=== PATIENT | male | born 1965 ===

== ENCOUNTER 2017-03-17 13:21 | Inpatient (IN) | payer MEDICAID, OTHER ==
[2017-03-17 13:36] VITALS: BMI 23.3
--- NOTE | 2017-03-17 15:33 | RAD ---
HISTORY: No chest pain. COMPARISON: None FINDINGS: LUNGS: No active pulmonary disease. PLEURA: No significant pleural effusion identified, no pneumothorax apparent. CARDIOVASCULAR: Normal. OSSEOUS STRUCTURES: No significant abnormalities. VISUALIZED UPPER ABDOMEN: Normal. OTHER FINDINGS: None. IMPRESSION: No active disease. Concordant results with the preliminary interpretation rendered by the emergency department physician procedure.
[2017-03-17 15:36] LABS: BASO % 0.2 % (0.0-2.0); EOS % 0.2 % (0.0-4.0); HEMATOCRIT 27.8 % (35.0-51.0); LYMPH # 1.8 K/uL (1.0-4.3); LYMPH % 29.5 % (20.0-40.0); MEAN CORPUSCULAR HEMOGLOBIN 27.7 pg (27.0-31.0); MEAN CORPUSCULAR HGB CONC 31.8 g/dL (33.0-37.0); MEAN PLATELET VOLUME 6.8 fl (7.2-11.7); MONO # 0.9 K/uL (0.0-0.8); NEUT # 3.3 K/uL (1.8-7.0); NEUT % 55.1 % (50.0-75.0); NRBC % 0.1 % (0.0-0.0); RED CELL DISTRIBUTION WIDTH 14.6 % (11.5-14.5)
[2017-03-17 15:52] LABS: ALKALINE PHOSPHATASE 64 U/L (38-126); ALT/SGPT 42 U/L (21-72); AST/SGOT 17 U/L (17-59); BILIRUBIN,TOTAL 0.2 mg/dl (0.2-1.3); BLOOD UREA NITROGEN 14 mg/dl (9-20); CALCIUM 7.8 mg/dL (8.4-10.2); CARBON DIOXIDE 25 mmol/L (22-30); CHLORIDE 100 mmol/L (98-107); GFR AFRICAN-AMERICAN > 60; GLUCOSE,RANDOM 388 mg/dL (75-110); LIPASE 266 U/L (23-300); MAGNESIUM 1.4 MG/DL (1.6-2.3); SODIUM 135 mmol/l (132-148); TOTAL PROTEIN 5.5 G/DL (6.3-8.2)
[2017-03-17 15:56] LABS: PARTIAL THROMBOPLASTIN TIME 29.5 Seconds (25.6-37.1)
[2017-03-17] MEDS ORDERED: Sodium Chloride 0.9% 1,000 ML IV ONE (15:57)
[2017-03-17 15:58] LABS: RBC URINE 1 /hpf (0-3); URINE BILIRUBIN NEGATIVE (NEGATIVE); URINE BLOOD NEGATIVE (NEGATIVE); URINE COLOR YELLOW (YELLOW); URINE GLUCOSE (UA) >=500 mg/dL (Normal); URINE KETONE NEGATIVE (NEGATIVE); URINE LEUKOCYTE ESTERASE NEG Leu/uL (Negative); URINE PROTEIN NEGATIVE (NEGATIVE); URINE UROBILINOGEN 0.2-1.0 mg/dL (0.2-1.0); WBC URINE < 1 /hpf (0-5)
[2017-03-17 16:00] LABS: ALB/GLOB RATIO 0.9 (1.0-2.1)
[2017-03-17] MEDS ORDERED: Insulin Regular 100 units/ml IV STA (18:39)
--- NOTE | 2017-03-17 18:40 | US ---
PROCEDURE: Bilateral lower extremity venous duplex Doppler. HISTORY: pain and swelling COMPARISON: None available. TECHNIQUE: Bilateral common femoral, superficial femoral, popliteal and posterior tibial veins were evaluated. Flow was assessed with color Doppler, compressibility, assessment of phasic flow and augmentation response. FINDINGS: COMMON FEMORAL VEIN: Right CFV: Unremarkable. Left CFV: Unremarkable. SUPERFICIAL FEMORAL VEIN: Right SFV: Unremarkable. Left SFV: Unremarkable. POPLITEAL VEIN: Right Popliteal: Unremarkable. Left Popliteal: Unremarkable. POSTERIOR TIBIAL VEIN: Right PTV: Unremarkable. Left PTV: Unremarkable. OTHER FINDINGS: None. IMPRESSION: No evidence of deep venous thrombosis.
[2017-03-17] MEDS ORDERED: Iodixanol 320 MG/ML 100 ML BOTTLE IV ONE (18:42)
[2017-03-17] MEDS ORDERED: Insulin Regular 100 units/ml ONE (18:59)
--- NOTE | 2017-03-17 19:40 | ED PDOC ---
HPI: Chest Pain Time Seen by Provider: 03/17/17 13:43 Chief Complaint (Nursing): Chest Pain History Per: Patient, Ell Teacher (togolese speaking nurse) History/Exam Limitations: no limitations Onset/Duration Of Symptoms: Days (3), Gradual Current Symptoms Are (Timing): Intermittent Episodes Severity: Mild Quality: Dull Associated Symptoms: Diaphoresis. denies: Nausea Modifying Factors: None Exacerbating Factors: None Alleviating Factors: None Additional History Per: Patient Additional Complaint(s): Complaints of chest pain and BLE leg swelling x a few days. no travel. Past Medical History Reviewed: Historical Data, Nursing Documentation, Vital Signs Vital Signs: Last Vital Signs Temp 98.0 F 03/17/17 13:38 Pulse 84 03/17/17 14:26 Resp 16 03/17/17 13:38 BP 109/61 03/17/17 14:26 Pulse Ox 99 03/17/17 13:38 - Medical History PMH: No Chronic Diseases - Family History Family History: States: Unknown Family Hx - Allergies Allergies/Adverse Reactions: Allergies Allergy/AdvReac Type Severity Reaction Status Date / Time No Known Allergies Allergy Verified 03/17/17 13:38 Curb-65 Severity Score - CURB-65 Severity Score Confusion: No Bun >19mg/dl (>7mmol/L): No Respiratory Rate greater than/equal to 30: No Systolic BP <90 or Diastolic BP less than/equal 60mmHg: No Age >64: No Curb-65 Score: 0 Percentage 30-day mortality: 0.6% Wells Criteria for PE - Wells Criteria for Pulmonary Embolism Clinical Signs and Symptoms of DVT: No P.E is #1 Diagnosis, or Equally Likely: No Heart Rate >100: No Immobilization at least 3 days;Surgery previous 4 weeks: No Previous, objectively diagnosed PE or DVT: No Hemoptysis: No Malignancy w/treatment within 6 months, or palliative: No Total Score: 0 Review of Systems ROS Statement: Except As Marked, All Systems Reviewed And Found Negative Constitutional: Negative for: Fever, Chills Cardiovascular: Positive for: Chest Pain, Edema (bl). Negative for: Palpitations, Light Headedness Respiratory: Negative for: Cough, Shortness of Breath Gastrointestinal: Negative for: Nausea, Vomiting, Abdominal Pain Neurological: Negative for: Weakness, Numbness Physical Exam - Reviewed Nursing Documentation Reviewed: Yes Vital Signs Reviewed: Yes - Physical Exam Appears: Positive for: Uncomfortable Head Exam: Positive for: ATRAUMATIC, NORMAL INSPECTION, NORMOCEPHALIC Eye Exam: Positive for: Normal appearance, EOMI, PERRL Neck: Positive for: Normal, Painless ROM, Supple. Negative for: Decreased ROM Cardiovascular/Chest: Positive for: Regular Rate, Rhythm, Chest Non Tender, Edema (+3 to shins bl) Respiratory: Positive for: Normal Breath Sounds. Negative for: Decreased Breath Sounds, Accessory Muscle Use, Crackles, Rales, Rhonchi, Stridor, Wheezing , Respiratory Distress, Plerual Rub Pulses-Radial (L): 2+ Pulses-Radial (R): 2+ Gastrointestinal/Abdominal: Positive for: Normal Exam, Bowel Sounds, Soft. Negative for: Tenderness Back: Positive for: Normal Inspection Extremity: Positive for: Normal ROM, Swelling. Negative for: Tenderness, Pedal Edema, Calf Tenderness, Deformity Neurologic/Psych: Positive for: Alert, stone sawyer II-XII, Oriented. Negative for: Motor/Sensory Deficits - Laboratory Results Result Diagrams: 03/17/17 15:20 03/17/17 15:20 - ECG ECG: Positive for: Interpreted By [facility] ECG Rhythm: Positive for: Normal QRS, Normal ST Segment, Sinus Rhythm. Negative for: ST/T Changes Interpretation Of Abn EKG: no evidence of ischemia O2 Sat by Pulse Oximetry: 99 Pulse Ox Interpretation: Normal - Radiology X-Ray: Interpreted by [facility] X-Ray Interpretation: No Acute Disease - Progress ED Course And Treament: will admit to tele obs per hospitalist Re-evaluation Time: 19:41 Condition: Improved Disposition - Clinical Impression Clinical Impression: Chest pain - Patient ED Disposition Is Patient to be Admitted: Yes Counseled Patient/Family Regarding: Studies Performed, Diagnosis - Disposition Disposition Time: 19:41 Condition: STABLE - Pt Status Changed To: Hospital Disposition Of: Observation - POA Present On Arrival: None
[2017-03-17] MEDS ORDERED: Magnesium Sulfate 2 GM in Sodium Chloride 0.9% 100 ML IVPB ONE (21:22)
[2017-03-17] MEDS: Insulin Lispro (humaLOG) 100 Units/ml Inj SC SCH (23:56)
[2017-03-18] MEDS: Dextrose 5%/0.9% NS 1,000 ML IV SCH ×2 (01:21→08:30)
[2017-03-18 05:26] LABS: BASO % 0.2 % (0.0-2.0); EOS # 0.1 K/uL (0.0-0.7); EOS % 2.2 % (0.0-4.0); HEMATOCRIT 26.5 % (35.0-51.0); LYMPH # 1.9 K/uL (1.0-4.3); LYMPH % 33.9 % (20.0-40.0); MEAN CORPUSCULAR HEMOGLOBIN 27.7 pg (27.0-31.0); MEAN CORPUSCULAR HGB CONC 32.2 g/dL (33.0-37.0); MEAN PLATELET VOLUME 6.5 fl (7.2-11.7); MONO # 0.9 K/uL (0.0-0.8); MONO % 14.9 % (0.0-10.0); NEUT # 2.8 K/uL (1.8-7.0); NEUT % 48.8 % (50.0-75.0); NRBC % 0.1 % (0.0-0.0); RED CELL DISTRIBUTION WIDTH 14.1 % (11.5-14.5); WHITE BLOOD COUNT 5.7 K/uL (4.8-10.8)
[2017-03-18 05:56] LABS: BLOOD UREA NITROGEN 9 mg/dl (9-20); CALCIUM 7.1 mg/dL (8.4-10.2); CARBON DIOXIDE 30 mmol/L (22-30); CHLORIDE 105 mmol/L (98-107); GFR AFRICAN-AMERICAN > 60; GLUCOSE,RANDOM 262 mg/dL (75-110); SODIUM 137 mmol/l (132-148)
[2017-03-18 06:14] LABS: THYROID STIMULATING HORMONE 1.34 mIU/ML (0.46-4.68)
[2017-03-18] MEDS: Insulin Lispro (humaLOG) 100 Units/ml Inj SC SCH ×4 (07:51→22:25)
[2017-03-18] MEDS: GlipiZIDE 2.5 mg SR Tab PO SCH (08:34)
[2017-03-18] MEDS: Thiamine 100 mg/ml Inj IV SCH (08:35)
--- NOTE | 2017-03-18 15:19 | NM ---
COMPARISON: Chest radiograph 03/17/2017. TECHNIQUE: 38.560 mCi technetium 99-m DTPA aerosol. 5.0 mCI technetium 99-m MAA administered intravenously. FINDINGS: Mass profusion ventilation defects are minimally appreciated at the right apex, Martín which is nonsegmental. The remainder the profusion and ventilation appears normal. Low probability for pulmonary embolus. IMPRESSION: Low probability for pulmonary embolus.
--- NOTE | 2017-03-18 15:32 | CP.PCM.HP ---
History of Present Illness - History of Present Illness History of Present Illness: CC: Abdominal pain and Diarrhea HPI: Poor Historian A 51yoM who was recently diagnosed with Colitis and started on Mesalamine presented with abdominal pain 6-10/07 associated bloody diarrhea. +weight Loss about 50lbs over 1-2 months.Complaints of chest pain, SOB and BLE leg swelling x a few days. No travel. Present on Admission - Present on Admission Any Indicators Present on Admission: No History of DVT/PE: No History of Uncontrolled Diabetes: No Urinary Catheter: No Decubitus Ulcer Present: No Review of Systems - Review of Systems All systems: reviewed and no additional remarkable complaints except - Gastrointestinal Gastrointestinal: As Per HPI Past Patient History - Past Medical History & Family History Past Medical History?: Yes Past Family History: Reviewed and not pertinent - Past Social History Smoking Status: Former Smoker Alcohol: None Drugs: Denies - CARDIAC Hx Cardiac Disorders: No - PULMONARY Hx Respiratory Disorders: No - NEUROLOGICAL Hx Neurological Disorder: No - HEENT Hx HEENT Problems: No - RENAL Hx Chronic Kidney Disease: No - ENDOCRINE/METABOLIC Hx Endocrine Disorders: Yes (diabetes) Hx Diabetes Mellitus Type 2: Yes - HEMATOLOGICAL/ONCOLOGICAL Hx Blood Disorders: No Hx AIDS: No Hx Human Immunodeficiency Virus (HIV): No - INTEGUMENTARY Hx Dermatological Problems: No - MUSCULOSKELETAL/RHEUMATOLOGICAL Hx Musculoskeletal Disorders: No Hx Falls: Yes - GASTROINTESTINAL Hx Gastrointestinal Disorders: Yes Hx Colitis: Yes - GENITOURINARY/GYNECOLOGICAL Hx Genitourinary Disorders: No - PSYCHIATRIC Hx Psychophysiologic Disorder: No Hx Substance Use: No - SURGICAL HISTORY Hx Surgeries: No - ANESTHESIA Hx Anesthesia: No Hx Anesthesia Reactions: No Hx Malignant Hyperthermia: No Has any member of the family had a problem w/ anesthesia?: No Meds Allergies/Adverse Reactions: Allergies Allergy/AdvReac Type Severity Reaction Status Date / Time No Known Allergies Allergy Verified 03/17/17 13:38 Physical Exam - Constitutional Appears: Well, No Acute Distress, Chronically Ill - Head Exam Head Exam: ATRAUMATIC, NORMAL INSPECTION, NORMOCEPHALIC - Eye Exam Eye Exam: EOMI, Normal appearance, PERRL Pupil Exam: NORMAL ACCOMODATION, PERRL - ENT Exam ENT Exam: Mucous Membranes Moist, Normal Exam - Neck Exam Neck exam: Positive for: Full Rom, Normal Inspection. Negative for: Lymphadenopathy - Respiratory Exam Respiratory Exam: Clear to Auscultation Bilateral, NORMAL BREATHING PATTERN - Cardiovascular Exam Cardiovascular Exam: REGULAR RHYTHM, +S1, +S2 - GI/Abdominal Exam GI & Abdominal Exam: Firm, Normal Bowel Sounds, Soft, Tenderness - Extremities Exam Extremities exam: Positive for: full ROM, normal capillary refill, pedal edema ( B/L LE ) - Back Exam Back exam: FULL ROM, NORMAL INSPECTION - Neurological Exam Neurological exam: Alert, CN II-XII Intact, Normal Gait, Oriented x3, Reflexes Normal - Psychiatric Exam Psychiatric exam: Normal Affect, Normal Mood - Skin Skin Exam: Dry, Intact, Normal Color, Warm Results - Vital Signs Recent Vital Signs: Last Vital Signs Temp 97.7 F 03/18/17 12:15 Pulse 78 03/18/17 12:15 Resp 20 03/18/17 12:15 BP 123/72 03/18/17 12:15 Pulse Ox 100 03/18/17 12:15 - Labs Result Diagrams: 03/18/17 04:30 03/18/17 04:30 Labs: Laboratory Results - last 24 hr 03/17/17 03/17/17 03/17/17 15:20 15:20 15:20 WBC 6.0 RBC 3.19 L Hgb 8.8 L Hct 27.8 L MCV 87.0 MCH 27.7 MCHC 31.8 L RDW 14.6 H Plt Count 396 MPV 6.8 L Neut % (Auto) 55.1 Lymph % (Auto) 29.5 [place] % (Auto) 15.0 H Eos % (Auto) 0.2 Baso % (Auto) 0.2 Neut # 3.3 Lymph # 1.8 [place] # 0.9 H Eos # 0.0 Baso # 0.0 PT 11.8 INR 1.1 APTT 29.5 D-Dimer, Quantitative 256 H Sodium 135 Potassium 4.0 Chloride 100 Carbon Dioxide 25 Anion Gap 14 BUN 14 Creatinine 0.5 L Est GFR ( Amer) > 60 Est GFR (Non-Af Amer) > 60 POC Glucose (mg/dL) Random Glucose 388 H Calcium 7.8 L Magnesium 1.4 L Ferritin Total Bilirubin 0.2 AST 17 ALT 42 Alkaline Phosphatase 64 Troponin I < 0.0120 NT-Pro-B Natriuret Pep 871 Total Protein 5.5 L Albumin 2.6 L Globulin 3.0 Albumin/Globulin Ratio 0.9 L Lipase 266 Vitamin B12 TSH 3rd Generation Urine Color Urine Clarity Urine pH Ur Specific Ingram Urine Protein Urine Glucose (UA) Urine Ketones Urine Blood Urine Nitrate Urine Bilirubin Urine Urobilinogen Ur Leukocyte Esterase Urine RBC (Auto) Urine Microscopic WBC Ur Squamous Epith Cells Alcohol, Quantitative 03/17/17 03/17/17 03/17/17 15:46 18:29 20:01 WBC RBC Hgb Hct MCV MCH MCHC RDW Plt Count MPV Neut % (Auto) Lymph % (Auto) [place] % (Auto) Eos % (Auto) Baso % (Auto) Neut # Lymph # [place] # Eos # Baso # PT INR APTT D-Dimer, Quantitative Sodium Potassium Chloride Carbon Dioxide Anion Gap BUN Creatinine Est GFR ( Amer) Est GFR (Non-Af Amer) POC Glucose (mg/dL) 311 H 207 H Random Glucose Calcium Magnesium Ferritin Total Bilirubin AST ALT Alkaline Phosphatase Troponin I NT-Pro-B Natriuret Pep Total Protein Albumin Globulin Albumin/Globulin Ratio Lipase Vitamin B12 TSH 3rd Generation Urine Color Yellow Urine Clarity Clear Urine pH 6.0 Ur Specific [place] 1.035 H Urine Protein Negative Urine Glucose (UA) >=500 Urine Ketones Negative Urine Blood Negative Urine Nitrate Negative Urine Bilirubin Negative Urine Urobilinogen 0.2-1.0 Ur Leukocyte Esterase Neg Urine RBC (Auto) 1 Urine Microscopic WBC < 1 Ur Squamous Epith Cells < 1 Alcohol, Quantitative 03/17/17 03/17/17 03/18/17 20:38 23:29 04:30 WBC 5.7 RBC 3.08 L Hgb 8.5 L Hct 26.5 L MCV 86.0 MCH 27.7 MCHC 32.2 L RDW 14.1 Plt Count 367 MPV 6.5 L Neut % (Auto) 48.8 L Lymph % (Auto) 33.9 [place] % (Auto) 14.9 H Eos % (Auto) 2.2 Baso % (Auto) 0.2 Neut # 2.8 Lymph # 1.9 [place] # 0.9 H Eos # 0.1 Baso # 0.0 PT INR APTT D-Dimer, Quantitative Sodium Potassium Chloride Carbon Dioxide Anion Gap BUN Creatinine Est GFR ( Amer) Est GFR (Non-Af Amer) POC Glucose (mg/dL) 289 H Random Glucose Calcium Magnesium Ferritin Total Bilirubin AST ALT Alkaline Phosphatase Troponin I NT-Pro-B Natriuret Pep Total Protein Albumin Globulin Albumin/Globulin Ratio Lipase Vitamin B12 TSH 3rd Generation Urine Color Urine Clarity Urine pH Ur Specific [place] Urine Protein Urine Glucose (UA) Urine Ketones Urine Blood Urine Nitrate Urine Bilirubin Urine Urobilinogen Ur Leukocyte Esterase Urine RBC (Auto) Urine Microscopic WBC Ur Squamous Epith Cells Alcohol, Quantitative < 10 03/18/17 03/18/17 03/18/17 04:30 05:47 10:47 WBC RBC Hgb Hct MCV MCH MCHC RDW Plt Count MPV Neut % (Auto) Lymph % (Auto) [place] % (Auto) Eos % (Auto) Baso % (Auto) Neut # Lymph # [place] # Eos # Baso # PT INR APTT D-Dimer, Quantitative Sodium 137 Potassium 4.0 Chloride 105 Carbon Dioxide 30 Anion Gap 6 L BUN 9 Creatinine 0.5 L Est GFR ( Amer) > 60 Est GFR (Non-Af Amer) > 60 POC Glucose (mg/dL) 270 H 276 H Random Glucose 262 H Calcium 7.1 L Magnesium Ferritin Total Bilirubin AST ALT Alkaline Phosphatase Troponin I NT-Pro-B Natriuret Pep Total Protein Albumin Globulin Albumin/Globulin Ratio Lipase Vitamin B12 970 H TSH 3rd Generation 1.34 Urine Color Urine Clarity Urine pH Ur Specific [place] Urine Protein Urine Glucose (UA) Urine Ketones Urine Blood Urine Nitrate Urine Bilirubin Urine Urobilinogen Ur Leukocyte Esterase Urine RBC (Auto) Urine Microscopic WBC Ur Squamous Epith Cells Alcohol, Quantitative 03/18/17 14:15 WBC RBC Hgb Hct MCV MCH MCHC RDW Plt Count MPV Neut % (Auto) Lymph % (Auto) [place] % (Auto) Eos % (Auto) Baso % (Auto) Neut # Lymph # [place] # Eos # Baso # PT INR APTT D-Dimer, Quantitative Sodium Potassium Chloride Carbon Dioxide Anion Gap BUN Creatinine Est GFR ( Amer) Est GFR (Non-Af Amer) POC Glucose (mg/dL) Random Glucose Calcium Magnesium Ferritin 60.6 Total Bilirubin AST ALT Alkaline Phosphatase Troponin I NT-Pro-B Natriuret Pep Total Protein Albumin Globulin Albumin/Globulin Ratio Lipase Vitamin B12 TSH 3rd Generation Urine Color Urine Clarity Urine pH Ur Specific [place] Urine Protein Urine Glucose (UA) Urine Ketones Urine Blood Urine Nitrate Urine Bilirubin Urine Urobilinogen Ur Leukocyte Esterase Urine RBC (Auto) Urine Microscopic WBC Ur Squamous Epith Cells Alcohol, Quantitative - EKG Data EKG Interpreted by: Myself EKG shows normal: Sinus rhythm, [place], Intervals, QRS complexes Rate: Normal - Imaging and Cardiology Chest x-ray Status: Report reviewed by me Additional comment: No Active Disease B/L LE DVT: Status: Report reviewed by me Additional comment: No DVT Assessment & Plan (1) Abdominal pain Assessment and Plan: Colitis ?Type Weight Loss Diarrhea IVF Mesalamine Tumor Markers Abdominal U/S Complete GI Consult Status: Acute (2) Pitting edema Assessment and Plan: Hypoalbuminemia Vs R/O Cardiac Vs Liver Etiology U/A Echocardiography Elevate LE Status: Chronic (3) Chest pain Assessment and Plan: ACS Ruled out Status: Ruled-out Priority: Low (4) Diabetes mellitus with hyperglycemia Assessment and Plan: Continue glipizide Humalog with Low coverage HgA1C Status: Chronic
[2017-03-18 17:24] LABS: IRON < 10 ug/dL (49-181)
[2017-03-19 05:27] LABS: HEMATOCRIT 28.2 % (35.0-51.0); MEAN CELL VOLUME 86.7 fl (80.0-94.0); MEAN CORPUSCULAR HEMOGLOBIN 27.6 pg (27.0-31.0); MEAN CORPUSCULAR HGB CONC 31.9 g/dL (33.0-37.0); RED CELL DISTRIBUTION WIDTH 14.6 % (11.5-14.5); WHITE BLOOD COUNT 6.2 K/uL (4.8-10.8)
[2017-03-19 05:49] LABS: BLOOD UREA NITROGEN 5 mg/dl (9-20); CALCIUM 7.1 mg/dL (8.4-10.2); CARBON DIOXIDE 30 mmol/L (22-30); CHLORIDE 104 mmol/L (98-107); GFR AFRICAN-AMERICAN > 60; GLUCOSE,RANDOM 137 mg/dL (75-110); POTASSIUM 3.5 MMOL/L (3.6-5.0); SODIUM 137 mmol/l (132-148)
[2017-03-19] MEDS: Insulin Lispro (humaLOG) 100 Units/ml Inj SC SCH ×3 (08:09→22:52)
[2017-03-19] MEDS ORDERED: Potassium Chloride 20 mEq/15 ml LIQ UD PO STA (08:24)
[2017-03-19] MEDS: Thiamine 100 mg/ml Inj IV SCH (09:45)
[2017-03-19] MEDS: GlipiZIDE 2.5 mg SR Tab PO SCH (09:45)
--- NOTE | 2017-03-19 09:45 | US ---
HISTORY: cirrhosis COMPARISON: None. TECHNIQUE: Sonographic evaluation of the abdomen. FINDINGS: LIVER: Measures 16.8 cm. Normal echogenicity of the liver parenchyma. No mass. No intrahepatic bile duct dilatation. GALLBLADDER: Unremarkable. No gallstones. COMMON BILE DUCT: Measures 5 mm. No stones. No dilatation. PANCREAS: Not well-visualized due to overlying bowel gas RIGHT KIDNEY: Measures 12.3 x 5.4 x 4.2cm. Normal echogenicity. No calculus, mass, or hydronephrosis. Upper pole cyst measuring 5.3 x 5.0 x 4.6 centimeter. LEFT KIDNEY: Measures 13.0 x 5.6 x 4.8cm. Normal echogenicity. No calculus, mass, or hydronephrosis. Exophytic midpole cyst measuring 1.8 x 1.6 x 1.4 centimeter. Upper pole cyst measuring 1.8 x 1.8 x 1.7 centimeter. SPLEEN: Normal in size and contour. No mass. AORTA: No aneurysmal dilatation. IVC: Unremarkable. OTHER FINDINGS: None. IMPRESSION: Bilateral renal cysts. Otherwise, unremarkable abdominal ultrasound.
--- NOTE | 2017-03-19 11:08 | CARD ---
APPROVED REPORT EXAM: Two-dimensional and M-mode echocardiogram with Doppler and color Doppler. Other Information Quality : AverageRhythm : NSR Technically limited study due to Poor Apical Window,due to body habitus INDICATION Chest Pain 2D DIMENSIONS IVSd1.20 (0.7-1.1cm)LVDd3.83 (3.9-5.9cm) LVOT Diameter2.49 (1.8-2.4cm)PWd1.04 (0.7-1.1cm) IVSs1.19 (0.8-1.2cm)LVDs2.69 (2.5-4.0cm) FS (%) 29.8 %PWs1.64 (0.8-1.2cm) M-Mode DIMENSIONS Left Atrium (MM)4.18 (2.5-4.0cm)IVSd0.85 (0.7-1.1cm) Aortic Root3.29 (2.2-3.7cm)LVDd6.03 (4.0-5.6cm) Aortic Cusp Exc.2.09 (1.5-2.0cm)PWd0.82 (0.7-1.1cm) IVSs1.47 cmFS (%) 43 % LVDs3.41 (2.0-3.8cm)PWs1.12 cm Mitral Valve E/A ratio0.0 TDI E/Lateral E'0.0E/Medial E'0.0 Pulmonary Valve PV Peak Hbuacpll98.4cm/s LEFT VENTRICLE The left ventricle is normal size. There is normal left ventricular wall thickness. The left ventricular function is normal. The left ventricular ejection fraction is 60% There is normal LV segmental wall motion. The left ventricular diastolic function is normal. No left ventricle thrombus noted on this study. There is no ventricular septal defect visualized. There is no left ventricular aneurysm. There is no mass noted in the left ventricle. RIGHT VENTRICLE The right ventricle is normal size. There is normal right ventricular wall thickness. The right ventricular systolic function is normal. ATRIA The left atrium size is normal. The right atrium size is normal. The interatrial septum is intact with no evidence for an atrial septal defect. AORTIC VALVE The aortic valve is normal in structure. No aortic regurgitation is present. There is no aortic valvular stenosis. There is no aortic valvular vegetation. MITRAL VALVE The mitral valve is normal in structure. There is no evidence of mitral valve prolapse. There is no mitral valve stenosis. There is no mitral valve regurgitation noted. TRICUSPID VALVE The tricuspid valve is normal in structure. There is no tricuspid valve regurgitation noted. There is no tricuspid valve prolapse or vegetation. There is no tricuspid valve stenosis. PULMONIC VALVE The pulmonary valve is normal in structure. There is no pulmonic valvular regurgitation. There is no pulmonic valvular stenosis. GREAT VESSELS The aortic root is normal in size. The ascending aorta is normal in size. The IVC is normal in size and collapses >50% with inspiration. PERICARDIAL EFFUSION The pericardium appears normal. There is no pleural effusion. <Conclusion> Normal Echocardiogram
--- NOTE | 2017-03-19 11:53 | CARD ---
APPROVED REPORT EKG Measurement Heart [id number] <Conclusion> Normal sinus rhythm Nonspecific T wave abnormality Abnormal ECG
[2017-03-19] MEDS ORDERED: Potassium Chloride 20 mEq ER Tab PO ONE (13:28)
[2017-03-19] MEDS ORDERED: methylPREDNISolone 20 MG in Sodium Chloride 0.9% 50 ML IV SCH (17:00)
--- NOTE | 2017-03-19 17:59 | CP.PCM.CON ---
History of Present Illness - History of Present Illness History of Present Illness: 51 yo male with h/o diarrhea and rectal bleeding admitted with progressively worsening symptoms over past few weeks. Was admitted to [facility] in early January with similar symptoms. Had colonoscopy then and biopsies of left colon were c/w ulcerative colitis. Was given prednisone 50 mg daily and Lialda. He has not been using Lialda due to cost. During that admission stools for C. diff were negative. Lately having diarrrhea multiple times daily and ankle swelling. CT during that admission showed pancolitis. Review of Systems - Constitutional Constitutional: absent: Chills - EENT Eyes: absent: Blurred Vision Nose/Mouth/Throat: absent: Epistaxis - Cardiovascular Cardiovascular: absent: Chest Pain - Respiratory Respiratory: absent: Cough - Gastrointestinal Gastrointestinal: As Per HPI - Genitourinary Genitourinary: absent: Change in Urinary Stream Past Patient History - Past Medical History & Family History Past Medical History?: Yes Past Family History: Reviewed and not pertinent - Past Social History Smoking Status: Former Smoker Alcohol: None Drugs: Denies - CARDIAC Hx Cardiac Disorders: No - PULMONARY Hx Respiratory Disorders: No - NEUROLOGICAL Hx Neurological Disorder: No - HEENT Hx HEENT Problems: No - RENAL Hx Chronic Kidney Disease: No - ENDOCRINE/METABOLIC Hx Endocrine Disorders: Yes (diabetes) Hx Diabetes Mellitus Type 2: Yes - HEMATOLOGICAL/ONCOLOGICAL Hx Blood Disorders: No Hx AIDS: No Hx Human Immunodeficiency Virus (HIV): No - INTEGUMENTARY Hx Dermatological Problems: No - MUSCULOSKELETAL/RHEUMATOLOGICAL Hx Musculoskeletal Disorders: No Hx Falls: Yes - GASTROINTESTINAL Hx Gastrointestinal Disorders: Yes Hx Colitis: Yes - GENITOURINARY/GYNECOLOGICAL Hx Genitourinary Disorders: No - PSYCHIATRIC Hx Psychophysiologic Disorder: No Hx Substance Use: No - SURGICAL HISTORY Hx Surgeries: No - ANESTHESIA Hx Anesthesia: No Hx Anesthesia Reactions: No Hx Malignant Hyperthermia: No Has any member of the family had a problem w/ anesthesia?: No Meds Allergies/Adverse Reactions: Allergies Allergy/AdvReac Type Severity Reaction Status Date / Time No Known Allergies Allergy Verified 03/17/17 13:38 - Medications Medications: Current Medications Famotidine (Pepcid) 20 mg PO BID [facility] Last Admin: 03/19/17 17:38 Dose: 20 mg Folic Acid (Folic Acid) 1 mg PO DAILY [facility] Last Admin: 03/19/17 17:32 Dose: 1 mg Glipizide (Glucotrol Xl) 2.5 mg PO BRK [facility] Last Admin: 03/19/17 09:45 Dose: 2.5 mg Ciprofloxacin (Cipro 400mg/200ml Dsw) 400 mg in 200 mls @ 200 mls/hr IVPB Q12 [facility] PRN Reason: Protocol Insulin Human Lispro (Humalog) 0 units SC ACHS [facility] PRN Reason: Protocol Last Admin: 03/19/17 17:34 Dose: 3 units Mercaptopurine (6-Mp) 50 mg PO DAILY [facility] Mesalamine (Delzicol) 800 mg PO BID [facility] Last Admin: 03/19/17 17:33 Dose: 800 mg Methylprednisolone (Solu-Medrol) 20 mg IVP Q8 [facility] Thiamine HCl (Vitamin B1 Tab) 100 mg PO DAILY [facility] Last Admin: 03/19/17 16:18 Dose: Not Given Physical Exam - Constitutional Appears: No Acute Distress - Head Exam Head Exam: ATRAUMATIC - Eye Exam Eye Exam: Normal appearance - ENT Exam ENT Exam: Mucous Membranes Moist - Respiratory Exam Respiratory Exam: Clear to Auscultation Bilateral - Cardiovascular Exam Cardiovascular Exam: REGULAR RHYTHM, +S1, +S2 - GI/Abdominal Exam GI & Abdominal Exam: Normal Bowel Sounds, Tenderness Additional comments: generalized tenderness no guarding or rebound Results - Vital Signs Recent Vital Signs: Last Vital Signs Temp 98.3 F 03/19/17 16:23 Pulse 78 03/19/17 16:23 Resp 14 03/19/17 16:23 BP 99/56 L 03/19/17 16:23 Pulse Ox 95 03/19/17 16:23 - Labs Result Diagrams: 03/19/17 04:35 03/19/17 04:35 Labs: Laboratory Results - last 24 hr 03/18/17 03/18/17 03/19/17 14:15 21:55 04:35 WBC 6.2 RBC 3.25 L Hgb 9.0 L Hct 28.2 L MCV 86.7 MCH 27.6 MCHC 31.9 L RDW 14.6 H Plt Count 380 Sodium Potassium Chloride Carbon Dioxide Anion Gap BUN Creatinine Est GFR ( Amer) Est GFR (Non-Af Amer) POC Glucose (mg/dL) 159 H Random Glucose Hemoglobin A1c 10.3 H Calcium 03/19/17 03/19/17 03/19/17 04:35 05:17 11:12 WBC RBC Hgb Hct MCV MCH MCHC RDW Plt Count Sodium 137 Potassium 3.5 L Chloride 104 Carbon Dioxide 30 Anion Gap 7 L BUN 5 L Creatinine 0.5 L Est GFR ( Amer) > 60 Est GFR (Non-Af Amer) > 60 POC Glucose (mg/dL) 147 H 255 H Random Glucose 137 H Hemoglobin A1c Calcium 7.1 L Assessment & Plan (1) Acute ulcerative colitis with rectal bleeding Assessment and Plan: Previously diagnosed with ulcerative colitis and current findings are c/w this illness. Will do C diff studies. Corticosteroids and IV cipro started. Will also give 6 MP 50 mg daily. Will follow with you. Status: Acute
[2017-03-19] MEDS: MethylPREDNISolone 40 mg Vial IVP SCH (18:46)
[2017-03-19] MEDS: Ciprofloxacin 400mg/200ml D5W 400 MG/200 ML BAG IVPB SCH (20:36)
--- NOTE | 2017-03-19 21:40 | CP.PCM.PN ---
Subjective - Date & Time of Evaluation Date of Evaluation: 03/19/17 Time of Evaluation: 09:05 - Subjective Subjective: Continue Diarrhea and abdominal pain. Denies vomiting. Objective - Vital Signs/Intake and Output Vital Signs (last 24 hours): Temp Pulse Resp BP Pulse Ox 99.5 F 96 H 14 116/70 98 03/19/17 20:06 03/19/17 20:06 03/19/17 20:06 03/19/17 20:06 03/19/17 20:06 - Medications Medications: Current Medications Famotidine (Pepcid) 20 mg PO BID [facility] Last Admin: 03/19/17 17:38 Dose: 20 mg Folic Acid (Folic Acid) 1 mg PO DAILY [facility] Last Admin: 03/19/17 17:32 Dose: 1 mg Glipizide (Glucotrol Xl) 2.5 mg PO BRK [facility] Last Admin: 03/19/17 09:45 Dose: 2.5 mg Ciprofloxacin (Cipro 400mg/200ml Dsw) 400 mg in 200 mls @ 200 mls/hr IVPB Q12 [facility] PRN Reason: Protocol Last Admin: 03/19/17 20:36 Dose: 200 mls/hr Insulin Human Lispro (Humalog) 0 units SC ACHS [facility] PRN Reason: Protocol Last Admin: 03/19/17 17:34 Dose: 3 units Mercaptopurine (6-Mp) 50 mg PO DAILY [facility] Last Admin: 03/19/17 18:46 Dose: Not Given Mesalamine (Delzicol) 800 mg PO BID [facility] Last Admin: 03/19/17 17:33 Dose: 800 mg Methylprednisolone (Solu-Medrol) 20 mg IVP Q8 [facility] Last Admin: 03/19/17 18:46 Dose: Not Given Morphine Sulfate (Morphine) 1 mg IVP Q4 PRN PRN Reason: Pain, severe (8-10) Last Admin: 03/19/17 20:37 Dose: 1 mg Morphine Sulfate (Morphine) 0.5 mg IVP Q4 PRN PRN Reason: Pain, moderate (4-7) Thiamine HCl (Vitamin B1 Tab) 100 mg PO DAILY [facility] Last Admin: 03/19/17 16:18 Dose: Not Given - Labs Labs: 03/19/17 04:35 03/19/17 04:35 PT 11.8 Seconds (9.8-13.1) 03/17/17 15:20 INR 1.1 (0.9-1.2) 03/17/17 15:20 APTT 29.5 Seconds (25.6-37.1) 03/17/17 15:20 - Constitutional Appears: No Acute Distress - Head Exam Head Exam: ATRAUMATIC, NORMAL INSPECTION, NORMOCEPHALIC - ENT Exam ENT Exam: Mucous Membranes Moist, Normal Exam - Neck Exam Neck Exam: Full ROM, Normal Inspection. absent: Lymphadenopathy - Respiratory Exam Respiratory Exam: Clear to Ausculation Bilateral, NORMAL BREATHING PATTERN - Cardiovascular Exam Cardiovascular Exam: REGULAR RHYTHM, +S1, +S2. absent: Murmur - GI/Abdominal Exam GI & Abdominal Exam: Soft, Tenderness, Normal Bowel Sounds, Organomegaly. absent: Guarding, Rigid Assessment and Plan (1) Abdominal pain Assessment & Plan: Colitis ?Type Weight Loss Diarrhea IVF Mesalamine Tumor Markers Abdominal U/S Complete GI Consult Status: Acute (2) Pitting edema Assessment and Plan: Hypoalbuminemia Vs R/O Cardiac Vs Liver Etiology U/A Echocardiography Elevate LE Status: Chronic (3) Chest pain Assessment and Plan: ACS Ruled out Status: Ruled-out Priority: Low (4) Diabetes mellitus with hyperglycemia Assessment and Plan: Continue glipizide Humalog with Low coverage HgA1C Status: Acute
[2017-03-20] MEDS: MethylPREDNISolone 40 mg Vial IVP SCH ×3 (02:24→17:27)
[2017-03-20 05:35] LABS: MEAN CELL VOLUME 85.9 fl (80.0-94.0); MEAN CORPUSCULAR HEMOGLOBIN 27.8 pg (27.0-31.0); MEAN CORPUSCULAR HGB CONC 32.3 g/dL (33.0-37.0); RED CELL DISTRIBUTION WIDTH 14.8 % (11.5-14.5); WHITE BLOOD COUNT 7.6 K/uL (4.8-10.8)
[2017-03-20 06:01] LABS: BLOOD UREA NITROGEN 7 mg/dl (9-20); CALCIUM 7.4 mg/dL (8.4-10.2); CARBON DIOXIDE 29 mmol/L (22-30); CHLORIDE 104 mmol/L (98-107); GFR AFRICAN-AMERICAN > 60; GLUCOSE,RANDOM 301 mg/dL (75-110); MAGNESIUM 1.7 MG/DL (1.6-2.3); POTASSIUM 4.3 MMOL/L (3.6-5.0); SODIUM 135 mmol/l (132-148)
[2017-03-20 06:16] LABS: CARCINOEMBRYONIC ANTIGEN 3.8 ng/mL (0-3.0)
[2017-03-20] MEDS: Ciprofloxacin 400mg/200ml D5W 400 MG/200 ML BAG IVPB SCH ×2 (09:25→21:24)
--- NOTE | 2017-03-20 09:25 | PQF GENQUE ---
This form is a permanent part of the medical record 03/20/17 Dr. Kowalski, Would you please clarify if there is an associated diagnosis or not to go along with the H&H findings. Admitted with abdominal pain with associated bloody diarrhea and weight loss. GI consult: Acute Ulcerative Colitis with rectal bleeding. H&H 8.8/ 26.5 - 9.4/ 29. Iron / TIBC/, % Saturation all low. Treated with Folic Acid, IVF, IV steroids, IV Cipro, Mesalamine and 6-MP. Clarification of your documentation is requested to better reflect the severity of illness and intensity of treatment of your patient. Indicators present [] Specify: [] [] Specify: [] [] Specify: [] [] Specify: [] Location in the medical record that reflects the above clinical findings: [] Treatment Provided: [] PHYSICIAN'S RESPONSE Based on your medical judgment of the clinical indicators outlined above please clarify the following: [X] Practitioner response : Acute Colitis with Rectal Bleeding; Unable o Determine Etiology: IBD Vs Infectious [] If unable to determine, please check the box, sign and date. Present On Admission (POA) Indicator: [X] Present at the time of admission [] Not present at the time of admission [] Clinically Undetermined In responding to this query, please exercise your independent professional judgment. The fact that a question is asked does not imply that any particular answer is desired or expected. Thank you for your clarification on this documentation. If you have any questions please call:ext [phone] * Thank you, Mariana William RN, CDMP [facility]
[2017-03-20] MEDS: GlipiZIDE 2.5 mg SR Tab PO SCH (09:26)
[2017-03-20] MEDS: Insulin Lispro (humaLOG) 100 Units/ml Inj SC SCH ×4 (09:27→21:35)
--- NOTE | 2017-03-20 15:07 | CP.PCM.PN ---
Subjective - Date & Time of Evaluation Date of Evaluation: 03/20/17 Time of Evaluation: 15:04 - Subjective Subjective: Less abdominal pain, stools are more formed. No blood. Objective - Vital Signs/Intake and Output Vital Signs (last 24 hours): Temp Pulse Resp BP Pulse Ox 97.6 F 76 20 94/56 L 99 03/20/17 13:00 03/20/17 13:00 03/20/17 13:00 03/20/17 13:00 03/20/17 13:00 - Medications Medications: Current Medications Famotidine (Pepcid) 20 mg PO BID [facility] Last Admin: 03/20/17 09:26 Dose: 20 mg Folic Acid (Folic Acid) 1 mg PO DAILY [facility] Last Admin: 03/20/17 09:25 Dose: 1 mg Glipizide (Glucotrol Xl) 2.5 mg PO BRK [facility] Last Admin: 03/20/17 09:26 Dose: 2.5 mg Ciprofloxacin (Cipro 400mg/200ml Dsw) 400 mg in 200 mls @ 200 mls/hr IVPB Q12 [facility] PRN Reason: Protocol Last Admin: 03/20/17 09:25 Dose: 200 mls/hr Insulin Human Lispro (Humalog) 0 units SC ACHS [facility] PRN Reason: Protocol Last Admin: 03/20/17 13:32 Dose: 6 units Mercaptopurine (6-Mp) 50 mg PO DAILY [facility] Last Admin: 03/20/17 09:30 Dose: 50 mg Mesalamine (Delzicol) 800 mg PO BID [facility] Last Admin: 03/20/17 09:27 Dose: 800 mg Methylprednisolone (Solu-Medrol) 15 mg IVP Q8 [facility] Morphine Sulfate (Morphine) 1 mg IVP Q4 PRN PRN Reason: Pain, severe (8-10) Last Admin: 03/20/17 02:26 Dose: 1 mg Morphine Sulfate (Morphine) 0.5 mg IVP Q4 PRN PRN Reason: Pain, moderate (4-7) Thiamine HCl (Vitamin B1 Tab) 100 mg PO DAILY [facility] Last Admin: 03/20/17 09:26 Dose: 100 mg - Labs Labs: 03/20/17 05:00 03/20/17 05:00 PT 11.8 Seconds (9.8-13.1) 03/17/17 15:20 INR 1.1 (0.9-1.2) 03/17/17 15:20 APTT 29.5 Seconds (25.6-37.1) 03/17/17 15:20 - Head Exam Head Exam: ATRAUMATIC - Eye Exam Eye Exam: EOMI Pupil Exam: NORMAL ACCOMODATION - ENT Exam ENT Exam: Mucous Membranes Moist - Cardiovascular Exam Cardiovascular Exam: REGULAR RHYTHM - GI/Abdominal Exam GI & Abdominal Exam: Soft, Normal Bowel Sounds. absent: Tenderness Assessment and Plan (1) Acute ulcerative colitis with rectal bleeding Assessment & Plan: Clinically better. Will taper Medrol to 15 mg IV Q 8H. Labs in AM Status: Acute
[2017-03-20 17:12] LABS: CA 19-9 11.5 U/mL (0-37)
--- NOTE | 2017-03-20 23:04 | CP.PCM.PN ---
Subjective - Date & Time of Evaluation Date of Evaluation: 03/20/17 Time of Evaluation: 16:30 - Subjective Subjective: Seen and examined at the bed side. Abdominal Pain and diarrhea has improved. Objective - Vital Signs/Intake and Output Vital Signs (last 24 hours): Temp Pulse Resp BP Pulse Ox 97.9 F 76 14 99/63 L 99 03/20/17 20:06 03/20/17 20:06 03/20/17 20:06 03/20/17 20:06 03/20/17 20:06 - Medications Medications: Current Medications Famotidine (Pepcid) 20 mg PO BID [facility] Last Admin: 03/20/17 17:28 Dose: 20 mg Folic Acid (Folic Acid) 1 mg PO DAILY [facility] Last Admin: 03/20/17 09:25 Dose: 1 mg Glipizide (Glucotrol Xl) 2.5 mg PO BRK [facility] Last Admin: 03/20/17 09:26 Dose: 2.5 mg Ciprofloxacin (Cipro 400mg/200ml Dsw) 400 mg in 200 mls @ 200 mls/hr IVPB Q12 [facility] PRN Reason: Protocol Last Admin: 03/20/17 21:24 Dose: 200 mls/hr Insulin Human Lispro (Humalog) 0 units SC ACHS [facility] PRN Reason: Protocol Last Admin: 03/20/17 21:35 Dose: Not Given Mercaptopurine (6-Mp) 50 mg PO DAILY [facility] Last Admin: 03/20/17 09:30 Dose: 50 mg Mesalamine (Delzicol) 800 mg PO BID [facility] Last Admin: 03/20/17 17:27 Dose: 800 mg Methylprednisolone (Solu-Medrol) 15 mg IVP Q8 [facility] Last Admin: 03/20/17 17:27 Dose: 15 mg Morphine Sulfate (Morphine) 1 mg IVP Q4 PRN PRN Reason: Pain, severe (8-10) Last Admin: 03/20/17 02:26 Dose: 1 mg Morphine Sulfate (Morphine) 0.5 mg IVP Q4 PRN PRN Reason: Pain, moderate (4-7) Thiamine HCl (Vitamin B1 Tab) 100 mg PO DAILY [facility] Last Admin: 03/20/17 09:26 Dose: 100 mg - Labs Labs: 03/20/17 05:00 03/20/17 05:00 PT 11.8 Seconds (9.8-13.1) 03/17/17 15:20 INR 1.1 (0.9-1.2) 03/17/17 15:20 APTT 29.5 Seconds (25.6-37.1) 03/17/17 15:20 - Constitutional Appears: Well, No Acute Distress - Head Exam Head Exam: ATRAUMATIC, NORMAL INSPECTION, NORMOCEPHALIC - Eye Exam Eye Exam: EOMI, Normal appearance, PERRL Pupil Exam: NORMAL ACCOMODATION, PERRL - ENT Exam ENT Exam: Mucous Membranes Moist, Normal Exam - Neck Exam Neck Exam: Full ROM, Normal Inspection. absent: Lymphadenopathy - Respiratory Exam Respiratory Exam: Clear to Ausculation Bilateral, NORMAL BREATHING PATTERN - Cardiovascular Exam Cardiovascular Exam: REGULAR RHYTHM, +S1, +S2. absent: Murmur - GI/Abdominal Exam GI & Abdominal Exam: Soft, Normal Bowel Sounds. absent: Tenderness - Extremities Exam Extremities Exam: Full ROM, Normal Capillary Refill, Normal Inspection. absent : Joint Swelling, Pedal Edema - Back Exam Back Exam: NORMAL INSPECTION - Neurological Exam Neurological Exam: Alert, Awake, CN II-XII Intact, Normal Gait, Oriented x3 - Psychiatric Exam Psychiatric exam: Normal Affect, Normal Mood - Skin Skin Exam: Dry, Intact, Normal Color, Warm - Additional Findings Additional findings: Echocardiogram: Normal Echocardiogram Assessment and Plan (1) Abdominal pain Assessment & Plan: Acute Colitis ?Type Weight Loss Diarrhea IVF Mesalamine Mild Elevation of CEA GI onboard Medical Record requested from [place] and received the Sigmoidoscopy which showed Colitis but not received the Pathology result Patient will need PO steroid and Follow up for Colonoscopy as an outpatient. Status: Acute (2) Pitting edema Assessment and Plan: Hypoalbuminemia Normal Echocardiogram Elevate LE Status: Chronic (3) Chest pain Assessment and Plan: ACS Ruled out No wall motion abnormality on the Echocardiogram Status: Ruled-out Priority: Low (4) Diabetes mellitus with hyperglycemia Assessment and Plan: Continue glipizide Humalog with Low coverage HgA1C Status: Acute
[2017-03-21] MEDS: MethylPREDNISolone 40 mg Vial IVP SCH ×3 (00:01→16:56)
[2017-03-21 05:42] LABS: HEMATOCRIT 29.6 % (35.0-51.0); MEAN CELL VOLUME 86.8 fl (80.0-94.0); MEAN CORPUSCULAR HEMOGLOBIN 27.4 pg (27.0-31.0); MEAN CORPUSCULAR HGB CONC 31.6 g/dL (33.0-37.0); RED CELL DISTRIBUTION WIDTH 14.6 % (11.5-14.5); WHITE BLOOD COUNT 5.7 K/uL (4.8-10.8)
[2017-03-21] MEDS: Insulin Lispro (humaLOG) 100 Units/ml Inj SC SCH ×3 (06:36→16:56)
[2017-03-21 07:39] LABS: ALB/GLOB RATIO 0.8 (1.0-2.1); ALKALINE PHOSPHATASE 62 U/L (38-126); ALT/SGPT 47 U/L (21-72); AST/SGOT 14 U/L (17-59); BILIRUBIN,TOTAL 0.2 mg/dl (0.2-1.3); BLOOD UREA NITROGEN 11 mg/dl (9-20); CARBON DIOXIDE 32 mmol/L (22-30); CHLORIDE 96 mmol/L (98-107); GFR AFRICAN-AMERICAN > 60; GLUCOSE,RANDOM 424 mg/dL (75-110); SODIUM 131 mmol/l (132-148); TOTAL PROTEIN 5.4 G/DL (6.3-8.2)
[2017-03-21 08:09] VITALS: RESP 14; O2SAT 100
[2017-03-21] MEDS ORDERED: GlipiZIDE 10 mg SR Tab PO SCH (09:14)
--- NOTE | 2017-03-21 09:35 | CP.PCM.PN ---
Subjective - Date & Time of Evaluation Date of Evaluation: 03/21/17 Time of Evaluation: 09:31 - Subjective Subjective: Feeling better . No diarrhea or abdominal pain. Objective - Vital Signs/Intake and Output Vital Signs (last 24 hours): Temp Pulse Resp BP Pulse Ox 97.7 F 73 14 118/73 100 03/21/17 08:09 03/21/17 08:09 03/21/17 08:09 03/21/17 08:09 03/21/17 08:09 - Medications Medications: Current Medications Famotidine (Pepcid) 20 mg PO BID [facility] Last Admin: 03/20/17 17:28 Dose: 20 mg Folic Acid (Folic Acid) 1 mg PO DAILY [facility] Last Admin: 03/20/17 09:25 Dose: 1 mg Glipizide (Glucotrol Xl) 10 mg PO BRK [facility] Ciprofloxacin (Cipro 400mg/200ml Dsw) 400 mg in 200 mls @ 200 mls/hr IVPB Q12 [facility] PRN Reason: Protocol Last Admin: 03/20/17 21:24 Dose: 200 mls/hr Insulin Human Lispro (Humalog) 0 units SC ACHS [facility] PRN Reason: Protocol Mercaptopurine (6-Mp) 50 mg PO DAILY [facility] Last Admin: 03/20/17 09:30 Dose: 50 mg Mesalamine (Delzicol) 800 mg PO BID [facility] Last Admin: 03/20/17 17:27 Dose: 800 mg Methylprednisolone (Solu-Medrol) 15 mg IVP Q8 [facility] Last Admin: 03/21/17 00:01 Dose: 15 mg Morphine Sulfate (Morphine) 1 mg IVP Q4 PRN PRN Reason: Pain, severe (8-10) Last Admin: 03/20/17 02:26 Dose: 1 mg Morphine Sulfate (Morphine) 0.5 mg IVP Q4 PRN PRN Reason: Pain, moderate (4-7) Sitagliptin Phosphate (Januvia) 50 mg PO DAILY [facility] Thiamine HCl (Vitamin B1 Tab) 100 mg PO DAILY [facility] Last Admin: 03/20/17 09:26 Dose: 100 mg - Labs Labs: 03/21/17 05:15 03/21/17 05:15 PT 11.8 Seconds (9.8-13.1) 03/17/17 15:20 INR 1.1 (0.9-1.2) 03/17/17 15:20 APTT 29.5 Seconds (25.6-37.1) 03/17/17 15:20 - Head Exam Head Exam: ATRAUMATIC - Eye Exam Eye Exam: Normal appearance Pupil Exam: PERRL - ENT Exam ENT Exam: Mucous Membranes Moist - Neck Exam Neck Exam: Full ROM - Respiratory Exam Respiratory Exam: NORMAL BREATHING PATTERN - Cardiovascular Exam Cardiovascular Exam: +S1, +S2 - GI/Abdominal Exam GI & Abdominal Exam: Soft, Normal Bowel Sounds. absent: Tenderness Assessment and Plan (1) Acute ulcerative colitis with rectal bleeding Assessment & Plan: Clinically better from a GI perspective though sugars are very high. May discharge when sugars improve.When discharged, take Prednisone 20 QAM and 10 QPM. Also 6 MP 50 mg qD. Careful monitoring as outpatient Status: Acute
[2017-03-21] MEDS: Ciprofloxacin 400mg/200ml D5W 400 MG/200 ML BAG IVPB SCH (09:56)
--- NOTE | 2017-03-21 17:42 | CP.PCM.DIS ---
Provider - Provider Date of Admission: 03/18/17 16:38 Attending physician: Jules Kowalski MD Time Spent in preparation of Discharge (in minutes): 25 Diagnosis - Discharge Diagnosis (1) Abdominal pain Status: Acute Hospital Course - Lab Results Lab Results: Most Recent Lab Values WBC 5.7 K/uL (4.8-10.8) 03/21/17 05:15 RBC 3.41 Mil/uL (4.40-5.90) L 03/21/17 05:15 Hgb 9.4 g/dL (12.0-18.0) L 03/21/17 05:15 Hct 29.6 % (35.0-51.0) L 03/21/17 05:15 MCV 86.8 fl (80.0-94.0) 03/21/17 05:15 MCH 27.4 pg (27.0-31.0) 03/21/17 05:15 MCHC 31.6 g/dL (33.0-37.0) L 03/21/17 05:15 RDW 14.6 % (11.5-14.5) H 03/21/17 05:15 Plt Count 401 K/uL (130-400) H 03/21/17 05:15 MPV 6.5 fl (7.2-11.7) L 03/18/17 04:30 Neut % (Auto) 48.8 % (50.0-75.0) L 03/18/17 04:30 Lymph % (Auto) 33.9 % (20.0-40.0) 03/18/17 04:30 [place] % (Auto) 14.9 % (0.0-10.0) H 03/18/17 04:30 Eos % (Auto) 2.2 % (0.0-4.0) 03/18/17 04:30 Baso % (Auto) 0.2 % (0.0-2.0) 03/18/17 04:30 Neut # 2.8 K/uL (1.8-7.0) 03/18/17 04:30 Lymph # 1.9 K/uL (1.0-4.3) 03/18/17 04:30 [place] # 0.9 K/uL (0.0-0.8) H 03/18/17 04:30 Eos # 0.1 K/uL (0.0-0.7) 03/18/17 04:30 Baso # 0.0 K/uL (0.0-0.2) 03/18/17 04:30 PT 11.8 Seconds (9.8-13.1) 03/17/17 15:20 INR 1.1 (0.9-1.2) 03/17/17 15:20 APTT 29.5 Seconds (25.6-37.1) 03/17/17 15:20 D-Dimer, Quantitative 256 ng/mlDDU (0-230) H 03/17/17 15:20 Sodium 131 mmol/l (132-148) L 03/21/17 05:15 Potassium 5.0 MMOL/L (3.6-5.0) 03/21/17 05:15 Chloride 96 mmol/L (98-107) L 03/21/17 05:15 Carbon Dioxide 32 mmol/L (22-30) H 03/21/17 05:15 Anion Gap 8 (10-20) L 03/21/17 05:15 BUN 11 mg/dl (9-20) 03/21/17 05:15 Creatinine 0.6 mg/dl (0.8-1.5) L 03/21/17 05:15 Est GFR ( Amer) > 60 03/21/17 05:15 Est GFR (Non-Af Amer) > 60 03/21/17 05:15 POC Glucose (mg/dL) 410 mg/dL (65-110) H* 03/21/17 11:02 Random Glucose 424 mg/dL (75-110) H* D 03/21/17 05:15 Hemoglobin A1c 10.3 % (4.2-6.5) H 03/18/17 14:15 Calcium 8.0 mg/dL (8.4-10.2) L 03/21/17 05:15 Magnesium 1.7 MG/DL (1.6-2.3) 03/20/17 05:00 Iron < 10 ug/dL (49-181) L 03/18/17 16:00 TIBC 197 ug/dL (250-450) L 03/18/17 16:00 % Saturation 5.07 % (20-55) L 03/18/17 16:00 Ferritin 60.6 ng/Ml (17.9-464) 03/18/17 14:15 Total Bilirubin 0.2 mg/dl (0.2-1.3) 03/21/17 05:15 AST 14 U/L (17-59) L 03/21/17 05:15 ALT 47 U/L (21-72) 03/21/17 05:15 Alkaline Phosphatase 62 U/L (38-126) 03/21/17 05:15 Troponin I < 0.0120 ng/mL (0.00-0.120) 03/17/17 15:20 NT-Pro-B Natriuret Pep 871 pg/ml (0-900) 03/17/17 15:20 Total Protein 5.4 G/DL (6.3-8.2) L 03/21/17 05:15 Albumin 2.5 g/dL (3.5-5.0) L 03/21/17 05:15 Globulin 3.0 gm/dL (2.2-3.9) 03/21/17 05:15 Albumin/Globulin Ratio 0.8 (1.0-2.1) L 03/21/17 05:15 Lipase 266 U/L (23-300) 03/17/17 15:20 Alpha Fetoprotein 2.0 IU/mL (0.0-7.22) 03/20/17 05:00 Carcinoembryonic Ag 3.8 ng/mL (0-3.0) H 03/20/17 05:00 CA 19-9 Antigen 11.5 U/mL (0-37) 03/20/17 05:00 Vitamin B12 970 pg/mL (239-931) H 03/18/17 04:30 TSH 3rd Generation 1.34 mIU/ML (0.46-4.68) 03/18/17 04:30 Urine Color Yellow (YELLOW) 03/17/17 15:46 Urine Clarity Clear (Clear) 03/17/17 15:46 Urine pH 6.0 (5.0-8.0) 03/17/17 15:46 Ur Specific Shushan 1.035 (1.003-1.030) H 03/17/17 15:46 Urine Protein Negative mg/dL (NEGATIVE) 03/17/17 15:46 Urine Glucose (UA) >=500 mg/dL (Normal) 03/17/17 15:46 Urine Ketones Negative mg/dL (NEGATIVE) 03/17/17 15:46 Urine Blood Negative (NEGATIVE) 03/17/17 15:46 Urine Nitrate Negative (NEGATIVE) 03/17/17 15:46 Urine Bilirubin Negative (NEGATIVE) 03/17/17 15:46 Urine Urobilinogen 0.2-1.0 mg/dL (0.2-1.0) 03/17/17 15:46 Ur Leukocyte Esterase Neg Leana/uL (Negative) 03/17/17 15:46 Urine RBC (Auto) 1 /hpf (0-3) 03/17/17 15:46 Urine Microscopic WBC < 1 /hpf (0-5) 03/17/17 15:46 Ur Squamous Epith Cells < 1 /hpf (0-5) 03/17/17 15:46 Stool Occult Blood Positive (NEGATIVE) H 03/18/17 06:44 Alcohol, Quantitative < 10 mg/dl (0-10) 03/17/17 20:38 Discharge Exam - Head Exam Head Exam: ATRAUMATIC - Eye Exam Eye Exam: EOMI, Normal appearance, PERRL Pupil Exam: NORMAL ACCOMODATION, PERRL - Respiratory Exam Respiratory Exam: Clear to PA & Lateral, NORMAL BREATHING PATTERN - Cardiovascular Exam Cardiovascular Exam: +S1, +S2 - GI/Abdominal Exam GI & Abdominal Exam: Normal Bowel Sounds - Neurological Exam Neurological exam: Alert, CN II-XII Intact, Normal Gait, Oriented x3, Reflexes Normal - Psychiatric Exam Psychiatric exam: Normal Affect, Normal Mood - Skin Skin Exam: Dry, Intact, Normal Color, Warm Discharge Plan - Discharge Medications Prescriptions: Ciprofloxacin HCl [Cipro] 500 mg PO BID #10 tablet RX: Prednisone [Deltasone] 20 mg PO DAILY #30 tablet metroNIDAZOLE [Flagyl] 500 mg PO Q8 #21 tab - Follow Up Plan Condition: STABLE Disposition: HOME/ ROUTINE Instructions: Diabetes Mellitus Type 2 in Adults (DC), Infectious Colitis (GEN) , Acute Abdominal Pain (DC), Acute Abdominal Pain (GEN)
[2017-03-21 20:10] VITALS: BP 106/65; PULSE 77; TEMP 97.7
[2017-03-21 23:03] LABS: RBC URINE < 1 /hpf (0-3); URINE BILIRUBIN NEGATIVE (NEGATIVE); URINE BLOOD NEGATIVE (NEGATIVE); URINE COLOR YELLOW (YELLOW); URINE GLUCOSE (UA) >=500 mg/dL (Normal); URINE KETONE NEGATIVE (NEGATIVE); URINE LEUKOCYTE ESTERASE NEG Leu/uL (Negative); URINE PROTEIN NEGATIVE (NEGATIVE); URINE UROBILINOGEN 0.2-1.0 mg/dL (0.2-1.0); WBC URINE 1 /hpf (0-5)
[2017-03-21 23:22] LABS: TOTAL PSA 0.3 ng/mL (< or = 4.0)
== END 2017-03-21 20:00 | disposition home or self-care (01) | DRG 182 ==
LOC: H.ER 13:21 → H.ERHOLD 19:37 → H.TEL 21:11 → OBSVTOIN 03-18 16:38 → H.TEL 03-21 12:37
PROVIDERS: ADMIT Internal Medicine; ATTEND Internal Medicine
DX: K58.0 Irritable bowel syndrome with diarrhea (principal); E11.65 Type 2 diabetes mellitus with hyperglycemia; A09 Infectious gastroenteritis and colitis, unspecified; E88.09 Other disorders of plasma-protein metabolism, not elsewhere classified; Z87.891 Personal history of nicotine dependence; R07.9 Chest pain, unspecified; R63.4 Abnormal weight loss; Z68.23 Body mass index [BMI] 23.0-23.9, adult; R60.9 Edema, unspecified

== ENCOUNTER 2017-04-09 16:31 | Emergency (ER) | payer MEDICAID, SELFPAY ==
[2017-04-09 16:31] VITALS: BMI 23.3
[2017-04-09 16:57] VITALS: TEMP 98.7; O2SAT 98
--- NOTE | 2017-04-09 17:23 | ED PDOC ---
Hyperglycemia/Hypoglycemia Time Seen by Provider: 04/09/17 17:03 Chief Complaint (Nursing): High Blood Sugar Chief Complaint (Provider): hyperglycemia History Per: Patient History/Exam Limitations: no limitations Onset/Duration Of Symptoms: Mins (prior to arrival) Current Symptoms Are (Timing): Still Present : The patient does not have any of the infectious symptoms listed except for those marked. Additional Complaint(s): 51 year old male with previous medical history of diabetes and diverticulitis, referred to the emergency department by PMD for an evaluation of elevated blood glucose level seen in office prior to arrival. Patient is asymptomatic and stated he took his diabetic medications this morning. Denied any headache, dizziness, chest pain, nausea or vomiting. PMD: Edda Randle MD Past Medical History Reviewed: Historical Data, Nursing Documentation, Vital Signs Vital Signs: Last Vital Signs Temp 98.7 F 04/09/17 16:54 Pulse 86 04/09/17 16:54 Resp 16 04/09/17 16:54 BP 94/63 L 04/09/17 16:54 Pulse Ox 98 04/09/17 16:54 - Medical History PMH: Diabetes, Diverticulitis Denies: HIV, Chronic Kidney Disease - Family History Family History: States: Unknown Family Hx - Home Medications Home Medications: Ambulatory Orders Medication Instructions Recorded Famotidine [Pepcid] 20 mg PO BID 03/17/17 Glimepiride [Amaryl] 0.5 mg PO BID 03/17/17 Mesalamine [Lialda] 2.4 gm PO BID 03/17/17 Ciprofloxacin HCl [Cipro] 500 mg PO BID #10 tablet 03/21/17 Folic Acid 1 mg PO DAILY tab 03/21/17 Mercaptopurine [6-Mp] 50 mg PO DAILY tab 03/21/17 Prednisone [Deltasone] 20 mg PO DAILY #30 tablet 03/21/17 SITagliptin [Januvia] 50 mg PO DAILY tab 03/21/17 Thiamine [Vitamin B1 Tab] 100 mg PO DAILY tab 03/21/17 metroNIDAZOLE [Flagyl] 500 mg PO Q8 #21 tab 03/21/17 - Allergies Allergies/Adverse Reactions: Allergies Allergy/AdvReac Type Severity Reaction Status Date / Time No Known Allergies Allergy Verified 04/09/17 16:54 Review of Systems ROS Statement: Except As Marked, All Systems Reviewed And Found Negative Cardiovascular: Negative for: Chest Pain Gastrointestinal: Negative for: Nausea, Vomiting Neurological: Negative for: Headache, Dizziness Physical Exam - Reviewed Nursing Documentation Reviewed: Yes Vital Signs Reviewed: Yes - Physical Exam Appears: Positive for: Well, Non-toxic, No Acute Distress Cardiovascular/Chest: Positive for: Regular Rate, Rhythm, Chest Non Tender Respiratory: Positive for: Normal Breath Sounds. Negative for: Decreased Breath Sounds, Wheezing, Respiratory Distress Gastrointestinal/Abdominal: Positive for: Normal Exam, Soft. Negative for: Tenderness Extremity: Positive for: Normal ROM (upper/lower). Negative for: Pedal Edema ( bilateral), Calf Tenderness (bilateral) Neurologic/Psych: Positive for: Alert (x3), Oriented. Negative for: Motor/ Sensory Deficits - Laboratory Results Result Diagrams: 04/09/17 18:44 04/09/17 18:44 - ECG O2 Sat by Pulse Oximetry: 98 (RA) Pulse Ox Interpretation: Normal Medical Decision Making Medical Decision Making: Initial Impression: Hyperglycemia Initial Plan: * CMP * CBC * NS 1,000ml IV per 250mls/hr * Humulin R 8units SC ____ Time: 1899 --Patient endorsed to Dr. Jerald Xiong. Pending chemistry results. Scribe Attestation: Documented by Valarie Bundy, acting as a scribe for Robin Claudio MD. Provider Scribe Attestation: All medical record entries made by the Scribe were at my direction and personally dictated by me. I have reviewed the chart and agree that the record accurately reflects my personal performance of the history, physical exam, medical decision making, and the department course for this patient. I have also personally directed, reviewed, and agree with the discharge instructions and disposition. Disposition - Clinical Impression Clinical Impression: Diabetes mellitus with hyperglycemia - Patient ED Disposition Is Patient to be Admitted: Transfer of Care Counseled Patient/Family Regarding: Studies Performed - [facility] [[facility] Disposition: Transfer of Care Disposition Time: 19:00 Condition: STABLE Additional Instructions: Por favor controle sparks nivel de azcar en la alexandru cuidadosamente mientras an prednisone. Ashley un seguimiento con sparks clnica en 2 - 3 hayden. Instructions: Diabetic Hyperglycemia (ED) Forms: [employer] (Lithuanian) Print Language: KINYARWANDA Patient Signed Over To: Jerald Xiong
[2017-04-09] MEDS ORDERED: Insulin Regular 100 units/ml ONE (18:10)
[2017-04-09] MEDS: Insulin Regular 100 units/ml SC STA (18:23)
[2017-04-09] MEDS: Sodium Chloride 0.9% 1,000 ML IV STA (18:24)
[2017-04-09 18:31] VITALS: BP 102/65; PULSE 81; RESP 14
[2017-04-09 18:51] LABS: BASO % 0.2 % (0.0-2.0); EOS % 1.3 % (0.0-4.0); HEMOGLOBIN 10.4 g/dL (12.0-18.0); LYMPH # 0.8 K/uL (1.0-4.3); LYMPH % 31.8 % (20.0-40.0); MEAN CELL VOLUME 90.5 fl (80.0-94.0); MEAN CORPUSCULAR HEMOGLOBIN 28.7 pg (27.0-31.0); MEAN CORPUSCULAR HGB CONC 31.7 g/dL (33.0-37.0); MEAN PLATELET VOLUME 7.4 fl (7.2-11.7); MONO # 0.2 K/uL (0.0-0.8); MONO % 7.2 % (0.0-10.0); NEUT # 1.6 K/uL (1.8-7.0); NEUT % 59.5 % (50.0-75.0); NRBC % 0.2 % (0.0-0.0); RBC 3.63 Mil/uL (4.40-5.90); RED CELL DISTRIBUTION WIDTH 19.9 % (11.5-14.5); WHITE BLOOD COUNT 2.6 K/uL (4.8-10.8)
--- NOTE | 2017-04-09 19:09 | ED PDOC ---
- Laboratory Results Result Diagrams: 04/09/17 18:44 04/09/17 18:44 - ECG O2 Sat by Pulse Oximetry: 98 (RA) Pulse Ox Interpretation: Normal Medical Decision Making Medical Decision Making: Time: 1899 --Patient endorsed to provider by Dr. Robin Claudio. Pending chemistry results and re-evaluation. Time: 21:30 --Patient seen at bedside, states he's feeling well, smiling and in good spirits. States he just started jauvia for the first time, told patient to also check blood sugar more frequently, especially if taking prednisone. Advised patient to f/u w/ PMD in 1 - 2 days. Scribe Attestation: Documented by Valarie Bundy, acting as a scribe for Jerald Xiong MD. Provider Scribe Attestation: All medical record entries made by the Scribe were at my direction and personally dictated by me. I have reviewed the chart and agree that the record accurately reflects my personal performance of the history, physical exam, medical decision making, and the department course for this patient. I have also personally directed, reviewed, and agree with the discharge instructions and disposition. Disposition - Clinical Impression Clinical Impression: Diabetes mellitus with hyperglycemia - POA Present On Arrival: None - Disposition Referrals: [facility] [Outside] Disposition: Routine/Home Disposition Time: 19:33 Condition: STABLE Additional Instructions: Por favor controle sparks nivel de azcar en la alexandru cuidadosamente mientras an prednisone. Ashley un seguimiento con sparks clnica en 2 - 3 hayden. Instructions: Diabetic Hyperglycemia (ED) Forms: [employer] (North Korean) Print Language: LATVIAN
[2017-04-09 19:14] LABS: ALB/GLOB RATIO 0.9 (1.0-2.1); ALT/SGPT 38 U/L (21-72); AST/SGOT 37 U/L (17-59); BLOOD UREA NITROGEN 10 mg/dl (9-20); CALCIUM 8.3 mg/dL (8.4-10.2); GFR AFRICAN-AMERICAN > 60; GFR NON-AFRICAN AMERICAN > 60
== END 2017-04-09 20:05 | disposition home or self-care (01) ==
LOC: H.ER 16:31
DX: E11.65 Type 2 diabetes mellitus with hyperglycemia (principal)
CPT/HCPCS: 80053; 82948; 85025; 96372; 99283; J7040

== ENCOUNTER 2017-06-06 11:26 | Inpatient (IN) | payer MEDICAID, SELFPAY ==
[2017-06-06 11:26] VITALS: BMI 23.3
[2017-06-06] MEDS: Sodium Chloride 0.9% 1,000 ML IV SCH ×5 (12:54→21:40)
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
[2017-06-06 12:57] LABS: BASO % 0.1 % (0.0-2.0); EOS # 0.6 K/uL (0.0-0.7); EOS % 5.2 % (0.0-4.0); HEMOGLOBIN 8.5 g/dL (12.0-18.0); LYMPH # 2.5 K/uL (1.0-4.3); LYMPH % 21.3 % (20.0-40.0); MEAN CELL VOLUME 83.7 fl (80.0-94.0); MEAN CORPUSCULAR HEMOGLOBIN 26.5 pg (27.0-31.0); MEAN CORPUSCULAR HGB CONC 31.7 g/dL (33.0-37.0); MEAN PLATELET VOLUME 6.4 fl (7.2-11.7); MONO # 1.2 K/uL (0.0-0.8); MONO % 9.9 % (0.0-10.0); NEUT # 7.4 K/uL (1.8-7.0); NEUT % 63.5 % (50.0-75.0); NRBC % 0.1 % (0.0-0.0); RBC 3.21 Mil/uL (4.40-5.90); RED CELL DISTRIBUTION WIDTH 19.8 % (11.5-14.5); WHITE BLOOD COUNT 11.7 K/uL (4.8-10.8)
[2017-06-06 13:06] LABS: ALB/GLOB RATIO 0.7 (1.0-2.1); ALBUMIN 2.4 g/dL (3.5-5.0); ALT/SGPT 43 U/L (21-72); AST/SGOT 22 U/L (17-59); BLOOD UREA NITROGEN 9 mg/dl (9-20); GFR AFRICAN-AMERICAN > 60; GFR NON-AFRICAN AMERICAN > 60; LIPASE 101 U/L (23-300)
[2017-06-06] MEDS ORDERED: Magnesium Sulfate 2 gm/50 ml 2 GM/50 ML BAG IVPB ONE (15:17)
[2017-06-06] MEDS ORDERED: Magnesium Sulfate 2 gm/50 ml 2 GM/50 ML BAG ONE (16:27)
--- NOTE | 2017-06-06 17:35 | CP.PCM.HP ---
History of Present Illness - History of Present Illness History of Present Illness: This is a 51 yo male with a past medical history of ulcerative colitis, diabetes mellitus on insulin at home, who presents to the hospital with the complaint of diarrhea beginning 3 weeks ago which was nonbloody, persistent, occurring several dimtes per day. This diarrhea is associated with generalized abdominal pain most prominent on the left side of the abdomen, described as crampy, 5-8 out of 10. He has associated weight loss of 10 pounds over the last several months. He has had a colonoscopy in the past at [facility] and reports having a colonic biopsy showing ulcerative colitis.Today, the patient states that he did have a bowel movement which showed some bright red blood which is new. In the ED, he was found to have a depressed hemoglobin of 8.5 (on previous lab workup had Hg of about 10.5. WBC 11.7, PLT 529, BUN 9, Cr 0.6, Elevated glucose at 271. Magnesium depressed at 1.5. Bilirubin undetectable. Guiac stool (+). Patient is to be admitted for observation on med/surg for serial hemoglobin checks due to GI bleeding and colitis, with further GI workup pending at this time. Patient denies chest pain, shortness of breath, fevers, chills, nausea, vomiting, headache. All of the patient's questions were answered at the bedside. Present on Admission - Present on Admission Any Indicators Present on Admission: Yes History of Uncontrolled Diabetes: Yes Review of Systems - Review of Systems Review of Systems: A 12 point review of systems was conducted and found to be negative other than what was mentioned in the HPI Past Patient History - Infectious Disease Hx of Infectious Diseases: None - Past Medical History & Family History Past Medical History?: Yes - Past Social History Alcohol: Social (quit 06/2016) - CARDIAC Hx Cardiac Disorders: No - PULMONARY Hx Respiratory Disorders: No - NEUROLOGICAL Hx Neurological Disorder: No - HEENT Hx HEENT Problems: No - RENAL Hx Chronic Kidney Disease: No - ENDOCRINE/METABOLIC Hx Endocrine Disorders: Yes (diabetes) Hx Diabetes Mellitus Type 2: Yes - HEMATOLOGICAL/ONCOLOGICAL Hx Human Immunodeficiency Virus (HIV): No - INTEGUMENTARY Hx Dermatological Problems: No - MUSCULOSKELETAL/RHEUMATOLOGICAL Hx Musculoskeletal Disorders: No Hx Falls: Yes - GASTROINTESTINAL Hx Diverticulitis: Yes - GENITOURINARY/GYNECOLOGICAL Hx Genitourinary Disorders: No - PSYCHIATRIC Hx Psychophysiologic Disorder: No Hx Substance Use: No - SURGICAL HISTORY Hx Surgeries: No - ANESTHESIA Hx Anesthesia: No Hx Anesthesia Reactions: No Hx Malignant Hyperthermia: No Meds Allergies/Adverse Reactions: Allergies Allergy/AdvReac Type Severity Reaction Status Date / Time No Known Allergies Allergy Verified 06/06/17 11:43 Physical Exam - Additional Findings Additional findings: Physical exam: Constitutional- cooperative, awake, alert Head- NCAT, PERRL Eye- PERRL, EOMI ENT- normal exam, MMM. Neck- normal inspection, supple, no JVD Respiratory- CTAB, no wheezes rales rhonchi Cardiovascular- RRR, +S1, +S2 no MRG GI/Abdominal- + tenderness to palpation of the umbilicus and LLQ, normal bowel sounds, soft, no mass, no hsm Skin- warm, dry, + appears pale Extremities Exam- normal capillary refill, normal inspection Neurological Exam- alert, awake, oriented Psych- normal mood, normal affect Results - Vital Signs Recent Vital Signs: Last Vital Signs Temp 98.2 F 06/06/17 16:49 Pulse 83 06/06/17 16:49 Resp 18 06/06/17 16:49 BP 126/83 06/06/17 16:49 Pulse Ox 98 06/06/17 16:49 - Labs Result Diagrams: 06/06/17 12:45 06/06/17 12:45 Labs: Laboratory Results - last 24 hr 06/06/17 06/06/17 06/06/17 12:45 12:45 12:46 WBC 11.7 H D RBC 3.21 L Hgb 8.5 L Hct 26.9 L MCV 83.7 D MCH 26.5 L MCHC 31.7 L RDW 19.8 H Plt Count 529 H D MPV 6.4 L Neut % (Auto) 63.5 Lymph % (Auto) 21.3 [place] % (Auto) 9.9 Eos % (Auto) 5.2 H Baso % (Auto) 0.1 Neut # (Auto) 7.4 H Lymph # (Auto) 2.5 [place] # (Auto) 1.2 H Eos # (Auto) 0.6 Baso # (Auto) 0.0 Sodium 138 Potassium 3.9 Chloride 104 Carbon Dioxide 25 Anion Gap 13 BUN 9 Creatinine 0.6 L Est GFR ( Amer) > 60 Est GFR (Non-Af Amer) > 60 POC Glucose (mg/dL) 271 H Random Glucose 256 H Calcium 8.0 L Phosphorus 3.3 Magnesium 1.5 L Total Bilirubin < 0.1 L AST 22 ALT 43 Alkaline Phosphatase 49 Total Protein 5.7 L Albumin 2.4 L Globulin 3.3 Albumin/Globulin Ratio 0.7 L Lipase 101 Stool Occult Blood 06/06/17 06/06/17 14:53 16:48 WBC RBC Hgb Hct MCV MCH MCHC RDW Plt Count MPV Neut % (Auto) Lymph % (Auto) [place] % (Auto) Eos % (Auto) Baso % (Auto) Neut # (Auto) Lymph # (Auto) [place] # (Auto) Eos # (Auto) Baso # (Auto) Sodium Potassium Chloride Carbon Dioxide Anion Gap BUN Creatinine Est GFR ( Amer) Est GFR (Non-Af Amer) POC Glucose (mg/dL) 143 H Random Glucose Calcium Phosphorus Magnesium Total Bilirubin AST ALT Alkaline Phosphatase Total Protein Albumin Globulin Albumin/Globulin Ratio Lipase Stool Occult Blood Positive H Assessment & Plan - Assessment and Plan (Free Text) Plan: ASSESSMENT/PLAN 1) Rectal bleed secondary to colitis with generalized abdominal pain, likely exacerbation of Ulcerative colitis - Place on med/surg - consultation with GI, Dr. Arce to see- will f/u with recommendations - Clear liquids until GI sees - Continue IV fluids with NS at 125 - Repeat Hg at midnight and in AM (q6h) - Zofran PRN N/V 2) Iron deficiency anemia - secondary to GI bleed as above - Acute 3) Diabetes mellitus - Regular insulin sliding scale with accucheks AC+HS - Hold Levemir as patient is on liquid diet 4) Hypomagnesemia - likely due to decreased GI absorption - 1.5 - Repleted 2 gram in ED - Check in AM 5) DVT prophylaxis - SCDs due to bleeding
[2017-06-07] MEDS: Sodium Chloride 0.9% 1,000 ML IV SCH ×4 (04:25→18:39)
[2017-06-07 07:08] LABS: HEMOGLOBIN 9.1 g/dL (12.0-18.0); MEAN CELL VOLUME 83.5 fl (80.0-94.0); MEAN CORPUSCULAR HGB CONC 32.3 g/dL (33.0-37.0); RBC 3.38 Mil/uL (4.40-5.90); WHITE BLOOD COUNT 15.6 K/uL (4.8-10.8)
[2017-06-07 07:39] LABS: BLOOD UREA NITROGEN 6 mg/dl (9-20); CALCIUM 7.6 mg/dL (8.4-10.2); GFR AFRICAN-AMERICAN > 60; GFR NON-AFRICAN AMERICAN > 60
[2017-06-07] MEDS: metroNIDAZOLE 500mg/100ml NS 100 ML IVPB SCH ×2 (09:58→16:39)
[2017-06-07] MEDS: Ciprofloxacin 400mg/200ml D5W 400 MG/200 ML BAG IVPB SCH ×2 (09:59→20:26)
[2017-06-07] MEDS ORDERED: Iohexol 240 (50 ml) PO ONE (10:23)
--- NOTE | 2017-06-07 10:58 | CP.PCM.PN ---
Subjective - Date & Time of Evaluation Date of Evaluation: 06/07/17 Time of Evaluation: 10:30 - Subjective Subjective: No fever still with some abd discomfort and diarrhea this am , blood tinge no chest pain no SOB no N/V Objective - Vital Signs/Intake and Output Vital Signs (last 24 hours): Temp Pulse Resp BP Pulse Ox 98.2 F 79 20 118/72 99 06/07/17 07:49 06/07/17 07:49 06/07/17 07:49 06/07/17 07:49 06/07/17 07:49 - Medications Medications: Current Medications Ferrous Sulfate (Feosol) 325 mg PO BID [facility] Last Admin: 06/07/17 08:13 Dose: 325 mg Sodium Chloride (Sodium Chloride 0.9%) 1,000 mls @ 125 mls/hr IV .Q8H [facility] Last Admin: 06/07/17 09:06 Dose: Not Given Ciprofloxacin (Cipro 400mg/200ml Dsw) 400 mg in 200 mls @ 200 mls/hr IVPB Q12 JESSICA PRN Reason: Protocol Last Admin: 06/07/17 09:59 Dose: 200 mls/hr Metronidazole (Flagyl 500mg/100ml Ns) 100 mls @ 100 mls/hr IVPB Q8 JESSICA PRN Reason: Protocol Last Admin: 06/07/17 09:58 Dose: 100 mls/hr Ondansetron HCl (Zofran Inj) 4 mg IVP Q6 PRN PRN Reason: Nausea/Vomiting - Labs Labs: 06/07/17 05:20 06/07/17 05:20 - Constitutional Appears: No Acute Distress - Head Exam Head Exam: NORMAL INSPECTION, NORMOCEPHALIC - Eye Exam Eye Exam: EOMI, Normal appearance, PERRL Pupil Exam: NORMAL ACCOMODATION - ENT Exam ENT Exam: Mucous Membranes Moist, Normal External Ear Exam - Neck Exam Neck Exam: Full ROM. absent: Meningismus - Respiratory Exam Respiratory Exam: NORMAL BREATHING PATTERN. absent: Respiratory Distress - Cardiovascular Exam Cardiovascular Exam: REGULAR RHYTHM, +S1, +S2 - GI/Abdominal Exam GI & Abdominal Exam: Soft, Tenderness (mild tenderness, diffuse), Normal Bowel Sounds - Extremities Exam Extremities Exam: Full ROM, Normal Capillary Refill. absent: Calf Tenderness - Back Exam Back Exam: Full ROM. absent: CVA tenderness (L), CVA tenderness (R) - Neurological Exam Neurological Exam: Alert, Awake, CN II-XII Intact, Oriented x3 Neuro motor strength exam: Left Upper Extremity: 5, Right Upper Extremity: 5, Left Lower Extremity: 5, Right Lower Extremity: 5 - Psychiatric Exam Psychiatric exam: Normal Affect, Normal Mood - Skin Skin Exam: Dry, Normal Color, Warm Assessment and Plan - Assessment and Plan (Free Text) Assessment: 51 y/o gent with hx of DM , Ulcertaive Colitis, came in because of 3 weeks hx of blood tinge diarrhea. 1) Rectal bleed with diarrhea prob exacerbation of Ulcerative colitis - still with diarrhea this am, will admit pt - consultation with GI, Dr. Arce - Ct of the abdmone and pelvis - start IV Cipro and Flagyl -IVF hydration -Pain mgt 2) Iron deficiency anemia - secondary to GI bleed as above 3) Diabetes mellitus type ii - accucheks AC+HS with coverage DVT prophylaxis - SCDs due to bleeding
[2017-06-07] MEDS ORDERED: Sodium Chloride 0.9% 100 ML ONE (12:53)
[2017-06-07] MEDS ORDERED: Iohexol 300 100 ML IJ ONE (12:53)
[2017-06-07 13:33] LABS: C DIFF TOXIN A B NEGATIVE (NEGATIVE)
[2017-06-07] MEDS: Insulin Lispro (humaLOG) 100 Units/ml Inj SC SCH ×3 (13:55→22:11)
--- NOTE | 2017-06-07 14:54 | CT ---
PROCEDURE: CT Abdomen and Pelvis with contrast HISTORY: diarrhea, elevated WBC COMPARISON: None. TECHNIQUE: Contrast dose: Radiation dose: Total exam DLP = mGy-cm. This CT exam was performed using one or more of the following dose reduction techniques: Automated exposure control, adjustment of the mA and/or kV according to patient size, and/or use of iterative reconstruction technique. FINDINGS: LOWER THORAX: Unremarkable. LIVER: Unremarkable. No gross lesion or ductal dilatation. GALLBLADDER AND BILE DUCTS: Unremarkable. PANCREAS: Unremarkable. No gross lesion or ductal dilatation. SPLEEN: Unremarkable. ADRENALS: Unremarkable. No mass. KIDNEYS AND URETERS: Horseshoe kidney. 6.0 centimeter right lower pole renal cyst. . No hydronephrosis. No solid mass. VASCULATURE: Unremarkable. No aortic aneurysm. BOWEL: Mural thickening and enhancement of the sigmoid colon and rectum with minimal perirectal fat infiltration suggesting underlying colitis. APPENDIX: Normal appendix. PERITONEUM: Unremarkable. No free fluid. No free air. LYMPH NODES: Unremarkable. No enlarged lymph nodes. BLADDER: Unremarkable. REPRODUCTIVE: Unremarkable. BONES: No acute fracture. OTHER FINDINGS: None. IMPRESSION: Mural thickening and enhancement of the sigmoid colon and rectum with minimal perirectal fat infiltration suggesting underlying colitis. Horseshoe kidney. 6.0 centimeter right lower pole renal cyst.
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
[2017-06-08] MEDS: metroNIDAZOLE 500mg/100ml NS 100 ML IVPB SCH ×3 (00:54→17:42)
[2017-06-08] MEDS: Sodium Chloride 0.9% 1,000 ML IV SCH ×4 (01:11→21:06)
[2017-06-08 08:37] LABS: BLOOD UREA NITROGEN 5 mg/dl (9-20); CALCIUM 7.4 mg/dL (8.4-10.2); GFR AFRICAN-AMERICAN > 60; GFR NON-AFRICAN AMERICAN > 60
[2017-06-08 08:40] LABS: BASO % 0.1 % (0.0-2.0); EOS # 0.8 K/uL (0.0-0.7); EOS % 7.7 % (0.0-4.0); HEMOGLOBIN 8.4 g/dL (12.0-18.0); LYMPH # 2.1 K/uL (1.0-4.3); MEAN CELL VOLUME 84.3 fl (80.0-94.0); MEAN CORPUSCULAR HEMOGLOBIN 26.1 pg (27.0-31.0); MEAN CORPUSCULAR HGB CONC 30.9 g/dL (33.0-37.0); MEAN PLATELET VOLUME 7.3 fl (7.2-11.7); MONO # 1.2 K/uL (0.0-0.8); MONO % 12.1 % (0.0-10.0); NEUT % 59.1 % (50.0-75.0); NRBC % 0.2 % (0.0-0.0); RBC 3.23 Mil/uL (4.40-5.90); RED CELL DISTRIBUTION WIDTH 20.1 % (11.5-14.5); WHITE BLOOD COUNT 10.2 K/uL (4.8-10.8)
[2017-06-08] MEDS: Ciprofloxacin 400mg/200ml D5W 400 MG/200 ML BAG IVPB SCH ×2 (08:46→21:11)
[2017-06-08] MEDS: Insulin Lispro (humaLOG) 100 Units/ml Inj SC SCH ×4 (08:47→21:49)
--- NOTE | 2017-06-08 09:42 | CP.PCM.PN ---
<Deb Murphy - Last Filed: 06/08/17 11:40> Subjective - Date & Time of Evaluation Date of Evaluation: 06/08/17 Time of Evaluation: 12:00 - Subjective Subjective: GI Fellow PGY 4 Progress Note Pt seen and evaluated at bedside, pt with diarrhea improving with small amount of blood. Tolerating diet no N/V, F/C. ROS: A 12pt ROS was negative except as above. Objective - Vital Signs/Intake and Output Vital Signs (last 24 hours): Temp Pulse Resp BP Pulse Ox 98.3 F 66 18 109/71 100 06/08/17 07:39 06/08/17 07:39 06/08/17 07:39 06/08/17 07:39 06/08/17 07:39 - Medications Medications: Current Medications Ferrous Sulfate (Feosol) 325 mg PO BID [facility] Last Admin: 06/08/17 08:47 Dose: 325 mg Sodium Chloride (Sodium Chloride 0.9%) 1,000 mls @ 125 mls/hr IV .Q8H [facility] Last Admin: 06/08/17 01:11 Dose: Not Given Ciprofloxacin (Cipro 400mg/200ml Dsw) 400 mg in 200 mls @ 200 mls/hr IVPB Q12 JESSICA PRN Reason: Protocol Last Admin: 06/08/17 08:46 Dose: 200 mls/hr Metronidazole (Flagyl 500mg/100ml Ns) 100 mls @ 100 mls/hr IVPB Q8 JESSICA PRN Reason: Protocol Last Admin: 06/08/17 08:45 Dose: 100 mls/hr Insulin Human Lispro (Humalog) 0 units SC ACHS JESSICA PRN Reason: Protocol Last Admin: 06/08/17 08:47 Dose: 1 units Ondansetron HCl (Zofran Inj) 4 mg IVP Q6 PRN PRN Reason: Nausea/Vomiting - Labs Labs: 06/08/17 06:30 06/08/17 06:30 - Constitutional Appears: Non-toxic, No Acute Distress - Head Exam Head Exam: ATRAUMATIC, NORMAL INSPECTION, NORMOCEPHALIC - Eye Exam Eye Exam: EOMI, Normal appearance - ENT Exam ENT Exam: Mucous Membranes Moist - Neck Exam Neck Exam: Full ROM, Normal Inspection - Respiratory Exam Respiratory Exam: Clear to Ausculation Bilateral, NORMAL BREATHING PATTERN - Cardiovascular Exam Cardiovascular Exam: REGULAR RHYTHM, +S1, +S2 - GI/Abdominal Exam GI & Abdominal Exam: Soft, Tenderness, Normal Bowel Sounds - Extremities Exam Extremities Exam: Full ROM, Normal Inspection - Back Exam Back Exam: NORMAL INSPECTION - Neurological Exam Neurological Exam: Alert, Awake, Oriented x3 - Psychiatric Exam Psychiatric exam: Normal Affect, Normal Mood - Skin Skin Exam: Dry, Intact, Normal Color, Warm Assessment and Plan - Assessment and Plan (Free Text) Assessment: This is a 51yM presenting with complaints of abdominal pain and diarrhea. 1. Diarrhea 2. Abdominal Pain 3. Anemia Plan: -Continue supportive care with pain control and anti-emetics -Diet as tolerated -Per pt recent diagnosis of IBD-UC -CT A/P with mural thickening of rectosigmoid area -Will start Rowasa enema and po mesalamine -Stool studies negative for O/P, cdiff negative -Monitor H/H -IV abx per primary team -No plan for emergent colonoscopy -Will continue to follow closely <Vamsi Arce - Last Filed: 06/08/17 12:42> Objective - Vital Signs/Intake and Output Vital Signs (last 24 hours): Temp Pulse Resp BP Pulse Ox 98.3 F 66 18 109/71 100 06/08/17 07:39 06/08/17 07:39 06/08/17 07:39 06/08/17 07:39 06/08/17 07:39 - Medications Medications: Current Medications Ferrous Sulfate (Feosol) 325 mg PO BID [facility] Last Admin: 06/08/17 08:47 Dose: 325 mg Sodium Chloride (Sodium Chloride 0.9%) 1,000 mls @ 125 mls/hr IV .Q8H [facility] Last Admin: 06/08/17 01:11 Dose: Not Given Ciprofloxacin (Cipro 400mg/200ml Dsw) 400 mg in 200 mls @ 200 mls/hr IVPB Q12 JESSICA PRN Reason: Protocol Last Admin: 06/08/17 08:46 Dose: 200 mls/hr Metronidazole (Flagyl 500mg/100ml Ns) 100 mls @ 100 mls/hr IVPB Q8 JESSICA PRN Reason: Protocol Last Admin: 06/08/17 08:45 Dose: 100 mls/hr Insulin Human Lispro (Humalog) 0 units SC ACHS JESSICA PRN Reason: Protocol Last Admin: 06/08/17 08:47 Dose: 1 units Mesalamine (Rowasa Enema) 4 gm [place] HS JESSICA Mesalamine (Delzicol Dr) 400 mg PO TID JESSICA Ondansetron HCl (Zofran Inj) 4 mg IVP Q6 PRN PRN Reason: Nausea/Vomiting - Labs Labs: 06/08/17 06:30 06/08/17 06:30 Attending/Attestation - Attestation I have personally seen and examined this patient.: Yes I have fully participated in the care of the patient.: Yes I have reviewed all pertinent clinical information, including history, physical exam and plan: Yes Notes (Text): 06/08/17 12:38 Patient seen with GI fellow. This is a 51 year old M presenting with complaints of abdominal pain and diarrhea in setting of ulcerative colitis flare. He was admitted few months ago and was discharged on 6 MP which he didn't take. CTAP reviewed that shows sigmoid and rectal thickening. C diff and O and P negative. CMV and giardia pending. Will continue IV antibiotics and add mesalamine enema q nightly and po tid. Diet as tolerated. Will benefit from repeat EGD/ colonoscopy once episode resolves.
--- NOTE | 2017-06-08 11:47 | CP.PCM.PN ---
Subjective - Date & Time of Evaluation Date of Evaluation: 06/08/17 Time of Evaluation: 11:00 - Subjective Subjective: Patient continues to have episodes of diarrhea overnight. Complains of LLQ abdominal pain although he says it is slowly improving. Tolerating solid diet. Denies fever/chills/n/v/d/shortness of breath. Objective - Vital Signs/Intake and Output Vital Signs (last 24 hours): Temp Pulse Resp BP Pulse Ox 98.3 F 66 18 109/71 100 06/08/17 07:39 06/08/17 07:39 06/08/17 07:39 06/08/17 07:39 06/08/17 07:39 - Medications Medications: Current Medications Ferrous Sulfate (Feosol) 325 mg PO BID [facility] Last Admin: 06/08/17 08:47 Dose: 325 mg Sodium Chloride (Sodium Chloride 0.9%) 1,000 mls @ 125 mls/hr IV .Q8H [facility] Last Admin: 06/08/17 01:11 Dose: Not Given Ciprofloxacin (Cipro 400mg/200ml Dsw) 400 mg in 200 mls @ 200 mls/hr IVPB Q12 JESSICA PRN Reason: Protocol Last Admin: 06/08/17 08:46 Dose: 200 mls/hr Metronidazole (Flagyl 500mg/100ml Ns) 100 mls @ 100 mls/hr IVPB Q8 JESSICA PRN Reason: Protocol Last Admin: 06/08/17 08:45 Dose: 100 mls/hr Insulin Human Lispro (Humalog) 0 units SC ACHS JESSICA PRN Reason: Protocol Last Admin: 06/08/17 08:47 Dose: 1 units Mesalamine (Rowasa Enema) 4 gm [place] HS [facility] Mesalamine (Delzicol Dr) 400 mg PO TID [facility] Ondansetron HCl (Zofran Inj) 4 mg IVP Q6 PRN PRN Reason: Nausea/Vomiting - Labs Labs: 06/08/17 06:30 06/08/17 06:30 - Additional Findings Additional findings: Physical exam: Constitutional- cooperative, awake, alert Head- NCAT, PERRL Eye- PERRL, EOMI ENT- normal exam, MMM. Neck- normal inspection, supple, no JVD Respiratory- CTAB, no wheezes rales rhonchi Cardiovascular- RRR, +S1, +S2 no MRG GI/Abdominal-+ Generalized tenderness to palpation, normal bowel sounds, soft, no mass, no hsm Skin- warm, dry Extremities Exam- normal capillary refill, normal inspection Neurological Exam- alert, awake, oriented Psych- normal mood, normal affect Assessment and Plan - Assessment and Plan (Free Text) Plan: 51 y/o gent with hx of DM , Ulcertaive Colitis, came in because of 3 weeks hx of blood tinge diarrhea. 1) Rectal bleed with diarrhea, consitent with exacerbation of Ulcerative colitis - med/surg admission- tolerating diet but still with abdominal pain and diarrhea - consultation with GI, Dr. Arce - C. diff negative - Stool ova and parasite study negative - Stool leukocytes and calprotectin pending - Giardia study pending - CT A/P reveals mural thickening and enhancement of the sigmoid colon and rectum with minimal perirectal fat infiltration suggesting underlying colitis and horseshoe kidney. - Continue IV Cipro and Flagyl -IVF hydration with normal saline -Pain mgt 2) Iron deficiency anemia - secondary to GI bleed as above - Hg appears stable since admission; 8.4 today 3) Diabetes mellitus type ii - accucheks AC+HS with coverage DVT prophylaxis - SCDs due to bleeding
[2017-06-08 12:37] LABS: FECAL LEUKOCYTES POSITIVE (NEGATIVE)
[2017-06-09] MEDS: metroNIDAZOLE 500mg/100ml NS 100 ML IVPB SCH ×3 (00:44→16:26)
[2017-06-09] MEDS: Sodium Chloride 0.9% 1,000 ML IV SCH ×3 (01:56→16:27)
[2017-06-09 06:35] LABS: HEMOGLOBIN 8.4 g/dL (12.0-18.0); MEAN CELL VOLUME 83.3 fl (80.0-94.0); MEAN CORPUSCULAR HEMOGLOBIN 25.9 pg (27.0-31.0); RBC 3.24 Mil/uL (4.40-5.90); RED CELL DISTRIBUTION WIDTH 19.8 % (11.5-14.5); WHITE BLOOD COUNT 16.5 K/uL (4.8-10.8)
[2017-06-09 06:50] LABS: BLOOD UREA NITROGEN 6 mg/dl (9-20); CALCIUM 7.4 mg/dL (8.4-10.2); GFR AFRICAN-AMERICAN > 60; GFR NON-AFRICAN AMERICAN > 60
[2017-06-09] MEDS: Insulin Lispro (humaLOG) 100 Units/ml Inj SC SCH ×3 (08:02→16:28)
--- NOTE | 2017-06-09 08:15 | CP.PCM.PN ---
<Romeo Muller - Last Filed: 06/09/17 09:09> Subjective - Date & Time of Evaluation Date of Evaluation: 06/09/17 Time of Evaluation: 08:13 - Subjective Subjective: PGY5 GI Fellow Progress Note Patient seen and examined bedside this morning. The patient admits to a history of nonadherence with his UC medications, stating he never took 6MP in the past despite recommendation. He is unclear as to whom his primary GI doctor was despite being sent to the ED from the GI clinic this past Friday. He continues to complain of left sided abdominal pain and diarrhea. Denies bloody diarrhea. Per nursing 2 episodes in last 12 hours. 12 system ROS performed and negative except where stated. Objective - Vital Signs/Intake and Output Vital Signs (last 24 hours): Temp Pulse Resp BP Pulse Ox 98.7 F 93 H 20 124/76 99 06/09/17 07:44 06/09/17 07:44 06/09/17 07:44 06/09/17 07:44 06/09/17 07:44 - Medications Medications: Current Medications Ferrous Sulfate (Feosol) 325 mg PO BID [facility] Last Admin: 06/08/17 17:42 Dose: 325 mg Sodium Chloride (Sodium Chloride 0.9%) 1,000 mls @ 125 mls/hr IV .Q8H [facility] Last Admin: 06/09/17 01:56 Dose: Not Given Ciprofloxacin (Cipro 400mg/200ml Dsw) 400 mg in 200 mls @ 200 mls/hr IVPB Q12 JESSICA PRN Reason: Protocol Last Admin: 06/08/17 21:11 Dose: 200 mls/hr Metronidazole (Flagyl 500mg/100ml Ns) 100 mls @ 100 mls/hr IVPB Q8 JESSICA PRN Reason: Protocol Last Admin: 06/09/17 00:44 Dose: 100 mls/hr Insulin Human Lispro (Humalog) 0 units SC ACHS JESSICA PRN Reason: Protocol Last Admin: 06/08/17 21:49 Dose: Not Given Mesalamine (Rowasa Enema) 4 gm [place] HS [facility] Last Admin: 06/08/17 21:21 Dose: 4 gm Mesalamine (Delzicol Dr) 400 mg PO TID [facility] Last Admin: 06/08/17 17:42 Dose: 400 mg Ondansetron HCl (Zofran Inj) 4 mg IVP Q6 PRN PRN Reason: Nausea/Vomiting - Labs Labs: 06/09/17 05:25 06/09/17 05:25 - Constitutional Appears: Non-toxic, No Acute Distress - Eye Exam Eye Exam: EOMI, PERRL - ENT Exam ENT Exam: Mucous Membranes Moist - Respiratory Exam Respiratory Exam: Clear to Ausculation Bilateral. absent: Rales, Rhonchi, Wheezes - Cardiovascular Exam Cardiovascular Exam: RRR, +S1, +S2 - GI/Abdominal Exam GI & Abdominal Exam: Soft, Tenderness (mild with deep palpation of LLQ), Normal Bowel Sounds. absent: Distended, Firm, Guarding, Rigid, Organomegaly - Extremities Exam Extremities Exam: Normal Inspection. absent: Pedal Edema - Neurological Exam Neurological Exam: Alert, Awake, Oriented x3 - Psychiatric Exam Psychiatric exam: Normal Affect, Normal Mood - Skin Skin Exam: Dry, Warm Assessment and Plan - Assessment and Plan (Free Text) Assessment: Patient is a 51yo male with PMHx significant for ulcerative colitis nonadherent to prior therapy administered here, per pt on sulfasalazine as outpatient, who also has DM2 and presented with complaint of abdominal pain and bloody diarrhea for several weeks -Acute flare of ulcerative colitis in nonadherent patient -Acute blood loss anemia 2/2 above Plan: -Acute flare of UC suspected given clinical findings and CT imaging supportive of diagnosis -Continue with Rowasa enema QHS with Delzicol 400mg PO TID -Diet as tolerated -Stool culture pending, O&P negative, C diff negative, Giardia penidng, CMV not performed (inadequate sample) -Fecal leukocytes positive, calprotectin pending -Continue Cipro/Flagyl -If no improvement in symptoms, could consider unprepped flex sig - however, patient already improved from admission -Patient poor candidate for steroid taper given prior nonadherence to therapy and need for fci follow up -H/H stable -Will follow <Vamsi Arce - Last Filed: 06/09/17 16:49> Objective - Vital Signs/Intake and Output Vital Signs (last 24 hours): Temp Pulse Resp BP Pulse Ox 98.6 F 80 18 96/59 L 97 06/09/17 15:49 06/09/17 15:49 06/09/17 15:49 06/09/17 15:49 06/09/17 15:49 - Medications Medications: Current Medications Ferrous Sulfate (Feosol) 325 mg PO BID [facility] Last Admin: 06/09/17 16:26 Dose: 325 mg Sodium Chloride (Sodium Chloride 0.9%) 1,000 mls @ 125 mls/hr IV .Q8H [facility] Last Admin: 06/09/17 16:27 Dose: Not Given Ciprofloxacin (Cipro 400mg/200ml Dsw) 400 mg in 200 mls @ 200 mls/hr IVPB Q12 JESSICA PRN Reason: Protocol Last Admin: 06/09/17 09:01 Dose: 200 mls/hr Metronidazole (Flagyl 500mg/100ml Ns) 100 mls @ 100 mls/hr IVPB Q8 JESSICA PRN Reason: Protocol Last Admin: 06/09/17 16:26 Dose: 100 mls/hr Insulin Human Lispro (Humalog) 0 units SC ACHS JESSICA PRN Reason: Protocol Last Admin: 06/09/17 16:28 Dose: 3 units Mesalamine (Rowasa Enema) 4 gm [place] HS JESSICA Last Admin: 06/08/17 21:21 Dose: 4 gm Mesalamine (Delzicol Dr) 400 mg PO TID [facility] Last Admin: 06/09/17 16:25 Dose: 400 mg Ondansetron HCl (Zofran Inj) 4 mg IVP Q6 PRN PRN Reason: Nausea/Vomiting - Labs Labs: 06/09/17 05:25 06/09/17 05:25 Attending/Attestation - Attestation I have personally seen and examined this patient.: Yes I have fully participated in the care of the patient.: Yes I have reviewed all pertinent clinical information, including history, physical exam and plan: Yes Notes (Text): 06/09/17 16:48 Patient seen with GI fellow. This is a 51 year old M presenting with complaints of abdominal pain and diarrhea in setting of ulcerative colitis flare. He was admitted few months ago and was discharged on 6 MP which he didn't take. CTAP reviewed that shows sigmoid and rectal thickening. C diff and O and P negative. CMV and giardia pending. Will continue IV antibiotics and add mesalamine enema q nightly and po tid. Diet as tolerated. Will benefit from repeat EGD/ colonoscopy once episode resolves as outpatient. He is cleared for discharge.
[2017-06-09] MEDS: Ciprofloxacin 400mg/200ml D5W 400 MG/200 ML BAG IVPB SCH (09:01)
--- NOTE | 2017-06-09 11:23 | CP.PCM.PN ---
Objective - Vital Signs/Intake and Output Vital Signs (last 24 hours): Temp Pulse Resp BP Pulse Ox 98.7 F 93 H 20 124/76 99 06/09/17 07:44 06/09/17 07:44 06/09/17 07:44 06/09/17 07:44 06/09/17 07:44 - Medications Medications: Current Medications Ferrous Sulfate (Feosol) 325 mg PO BID [facility] Last Admin: 06/09/17 09:02 Dose: 325 mg Sodium Chloride (Sodium Chloride 0.9%) 1,000 mls @ 125 mls/hr IV .Q8H [facility] Last Admin: 06/09/17 08:59 Dose: 125 mls/hr Ciprofloxacin (Cipro 400mg/200ml Dsw) 400 mg in 200 mls @ 200 mls/hr IVPB Q12 JESSICA PRN Reason: Protocol Last Admin: 06/09/17 09:01 Dose: 200 mls/hr Metronidazole (Flagyl 500mg/100ml Ns) 100 mls @ 100 mls/hr IVPB Q8 JESSICA PRN Reason: Protocol Last Admin: 06/09/17 08:57 Dose: 100 mls/hr Insulin Human Lispro (Humalog) 0 units SC ACHS JESSICA PRN Reason: Protocol Last Admin: 06/09/17 08:02 Dose: 1 units Mesalamine (Rowasa Enema) 4 gm [place] HS [facility] Last Admin: 06/08/17 21:21 Dose: 4 gm Mesalamine (Delzicol Dr) 400 mg PO TID [facility] Last Admin: 06/09/17 09:02 Dose: 400 mg Ondansetron HCl (Zofran Inj) 4 mg IVP Q6 PRN PRN Reason: Nausea/Vomiting - Labs Labs: 06/09/17 05:25 06/09/17 05:25
[2017-06-09 15:50] VITALS: BP 96/59; PULSE 80; RESP 18; TEMP 98.6; O2SAT 97
--- NOTE | 2017-06-09 16:16 | CP.PCM.DIS ---
Provider - Provider Date of Admission: 06/07/17 14:26 Attending physician: Sanket Roberts DO Primary care physician: Ruben Leonard Consults: GI : DR Arce Time Spent in preparation of Discharge (in minutes): 35 Diagnosis - Discharge Diagnosis (1) Acute ulcerative colitis with rectal bleeding Status: Acute (2) Diabetes mellitus with hyperglycemia Status: Chronic (3) Dehydration Status: Acute Hospital Course - Lab Results Lab Results: Micro Results 06/07/17 12:00 Blood Blood Culture - Preliminary NO GROWTH AFTER 48 HOURS 06/07/17 11:15 Stool Stool Culture - Final NO SALMONELLA, SHIGELLA OR CAMPYLOBACTER ISOLATED. 06/07/17 11:15 Stool Ova and Parasite Concentrate Exam - Final Most Recent Lab Values WBC 16.5 K/uL (4.8-10.8) H D 06/09/17 05:25 RBC 3.24 Mil/uL (4.40-5.90) L 06/09/17 05:25 Hgb 8.4 g/dL (12.0-18.0) L 06/09/17 05:25 Hct 27.0 % (35.0-51.0) L 06/09/17 05:25 MCV 83.3 fl (80.0-94.0) 06/09/17 05:25 MCH 25.9 pg (27.0-31.0) L 06/09/17 05:25 MCHC 31.0 g/dL (33.0-37.0) L 06/09/17 05:25 RDW 19.8 % (11.5-14.5) H 06/09/17 05:25 Plt Count 495 K/uL (130-400) H 06/09/17 05:25 MPV 7.3 fl (7.2-11.7) 06/08/17 06:30 Neut % (Auto) 59.1 % (50.0-75.0) 06/08/17 06:30 Lymph % (Auto) 21.0 % (20.0-40.0) 06/08/17 06:30 Cherry % (Auto) 12.1 % (0.0-10.0) H 06/08/17 06:30 Eos % (Auto) 7.7 % (0.0-4.0) H 06/08/17 06:30 Baso % (Auto) 0.1 % (0.0-2.0) 06/08/17 06:30 Neut # (Auto) 6.0 K/uL (1.8-7.0) 06/08/17 06:30 Lymph # (Auto) 2.1 K/uL (1.0-4.3) 06/08/17 06:30 Cherry # (Auto) 1.2 K/uL (0.0-0.8) H 06/08/17 06:30 Eos # (Auto) 0.8 K/uL (0.0-0.7) H 06/08/17 06:30 Baso # (Auto) 0.0 K/uL (0.0-0.2) 06/08/17 06:30 Sodium 140 mmol/l (132-148) 06/09/17 05:25 Potassium 4.0 MMOL/L (3.6-5.0) 06/09/17 05:25 Chloride 105 mmol/L (98-107) 06/09/17 05:25 Carbon Dioxide 26 mmol/L (22-30) 06/09/17 05:25 Anion Gap 13 (10-20) 06/09/17 05:25 BUN 6 mg/dl (9-20) L 06/09/17 05:25 Creatinine 0.5 mg/dl (0.8-1.5) L 06/09/17 05:25 Est GFR ( Amer) > 60 06/09/17 05:25 Est GFR (Non-Af Amer) > 60 06/09/17 05:25 POC Glucose (mg/dL) 283 mg/dL (65-110) H 06/09/17 15:38 Random Glucose 162 mg/dL (75-110) H 06/09/17 05:25 Calcium 7.4 mg/dL (8.4-10.2) L 06/09/17 05:25 Phosphorus 3.0 mg/dl (2.5-4.5) 06/08/17 06:30 Magnesium 1.6 MG/DL (1.6-2.3) 06/09/17 05:25 Total Bilirubin < 0.1 mg/dl (0.2-1.3) L 06/06/17 12:45 AST 22 U/L (17-59) 06/06/17 12:45 ALT 43 U/L (21-72) 06/06/17 12:45 Alkaline Phosphatase 49 U/L (38-126) 06/06/17 12:45 Total Protein 5.7 G/DL (6.3-8.2) L 06/06/17 12:45 Albumin 2.4 g/dL (3.5-5.0) L 06/06/17 12:45 Globulin 3.3 gm/dL (2.2-3.9) 06/06/17 12:45 Albumin/Globulin Ratio 0.7 (1.0-2.1) L 06/06/17 12:45 Lipase 101 U/L (23-300) 06/06/17 12:45 Stool Occult Blood Positive (NEGATIVE) H 06/06/17 14:53 Stool Leukocytes, Qual Positive (NEGATIVE) H 06/07/17 11:15 C. difficile Ag & Toxin Negative (NEGATIVE) 06/07/17 11:15 CMV IgG Ab TN 06/07/17 11:15 CMV IgM Ab TNP 06/07/17 11:15 - Hospital Course Hospital Course: 51 y/o gent with hx of DM , Ulcerative Colitis, came in because of 3 weeks hx of blood tinge diarrhea. CT of the Abdomen:Mural thickening and enhancement of the sigmoid colon and rectum with minimal perirectal fat infiltration suggesting underlying colitis. Horseshoe kidney. 6.0 centimeter right lower pole renal cyst. 1) Rectal bleed with diarrhea likely exacerbation of Ulcerative colitis - pt started on Rowasa Enema and PO Mesalamine - consultation with GI, Dr. Arce - received IV Cipro and Flagyl -IVF hydration -Pain mgt - cleared by DR Arce for dischsrge on Mesalamine Enema and PO and PO Cipro and Flagyl, pt to ff up with Dr Arce in the clinic - pt's abd pain, rectal bleeding resolved, still with some soft stools this am but no diarrhea, tolerating PO diet 2) Iron deficiency anemia - secondary to GI bleed as above 3) Diabetes mellitus type ii - accucheks AC+HS with coverage while in the hospital - cont Home insulin dose 70/30 insulin ( pt gets hi Insulin from [place]) DVT prophylaxis - SCDs due to bleeding Discharge Exam - Head Exam Head Exam: ATRAUMATIC, NORMAL INSPECTION, NORMOCEPHALIC - Eye Exam Eye Exam: EOMI, Normal appearance, PERRL Pupil Exam: NORMAL ACCOMODATION - ENT Exam ENT Exam: Mucous Membranes Moist, Normal External Ear Exam - Neck Exam Neck exam: Full Rom - Respiratory Exam Respiratory Exam: Respiratory Distress, NORMAL BREATHING PATTERN - Cardiovascular Exam Cardiovascular Exam: REGULAR RHYTHM, +S1, +S2 - GI/Abdominal Exam GI & Abdominal Exam: Normal Bowel Sounds, Soft. absent: Tenderness - Extremities Exam Extremities exam: full ROM, normal capillary refill, normal inspection, pedal pulses present - Back Exam Back exam: FULL ROM. absent: CVA tenderness (L), CVA tenderness (R) - Neurological Exam Neurological exam: Alert, CN II-XII Intact, Normal Gait, Oriented x3, Reflexes Normal - Psychiatric Exam Psychiatric exam: Normal Affect, Normal Mood - Skin Skin Exam: Dry, Intact, Normal Color Discharge Plan - Discharge Medications Prescriptions: Ciprofloxacin [Cipro] 500 mg PO BID #28 tab Mesalamine [Rowasa Enema] 4 gm [place] HS #14 nma Mesalamine [Delzicol ] 400 mg PO TID #90 capsule. metroNIDAZOLE [Flagyl] 500 mg PO TID #42 tab - Follow Up Plan Condition: GOOD Disposition: HOME/ ROUTINE Instructions: Low Fiber Diet, Ulcerative Colitis (DC) Additional Instructions: ff up FP clinic in [address] Arce at the GI clinic in 4 wks hacer tevin en [facility] [place] dentro de 1 semana hacer tevin con claudia Arce dentro de 4 semanas. Referrals: [facility] [Outside] Vamsi Arce MD [Medical Doctor] -
== END 2017-06-09 20:23 | disposition home or self-care (01) | DRG 386 ==
LOC: H.ER 11:26 → H.ERHOLD 15:32 → H.MEDSURG1 20:50 → OBSVTOIN 06-07 14:26
PROVIDERS: ADMIT Internal Medicine; ATTEND Internal Medicine
DX: K51.911 Ulcerative colitis, unspecified with rectal bleeding (principal); D62 Acute posthemorrhagic anemia; E83.42 Hypomagnesemia; E11.65 Type 2 diabetes mellitus with hyperglycemia; N28.1 Cyst of kidney, acquired; E86.0 Dehydration; Z87.891 Personal history of nicotine dependence; Q63.1 Lobulated, fused and horseshoe kidney; Z79.4 Long term (current) use of insulin

== ENCOUNTER 2017-09-02 09:49 | Day surgery (SDC) | payer MEDICAID, SELFPAY ==
[2017-09-02] MEDS ORDERED: Lactated Ringer's 500 ML IV ONE (11:34)
[2017-09-02 11:41] VITALS: RESP 18
[2017-09-02] MEDS ORDERED: Midazolam 2 MG/2 ML VIAL ONE (12:11)
[2017-09-02] MEDS ORDERED: Propofol 10 mg/ml Inj (20 ML) ONE (12:14)
[2017-09-02 13:58] VITALS: BP 121/61; PULSE 63; TEMP 97; O2SAT 99
== END 2017-09-02 14:00 | disposition short-term general hospital (02) ==
LOC: H.ENDO 09:49
PROVIDERS: ATTEND Internal Medicine Gastroenterology
DX: K51.00 Ulcerative (chronic) pancolitis without complications (principal); E11.9 Type 2 diabetes mellitus without complications; D49.0 Neoplasm of unspecified behavior of digestive system; K51.30 Ulcerative (chronic) rectosigmoiditis without complications; K63.3 Ulcer of intestine; K22.8 Other specified diseases of esophagus; K29.50 Unspecified chronic gastritis without bleeding
CPT/HCPCS: 43239; 45380; 82948; 88305; J2250; J2704; J7120

== ENCOUNTER 2017-09-02 14:20 | Inpatient (IN) | payer MEDICAID, SELFPAY ==
[2017-09-02 14:21] VITALS: BMI 23.3
[2017-09-02] MEDS ORDERED: Iohexol 240 (50 ml) PO ONE (14:51)
[2017-09-02] MEDS ORDERED: Ciprofloxacin 400mg/200ml D5W 400 MG/200 ML BAG IVPB STA (14:52)
[2017-09-02] MEDS ORDERED: metroNIDAZOLE 500mg/100ml NS 100 ML IVPB STA (14:53)
[2017-09-02] MEDS ORDERED: Iohexol 240 (50 ml) ONE (14:58)
[2017-09-02] MEDS ORDERED: metroNIDAZOLE 500mg/100ml NS 100 ML IVPB ONE (14:59)
[2017-09-02] MEDS ORDERED: Ciprofloxacin 400mg/200ml D5W 400 MG/200 ML BAG IVPB ONE (14:59)
--- NOTE | 2017-09-02 15:13 | CP.PCM.CON ---
<Myriam Kelly - Last Filed: 09/02/17 15:42> History of Present Illness - History of Present Illness History of Present Illness: Gastroenterology Fellow/PGY5 Consult Note 51 year old male with PMH of T2DM and Ulcerative Colitis with medication noncompliance presenting for admission post-colonoscopy due to stricture. Patient presented for elective EGD/colonoscopy for UC surveillance. Incomplete colonoscopy today showed severe ulcerated friable recto-sigmoid mucosa, polypoid lesion, and stricture. Patient admits to increased frequency of nonbloody diarrhea 4-6 times daily for the last two months from 3-4 times daily after running out of prescriptions for Rowasa and Delzicol from hospital discharge 05/2017 for UC flare. Denies abdominal/back/hip pain, skin rashes, mouth ulcers, eye pain/redness. Prior colonoscopy at [facility] 01/2017 showed ulcerative colitis. Family History- denies stomach cancer, colon cancer Social History- denies tobacco, alcohol, illicit drug use Surgical History- wrist Review of Systems - Review of Systems Review of Systems: 12-point review of systems negative except for as above Past Patient History - Infectious Disease Hx of Infectious Diseases: None - Past Medical History & Family History Past Medical History?: Yes - Past Social History Smoking Status: Never Smoked - CARDIAC Hx Cardiac Disorders: No - PULMONARY Hx Respiratory Disorders: No - NEUROLOGICAL Hx Neurological Disorder: No - HEENT Hx HEENT Problems: No - RENAL Hx Chronic Kidney Disease: No - ENDOCRINE/METABOLIC Hx Endocrine Disorders: Yes Hx Diabetes Mellitus Type 2: Yes - HEMATOLOGICAL/ONCOLOGICAL Hx Blood Disorders: No - INTEGUMENTARY Hx Dermatological Problems: No - MUSCULOSKELETAL/RHEUMATOLOGICAL Hx Musculoskeletal Disorders: No - GASTROINTESTINAL Hx Gastrointestinal Disorders: Yes Hx Colitis: Yes - GENITOURINARY/GYNECOLOGICAL Hx Genitourinary Disorders: No - PSYCHIATRIC Hx Psychophysiologic Disorder: No Hx Emotional Abuse: No Hx Physical Abuse: No Hx Substance Use: No - SURGICAL HISTORY Hx Surgeries: Yes Other/Comment: LT WRIST SURGERY - ANESTHESIA Hx Anesthesia: Yes Hx Anesthesia Reactions: No Hx Malignant Hyperthermia: No Meds Allergies/Adverse Reactions: Allergies Allergy/AdvReac Type Severity Reaction Status Date / Time No Known Allergies Allergy Verified 09/02/17 14:23 - Medications Medications: Current Medications Ciprofloxacin (Cipro 400mg/200ml Dsw) 400 mg in 200 mls @ 200 mls/hr IVPB STAT STA PRN Reason: Protocol Stop: 09/02/17 15:51 Last Admin: 09/02/17 15:03 Dose: 200 mls/hr Metronidazole (Flagyl 500mg/100ml Ns) 100 mls @ 100 mls/hr IVPB STAT STA PRN Reason: Protocol Stop: 09/02/17 15:52 Last Admin: 09/02/17 15:02 Dose: 100 mls/hr Physical Exam - Constitutional Appears: Non-toxic, No Acute Distress - Head Exam Head Exam: ATRAUMATIC, NORMOCEPHALIC - Eye Exam Eye Exam: EOMI, PERRL. absent: Scleral icterus Pupil Exam: PERRL. absent: Miosis, Mydriatic - ENT Exam ENT Exam: Mucous Membranes Moist, Normal Oropharynx - Neck Exam Neck exam: Positive for: Full Rom, Normal Inspection - Respiratory Exam Respiratory Exam: Clear to Auscultation Bilateral. absent: Rales, Rhonchi, Wheezes - Cardiovascular Exam Cardiovascular Exam: RRR, +S1, +S2. absent: Gallop, Rubs - GI/Abdominal Exam GI & Abdominal Exam: Normal Bowel Sounds, Soft. absent: Distended, Firm, Guarding, Organomegaly, Rebound, Rigid, Tenderness - Extremities Exam Extremities exam: Positive for: normal inspection. Negative for: pedal edema - Neurological Exam Neurological exam: Alert, Oriented x3 - Psychiatric Exam Psychiatric exam: Normal Affect, Normal Mood - Skin Skin Exam: Dry, Intact, Normal Color, Warm Results - Vital Signs Recent Vital Signs: Last Vital Signs Temp 97.7 F 09/02/17 14:23 Pulse 56 L 09/02/17 14:23 Resp 18 09/02/17 14:23 BP 130/81 09/02/17 14:23 Pulse Ox 100 09/02/17 14:23 Assessment & Plan - Assessment and Plan (Free Text) Assessment: 51 year old male with PMH of T2DM and Ulcerative Colitis with medication noncompliance presenting for admission post-colonoscopy due to stricture. Patient presented for elective EGD/colonoscopy for UC surveillance. Active treatment of UC flare with concern for recto-sigmoid stricture POD0 (09/02/17) Incomplete colonoscopy showing severe ulcerated friable recto-sigmoid mucosa, polypoid lesion, and stricture, molina score 3 in setting of noncompliance to Rowasa and Delzicol after hospital discharge 05/2017 for UC flare. Prior colonoscopy at [facility] 01/2017 showed ulcerative colitis. Plan: -surgery consult to evaluate for possible resection indication given recto- sigmoid stricture disease on endoscopic evaluation -obtain CT A/P PO/IV contrast for further evaluation of pathology -follow up colonoscopy biopsies -Budesonide 9mg daily and steroid enema daily -clear liquid diet -follow up labs -supportive care- IVFs, anti-emetics -EGD- Gastritis, pending pathology -will follow clinical course <Vamsi Arce - Last Filed: 09/02/17 16:03> Results - Vital Signs Recent Vital Signs: Last Vital Signs Temp 97.7 F 09/02/17 14:23 Pulse 56 L 09/02/17 14:23 Resp 18 09/02/17 14:23 BP 130/81 09/02/17 14:23 Pulse Ox 100 09/02/17 15:52 Attending/Attestation - Attestation I have personally seen and examined this patient.: Yes I have fully participated in the care of the patient.: Yes I have reviewed all pertinent clinical information: Yes Notes (Text): 09/02/17 16:01 This is a 51 year old male with PMH of T2DM and Ulcerative Colitis with medication noncompliance presenting for admission post-colonoscopy due to recto sigmoid ulcerative stricture. Patient presented for elective EGD/colonoscopy for UC surveillance. See full colonoscopy details in the chart. Incomplete colonoscopy showing severe ulcerated friable recto-sigmoid mucosa, polypoid lesion, and stricture, molina score 3 in setting of noncompliance to Rowasa and Delzicol after hospital discharge 05/2017 for UC flare. Prior colonoscopy at [facility] 01/2017 showed ulcerative colitis. Plan: -surgery consult to evaluate for possible resection indication given recto- sigmoid stricture disease on endoscopic evaluation -obtain CT A/P PO/IV contrast for further evaluation of pathology or if able CT enterography -follow up colonoscopy biopsies -Budesonide 9mg daily and steroid enema daily -clear liquid diet - Will send Hepatitis and TPMT serologies -follow up labs -supportive care- IVFs, anti-emetics -EGD- Gastritis, pending pathology -will follow clinical course
--- NOTE | 2017-09-02 15:33 | CP.PCM.CON ---
<Steve Monaco - Last Filed: 09/02/17 22:16> History of Present Illness - History of Present Illness History of Present Illness: Surgery Consult Note. Dr. Freeman 51yo M with PMHx of DM, Ulcerative colitis sent to the ED for further evaluation after abnormal colonoscopy findings today. Patient denies any abdominal pain. Patient does report non-bloody diarrhea off and on over the past 2 months. He states that he has been doing well otherwise and was getting a screening colonoscopy today and was sent to the ED after incomplete exam. EGD today revealed gastritis. Colonoscopy today revealed mucosal ulceration, polypoid lesion in recto-sigmoid region s/p bx, and the sigmoid colon was unable to be traversed due to colonic stricture. Patient denies any F/C. No CP/ SOB. No Abd pain. No N/V. No constipation. No headaches. No urinary complaints. PMHx: DM, Ulcerative colitis PSHx: Left wrist ORIF Social Hx: Denies Tobacco use, Denies ETOH, Denies illicit drugs Family Hx: Non-contributory NKDA Review of Systems - Review of Systems All systems: reviewed and no additional remarkable complaints except - Constitutional Constitutional: absent: Chills, Fever - Cardiovascular Cardiovascular: absent: Chest Pain, Dyspnea - Respiratory Respiratory: absent: Dyspnea - Gastrointestinal Gastrointestinal: Diarrhea. absent: Abdominal Pain, Constipation, Hematemesis, Hematochezia, Nausea, Vomiting - Genitourinary Genitourinary: absent: Difficulty Urinating, Dysuria Past Patient History - Infectious Disease Hx of Infectious Diseases: None - Past Medical History & Family History Past Medical History?: Yes Past Family History: Reviewed and not pertinent - Past Social History Smoking Status: Never Smoked Alcohol: None Drugs: Denies - CARDIAC Hx Cardiac Disorders: No - PULMONARY Hx Respiratory Disorders: No - NEUROLOGICAL Hx Neurological Disorder: No - HEENT Hx HEENT Problems: No - RENAL Hx Chronic Kidney Disease: No - ENDOCRINE/METABOLIC Hx Endocrine Disorders: Yes Hx Diabetes Mellitus Type 2: Yes - HEMATOLOGICAL/ONCOLOGICAL Hx Blood Disorders: No - INTEGUMENTARY Hx Dermatological Problems: No - MUSCULOSKELETAL/RHEUMATOLOGICAL Hx Musculoskeletal Disorders: No - GASTROINTESTINAL Hx Gastrointestinal Disorders: Yes Hx Colitis: Yes - GENITOURINARY/GYNECOLOGICAL Hx Genitourinary Disorders: No - PSYCHIATRIC Hx Psychophysiologic Disorder: No Hx Emotional Abuse: No Hx Physical Abuse: No Hx Substance Use: No - SURGICAL HISTORY Hx Surgeries: Yes Other/Comment: LT WRIST SURGERY - ANESTHESIA Hx Anesthesia: Yes Hx Anesthesia Reactions: No Hx Malignant Hyperthermia: No Meds Allergies/Adverse Reactions: Allergies Allergy/AdvReac Type Severity Reaction Status Date / Time No Known Allergies Allergy Verified 09/02/17 14:23 - Medications Medications: Current Medications Ciprofloxacin (Cipro 400mg/200ml Dsw) 400 mg in 200 mls @ 200 mls/hr IVPB STAT STA PRN Reason: Protocol Stop: 09/02/17 15:51 Last Admin: 09/02/17 15:03 Dose: 200 mls/hr Metronidazole (Flagyl 500mg/100ml Ns) 100 mls @ 100 mls/hr IVPB STAT STA PRN Reason: Protocol Stop: 09/02/17 15:52 Last Admin: 09/02/17 15:02 Dose: 100 mls/hr Physical Exam - Constitutional Appears: Well, Non-toxic, No Acute Distress - Head Exam Head Exam: ATRAUMATIC, NORMAL INSPECTION, NORMOCEPHALIC - Eye Exam Eye Exam: EOMI, Normal appearance. absent: Scleral icterus - ENT Exam ENT Exam: Mucous Membranes Moist - Respiratory Exam Respiratory Exam: NORMAL BREATHING PATTERN. absent: Accessory Muscle Use, Respiratory Distress - Cardiovascular Exam Cardiovascular Exam: RRR. absent: JVD - GI/Abdominal Exam GI & Abdominal Exam: Soft. absent: Distended, Firm, Guarding, Rebound, Rigid, Tenderness - Extremities Exam Extremities exam: Positive for: normal inspection. Negative for: calf tenderness - Neurological Exam Neurological exam: Alert, Oriented x3 - Psychiatric Exam Psychiatric exam: Normal Affect, Normal Mood - Skin Skin Exam: Dry, Intact, Normal Color, Warm Results - Vital Signs Recent Vital Signs: Last Vital Signs Temp 97.7 F 09/02/17 14:23 Pulse 56 L 09/02/17 14:23 Resp 18 09/02/17 14:23 BP 130/81 09/02/17 14:23 Pulse Ox 100 09/02/17 14:23 - Labs Result Diagrams: 09/02/17 15:40 09/02/17 15:40 Assessment & Plan - Assessment and Plan (Free Text) Assessment: 51yo M with colonic stricture in sigmoid as noted on aborted colonoscopy 09/02/17 Plan: - f/u CT Abd/Pelvis w PO and IV contrast - f/u GI recs - NPO for now. Advance diet as tolerated as per GI and Medicine team - IVF - No surgical intervention warranted at this time. - Patient may benefit by completing screening colonoscopy or CT/MR enterography - Continue medical management as per GI and medical teams Further recs as per Dr. Pete Monaco PGY1 surgery pager: [phone] <Ml Freeman - Last Filed: 09/03/17 16:42> Meds - Medications Medications: Current Medications Enoxaparin Sodium (Lovenox) 40 mg SC DAILY [facility] PRN Reason: Protocol Last Admin: 09/03/17 10:56 Dose: 40 mg Ferrous Sulfate (Feosol) 325 mg PO BID [facility] Last Admin: 09/03/17 16:31 Dose: 325 mg Hydrocortisone (Cortenema) 100 mg NC BID [facility] Last Admin: 09/03/17 16:30 Dose: 100 mg Sodium Chloride (Sodium Chloride 0.9%) 1,000 mls @ 115 mls/hr IV .[id number] [facility] Stop: 09/03/17 16:42 Last Admin: 09/03/17 10:32 Dose: Not Given Metronidazole (Flagyl 500mg/100ml Ns) 100 mls @ 100 mls/hr IVPB Q8@0500,1300, 1900 [facility] PRN Reason: Protocol Last Admin: 09/03/17 12:52 Dose: 100 mls/hr Ciprofloxacin (Cipro 400mg/200ml Dsw) 400 mg in 200 mls @ 200 mls/hr IVPB Q12H [facility] PRN Reason: Protocol Last Admin: 09/03/17 13:41 Dose: 200 mls/hr Insulin Human Regular (Humulin R) 0 units SC ACCU-CHECK JESSICA PRN Reason: Protocol Last Admin: 09/03/17 16:31 Dose: 3 u Mesalamine (Delzicol Dr) 800 mg PO Q12 JESSICA Methylprednisolone (Solu-Medrol) 25 mg IVP Q6H [facility] Last Admin: 09/03/17 11:39 Dose: 25 mg Results - Vital Signs Recent Vital Signs: Last Vital Signs Temp 98.4 F 09/03/17 16:27 Pulse 67 09/03/17 16:27 Resp 20 09/03/17 16:27 BP 110/67 09/03/17 16:27 Pulse Ox 100 09/03/17 16:27 - Labs Result Diagrams: 09/03/17 06:05 09/03/17 06:05 Labs: Laboratory Results - last 24 hr 09/02/17 09/02/17 09/02/17 17:37 17:50 18:38 WBC RBC Hgb Hct MCV MCH MCHC RDW Plt Count MPV Neut % (Auto) Lymph % (Auto) Harvey % (Auto) Eos % (Auto) Baso % (Auto) Neut # (Auto) Lymph # (Auto) Harvey # (Auto) Eos # (Auto) Baso # (Auto) Sodium Potassium Chloride Carbon Dioxide Anion Gap BUN Creatinine Est GFR ( Amer) Est GFR (Non-Af Amer) POC Glucose (mg/dL) 155 H 146 H Random Glucose Calcium Total Bilirubin AST ALT Alkaline Phosphatase Total Protein Albumin Globulin Albumin/Globulin Ratio Triglycerides Cholesterol LDL Cholesterol Direct HDL Cholesterol Vitamin B12 Thyroxine (T4) Total T3 TSH 3rd Generation Hepatitis A IgM Ab Negative Hep Bs Antigen Negative Hep B Core IgM Ab Negative Hepatitis C Antibody Negative 09/02/17 09/03/17 09/03/17 20:59 05:17 06:05 WBC 7.7 RBC 4.26 L Hgb 9.0 L Hct 30.8 L MCV 72.3 L MCH 21.2 L MCHC 29.4 L RDW 17.9 H Plt Count 447 H MPV 7.8 Neut % (Auto) 84.7 H Lymph % (Auto) 14.1 L Harvey % (Auto) 0.9 Eos % (Auto) 0.0 Baso % (Auto) 0.3 Neut # (Auto) 6.5 Lymph # (Auto) 1.1 Harvey # (Auto) 0.1 Eos # (Auto) 0.0 Baso # (Auto) 0.0 Sodium Potassium Chloride Carbon Dioxide Anion Gap BUN Creatinine Est GFR ( Amer) Est GFR (Non-Af Amer) POC Glucose (mg/dL) 233 H 226 H Random Glucose Calcium Total Bilirubin AST ALT Alkaline Phosphatase Total Protein Albumin Globulin Albumin/Globulin Ratio Triglycerides Cholesterol LDL Cholesterol Direct HDL Cholesterol Vitamin B12 Thyroxine (T4) Total T3 TSH 3rd Generation Hepatitis A IgM Ab Hep Bs Antigen Hep B Core IgM Ab Hepatitis C Antibody 09/03/17 09/03/17 09/03/17 06:05 10:50 15:37 WBC RBC Hgb Hct MCV MCH MCHC RDW Plt Count MPV Neut % (Auto) Lymph % (Auto) Harvey % (Auto) Eos % (Auto) Baso % (Auto) Neut # (Auto) Lymph # (Auto) Harvey # (Auto) Eos # (Auto) Baso # (Auto) Sodium 139 Potassium 4.5 Chloride 104 Carbon Dioxide 24 Anion Gap 16 BUN 15 Creatinine 0.6 L Est GFR ( Amer) > 60 Est GFR (Non-Af Amer) > 60 POC Glucose (mg/dL) 194 H 290 H Random Glucose 274 H Calcium 8.6 Total Bilirubin 0.3 AST 20 ALT 29 Alkaline Phosphatase 69 Total Protein 6.9 Albumin 3.3 L Globulin 3.6 Albumin/Globulin Ratio 0.9 L Triglycerides 33 Cholesterol 146 LDL Cholesterol Direct 96 HDL Cholesterol 38 Vitamin B12 630 Thyroxine (T4) 9.39 Total T3 0.878 L TSH 3rd Generation 0.22 L Hepatitis A IgM Ab Hep Bs Antigen Hep B Core IgM Ab Hepatitis C Antibody Assessment & Plan - Assessment and Plan (Free Text) Plan: I personally saw and examined the patient at bedside and agree with the above assessment and plan. UC diagnosed 1 year ago, symptoms of abdominal pain dominant then and was controlled on oral medications until no longer able to fill rx. Routine colonoscopy done earlier today and found to have significant active disease/inflammation, stricture, and rectosigmoid mass. Admitted for observation and treatment for acute flare and re-start oral therapy. CT AP imaging personally reviewed. Active colitis throughout left colon. PO contrast does not reach distally to say for sure but thickened colon wall. No acute distress or evidence of perforation currently. Does not complain of any abdominal pain, dysuria, bleeding. Tolerates diet at home and has 2-4 non- bloody loose BM/day. No significant weight loss and No obstructive symptoms currently. Abd benign, mild left lower tenderness. NPO tonight, IVF, IV Abx, check c.diff, steroids per GI team. Currently does not have any indications for surgery. Will follow up biopsy of rectosigmooid polyp and can plan further as outpatient depending on results. - Date & Time Date: 09/02/17 Time: 17:00
--- NOTE | 2017-09-02 15:52 | ED PDOC ---
HPI: General Adult Time Seen by Provider: 09/02/17 14:45 Chief Complaint (Nursing): GI Problem Chief Complaint (Provider): Surgical Evaluation History Per: Patient History/Exam Limitations: no limitations Current Symptoms Are (Timing): Still Present Additional Complaint(s): 51 year old male is sent into the emergency room from the endoscopy suite by Dr. Arce for a surgical evaluation. Patient denies complaints and states that he was being seen in endocscopy for a schedules follow up and colonoscopy. Patient has a history of ulcerative colitis and was admitted earlier this year for colitis. Endoscopy report results show that endoscopy and colonoscopy show colonic stricture therefore Dr. Arce referred patient to the emergency department for evaluation and treatment. NO PRIMARY CARE PROVIDER Past Medical History Reviewed: Historical Data, Nursing Documentation, Vital Signs Vital Signs: Last Vital Signs Temp 97.7 F 09/02/17 14:23 Pulse 56 L 09/02/17 14:23 Resp 18 09/02/17 14:23 BP 130/81 09/02/17 14:23 Pulse Ox 100 09/02/17 16:11 - Medical History PMH: Diabetes, Diverticulitis, HTN Denies: HIV, Chronic Kidney Disease Other PMH: ulcerative colitis - Surgical History Surgical History: Endoscopy - Family History Family History: States: Unknown Family Hx - Social History Current smoker - smoking cessation education provided: No Alcohol: None Drugs: Denies - Home Medications Home Medications: Ambulatory Orders Medication Instructions Recorded Ferrous Sulfate [Ferosul] 325 mg PO BID 09/02/17 Insulin Aspart Prot/Insuln Asp 25 unit SC DAILY 09/02/17 [Novolog Mix 70-30 Vial] Mesalamine [Apriso] 4 cap PO QAM 09/02/17 - Allergies Allergies/Adverse Reactions: Allergies Allergy/AdvReac Type Severity Reaction Status Date / Time No Known Allergies Allergy Verified 09/02/17 14:23 Review of Systems ROS Statement: Except As Marked, All Systems Reviewed And Found Negative Physical Exam - Reviewed Nursing Documentation Reviewed: Yes Vital Signs Reviewed: Yes - Physical Exam Appears: Positive for: Non-toxic, No Acute Distress Head Exam: Positive for: ATRAUMATIC, NORMAL INSPECTION, NORMOCEPHALIC Skin: Positive for: Normal Color, Warm, Dry. Negative for: Rash Eye Exam: Positive for: Normal appearance, EOMI, PERRL. Negative for: Nystagmus ENT: Positive for: Normal ENT Inspection. Negative for: Nasal Congestion, Tonsillar Exudate, Tonsillar Swelling Neck: Positive for: Normal, Painless ROM, Supple Cardiovascular/Chest: Positive for: Regular Rate, Rhythm, Chest Non Tender. Negative for: Tachycardia Respiratory: Positive for: Normal Breath Sounds. Negative for: Rales, Rhonchi, Wheezing, Respiratory Distress Gastrointestinal/Abdominal: Positive for: Normal Exam, Bowel Sounds, Soft. Negative for: Tenderness, Mass, Guarding, Rebound Back: Positive for: Normal Inspection. Negative for: L CVA Tenderness, R CVA Tenderness Extremity: Positive for: Normal ROM. Negative for: Tenderness, Deformity, Swelling Neurologic/Psych: Positive for: Alert, Oriented, Gait - Laboratory Results Result Diagrams: 09/02/17 15:40 09/02/17 15:40 - ECG O2 Sat by Pulse Oximetry: 100 (RA) Pulse Ox Interpretation: Normal Medical Decision Making Medical Decision Makin Initial Impression 51 year old male presenting with ulcerative colitis colonic stricture Initial Plan: * CT ABD & PELVIS PO & IV CONTRAST * CMP * Gastroenterology Consult * Surgery Consult * CBC * Cipro 400 mg/ 200mL DSW 400mg * Flagyl 500mg/100 mL NS 100 ml IVPB * Iohexol 500 ml PO * Solu-medrol 125 mg * Reevaluation Yazmin Rodriguez reports that she discussed case with surgery low emission automobile designer- Dr. Freeman regarding this case. Discussed case with certified ophthalmic surgical assistant who will discuss case with Dr. Freeman --------- Documented by Kailey Pedraza acting as a scribe for Kailey Pedraza. All medical record entries made by the Scribe were at my direction and personally dictated by me. I have reviewed the chart and agree that the record accurately reflects my personal performance of the history, physical exam, medical decision making, and the department course for this patient. I have also personally directed, reviewed, and agree with the discharge instructions and disposition. Disposition - Clinical Impression Clinical Impression: Colonic stricture, Ulcerative colitis - Patient ED Disposition Is Patient to be Admitted: Yes Discussed With : Kj Chicas Doctor Will See Patient In The: Hospital Counseled Patient/Family Regarding: Studies Performed, Diagnosis - Disposition Disposition Time: 15:50 Condition: FAIR - Pt Status Changed To: Hospital Disposition Of: Inpatient - Admit Certification Admit to Inpatient:: After my assessment, the patient will require hospitalization for at least two midnights. This is because of the severity of symptoms shown, intensity of services needed, and/or the medical risk in this patient being treated as an outpatient. - POA Present On Arrival: None
[2017-09-02 16:01] LABS: ALBUMIN 3.6 g/dL (3.5-5.0); ALT/SGPT 35 U/L (21-72); AST/SGOT 40 U/L (17-59); BLOOD UREA NITROGEN 12 mg/dl (9-20); CALCIUM 8.9 mg/dL (8.4-10.2); GFR AFRICAN-AMERICAN > 60; GFR NON-AFRICAN AMERICAN > 60
[2017-09-02] MEDS ORDERED: Iohexol 300 100 ML IJ ONE (16:03)
[2017-09-02] MEDS ORDERED: Sodium Chloride 0.9% 50 ML IV ONE (16:04)
[2017-09-02 16:06] LABS: BASO % 0.3 % (0.0-2.0); EOS # 0.3 K/uL (0.0-0.7); EOS % 3.9 % (0.0-4.0); HEMOGLOBIN 9.1 g/dL (12.0-18.0); LYMPH % 46.5 % (20.0-40.0); MEAN CELL VOLUME 71.9 fl (80.0-94.0); MEAN CORPUSCULAR HEMOGLOBIN 21.5 pg (27.0-31.0); MEAN CORPUSCULAR HGB CONC 29.9 g/dL (33.0-37.0); MONO # 0.5 K/uL (0.0-0.8); MONO % 8.2 % (0.0-10.0); NEUT # 2.6 K/uL (1.8-7.0); NEUT % 41.1 % (50.0-75.0); NRBC % 0.1 % (0.0-0.0); RBC 4.25 Mil/uL (4.40-5.90); RED CELL DISTRIBUTION WIDTH 17.8 % (11.5-14.5); WHITE BLOOD COUNT 6.4 K/uL (4.8-10.8)
[2017-09-02] MEDS: Sodium Chloride 0.9% 1,000 ML IV SCH (17:07)
--- NOTE | 2017-09-02 17:30 | CT ---
PROCEDURE: CT Abdomen and Pelvis with contrast HISTORY: Perforation suspected. COMPARISON: 06/07/2017. TECHNIQUE: Contrast dose: 90 cc Omnipaque 300 Radiation dose: Total exam DLP = 449.00 mGy-cm. This CT exam was performed using one or more of the following dose reduction techniques: Automated exposure control, adjustment of the mA and/or kV according to patient size, and/or use of iterative reconstruction technique. FINDINGS: LOWER THORAX: Unremarkable. LIVER: Unremarkable. No gross lesion or ductal dilatation. GALLBLADDER AND BILE DUCTS: Unremarkable. PANCREAS: Unremarkable. No gross lesion or ductal dilatation. SPLEEN: Unremarkable. ADRENALS: Unremarkable. No mass. KIDNEYS AND URETERS: Horseshoe kidney, anatomic variant. Stable simple cyst lower pole right kidney 6 cm. Additional smaller cysts identified none larger than 1 cm. VASCULATURE: Unremarkable. No aortic aneurysm. BOWEL: Proximal small bowel loops of mildly edematous with flocculation barium consistent with enteritis. Inflammatory changes primarily affecting the left duane colon from the splenic flexure involving the entire descending colon, sigmoid and to lesser extent the rectum. Findings are consistent with known personal history of ulcerative colitis. APPENDIX: No abnormalities to suggest acute appendicitis. No right lower quadrant inflammatory processes identified. PERITONEUM: Unremarkable. No free fluid. No free air. LYMPH NODES: Unremarkable. No enlarged lymph nodes. BLADDER: Unremarkable. REPRODUCTIVE: Unremarkable. BONES: No acute fracture. OTHER FINDINGS: None. IMPRESSION: 1. Mural thickening of the descending colon, sigmoid and rectum consistent known history of colitis. Similar degree of involvement in inflammatory change identified on the prior study. 2. Mild enteritis without mechanical obstruction. 3. No visualized free air.
[2017-09-02 21:42] LABS: HEPATITIS B SURFACE AG Negative (NEGATIVE)
[2017-09-02 21:47] LABS: HEPATITIS A IGM NEGATIVE (NEGATIVE); HEPATITIS B CORE AB NEGATIVE (NEGATIVE)
[2017-09-02 21:59] LABS: HEPATITIS C ANTIBODY NEGATIVE (NEGATIVE)
[2017-09-02] MEDS: Insulin Regular 100 units/ml SC SCH (22:44)
[2017-09-03] MEDS: Sodium Chloride 0.9% 1,000 ML IV SCH ×3 (01:27→10:32)
[2017-09-03] MEDS ORDERED: Ciprofloxacin 400mg/200ml D5W 400 MG/200 ML BAG IVPB SCH (02:00)
[2017-09-03] MEDS: metroNIDAZOLE 500mg/100ml NS 100 ML IVPB SCH ×3 (05:02→18:03)
[2017-09-03] MEDS: Insulin Regular 100 units/ml SC SCH ×4 (06:48→22:41)
[2017-09-03 06:54] LABS: LDL CHOLESTEROL 96 mg/dL (0-129)
[2017-09-03 07:00] LABS: T4 9.39 ug/dl (5.5-11.0)
[2017-09-03 07:13] LABS: T3 0.878 nmol/L (1.49-2.60)
[2017-09-03 07:15] LABS: BASO % 0.3 % (0.0-2.0); LYMPH # 1.1 K/uL (1.0-4.3); LYMPH % 14.1 % (20.0-40.0); MEAN CELL VOLUME 72.3 fl (80.0-94.0); MEAN CORPUSCULAR HEMOGLOBIN 21.2 pg (27.0-31.0); MEAN CORPUSCULAR HGB CONC 29.4 g/dL (33.0-37.0); MEAN PLATELET VOLUME 7.8 fl (7.2-11.7); MONO # 0.1 K/uL (0.0-0.8); MONO % 0.9 % (0.0-10.0); NEUT # 6.5 K/uL (1.8-7.0); NEUT % 84.7 % (50.0-75.0); RBC 4.26 Mil/uL (4.40-5.90); RED CELL DISTRIBUTION WIDTH 17.9 % (11.5-14.5); WHITE BLOOD COUNT 7.7 K/uL (4.8-10.8)
[2017-09-03 07:45] LABS: ALB/GLOB RATIO 0.9 (1.0-2.1); ALBUMIN 3.3 g/dL (3.5-5.0); ALT/SGPT 29 U/L (21-72); AST/SGOT 20 U/L (17-59); BLOOD UREA NITROGEN 15 mg/dl (9-20); CALCIUM 8.6 mg/dL (8.4-10.2); GFR AFRICAN-AMERICAN > 60; GFR NON-AFRICAN AMERICAN > 60; HDL CHOLESTEROL 38 MG/DL (30-70)
--- NOTE | 2017-09-03 08:19 | CP.PCM.HP ---
History of Present Illness - History of Present Illness History of Present Illness: CC: Colonic stricture HPI: 51 y/o man w/ pmh of ulcerative colitis, IDDM2 was sent to the ED from the endoscopy suite by Dr. Arce for a surgical evaluation. Patient denies complaints and was in for a scheduled follow up and colonoscopy. Patient was admitted earlier this year for colitis. Endoscopy report results show colonic stricture thus prompting Dr. Arce to send patient to the ED for evaluation and treatment. Patient denies headaches, chest pain, dizziness, SOB, abdominal pain, nausea, vomiting, diarrhea, dysuria, or fever. PMD: Dr. Eubanks PMH: ulcerative colitis, IDDM2 meds: see med list allergies: NKDA PSH: left wrist Fam: denies SOC: denies smoking, alcohol, and drugs ROS: 12 points assessed and negative unless otherwise reported in HPI Present on Admission - Present on Admission Any Indicators Present on Admission: Yes History of DVT/PE: No History of Uncontrolled Diabetes: Yes Urinary Catheter: No Decubitus Ulcer Present: No Review of Systems - Review of Systems All systems: reviewed and no additional remarkable complaints except - Constitutional Constitutional: absent: Chills, Fever - EENT Eyes: absent: Change in Vision - Cardiovascular Cardiovascular: absent: Chest Pain, Palpitations - Respiratory Respiratory: absent: Dyspnea - Gastrointestinal Gastrointestinal: absent: Abdominal Pain, Diarrhea, Nausea, Vomiting - Genitourinary Genitourinary: absent: Dysuria - Integumentary Integumentary: absent: Rash Past Patient History - Infectious Disease Hx of Infectious Diseases: None - Past Medical History & Family History Past Medical History?: Yes Past Family History: Reviewed and not pertinent - Past Social History Smoking Status: Never Smoked Alcohol: None Drugs: Denies - CARDIAC Hx Cardiac Disorders: No - PULMONARY Hx Respiratory Disorders: No - NEUROLOGICAL Hx Neurological Disorder: No - HEENT Hx HEENT Problems: No - RENAL Hx Chronic Kidney Disease: No - ENDOCRINE/METABOLIC Hx Endocrine Disorders: Yes Hx Diabetes Mellitus Type 2: Yes - HEMATOLOGICAL/ONCOLOGICAL Hx Blood Disorders: No - INTEGUMENTARY Hx Dermatological Problems: No - MUSCULOSKELETAL/RHEUMATOLOGICAL Hx Musculoskeletal Disorders: No - GASTROINTESTINAL Hx Gastrointestinal Disorders: Yes Hx Colitis: Yes - GENITOURINARY/GYNECOLOGICAL Hx Genitourinary Disorders: No - PSYCHIATRIC Hx Psychophysiologic Disorder: No Hx Emotional Abuse: No Hx Physical Abuse: No Hx Substance Use: No - SURGICAL HISTORY Hx Surgeries: Yes Other/Comment: LT WRIST SURGERY - ANESTHESIA Hx Anesthesia: Yes Hx Anesthesia Reactions: No Hx Malignant Hyperthermia: No Meds Allergies/Adverse Reactions: Allergies Allergy/AdvReac Type Severity Reaction Status Date / Time No Known Allergies Allergy Verified 09/02/17 14:23 Physical Exam - Constitutional Appears: Non-toxic, No Acute Distress - Head Exam Head Exam: ATRAUMATIC, NORMAL INSPECTION, NORMOCEPHALIC - Eye Exam Eye Exam: Normal appearance - ENT Exam ENT Exam: Mucous Membranes Moist - Neck Exam Neck exam: Positive for: Full Rom. Negative for: Tenderness - Respiratory Exam Respiratory Exam: Clear to Auscultation Bilateral. absent: Accessory Muscle Use , Decreased Breath Sounds, Rales, Rhonchi, Wheezes, Respiratory Distress - Cardiovascular Exam Cardiovascular Exam: REGULAR RHYTHM, RRR. absent: Tachycardia - GI/Abdominal Exam GI & Abdominal Exam: Normal Bowel Sounds, Soft. absent: Distended, Tenderness - Extremities Exam Extremities exam: Positive for: normal inspection. Negative for: calf tenderness - Neurological Exam Neurological exam: Alert, Oriented x3 - Skin Skin Exam: Dry, Intact, Normal Color, Warm Results - Vital Signs Recent Vital Signs: Last Vital Signs Temp 98.1 F 09/03/17 08:11 Pulse 62 09/03/17 08:11 Resp 18 09/03/17 08:11 BP 97/59 L 09/03/17 08:11 Pulse Ox 99 09/03/17 08:11 - Labs Result Diagrams: 09/03/17 06:05 09/03/17 06:05 Labs: Laboratory Results - last 24 hr 09/02/17 09/02/17 09/02/17 15:40 15:40 17:37 WBC 6.4 D RBC 4.25 L Hgb 9.1 L Hct 30.5 L MCV 71.9 L D MCH 21.5 L MCHC 29.9 L RDW 17.8 H Plt Count 465 H MPV 8.0 Neut % (Auto) 41.1 L Lymph % (Auto) 46.5 H [place] % (Auto) 8.2 Eos % (Auto) 3.9 Baso % (Auto) 0.3 Neut # (Auto) 2.6 Lymph # (Auto) 3.0 [place] # (Auto) 0.5 Eos # (Auto) 0.3 Baso # (Auto) 0.0 Sodium 143 Potassium 4.4 Chloride 105 Carbon Dioxide 31 H Anion Gap 11 BUN 12 Creatinine 0.5 L Est GFR ( Amer) > 60 Est GFR (Non-Af Amer) > 60 POC Glucose (mg/dL) 155 H Random Glucose 110 Calcium 8.9 Total Bilirubin 0.4 AST 40 ALT 35 Alkaline Phosphatase 64 Total Protein 7.4 Albumin 3.6 Globulin 3.8 Albumin/Globulin Ratio 1.0 Triglycerides Cholesterol LDL Cholesterol Direct HDL Cholesterol Vitamin B12 Thyroxine (T4) Total T3 TSH 3rd Generation Hepatitis A IgM Ab Hep Bs Antigen Hep B Core IgM Ab Hepatitis C Antibody 09/02/17 09/02/17 09/02/17 17:50 18:38 20:59 WBC RBC Hgb Hct MCV MCH MCHC RDW Plt Count MPV Neut % (Auto) Lymph % (Auto) [place] % (Auto) Eos % (Auto) Baso % (Auto) Neut # (Auto) Lymph # (Auto) [place] # (Auto) Eos # (Auto) Baso # (Auto) Sodium Potassium Chloride Carbon Dioxide Anion Gap BUN Creatinine Est GFR ( Amer) Est GFR (Non-Af Amer) POC Glucose (mg/dL) 146 H 233 H Random Glucose Calcium Total Bilirubin AST ALT Alkaline Phosphatase Total Protein Albumin Globulin Albumin/Globulin Ratio Triglycerides Cholesterol LDL Cholesterol Direct HDL Cholesterol Vitamin B12 Thyroxine (T4) Total T3 TSH 3rd Generation Hepatitis A IgM Ab Negative Hep Bs Antigen Negative Hep B Core IgM Ab Negative Hepatitis C Antibody Negative 09/03/17 09/03/17 09/03/17 05:17 06:05 06:05 WBC 7.7 RBC 4.26 L Hgb 9.0 L Hct 30.8 L MCV 72.3 L MCH 21.2 L MCHC 29.4 L RDW 17.9 H Plt Count 447 H MPV 7.8 Neut % (Auto) 84.7 H Lymph % (Auto) 14.1 L [place] % (Auto) 0.9 Eos % (Auto) 0.0 Baso % (Auto) 0.3 Neut # (Auto) 6.5 Lymph # (Auto) 1.1 [place] # (Auto) 0.1 Eos # (Auto) 0.0 Baso # (Auto) 0.0 Sodium 139 Potassium 4.5 Chloride 104 Carbon Dioxide 24 Anion Gap 16 BUN 15 Creatinine 0.6 L Est GFR ( Amer) > 60 Est GFR (Non-Af Amer) > 60 POC Glucose (mg/dL) 226 H Random Glucose 274 H Calcium 8.6 Total Bilirubin 0.3 AST 20 ALT 29 Alkaline Phosphatase 69 Total Protein 6.9 Albumin 3.3 L Globulin 3.6 Albumin/Globulin Ratio 0.9 L Triglycerides 33 Cholesterol 146 LDL Cholesterol Direct 96 HDL Cholesterol 38 Vitamin B12 630 Thyroxine (T4) 9.39 Total T3 0.878 L TSH 3rd Generation 0.22 L Hepatitis A IgM Ab Hep Bs Antigen Hep B Core IgM Ab Hepatitis C Antibody Assessment & Plan (1) Colonic stricture Status: Acute (2) Ulcerative colitis Status: Chronic (3) Insulin dependent diabetes mellitus Status: Chronic - Assessment and Plan (Free Text) Plan: afebrile, non-tachycardic, normotensive GI recommendations appreciated general surgery recommendations appreciated CT abdomen/pelvis w/ PO and IV contrast: descending colon, sigmoid, rectum mural thickening; no free air ciprofloxacin 400 mg IV Q12h day 1 metronidazole 500 mg IV Q8h day 1 maintain NPO except for medications prophylactic measures: DVT lovenox 40 mg SC daily monitor for acute changes
--- NOTE | 2017-09-03 10:28 | CP.PCM.PN ---
<Myriam Kelly - Last Filed: 09/03/17 10:21> Subjective - Date & Time of Evaluation Date of Evaluation: 09/03/17 Time of Evaluation: 10:22 - Subjective Subjective: Gastroenterology Fellow/PGY5 Consult No Patient denies abdominal pain. One liquid stool yesterday without rectal bleeding. States he is hungry. A 12-point review of systems negative except for as above. Objective - Vital Signs/Intake and Output Vital Signs (last 24 hours): Temp Pulse Resp BP Pulse Ox 98.1 F 62 18 97/59 L 99 09/03/17 08:11 09/03/17 08:11 09/03/17 08:11 09/03/17 08:11 09/03/17 08:11 - Medications Medications: Current Medications Enoxaparin Sodium (Lovenox) 40 mg SC DAILY [facility] PRN Reason: Protocol Ferrous Sulfate (Feosol) 325 mg PO BID [facility] Last Admin: 09/03/17 09:16 Dose: 325 mg Home Med (Mesalamine [Apriso]) 4 cap PO QAM [facility] Hydrocortisone (Cortenema) 100 mg [place] BID [facility] Sodium Chloride (Sodium Chloride 0.9%) 1,000 mls @ 115 mls/hr IV .Q8H42M [facility] Stop: 09/03/17 16:42 Last Admin: 09/03/17 06:55 Dose: 115 mls/hr Metronidazole (Flagyl 500mg/100ml Ns) 100 mls @ 100 mls/hr IVPB Q8@0500,1300, 1900 [facility] PRN Reason: Protocol Last Admin: 09/03/17 05:02 Dose: 100 mls/hr Ciprofloxacin (Cipro 400mg/200ml Dsw) 400 mg in 200 mls @ 200 mls/hr IVPB Q12H [facility] PRN Reason: Protocol Methylprednisolone 25 mg/ (Sodium Chloride) 50 mls @ 100 mls/hr IV Q6 [facility] Insulin Human Regular (Humulin R) 0 units SC ACCU-CHECK [facility] PRN Reason: Protocol Last Admin: 09/03/17 06:48 Dose: 2 u - Labs Labs: 09/03/17 06:05 09/03/17 06:05 - Constitutional Appears: Non-toxic, No Acute Distress - Head Exam Head Exam: ATRAUMATIC, NORMOCEPHALIC - Eye Exam Eye Exam: EOMI, PERRL. absent: Scleral icterus Pupil Exam: PERRL. absent: Miosis, Mydriatic - ENT Exam ENT Exam: Mucous Membranes Moist, Normal Oropharynx - Neck Exam Neck Exam: Full ROM, Normal Inspection - Respiratory Exam Respiratory Exam: Clear to Ausculation Bilateral. absent: Rales, Rhonchi, Wheezes - Cardiovascular Exam Cardiovascular Exam: RRR, +S1, +S2. absent: Gallop, Rubs - GI/Abdominal Exam GI & Abdominal Exam: Soft, Normal Bowel Sounds. absent: Distended, Firm, Guarding, Rigid, Tenderness, Organomegaly, Rebound - Extremities Exam Extremities Exam: Normal Inspection. absent: Pedal Edema - Neurological Exam Neurological Exam: Alert, Awake - Psychiatric Exam Psychiatric exam: Normal Affect, Normal Mood - Skin Skin Exam: Dry, Intact, Normal Color, Warm Assessment and Plan - Assessment and Plan (Free Text) Assessment: 51 year old male with PMH of T2DM and Ulcerative Colitis with medication noncompliance presenting for admission post-colonoscopy due to stricture. Patient presented for elective EGD/colonoscopy for UC surveillance. Active treatment of UC flare with concern for recto-sigmoid stricture POD0 (09/02/17) Incomplete colonoscopy showing severe ulcerated friable recto-sigmoid mucosa, polypoid lesion, and stricture, molina score 3 in setting of noncompliance to Rowasa and Delzicol after hospital discharge 05/2017 for UC flare. Prior colonoscopy at [facility] 01/2017 showed ulcerative colitis. Plan: -CT A/P PO/IV contrast- left hemicolon inflammation from splenic flexure, descending, sigmoid, and lesser degree of rectum involvement similar to prior studies -follow up colonoscopy biopsies -oral Budesonide not on inpatient formulary -start Solumedrol 25mg IV Q6H and Cortenema BID -pending fecal calprotectin, TB Gold, and TMPT -Hepatitis panel negative -advance to clear liquid diet -surgery consult-appreciate recommendations -no plan for surgical intervention -plan to monitor response to restarting UC medication management given noncompliance -will plan for surgery follow up if repeat outpatient luminal exam shows refractory response of stricturing to medical therapy with compliance counselling provided -plan for outpatient CT enterography to evaluate entire GI tract for stricturing /fistulizing disease -follow up EGD pathology -will follow clinical course <Vamsi Arce - Last Filed: 09/03/17 20:49> Objective - Vital Signs/Intake and Output Vital Signs (last 24 hours): Temp Pulse Resp BP Pulse Ox 98.4 F 67 20 110/67 100 09/03/17 16:27 09/03/17 16:27 09/03/17 16:27 09/03/17 16:27 09/03/17 16:27 Intake and Output: 09/03/17 09/04/17 18:59 06:59 Intake Total 1400 Balance 1400 - Medications Medications: Current Medications Enoxaparin Sodium (Lovenox) 40 mg SC DAILY [facility] PRN Reason: Protocol Last Admin: 09/03/17 10:56 Dose: 40 mg Ferrous Sulfate (Feosol) 325 mg PO BID [facility] Last Admin: 09/03/17 16:31 Dose: 325 mg Hydrocortisone (Cortenema) 100 mg [place] BID [facility] Last Admin: 09/03/17 16:30 Dose: 100 mg Metronidazole (Flagyl 500mg/100ml Ns) 100 mls @ 100 mls/hr IVPB Q8@0500,1300, 1900 [facility] PRN Reason: Protocol Last Admin: 09/03/17 18:03 Dose: 100 mls/hr Ciprofloxacin (Cipro 400mg/200ml Dsw) 400 mg in 200 mls @ 200 mls/hr IVPB Q12H [facility] Reason: Protocol Last Admin: 09/03/17 13:41 Dose: 200 mls/hr Insulin Human Regular (Humulin R) 0 units SC ACCU-CHECK [facility] Reason: Protocol Last Admin: 09/03/17 16:31 Dose: 3 u Mesalamine (Delzicol Dr) 800 mg PO Q12 [facility] Methylprednisolone (Solu-Medrol) 25 mg IVP Q6H [facility] Last Admin: 09/03/17 17:28 Dose: 25 mg - Labs Labs: 09/03/17 06:05 09/03/17 06:05 Attending/Attestation - Attestation I have personally seen and examined this patient.: Yes I have fully participated in the care of the patient.: Yes I have reviewed all pertinent clinical information, including history, physical exam and plan: Yes Notes (Text): 09/03/17 20:43 This is a 51 year old male with PMH of T2DM and Ulcerative Colitis with medication noncompliance presenting for admission post-colonoscopy due to recto sigmoid ulcerative stricture. See full colonoscopy details in the chart. Incomplete colonoscopy showing severe ulcerated friable recto-sigmoid mucosa, polypoid lesion, and stricture, molina score 3 in setting of noncompliance to Rowasa and Delzicol after hospital discharge 05/2017 for UC flare. Surgical recs appreciated. Imaging reviewed. Hepatitis serologies unremarkable. Will start sterid IV and 5- ASA with rowasa enemas. Will need TNF as outpatient for stricturing disease. TPMT levels pending to start Imuran. Diet as tolerated
--- NOTE | 2017-09-03 10:37 | CP.PCM.PN ---
<Florencio Gaston - Last Filed: 09/03/17 13:09> Subjective - Date & Time of Evaluation Date of Evaluation: 09/03/17 Time of Evaluation: 10:10 - Subjective Subjective: Surgery- Dr. Freeman Patient seen and examined at bedside this AM. No acute events overnight. States has an appetite. Denies nausea, vomiting, diarrhea, abd pain. Objective - Vital Signs/Intake and Output Vital Signs (last 24 hours): Temp Pulse Resp BP Pulse Ox 98.1 F 62 18 97/59 L 99 09/03/17 08:11 09/03/17 08:11 09/03/17 08:11 09/03/17 08:11 09/03/17 08:11 - Medications Medications: Current Medications Enoxaparin Sodium (Lovenox) 40 mg SC DAILY [facility] PRN Reason: Protocol Ferrous Sulfate (Feosol) 325 mg PO BID [facility] Last Admin: 09/03/17 09:16 Dose: 325 mg Home Med (Mesalamine [Apriso]) 4 cap PO QAM [facility] Hydrocortisone (Cortenema) 100 mg [place] BID [facility] Sodium Chloride (Sodium Chloride 0.9%) 1,000 mls @ 115 mls/hr IV .Q8H42M [facility] Stop: 09/03/17 16:42 Last Admin: 09/03/17 10:32 Dose: Not Given Metronidazole (Flagyl 500mg/100ml Ns) 100 mls @ 100 mls/hr IVPB Q8@0500,1300, 1900 [facility] PRN Reason: Protocol Last Admin: 09/03/17 05:02 Dose: 100 mls/hr Ciprofloxacin (Cipro 400mg/200ml Dsw) 400 mg in 200 mls @ 200 mls/hr IVPB Q12H [facility] PRN Reason: Protocol Insulin Human Regular (Humulin R) 0 units SC ACCU-CHECK [facility] Reason: Protocol Last Admin: 09/03/17 06:48 Dose: 2 u Methylprednisolone (Solu-Medrol) 25 mg IVP Q6H [facility] - Labs Labs: 09/03/17 06:05 09/03/17 06:05 - Constitutional Appears: Non-toxic, No Acute Distress - Head Exam Head Exam: ATRAUMATIC - Eye Exam Eye Exam: EOMI. absent: Scleral icterus - ENT Exam ENT Exam: Mucous Membranes Moist - Respiratory Exam Respiratory Exam: NORMAL BREATHING PATTERN. absent: Accessory Muscle Use, Respiratory Distress - Cardiovascular Exam Cardiovascular Exam: +S1, +S2. absent: Bradycardia, Tachycardia - GI/Abdominal Exam GI & Abdominal Exam: Soft. absent: Distended, Firm, Guarding, Rigid, Tenderness - Extremities Exam Extremities Exam: Normal Inspection. absent: Calf Tenderness - Neurological Exam Neurological Exam: Alert, Awake, Oriented x3 - Psychiatric Exam Psychiatric exam: Normal Affect - Skin Skin Exam: Intact, Warm Assessment and Plan - Assessment and Plan (Free Text) Assessment: 51M w/ hx of IBD s/p colonoscopy and stricture found unable to pass scope patient is currently asymptomatic, with no abdominal pain, passing flatus, having normal BM, and WBC within normal limits Plan: - recommend slowly advancing diet as tolerated; start with full residue - continue medication regiment including steroids that aided patient - follow up as outpatient in surgical clinic for evaluation and elective procedure for possible stricturoplasty or bowel resection - recommend repeat colonoscopy after further prep to allow full evaluation of colon - discussed w/ Dr. Freeman surgical attending [facility] PGY1 <Ml Freeman - Last Filed: 09/03/17 17:00> Objective - Vital Signs/Intake and Output Vital Signs (last 24 hours): Temp Pulse Resp BP Pulse Ox 98.4 F 67 20 110/67 100 09/03/17 16:27 09/03/17 16:27 09/03/17 16:27 09/03/17 16:27 09/03/17 16:27 - Medications Medications: Current Medications Enoxaparin Sodium (Lovenox) 40 mg SC DAILY [facility] PRN Reason: Protocol Last Admin: 09/03/17 10:56 Dose: 40 mg Ferrous Sulfate (Feosol) 325 mg PO BID [facility] Last Admin: 09/03/17 16:31 Dose: 325 mg Hydrocortisone (Cortenema) 100 mg [place] BID [facility] Last Admin: 09/03/17 16:30 Dose: 100 mg Metronidazole (Flagyl 500mg/100ml Ns) 100 mls @ 100 mls/hr IVPB Q8@0500,1300, 1900 [facility] PRN Reason: Protocol Last Admin: 09/03/17 12:52 Dose: 100 mls/hr Ciprofloxacin (Cipro 400mg/200ml Dsw) 400 mg in 200 mls @ 200 mls/hr IVPB Q12H [facility]N Reason: Protocol Last Admin: 09/03/17 13:41 Dose: 200 mls/hr Insulin Human Regular (Humulin R) 0 units SC ACCU-CHECK [facility]N Reason: Protocol Last Admin: 09/03/17 16:31 Dose: 3 u Mesalamine (Delzicol ) 800 mg PO Q12 [facility] Methylprednisolone (Solu-Medrol) 25 mg IVP Q6H [facility] Last Admin: 09/03/17 11:39 Dose: 25 mg - Labs Labs: 09/03/17 06:05 09/03/17 06:05 Assessment and Plan - Assessment and Plan (Free Text) Plan: Patient seen and examined with resident staff. Agree with above assessment and plan. Not currently symptomatic. Would start steroid course and oral IBD meds per GI team. Check C. diff. Abx. Advance diet as tolerated, low residue. Full colonoscopic evaluation to be done after current flare resolved as outpatient. Will follow up biopsy results - If neoplasia present, will need to discuss further plan of action and patient can follow [facility] with me here at [facility]. Case was discussed at length with Dr. Arce as well.
[2017-09-03] MEDS: Enoxaparin 40 mg Syringe SC SCH (10:56)
[2017-09-03] MEDS: MethylPREDNISolone 40 mg Vial IVP SCH ×3 (11:39→22:40)
[2017-09-03] MEDS: Ciprofloxacin 400mg/200ml D5W 400 MG/200 ML BAG IVPB SCH (13:41)
--- NOTE | 2017-09-03 13:47 | CP.PCM.CON ---
History of Present Illness - History of Present Illness History of Present Illness: 51 y/o man w/ pmh of ulcerative colitis, IDDM2 was sent to the ED from the endoscopy suite by Dr. Arce for a surgical evaluation. Patient denies complaints and was in for a scheduled follow up and colonoscopy. Patient was admitted earlier this year for colitis. Endoscopy report results show colonic stricture t. Patient denies headaches, chest pain, dizziness, SOB, abdominal pain, nausea, vomiting, diarrhea, dysuria, or fever. PMH: ulcerative colitis, IDDM2 meds: see med list allergies: NKDA PSH: left wrist Fam: denies SOC: denies smoking, alcohol, and drugs ROS: 12 points assessed and negative unless otherwise reported in HPI Review of Systems - Review of Systems All systems: reviewed and no additional remarkable complaints except - Constitutional Constitutional: As Per HPI - EENT Ears: absent: As Per HPI, Decreased Hearing, Ear Discharge, Ear Pain, Tinnitus, Abnormal Hearing, Disequilibrium, Dizziness, Other Nose/Mouth/Throat: absent: As Per HPI, Epistaxis, Nasal Congestion, Nasal Discharge, Nasal Obstruction, Nasal Trauma, Nose Pain, Post Nasal Drip, Sinus Pain, Sinus Pressure, Bleeding Gums, Change in Voice, Dental Pain, Dry Mouth, Dysphagia, Halitosis, Hoarsness, Lip Swelling, Mouth Lesions, Mouth Pain, Odynophagia, Sore Throat, Throat Swelling, Tongue Swelling, Facial Pain, Neck Pain, Neck Mass, Other - Cardiovascular Cardiovascular: absent: As Per HPI, Acrocyanosis, Chest Pain, Chest Pain at Rest , Chest Pain with Activity, Claudication, Diaphoresis, Dyspnea, Dyspnea on Exertion, Edema, Irregular Heart Rhythm, Pain Radiating to Arm/Neck/Jaw, Leg Edema, Leg Ulcers, Lightheadedness, Orthopnea, Palpitations, Paroxysmal Nocturnal Dyspnea, Pedal Edema, Radiating Pain, Rapid Heart Rate, Slow Heart Rate, Syncope, Other - Respiratory Respiratory: absent: As Per HPI, Cough, Dyspnea, Hemoptysis, Dyspnea on Exertion , Wheezing, Snoring, Stridor, Pain on Inspiration, Chest Congestion, Excessive Mucous Production, Change in Mucous Color, Pain with Coughing, Other - Gastrointestinal Gastrointestinal: As Per HPI - Genitourinary Genitourinary: As Per HPI - Musculoskeletal Musculoskeletal: absent: As Per HPI, Abnormal Gait, Arthralgias, Atrophy, Back Pain, Deformity, Joint Swelling, Limited Range of Motion, Loss of Height, Muscle Cramps, Muscle Weakness, Myalgias, Neck Pain, Numbness, Radiating Pain into Limb, Stiffness, Tingling, Other - Integumentary Integumentary: absent: As Per HPI, Acne, Alopecia, Bleeding Lesions, Change in Hair, Change in Nails, Change in Pigmentation, Changing Lesions, Dry Skin, Erythema, Furuncle, Hirsutism, Lesions, New Lesions, Non-Healing Lesions, Photosensitivity, Pruritus, Rash, Skin Pain, Skin Ulcer, Sores, Striae, Swelling , Unusual Bruising, Wounds, Jaundice, Other - Neurological Neurological: absent: As Per HPI, Abnormal Gait, Abnormal Hearing, Abnormal Movements, Abnormal Speech, Behavioral Changes, Burning Sensations, Confusion, Convulsions, Disequilibrium, Dizziness, Numbness, Focal Weakness, Frequent Falls , Headaches, Lack of Coordination, Loss of Vision, Memory Loss, Paresthesias, Radicular Pain, Restless Legs, Sensory Deficit, Syncope, Tingling, Tremor, Vertigo, Weakness, Other Visual Disturbances, Other - Psychiatric Psychiatric: absent: As Per HPI, Abnormal Sleep Pattern, Anhedonia, Anxiety, Auditory Hallucinations, Behavioral Changes, Change in Appetite, Change in Libido, Confusion, Depression, Difficulty Concentrating, Hallucinations, Homicidal Ideation, Hopelessness, Irritability, Memory Loss, Mood Swings, Panic Attacks, Paranoia, Suicidal Ideation, Visual Hallucinations, Tactile Hallucinations, Other - Endocrine Endocrine: absent: As Per HPI, Change in Body Appearance, Change in Libido, Cold Intolorance, Deepening of Voice, Excessive Sweating, Fatigue, Flushing, Heat Intolorance, Increase in Ring/Shoe/Hat Size, Palpitations, Polydipsia, Polyphagia, Polyuria, Other - Hematologic/Lymphatic Hematologic: absent: As Per HPI, Easy Bleeding, Easy Bruising, Lymphadenopathy, Other Past Patient History - Infectious Disease Hx of Infectious Diseases: None - Past Medical History & Family History Past Medical History?: Yes Past Family History: Reviewed and not pertinent - Past Social History Smoking Status: Never Smoked Alcohol: None Drugs: Denies - CARDIAC Hx Cardiac Disorders: No - PULMONARY Hx Respiratory Disorders: No - NEUROLOGICAL Hx Neurological Disorder: No - HEENT Hx HEENT Problems: No - RENAL Hx Chronic Kidney Disease: No - ENDOCRINE/METABOLIC Hx Endocrine Disorders: Yes Hx Diabetes Mellitus Type 2: Yes - HEMATOLOGICAL/ONCOLOGICAL Hx Blood Disorders: No - INTEGUMENTARY Hx Dermatological Problems: No - MUSCULOSKELETAL/RHEUMATOLOGICAL Hx Musculoskeletal Disorders: No - GASTROINTESTINAL Hx Gastrointestinal Disorders: Yes Hx Colitis: Yes - GENITOURINARY/GYNECOLOGICAL Hx Genitourinary Disorders: No - PSYCHIATRIC Hx Psychophysiologic Disorder: No Hx Emotional Abuse: No Hx Physical Abuse: No Hx Substance Use: No - SURGICAL HISTORY Hx Surgeries: Yes Other/Comment: LT WRIST SURGERY - ANESTHESIA Hx Anesthesia: Yes Hx Anesthesia Reactions: No Hx Malignant Hyperthermia: No Meds Home Medications: Home Medication List Medication Instructions Recorded Confirmed Type Budesonide [Uceris] 9 mg PO DAILY #30 tabdr...er 09/04/17 Rx Hydrocortisone [Cortenema] 100 mg [place] BID #60 nma 09/04/17 Rx Allergies/Adverse Reactions: Allergies Allergy/AdvReac Type Severity Reaction Status Date / Time No Known Allergies Allergy Verified 09/02/17 14:23 - Medications Medications: Current Medications Enoxaparin Sodium (Lovenox) 40 mg SC DAILY [facility] PRN Reason: Protocol Last Admin: 09/03/17 10:56 Dose: 40 mg Ferrous Sulfate (Feosol) 325 mg PO BID [facility] Last Admin: 09/03/17 09:16 Dose: 325 mg Home Med (Mesalamine [Apriso]) 4 cap PO QAM [facility] Hydrocortisone (Cortenema) 100 mg [place] BID [facility] Last Admin: 09/03/17 11:34 Dose: 100 mg Sodium Chloride (Sodium Chloride 0.9%) 1,000 mls @ 115 mls/hr IV .Q8H42M [facility] Stop: 09/03/17 16:42 Last Admin: 09/03/17 10:32 Dose: Not Given Metronidazole (Flagyl 500mg/100ml Ns) 100 mls @ 100 mls/hr IVPB Q8@0500,1300, 1900 [facility] PRN Reason: Protocol Last Admin: 09/03/17 12:52 Dose: 100 mls/hr Ciprofloxacin (Cipro 400mg/200ml Dsw) 400 mg in 200 mls @ 200 mls/hr IVPB Q12H [facility] PRN Reason: Protocol Last Admin: 09/03/17 13:41 Dose: 200 mls/hr Insulin Human Regular (Humulin R) 0 units SC ACCU-CHECK [facility] PRN Reason: Protocol Last Admin: 09/03/17 11:39 Dose: 1 u Methylprednisolone (Solu-Medrol) 25 mg IVP Q6H [facility] Last Admin: 09/03/17 11:39 Dose: 25 mg Physical Exam - Constitutional Appears: Chronically Ill - Head Exam Head Exam: NORMOCEPHALIC - Eye Exam Eye Exam: absent: Scleral icterus - ENT Exam ENT Exam: Mucous Membranes Dry - Neck Exam Neck exam: Negative for: Lymphadenopathy - Respiratory Exam Respiratory Exam: Decreased Breath Sounds - Cardiovascular Exam Cardiovascular Exam: REGULAR RHYTHM - GI/Abdominal Exam GI & Abdominal Exam: Diminished Bowel Sounds, Soft - Rectal Exam Rectal Exam: Deferred - Exam Exam: NORMAL INSPECTION - Extremities Exam Extremities exam: Negative for: pedal edema - Back Exam Back exam: absent: CVA tenderness (L), CVA tenderness (R) - Neurological Exam Neurological exam: Alert, CN II-XII Intact, Oriented x3, Reflexes Normal - Psychiatric Exam Psychiatric exam: Normal Mood - Skin Skin Exam: Dry, Intact Results - Vital Signs Recent Vital Signs: Last Vital Signs Temp 98.1 F 09/03/17 08:11 Pulse 62 09/03/17 08:11 Resp 18 09/03/17 08:11 BP 97/59 L 09/03/17 08:11 Pulse Ox 99 09/03/17 08:11 - Labs Result Diagrams: 09/04/17 08:26 09/04/17 08:26 Labs: Laboratory Results - last 24 hr 09/02/17 09/02/17 09/02/17 15:40 15:40 17:37 WBC 6.4 D RBC 4.25 L Hgb 9.1 L Hct 30.5 L MCV 71.9 L D MCH 21.5 L MCHC 29.9 L RDW 17.8 H Plt Count 465 H MPV 8.0 Neut % (Auto) 41.1 L Lymph % (Auto) 46.5 H [place] % (Auto) 8.2 Eos % (Auto) 3.9 Baso % (Auto) 0.3 Neut # (Auto) 2.6 Lymph # (Auto) 3.0 [place] # (Auto) 0.5 Eos # (Auto) 0.3 Baso # (Auto) 0.0 Sodium 143 Potassium 4.4 Chloride 105 Carbon Dioxide 31 H Anion Gap 11 BUN 12 Creatinine 0.5 L Est GFR ( Amer) > 60 Est GFR (Non-Af Amer) > 60 POC Glucose (mg/dL) 155 H Random Glucose 110 Calcium 8.9 Total Bilirubin 0.4 AST 40 ALT 35 Alkaline Phosphatase 64 Total Protein 7.4 Albumin 3.6 Globulin 3.8 Albumin/Globulin Ratio 1.0 Triglycerides Cholesterol LDL Cholesterol Direct HDL Cholesterol Vitamin B12 Thyroxine (T4) Total T3 TSH 3rd Generation Hepatitis A IgM Ab Hep Bs Antigen Hep B Core IgM Ab Hepatitis C Antibody 09/02/17 09/02/17 09/02/17 17:50 18:38 20:59 WBC RBC Hgb Hct MCV MCH MCHC RDW Plt Count MPV Neut % (Auto) Lymph % (Auto) [place] % (Auto) Eos % (Auto) Baso % (Auto) Neut # (Auto) Lymph # (Auto) [place] # (Auto) Eos # (Auto) Baso # (Auto) Sodium Potassium Chloride Carbon Dioxide Anion Gap BUN Creatinine Est GFR ( Amer) Est GFR (Non-Af Amer) POC Glucose (mg/dL) 146 H 233 H Random Glucose Calcium Total Bilirubin AST ALT Alkaline Phosphatase Total Protein Albumin Globulin Albumin/Globulin Ratio Triglycerides Cholesterol LDL Cholesterol Direct HDL Cholesterol Vitamin B12 Thyroxine (T4) Total T3 TSH 3rd Generation Hepatitis A IgM Ab Negative Hep Bs Antigen Negative Hep B Core IgM Ab Negative Hepatitis C Antibody Negative 09/03/17 09/03/17 09/03/17 05:17 06:05 06:05 WBC 7.7 RBC 4.26 L Hgb 9.0 L Hct 30.8 L MCV 72.3 L MCH 21.2 L MCHC 29.4 L RDW 17.9 H Plt Count 447 H MPV 7.8 Neut % (Auto) 84.7 H Lymph % (Auto) 14.1 L [place] % (Auto) 0.9 Eos % (Auto) 0.0 Baso % (Auto) 0.3 Neut # (Auto) 6.5 Lymph # (Auto) 1.1 [place] # (Auto) 0.1 Eos # (Auto) 0.0 Baso # (Auto) 0.0 Sodium 139 Potassium 4.5 Chloride 104 Carbon Dioxide 24 Anion Gap 16 BUN 15 Creatinine 0.6 L Est GFR ( Amer) > 60 Est GFR (Non-Af Amer) > 60 POC Glucose (mg/dL) 226 H Random Glucose 274 H Calcium 8.6 Total Bilirubin 0.3 AST 20 ALT 29 Alkaline Phosphatase 69 Total Protein 6.9 Albumin 3.3 L Globulin 3.6 Albumin/Globulin Ratio 0.9 L Triglycerides 33 Cholesterol 146 LDL Cholesterol Direct 96 HDL Cholesterol 38 Vitamin B12 630 Thyroxine (T4) 9.39 Total T3 0.878 L TSH 3rd Generation 0.22 L Hepatitis A IgM Ab Hep Bs Antigen Hep B Core IgM Ab Hepatitis C Antibody 09/03/17 10:50 WBC RBC Hgb Hct MCV MCH MCHC RDW Plt Count MPV Neut % (Auto) Lymph % (Auto) [place] % (Auto) Eos % (Auto) Baso % (Auto) Neut # (Auto) Lymph # (Auto) [place] # (Auto) Eos # (Auto) Baso # (Auto) Sodium Potassium Chloride Carbon Dioxide Anion Gap BUN Creatinine Est GFR ( Amer) Est GFR (Non-Af Amer) POC Glucose (mg/dL) 194 H Random Glucose Calcium Total Bilirubin AST ALT Alkaline Phosphatase Total Protein Albumin Globulin Albumin/Globulin Ratio Triglycerides Cholesterol LDL Cholesterol Direct HDL Cholesterol Vitamin B12 Thyroxine (T4) Total T3 TSH 3rd Generation Hepatitis A IgM Ab Hep Bs Antigen Hep B Core IgM Ab Hepatitis C Antibody Assessment & Plan (1) Abdominal pain Status: Acute (2) Acute ulcerative colitis with rectal bleeding Status: Acute (3) Colitis Status: Acute (4) Diabetes mellitus with hyperglycemia Status: Chronic - Assessment and Plan (Free Text) Assessment: await cultures cont iv antibiotics
[2017-09-03] MEDS ORDERED: SODIUM CHLORIDE 0.9% IV SCH (16:00)
[2017-09-03] MEDS ORDERED: METHYLPREDNISOLONE IV SCH (16:00)
[2017-09-03 16:28] VITALS: RESP 20; O2SAT 100
[2017-09-03] MEDS ORDERED: metroNIDAZOLE 500mg/100ml NS 100 ML IVPB SCH (21:00)
[2017-09-04] MEDS: Ciprofloxacin 400mg/200ml D5W 400 MG/200 ML BAG IVPB SCH (01:59)
[2017-09-04] MEDS: MethylPREDNISolone 40 mg Vial IVP SCH ×2 (04:22→10:00)
[2017-09-04] MEDS: metroNIDAZOLE 500mg/100ml NS 100 ML IVPB SCH ×2 (04:22→12:57)
[2017-09-04] MEDS: Insulin Regular 100 units/ml SC SCH ×2 (06:57→12:58)
--- NOTE | 2017-09-04 08:27 | CP.PCM.PN ---
Subjective - Date & Time of Evaluation Date of Evaluation: 09/04/17 Time of Evaluation: 07:20 - Subjective Subjective: The patient was seen and examined this morning at bedside w/ Dr. Chicas. There are no acute events overnight, NAD. The patient denies any abdominal pain or flare up of ulcerative colitis. The patient is tolerating liquid diet. Patient is voiding freely and having regular bowel movement. The patient denies headaches, chest pain, SOB, abdominal pain, nausea, vomiting, diarrhea, dysuria, or fever. Objective - Vital Signs/Intake and Output Vital Signs (last 24 hours): Temp Pulse Resp BP Pulse Ox 97.9 F 65 20 119/69 100 09/04/17 00:09 09/04/17 00:09 09/04/17 00:09 09/04/17 00:09 09/04/17 00:09 - Medications Medications: Current Medications Enoxaparin Sodium (Lovenox) 40 mg SC DAILY [facility] PRN Reason: Protocol Last Admin: 09/03/17 10:56 Dose: 40 mg Ferrous Sulfate (Feosol) 325 mg PO BID [facility] Last Admin: 09/03/17 16:31 Dose: 325 mg Hydrocortisone (Cortenema) 100 mg [place] BID [facility] Last Admin: 09/03/17 16:30 Dose: 100 mg Metronidazole (Flagyl 500mg/100ml Ns) 100 mls @ 100 mls/hr IVPB Q8@0500,1300, 1900 [facility] PRN Reason: Protocol Last Admin: 09/04/17 04:22 Dose: 100 mls/hr Ciprofloxacin (Cipro 400mg/200ml Dsw) 400 mg in 200 mls @ 200 mls/hr IVPB Q12H [facility] PRN Reason: Protocol Last Admin: 09/04/17 01:59 Dose: 200 mls/hr Insulin Human Regular (Humulin R) 0 units SC ACCU-CHECK [facility] PRN Reason: Protocol Last Admin: 09/04/17 06:57 Dose: 3 u Mesalamine (Delzicol Dr) 800 mg PO Q12 [facility] Last Admin: 09/03/17 21:09 Dose: 800 mg Methylprednisolone (Solu-Medrol) 25 mg IVP Q6H [facility] Last Admin: 09/04/17 04:22 Dose: 25 mg - Labs Labs: 09/03/17 06:05 06/06/18 06:05 - Constitutional Appears: Non-toxic, No Acute Distress - Head Exam Head Exam: ATRAUMATIC, NORMAL INSPECTION, NORMOCEPHALIC - Eye Exam Eye Exam: Normal appearance - ENT Exam ENT Exam: Mucous Membranes Moist - Neck Exam Neck Exam: Full ROM. absent: Tenderness - Respiratory Exam Respiratory Exam: Clear to Ausculation Bilateral. absent: Accessory Muscle Use , Decreased Breath Sounds, Rales, Rhonchi, Wheezes, Respiratory Distress - Cardiovascular Exam Cardiovascular Exam: REGULAR RHYTHM, RRR. absent: Tachycardia, Murmur - GI/Abdominal Exam GI & Abdominal Exam: Soft, Normal Bowel Sounds. absent: Distended, Tenderness - Extremities Exam Extremities Exam: Normal Inspection. absent: Calf Tenderness - Neurological Exam Neurological Exam: Alert, Awake, Oriented x3 - Skin Skin Exam: Dry, Intact, Normal Color, Warm Assessment and Plan (1) Colonic stricture Status: Acute (2) Ulcerative colitis Status: Chronic (3) Insulin dependent diabetes mellitus Status: Chronic - Assessment and Plan (Free Text) Plan: c/w present management afebrile, non-tachycardic, normotensive GI recommendations appreciated general surgery recommendations appreciated CT abdomen/pelvis w/ PO and IV contrast: descending colon, sigmoid, rectum mural thickening; no free air ciprofloxacin 400 mg IV Q12h day 2 metronidazole 500 mg IV Q8h day 2 c/w solu-medrol 15 mg IV Q6h c/w mesalamine 800 mg PO Q12h advance diet as tolerated, currently on liquid diet prophylactic measures: DVT lovenox 40 mg SC daily monitor for acute changes
[2017-09-04 08:29] VITALS: BP 111/68; PULSE 63; TEMP 98.1
[2017-09-04 08:31] LABS: BASO % 0.3 % (0.0-2.0); HEMOGLOBIN 9.1 g/dL (12.0-18.0); LYMPH % 7.9 % (20.0-40.0); MEAN CELL VOLUME 71.4 fl (80.0-94.0); MEAN CORPUSCULAR HEMOGLOBIN 21.1 pg (27.0-31.0); MEAN CORPUSCULAR HGB CONC 29.6 g/dL (33.0-37.0); MEAN PLATELET VOLUME 7.8 fl (7.2-11.7); MONO # 0.2 K/uL (0.0-0.8); MONO % 1.5 % (0.0-10.0); NEUT # 11.2 K/uL (1.8-7.0); NEUT % 90.3 % (50.0-75.0); PLATELET COUNT 446 K/uL (130-400); WHITE BLOOD COUNT 12.4 K/uL (4.8-10.8)
[2017-09-04] MEDS: Enoxaparin 40 mg Syringe SC SCH (08:36)
[2017-09-04 08:45] LABS: IRON 11 ug/dL (49-181)
[2017-09-04 08:54] LABS: % IRON SATURATION 3 % (20-55); TOTAL IRON BINDING CAPACITY 414 ug/dL (250-450)
[2017-09-04 08:56] LABS: ALBUMIN 3.3 g/dL (3.5-5.0); ALT/SGPT 27 U/L (21-72); AST/SGOT 28 U/L (17-59); BLOOD UREA NITROGEN 12 mg/dl (9-20); CALCIUM 8.7 mg/dL (8.4-10.2); GFR AFRICAN-AMERICAN > 60; GFR NON-AFRICAN AMERICAN > 60
--- NOTE | 2017-09-04 09:14 | PQF GENQUE ---
Dr. Chicas, Medication - Correlation for Diagnosis if known: ferrous sulfate 325 mg PO BID ordered RBC: 4.25->4.26->4.30 H/H:9.1/30.5->9.0/30.8->9.1/30.7 OR: Other explanation of clinical finding This form is a permanent part of the medical record Clarification of your documentation is requested to better reflect the severity of illness and intensity of treatment of your patient. Indicators present [] Specify: [] [] Specify: [] [] Specify: [] [] Specify: [] Location in the medical record that reflects the above clinical findings: [] Treatment Provided: [] PHYSICIAN'S RESPONSE Based on your medical judgment of the clinical indicators outlined above please clarify the following: [] Practitioner response [] If unable to determine, please check the box, sign and date. Present On Admission (POA) Indicator: [] Present at the time of admission [] Not present at the time of admission [] Clinically Undetermined In responding to this query, please exercise your independent professional judgment. The fact that a question is asked does not imply that any particular answer is desired or expected. Thank you for your clarification on this documentation. If you have any questions please call. * Thank you, Jewels Whitlock RN ext. #[phone] MTDD
[2017-09-04 09:34] LABS: FERRITIN 10.1 ng/Ml (17.9-464)
--- NOTE | 2017-09-04 10:28 | CP.PCM.PN ---
<Myriam Kelly - Last Filed: 09/04/17 10:26> Subjective - Date & Time of Evaluation Date of Evaluation: 09/04/17 Time of Evaluation: 10:26 - Subjective Subjective: Gastroenterology Fellow/PGY5 Consult No Patient denies abdominal pain or vomiting. Tolerating clear liquid diet. One liquid stool yesterday after cortenema administration. A 12-point review of systems negative except for as above. Objective - Vital Signs/Intake and Output Vital Signs (last 24 hours): Temp Pulse Resp BP Pulse Ox 98.1 F 63 20 111/68 100 09/04/17 08:29 09/04/17 08:29 09/04/17 08:29 09/04/17 08:29 09/04/17 08:29 - Medications Medications: Current Medications Enoxaparin Sodium (Lovenox) 40 mg SC DAILY [facility] PRN Reason: Protocol Last Admin: 09/04/17 08:36 Dose: 40 mg Ferrous Sulfate (Feosol) 325 mg PO BID [facility] Last Admin: 09/04/17 08:39 Dose: 325 mg Hydrocortisone (Cortenema) 100 mg [place] BID [facility] Last Admin: 09/04/17 10:00 Dose: 100 mg Metronidazole (Flagyl 500mg/100ml Ns) 100 mls @ 100 mls/hr IVPB Q8@0500,1300, 1900 [facility] PRN Reason: Protocol Last Admin: 09/04/17 04:22 Dose: 100 mls/hr Ciprofloxacin (Cipro 400mg/200ml Dsw) 400 mg in 200 mls @ 200 mls/hr IVPB Q12H [facility] PRN Reason: Protocol Last Admin: 09/04/17 01:59 Dose: 200 mls/hr Insulin Human Regular (Humulin R) 0 units SC ACCU-CHECK [facility] PRN Reason: Protocol Last Admin: 09/04/17 06:57 Dose: 3 u Mesalamine (Delzicol Dr) 800 mg PO Q12 [facility] Last Admin: 09/04/17 08:37 Dose: 800 mg Methylprednisolone (Solu-Medrol) 25 mg IVP Q6H [facility] Last Admin: 09/04/17 10:00 Dose: 25 mg - Labs Labs: 09/04/17 08:26 09/04/17 08:26 - Constitutional Appears: Non-toxic, No Acute Distress - Head Exam Head Exam: ATRAUMATIC, NORMOCEPHALIC - Eye Exam Eye Exam: EOMI, PERRL. absent: Scleral icterus Pupil Exam: PERRL. absent: Miosis, Mydriatic - ENT Exam ENT Exam: Mucous Membranes Moist, Normal Oropharynx - Neck Exam Neck Exam: Full ROM, Normal Inspection - Respiratory Exam Respiratory Exam: Clear to Ausculation Bilateral. absent: Rales, Rhonchi, Wheezes - Cardiovascular Exam Cardiovascular Exam: RRR, +S1, +S2. absent: Gallop, Rubs - GI/Abdominal Exam GI & Abdominal Exam: Soft, Normal Bowel Sounds. absent: Distended, Firm, Guarding, Rigid, Tenderness, Organomegaly, Rebound - Extremities Exam Extremities Exam: Normal Inspection. absent: Pedal Edema - Neurological Exam Neurological Exam: Alert, Awake - Psychiatric Exam Psychiatric exam: Normal Affect, Normal Mood - Skin Skin Exam: Dry, Intact, Normal Color, Warm Assessment and Plan - Assessment and Plan (Free Text) Assessment: 51 year old male with PMH of T2DM and Ulcerative Colitis with medication noncompliance presenting for admission post-colonoscopy due to severe rectosigmoid ulcerative colitis causing stricturing an dinablity to pass the colonoscope. . Active treatment of UC flare POD1 (09/02/17) Incomplete colonoscopy showing severe ulcerated friable recto-sigmoid mucosa, polypoid lesion, and stricture, molina score 3 in setting of noncompliance to Rowasa and Delzicol after hospital discharge 05/[address] A/P PO/IV contrast showed left hemicolon inflammation of splenic flexure,descending, sigmoid, and lesser degree of rectum involvement similar to prior studies. Prior colonoscopy at [facility] 01/2017 showed ulcerative colitis. Plan: -colonoscopy biopsies- severe active inflammation, cryptitis, pseudopolyps, no dysplasia -on Solumedrol 25mg IV Q6H and Cortenema BID day 2 -tolerating clear liquid diet, advance to bland diet -having daily BM -surgery consult-no indication for surgical intervention at this time -pending fecal calprotectin, TB Gold, and TMPT -Hepatitis panel negative -pending EGD pathology -okay to discharge from GI standpoint -UC management on discharge: oral Budesonide 9mg PO daily, cortenema BID, and mesalamine daily -counselled on medication compliance and physician follow up on discharge -follow up with Dr. Arce in the medical center clinic in one month to re-assess symptoms and schedule repeat colonoscopy to assess response to compliance to medical therapy and possible need for step-up therapy with biologic <Vamsi Arce - Last Filed: 09/04/17 13:10> Objective - Vital Signs/Intake and Output Vital Signs (last 24 hours): Temp Pulse Resp BP Pulse Ox 98.1 F 63 20 111/68 100 09/04/17 09:00 09/04/17 09:00 09/04/17 09:00 09/04/17 09:00 09/04/17 09:00 - Medications Medications: Current Medications Enoxaparin Sodium (Lovenox) 40 mg SC DAILY [facility] PRN Reason: Protocol Last Admin: 09/04/17 08:36 Dose: 40 mg Ferrous Sulfate (Feosol) 325 mg PO BID [facility] Last Admin: 09/04/17 08:39 Dose: 325 mg Hydrocortisone (Cortenema) 100 mg RI BID [facility] Last Admin: 09/04/17 10:00 Dose: 100 mg Metronidazole (Flagyl 500mg/100ml Ns) 100 mls @ 100 mls/hr IVPB Q8@0500,1300, 1900 [facility] PRN Reason: Protocol Last Admin: 09/04/17 12:57 Dose: 100 mls/hr Ciprofloxacin (Cipro 400mg/200ml Dsw) 400 mg in 200 mls @ 200 mls/hr IVPB Q12H [facility] PRN Reason: Protocol Last Admin: 09/04/17 01:59 Dose: 200 mls/hr Insulin Human Regular (Humulin R) 0 units SC ACCU-CHECK [facility] PRN Reason: Protocol Last Admin: 09/04/17 12:58 Dose: 5 u Mesalamine (Delzicol Dr) 800 mg PO Q12 [facility] Last Admin: 09/04/17 08:37 Dose: 800 mg Methylprednisolone (Solu-Medrol) 25 mg IVP Q6H [facility] Last Admin: 09/04/17 10:00 Dose: 25 mg - Labs Labs: 09/04/17 08:26 09/04/17 08:26 Attending/Attestation - Attestation I have personally seen and examined this patient.: Yes I have fully participated in the care of the patient.: Yes I have reviewed all pertinent clinical information, including history, physical exam and plan: Yes Notes (Text): 09/04/17 13:09 This is a 51 year old male with PMH of T2DM and Ulcerative Colitis with medication noncompliance presenting for admission post-colonoscopy due to recto sigmoid ulcerative stricture. See full colonoscopy details in the chart. Incomplete colonoscopy showing severe ulcerated friable recto-sigmoid mucosa, polypoid lesion, and stricture, molina score 3 in setting of noncompliance to Rowasa and Delzicol after hospital discharge 05/2017 for UC flare. Surgical recs appreciated. Imaging reviewed. Hepatitis serologies unremarkable. On steroid IV and 5- ASA with rowasa enemas. Will need TNF as outpatient for stricturing disease. TPMT levels pending to start Imuran. Diet as tolerated
[2017-09-04 10:36] LABS: ANISOCYTOSIS SLIGHT; LYMPHOCYTE 10 % (20-50); MONOCYTE 2 % (0-10); NEUTROPHIL 88 % (42-75); PLATELET ESTIMATE INCREASED (NORMAL); TOTAL CELLS COUNTED 100
[2017-09-04 10:39] LABS: MICROCYTOSIS MODERATE
[2017-09-04 10:40] LABS: HYPOCHROMIC MODERATE
[2017-09-04 10:41] LABS: LARGE PLATELETS PRESENT
--- NOTE | 2017-09-04 12:49 | CP.PCM.DIS ---
Provider - Provider Date of Admission: 09/02/17 15:57 Attending physician: Kj Chicas MD Time Spent in preparation of Discharge (in minutes): 15 Diagnosis - Discharge Diagnosis (1) Colonic stricture Status: Acute (2) Ulcerative colitis Status: Chronic (3) Insulin dependent diabetes mellitus Status: Chronic Hospital Course - Lab Results Lab Results: Most Recent Lab Values WBC 12.4 K/uL (4.8-10.8) H D 09/04/17 08:26 RBC 4.30 Mil/uL (4.40-5.90) L 09/04/17 08:26 Hgb 9.1 g/dL (12.0-18.0) L 09/04/17 08:26 Hct 30.7 % (35.0-51.0) L 09/04/17 08:26 MCV 71.4 fl (80.0-94.0) L 09/04/17 08:26 MCH 21.1 pg (27.0-31.0) L 09/04/17 08:26 MCHC 29.6 g/dL (33.0-37.0) L 09/04/17 08:26 RDW 18.0 % (11.5-14.5) H 09/04/17 08:26 Plt Count 446 K/uL (130-400) H 09/04/17 08:26 MPV 7.8 fl (7.2-11.7) 09/04/17 08:26 Neut % (Auto) 90.3 % (50.0-75.0) H 09/04/17 08:26 Lymph % (Auto) 7.9 % (20.0-40.0) L 09/04/17 08:26 Glynn % (Auto) 1.5 % (0.0-10.0) 09/04/17 08:26 Eos % (Auto) 0.0 % (0.0-4.0) 09/04/17 08:26 Baso % (Auto) 0.3 % (0.0-2.0) 09/04/17 08:26 Neut # (Auto) 11.2 K/uL (1.8-7.0) H 09/04/17 08:26 Lymph # (Auto) 1.0 K/uL (1.0-4.3) 09/04/17 08:26 Glynn # (Auto) 0.2 K/uL (0.0-0.8) 09/04/17 08:26 Eos # (Auto) 0.0 K/uL (0.0-0.7) 09/04/17 08:26 Baso # (Auto) 0.0 K/uL (0.0-0.2) 09/04/17 08:26 Neutrophils % (Manual) 88 % (42-75) H 09/04/17 08:26 Lymphocytes % (Manual) 10 % (20-50) L 09/04/17 08:26 Monocytes % (Manual) 2 % (0-10) 09/04/17 08:26 Platelet Estimate Increased (NORMAL) H 09/04/17 08:26 Large Platelets Present 09/04/17 08:26 Hypochromasia (manual) Moderate 09/04/17 08:26 Anisocytosis (manual) Slight 09/04/17 08:26 Microcytosis (manual) Moderate 09/04/17 08:26 Sodium 141 mmol/l (132-148) 09/04/17 08:26 Potassium 4.2 MMOL/L (3.6-5.0) 09/04/17 08:26 Chloride 104 mmol/L (98-107) 09/04/17 08:26 Carbon Dioxide 29 mmol/L (22-30) 09/04/17 08:26 Anion Gap 12 (10-20) 09/04/17 08:26 BUN 12 mg/dl (9-20) 09/04/17 08:26 Creatinine 0.6 mg/dl (0.8-1.5) L 09/04/17 08:26 Est GFR ( Amer) > 60 09/04/17 08:26 Est GFR (Non-Af Amer) > 60 09/04/17 08:26 POC Glucose (mg/dL) 363 mg/dL (65-110) H 09/04/17 10:58 Random Glucose 251 mg/dL (75-110) H 09/04/17 08:26 Calcium 8.7 mg/dL (8.4-10.2) 09/04/17 08:26 Iron 11 ug/dL (49-181) L 09/04/17 08:26 TIBC 414 ug/dL (250-450) 09/04/17 08:26 % Saturation 3 % (20-55) L 09/04/17 08:26 Ferritin 10.1 ng/Ml (17.9-464) L 09/04/17 08:26 Total Bilirubin 0.3 mg/dl (0.2-1.3) 09/04/17 08:26 AST 28 U/L (17-59) 09/04/17 08:26 ALT 27 U/L (21-72) 09/04/17 08:26 Alkaline Phosphatase 59 U/L (38-126) 09/04/17 08:26 Total Protein 6.7 G/DL (6.3-8.2) 09/04/17 08:26 Albumin 3.3 g/dL (3.5-5.0) L 09/04/17 08:26 Globulin 3.5 gm/dL (2.2-3.9) 09/04/17 08:26 Albumin/Globulin Ratio 1.0 (1.0-2.1) 09/04/17 08:26 Triglycerides 33 mg/DL (0-149) 09/03/17 06:05 Cholesterol 146 mg/dL (0-199) 09/03/17 06:05 LDL Cholesterol Direct 96 mg/dL (0-129) 09/03/17 06:05 HDL Cholesterol 38 MG/DL (30-70) 09/03/17 06:05 Vitamin B12 642 pg/mL (239-931) 09/04/17 08:26 Thyroxine (T4) 9.39 ug/dl (5.5-11.0) 09/03/17 06:05 Total T3 0.878 nmol/L (1.49-2.60) L 09/03/17 06:05 TSH 3rd Generation 0.22 mIU/ML (0.46-4.68) L 09/03/17 06:05 Hepatitis A IgM Ab Negative (NEGATIVE) 09/02/17 17:50 Hep Bs Antigen Negative (NEGATIVE) 09/02/17 17:50 Hep B Core IgM Ab Negative (NEGATIVE) 09/02/17 17:50 Hepatitis C Antibody Negative (NEGATIVE) 09/02/17 17:50 - Hospital Course Hospital Course: 51 y/o man w/ pmh of ulcerative colitis, IDDM2 was sent to the ED from the endoscopy suite by Dr. Arce for a surgical evaluation for stricture seen on colonoscopy. Patient denies any pain and is tolerating PO without issue. Patient is voiding freely and having regular bowel movement. The patient was seen by GI and general surgery. The patient has been seen, examined, and deemed medically fit for discharge home. The patient is discharged w/ budesonide and hydrocortisone. The patient is to follow up w/ GI and general surgery in 2-3 weeks. Discharge Exam - Head Exam Head Exam: ATRAUMATIC, NORMAL INSPECTION, NORMOCEPHALIC - Eye Exam Eye Exam: Normal appearance - ENT Exam ENT Exam: Mucous Membranes Moist - Neck Exam Neck exam: Full Rom - Respiratory Exam Respiratory Exam: Clear to PA & Lateral. absent: Accessory Muscle Use, Decreased Breath Sounds, Rales, Rhonchi, Wheezes, Respiratory Distress - Cardiovascular Exam Cardiovascular Exam: REGULAR RHYTHM, RRR. absent: Tachycardia - GI/Abdominal Exam GI & Abdominal Exam: Normal Bowel Sounds, Soft. absent: Distended, Tenderness - Extremities Exam Extremities exam: normal inspection - Neurological Exam Neurological exam: Alert, Oriented x3 - Skin Skin Exam: Dry, Intact, Normal Color, Warm Discharge Plan - Discharge Medications Prescriptions: Budesonide [Uceris] 9 mg PO DAILY #30 tabdr...er Hydrocortisone [Cortenema] 100 mg VA BID #60 nma - Follow Up Plan Condition: FAIR Disposition: HOME/ ROUTINE Instructions: Colon Stricture (DC) Additional Instructions: Can follow up as an outpatient in surgical clinic at [facility] for further evaluation follow up with Dr Arce and Dr. Freeman 2-3 weeks Referrals: Aden Eubanks MD [Family Provider] - Vamsi Arce MD [Medical Doctor] - Ml Freeman MD [Staff Provider] -
[2017-09-04 17:58] LABS: FOLATE > 20.0 ng/mL
[2017-09-05 06:26] LABS: TB ANTIGEN MINUS NIL <0.00 IU/mL
== END 2017-09-04 14:30 | disposition home or self-care (01) | DRG 179 ==
LOC: H.ER 14:20 → H.ERHOLD 15:57 → H.MEDSURG1 18:00
PROVIDERS: ADMIT Internal Medicine; ATTEND Internal Medicine
DX: K51.312 Ulcerative (chronic) rectosigmoiditis with intestinal obstruction (principal); E11.9 Type 2 diabetes mellitus without complications; Z79.4 Long term (current) use of insulin; Z91.14 Patient's other noncompliance with medication regimen; K29.70 Gastritis, unspecified, without bleeding; I10 Essential (primary) hypertension; K62.89 Other specified diseases of anus and rectum; D50.9 Iron deficiency anemia, unspecified

== ENCOUNTER 2018-01-18 17:43 | Observation (INO) | payer MEDICAID, SELFPAY ==
[2018-01-18 17:44] VITALS: BMI 23.3
[2018-01-18] MEDS ORDERED: Iohexol 240 (50 ml) PO STA (18:39)
[2018-01-18] MEDS ORDERED: Sodium Chloride 0.9% 1,000 ML IV STA (18:41)
[2018-01-18] MEDS ORDERED: Iohexol 240 (50 ml) ONE (19:02)
[2018-01-18 19:05] LABS: BASO % 0.4 % (0.0-2.0); EOS # 0.5 K/uL (0.0-0.7); HEMOGLOBIN 8.1 g/dL (12.0-18.0); LYMPH # 2.2 K/uL (1.0-4.3); LYMPH % 23.6 % (20.0-40.0); MEAN CELL VOLUME 64.2 fl (80.0-94.0); MEAN CORPUSCULAR HGB CONC 29.5 g/dL (33.0-37.0); MEAN PLATELET VOLUME 7.5 fl (7.2-11.7); MONO # 1.1 K/uL (0.0-0.8); MONO % 11.8 % (0.0-10.0); NEUT # 5.4 K/uL (1.8-7.0); NEUT % 59.2 % (50.0-75.0); RBC 4.28 Mil/uL (4.40-5.90); RED CELL DISTRIBUTION WIDTH 18.3 % (11.5-14.5); WHITE BLOOD COUNT 9.2 K/uL (4.8-10.8)
--- NOTE | 2018-01-18 19:10 | ED PDOC ---
HPI: Abdomen Time Seen by Provider: 01/18/18 18:21 Chief Complaint (Nursing): Abdominal Pain Chief Complaint (Provider): Abdominal Pain and Diarrhea History Per: Patient History/Exam Limitations: no limitations Onset/Duration Of Symptoms: Days (x3) Current Symptoms Are (Timing): Still Present Quality Of Discomfort: Cramping Associated Symptoms: Diarrhea Additional Complaint(s): 52 year old male with a history of ulcerative colitis and dm presents to the ED with abdominal pain and diarrhea that started three days ago. Patient states diarrhea is constant, to the point he cant leave bathroom. He states it has slowed down a little today, but he has been unable to eat well. Patient describes pain as lower abdominal pain with cramping with blood stools. He denies fever, chills or any other medical complaints. Symptoms are similar to when he had exacerbation of his colitis. For this condition, he last saw Dr. Landon schwartz in August, after which he was supposed to follow up at [facility], but he didnt follow up because he traveled to [place] for a while. He is taking mesalamine, but is not taking it as prescribed, as in he takes it occasionally. PMD: [facility] in [place] Past Medical History Reviewed: Historical Data, Nursing Documentation, Vital Signs Vital Signs: Last Vital Signs Temp 99 F 01/18/18 18:05 Pulse 78 01/18/18 18:05 Resp 18 01/18/18 18:05 BP 126/65 01/18/18 18:05 Pulse Ox 99 01/18/18 18:05 - Medical History PMH: Diabetes, Diverticulitis, HTN Denies: HIV, Chronic Kidney Disease Other PMH: ulcerative colitis - Surgical History Surgical History: Endoscopy Other surgeries: Left arm and forearm surgery s/p accident, right mass removed from neck 30 years ago. - Family History Family History: States: Diabetes - Social History Current smoker - smoking cessation education provided: No Ex-Smoker (has not smoked in the last 12 months): No Alcohol: None Drugs: Denies - Home Medications Home Medications: Ambulatory Orders Medication Instructions Recorded Ferrous Sulfate [Ferosul] 325 mg PO BID 09/02/17 Insulin Aspart Prot/Insuln Asp 25 unit SC DAILY 09/02/17 [Novolog Mix 70-30 Vial] Mesalamine [Apriso] 4 cap PO QAM 09/02/17 Budesonide [Uceris] 9 mg PO DAILY #30 tabdr...er 09/04/17 Hydrocortisone [Cortenema] 100 mg AL BID #60 nma 09/04/17 - Allergies Allergies/Adverse Reactions: Allergies Allergy/AdvReac Type Severity Reaction Status Date / Time No Known Allergies Allergy Verified 09/02/17 14:23 Review of Systems ROS Statement: Except As Marked, All Systems Reviewed And Found Negative Gastrointestinal: Positive for: Abdominal Pain, Diarrhea Physical Exam - Reviewed Nursing Documentation Reviewed: Yes Vital Signs Reviewed: Yes - Physical Exam Appears: Positive for: In Acute Distress (tired, mild painful distress) ENT: Positive for: Pharynx Is (clear), Other (tacky mucous membranes) Gastrointestinal/Abdominal: Positive for: Soft, Tenderness (tenderness to suprapubic and bilateral lower quadrants). Negative for: Mass, Distended, Guarding, Rebound - ECG O2 Sat by Pulse Oximetry: 99 (RA) Pulse Ox Interpretation: Normal Medical Decision Making Medical Decision Making: Time: 1838 Initial Impression: ulcerative colitis exacerbation Initial Plan: --Type and screen --CT abd and pelvis --CMP --Lact acid --Lipase --Magnesium --Phosphorus --Urine dip --CBC with differentials --Erythrocyte sedimentation rate --PTT --Prothrombin time --Morphine 2 mg IV --Omnipaque 50 ml PO --Solu-medrol 125 mg IV --Blood culture --Stool culture --Glucose Time: 1900 --Reviewd previous charts, last admission was in August of 2017. Colonoscopy demonstrated rectosigmoid stricture. For which, patient was to follow up with surgery for possible resection at the time. Scribe Attestation: Documented by Tammi Hernández, acting as a scribe for Leanne Jin MD Provider Scribe Attestation: All medical record entries made by the Scribe were at my direction and personally dictated by me. I have reviewed the chart and agree that the record accurately reflects my personal performance of the history, physical exam, medical decision making, and the department course for this patient. I have also personally directed, reviewed, and agree with the discharge instructions and disposition. Disposition - Disposition
[2018-01-18 19:13] LABS: INR 1.2; PROTHROMBIN TIME 13.2 Seconds (9.8-13.1)
[2018-01-18 19:15] LABS: PARTIAL THROMBOPLASTIN TIME 33.6 Seconds (25.6-37.1)
[2018-01-18 19:17] LABS: ALBUMIN 3.5 g/dL (3.5-5.0); ALT/SGPT 23 U/L (21-72); AST/SGOT 42 U/L (17-59); BLOOD UREA NITROGEN 15 mg/dl (9-20); CALCIUM 8.4 mg/dL (8.4-10.2); GFR NON-AFRICAN AMERICAN > 60; LIPASE 127 U/L (23-300)
[2018-01-18] MEDS ORDERED: Sodium Chloride 0.9% 100 ML ONE (21:40)
[2018-01-18] MEDS ORDERED: Iohexol 300 100 ML IJ ONE (21:40)
[2018-01-18 23:04] LABS: BASO % 0.1 % (0.0-2.0); EOS % 0.2 % (0.0-4.0); HEMOGLOBIN 8.5 g/dL (12.0-18.0); LYMPH % 9.2 % (20.0-40.0); MEAN CELL VOLUME 64.3 fl (80.0-94.0); MEAN CORPUSCULAR HEMOGLOBIN 18.9 pg (27.0-31.0); MEAN CORPUSCULAR HGB CONC 29.5 g/dL (33.0-37.0); MEAN PLATELET VOLUME 7.4 fl (7.2-11.7); MONO # 0.1 K/uL (0.0-0.8); NEUT # 9.3 K/uL (1.8-7.0); NEUT % 89.5 % (50.0-75.0); PLATELET COUNT 566 K/uL (130-400); RBC 4.51 Mil/uL (4.40-5.90); RED CELL DISTRIBUTION WIDTH 18.5 % (11.5-14.5); WHITE BLOOD COUNT 10.4 K/uL (4.8-10.8)
--- NOTE | 2018-01-18 23:31 | CP.PCM.HP ---
History of Present Illness - History of Present Illness History of Present Illness: PMD: [facility] in [place] Chief Complaint: Abdominal Pain/diarrhea The Patient was seen and examined in the ED HPI: The Hx is from the patient and after review of the medical records. He is a 52 years old male with hx of DM II, Diverticulitis and Ulcerative Colitis. He comes with three days of constant diarrhea. Initially with streaks of blood but with intermittent left lower quadrant crampying pains. This patient failed to follow up at [facility] for follow up because eh travelled out of [facility]. No fever, dysuria, nausea, vomits nor Chest pain. PMH: DM II insulin requiring; Diverticulitis?; Ulcerative Colitis PSH: Left arm and forearm surgery s/p accident, right mass removed from neck 30 years ago. SH: Former Smoker; Former Alcohol User; no illegal drug use FH: Significant for DM Allergies: NKDA Medication: Reviewed Present on Admission - Present on Admission Any Indicators Present on Admission: Yes History of DVT/PE: No History of Uncontrolled Diabetes: Yes Urinary Catheter: No Decubitus Ulcer Present: No Review of Systems - Constitutional Constitutional: absent: Chills, Fever, Headache, Lethargy - EENT Eyes: Requires Corrective Lenses. absent: Blurred Vision, Diplopia, Floaters Ears: absent: Decreased Hearing, Tinnitus Nose/Mouth/Throat: absent: Epistaxis, Nasal Discharge, Nasal Obstruction, Sinus Pain, Sinus Pressure - Cardiovascular Cardiovascular: absent: Chest Pain, Edema, Leg Edema, Lightheadedness, Palpitations - Respiratory Respiratory: absent: Cough, Dyspnea, Wheezing - Gastrointestinal Gastrointestinal: Abdominal Pain, Diarrhea. absent: Constipation, Hematemesis, Nausea, Vomiting - Genitourinary Genitourinary: absent: Dysuria, Flank Pain, Urinary Frequency - Musculoskeletal Musculoskeletal: absent: Arthralgias, Joint Swelling, Myalgias - Integumentary Integumentary: absent: Pruritus, Rash, Skin Ulcer, Sores, Striae, Swelling - Neurological Neurological: absent: Confusion, Dizziness, Focal Weakness, Headaches, Weakness - Psychiatric Psychiatric: absent: Anxiety, Depression, Panic Attacks - Endocrine Endocrine: absent: Palpitations, Polydipsia, Polyphagia, Polyuria - Hematologic/Lymphatic Hematologic: absent: Easy Bleeding, Easy Bruising Past Patient History - Infectious Disease Hx of Infectious Diseases: None - Past Medical History & Family History Past Medical History?: Yes - Past Social History Smoking Status: Former Smoker Chewing Tobacco Use: No Cigar Use: No Alcohol: Other Drugs: Denies - CARDIAC Hx Hypertension: Yes - PULMONARY Hx Respiratory Disorders: No - NEUROLOGICAL Hx Neurological Disorder: No - HEENT Hx HEENT Problems: No - RENAL Hx Chronic Kidney Disease: No - ENDOCRINE/METABOLIC Hx Endocrine Disorders: Yes Hx Diabetes Mellitus Type 2: Yes - HEMATOLOGICAL/ONCOLOGICAL Hx Human Immunodeficiency Virus (HIV): No - INTEGUMENTARY Hx Dermatological Problems: No - MUSCULOSKELETAL/RHEUMATOLOGICAL Hx Musculoskeletal Disorders: No - GASTROINTESTINAL Hx Diverticulitis: Yes - GENITOURINARY/GYNECOLOGICAL Hx Genitourinary Disorders: No - PSYCHIATRIC Hx Psychophysiologic Disorder: No Hx Emotional Abuse: No Hx Physical Abuse: No Hx Substance Use: No - SURGICAL HISTORY Hx Surgeries: Yes Other/Comment: LT WRIST SURGERY - ANESTHESIA Hx Anesthesia: Yes Hx Anesthesia Reactions: No Hx Malignant Hyperthermia: No Meds Allergies/Adverse Reactions: Allergies Allergy/AdvReac Type Severity Reaction Status Date / Time No Known Allergies Allergy Verified 09/02/17 14:23 Physical Exam - Constitutional Appears: No Acute Distress - Head Exam Head Exam: ATRAUMATIC, NORMAL INSPECTION, NORMOCEPHALIC - Eye Exam Eye Exam: EOMI, Normal appearance Pupil Exam: NORMAL ACCOMODATION, PERRL - ENT Exam ENT Exam: Mucous Membranes Moist, Normal Exam, Normal External Ear Exam - Neck Exam Neck exam: Positive for: Full Rom, Normal Inspection. Negative for: Lymphadenopathy, Tenderness - Respiratory Exam Respiratory Exam: Clear to Auscultation Bilateral. absent: Rales, Rhonchi, Wheezes - Cardiovascular Exam Cardiovascular Exam: REGULAR RHYTHM, RRR, +S1, +S2. absent: Gallop, JVD - GI/Abdominal Exam GI & Abdominal Exam: Normal Bowel Sounds, Soft. absent: Mass, Organomegaly Additional comments: Mild tenderness at Left lower quadrant, no guarding nor rebound tenderness. - Rectal Exam Rectal Exam: Deferred - Extremities Exam Extremities exam: Positive for: full ROM, normal inspection. Negative for: calf tenderness, pedal edema - Back Exam Back exam: NORMAL INSPECTION. absent: CVA tenderness (L), CVA tenderness (R) - Neurological Exam Neurological exam: Alert, CN II-XII Intact, Oriented x3, Reflexes Normal - Psychiatric Exam Psychiatric exam: Normal Affect, Normal Mood - Skin Skin Exam: Intact, Normal Color, Warm Results - Vital Signs Recent Vital Signs: Last Vital Signs Temp 99 F 01/18/18 18:05 Pulse 78 01/18/18 18:05 Resp 18 01/18/18 18:05 BP 126/65 01/18/18 18:05 Pulse Ox 99 01/18/18 19:15 - Labs Result Diagrams: 01/18/18 22:58 01/18/18 18:48 Labs: Laboratory Results - last 24 hr 01/18/18 01/18/18 01/18/18 18:48 18:48 18:48 WBC 9.2 RBC 4.28 L Hgb 8.1 L Hct 27.4 L MCV 64.2 L D MCH 19.0 L MCHC 29.5 L RDW 18.3 H Plt Count 557 H D MPV 7.5 Neut % (Auto) 59.2 Lymph % (Auto) 23.6 Spalding % (Auto) 11.8 H Eos % (Auto) 5.0 H Baso % (Auto) 0.4 Neut # (Auto) 5.4 Lymph # (Auto) 2.2 Spalding # (Auto) 1.1 H Eos # (Auto) 0.5 Baso # (Auto) 0.0 ESR 57 H PT 13.2 H INR 1.2 APTT 33.6 Sodium 139 Potassium 4.5 Chloride 106 Carbon Dioxide 28 Anion Gap 10 BUN 15 Creatinine 0.8 Est GFR ( Amer) > 60 Est GFR (Non-Af Amer) > 60 Random Glucose 262 H Lactic Acid Calcium 8.4 Phosphorus 3.4 Magnesium 1.8 Total Bilirubin 0.3 AST 42 ALT 23 Alkaline Phosphatase 48 Total Protein 7.0 Albumin 3.5 Globulin 3.5 Albumin/Globulin Ratio 1.0 Lipase 127 Stool Occult Blood Blood Type Antibody Screen BBK History Checked 01/18/18 01/18/18 01/18/18 18:48 21:15 22:58 WBC 10.4 RBC 4.51 Hgb 8.5 L Hct 29.0 L MCV 64.3 L MCH 18.9 L MCHC 29.5 L RDW 18.5 H Plt Count 566 H MPV 7.4 Neut % (Auto) 89.5 H Lymph % (Auto) 9.2 L Spalding % (Auto) 1.0 Eos % (Auto) 0.2 Baso % (Auto) 0.1 Neut # (Auto) 9.3 H Lymph # (Auto) 1.0 Spalding # (Auto) 0.1 Eos # (Auto) 0.0 Baso # (Auto) 0.0 ESR PT INR APTT Sodium Potassium Chloride Carbon Dioxide Anion Gap BUN Creatinine Est GFR ( Amer) Est GFR (Non-Af Amer) Random Glucose Lactic Acid 2.1 Calcium Phosphorus Magnesium Total Bilirubin AST ALT Alkaline Phosphatase Total Protein Albumin Globulin Albumin/Globulin Ratio Lipase Stool Occult Blood Blood Type A POSITIVE Antibody Screen Negative BBK History Checked No verified bt 01/18/18 22:58 WBC RBC Hgb Hct MCV MCH MCHC RDW Plt Count MPV Neut % (Auto) Lymph % (Auto) Spalding % (Auto) Eos % (Auto) Baso % (Auto) Neut # (Auto) Lymph # (Auto) Spalding # (Auto) Eos # (Auto) Baso # (Auto) ESR PT INR APTT Sodium Potassium Chloride Carbon Dioxide Anion Gap BUN Creatinine Est GFR ( Amer) Est GFR (Non-Af Amer) Random Glucose Lactic Acid Calcium Phosphorus Magnesium Total Bilirubin AST ALT Alkaline Phosphatase Total Protein Albumin Globulin Albumin/Globulin Ratio Lipase Stool Occult Blood Negative Blood Type Antibody Screen BBK History Checked - Imaging and Cardiology CT scan - abdomen Additional comment: PND Assessment & Plan - Assessment and Plan (Free Text) Assessment: #. Ulcerative Colitis Exacerbation #. DM II Uncontrolled #. Anemia of Chronic Disease Plan: 52 years old male with hx of DM II, Diverticulitis and Ulcerative Colitis, comes with three days of constant diarrhea with streaks of blood and intermittent left lower quadrant crampying pains. No fever, dysuria, nausea, vomits nor Chest pain. #. Ulcerative Colitis Exacerbation with Diarrhea - Consult Dr Arce - Stool for C Difficile - Stool for C&S - Patient received Methylprednisolone in ED. Continue with Methylprednisolone 60mg IVP daily - Mesalamine - Pain medication #. DM II Uncontrolled - Lispro mix 75/35 25units Sub Q daily - Lispro slicing scale ACHS - HbA1c #. Anemia of Iron Deficiency - Ferrous Sulfate #. DVT Prophylaxis with SCD - No anticoagulant at this time because of the Anemia #. Code Status: Full - Date & Time Date: 01/18/18 Time: 23:31
[2018-01-19] MEDS: Sodium Chloride 0.9% 1,000 ML IV SCH ×3 (01:04→17:59)
[2018-01-19 01:29] LABS: BANDS 3 % (0-2); LYMPHOCYTE 11 % (20-50); NEUTROPHIL 86 % (42-75); TOTAL CELLS COUNTED 100
[2018-01-19 01:30] LABS: LARGE PLATELETS PRESENT; MONOCYTE 0 % (0-10); PLATELET ESTIMATE MARKEDLY INCREASED (NORMAL)
[2018-01-19 01:31] LABS: ANISOCYTOSIS SLIGHT
[2018-01-19 01:32] LABS: HYPOCHROMIC SLIGHT
[2018-01-19 06:30] LABS: HEMOGLOBIN 8.3 g/dL (12.0-18.0); MEAN CELL VOLUME 64.2 fl (80.0-94.0); MEAN CORPUSCULAR HEMOGLOBIN 19.4 pg (27.0-31.0); MEAN CORPUSCULAR HGB CONC 30.2 g/dL (33.0-37.0); RBC 4.3 Mil/uL (4.40-5.90); RED CELL DISTRIBUTION WIDTH 18.6 % (11.5-14.5); WHITE BLOOD COUNT 8.9 K/uL (4.8-10.8)
[2018-01-19] MEDS ORDERED: Insulin Lispro Mix 75/25 100 units/ml (HumaLog) 10ml SC SCH (07:30)
[2018-01-19] MEDS ORDERED: MESALAMINE PO SCH (09:00)
[2018-01-19] MEDS: Insulin Lispro (humaLOG) 100 Units/ml Inj SC SCH ×2 (09:58→13:12)
--- NOTE | 2018-01-19 10:12 | CP.PCM.PN ---
Addendum entered by Mayte Sanchez MD 01/19/18 18:12: Ulcerative Colitis DM type II with Hyperglycemia due to steroids, Insulin requiring Will d/c pt home to ff up at [facility] Increase Humalog 75/25 to 25 units q an and 10 units q pm C diff negative afebrile, no leukocytosis, diarrhea resolved, Occult blood negative Addendum entered and electronically signed by Eboni Anguiano DPM 01/19/18 14:34: As per GI- -Continue supportive care -Stool studies to r/o infectious etiology -Will hold steroids at this time until stool studies come back to r/o infectious etiology, if negative may benefit from steroid therapy Original Note: <Eboni Anguiano - Last Filed: 01/19/18 12:01> Subjective - Date & Time of Evaluation Date of Evaluation: 01/19/18 Time of Evaluation: 10:10 - Subjective Subjective: 52 y/o male with PMHx of DM and ulcerative colitis was seen and evaluated at bedside. Patient was resting comfortably and states he is feeling much better. Patient reports 1 episode of eatery diarrhea this morning. Patient denies F/N/V/SOB/CP. Objective - Vital Signs/Intake and Output Vital Signs (last 24 hours): Temp Pulse Resp BP Pulse Ox 98.0 F 60 18 115/62 99 01/19/18 08:00 01/19/18 08:00 01/19/18 08:00 01/19/18 08:00 01/19/18 08:00 - Medications Medications: Current Medications Ferrous Gluconate (Fergon) 324 mg PO BID [facility] Last Admin: 01/19/18 09:57 Dose: 324 mg Home Med (Mesalamine [Apriso]) 4 cap PO QAM [facility] Last Admin: 01/19/18 09:57 Dose: 4 cap Sodium Chloride (Sodium Chloride 0.9%) 1,000 mls @ 125 mls/hr IV .Q8H [facility] Stop: 01/20/18 00:17 Last Admin: 01/19/18 09:59 Dose: 125 mls/hr Insulin Human Lispro (Humalog) 0 units SC ACHS [facility]; Protocol Last Admin: 01/19/18 09:58 Dose: Not Given Insulin Lispro Protam/Lispro Human (Humalog Mix 75/25) 30 units SC ACB [facility] Last Admin: 01/19/18 09:58 Dose: 30 units Methylprednisolone (Solu-Medrol) 60 mg IVP DAILY [facility] Last Admin: 01/19/18 09:57 Dose: 60 mg - Labs Labs: 01/19/18 05:40 01/18/18 18:48 PT 13.2 Seconds (9.8-13.1) H 01/18/18 18:48 INR 1.2 01/18/18 18:48 APTT 33.6 Seconds (25.6-37.1) 01/18/18 18:48 - Constitutional Appears: Well, Non-toxic, No Acute Distress - Head Exam Head Exam: ATRAUMATIC, NORMOCEPHALIC - Eye Exam Eye Exam: Normal appearance, PERRL - ENT Exam ENT Exam: Mucous Membranes Dry - Neck Exam Neck Exam: Full ROM. absent: Lymphadenopathy - Respiratory Exam Respiratory Exam: Clear to Ausculation Bilateral, NORMAL BREATHING PATTERN. absent: Rales, Rhonchi, Wheezes - Cardiovascular Exam Cardiovascular Exam: REGULAR RHYTHM, +S1, +S2. absent: JVD - GI/Abdominal Exam GI & Abdominal Exam: Soft, Tenderness (Left lower quadrant), Normal Bowel Sounds. absent: Firm, Rigid - Neurological Exam Neurological Exam: Alert, Awake, Oriented x3 - Psychiatric Exam Psychiatric exam: Normal Affect, Normal Mood - Skin Skin Exam: Normal Color Assessment and Plan - Assessment and Plan (Free Text) Assessment: 52 y/o male with PMHx of DM II and ulcerative colitis admitted for exacerbation of ulcerative colitis, left lower quadrant pain and diarrhea X 3 days. Plan: 1. Ulcerative Colitis Exacerbation with Diarrhea - Stool for C. Difficile- negative - Continue with Methylprednisolone 60mg IVP daily - Continue Mesalamine 4 cap PO - Continue Pain medication PRN - f/u Stool for C&S- Pending - f/u GI- Dr. Callaway- recommendations appreciated 2. DM II - Chronic, Uncontrolled - Lispro mix 75/35 25units Sub Q daily - Lispro slicing scale ACHS - f/u HbA1c- Pending 3. Anemia of Iron Deficiency - Ferrous Sulfate 4. DVT Prophylaxis - SCD's - No anticoagulant at this time because of the Anemia <Mayte Sanchez - Last Filed: 01/19/18 18:11> Objective - Vital Signs/Intake and Output Vital Signs (last 24 hours): Temp Pulse Resp BP Pulse Ox 97.8 F 66 17 103/55 L 99 01/19/18 15:56 01/19/18 15:56 01/19/18 15:56 01/19/18 15:56 01/19/18 15:56 - Medications Medications: Current Medications Ferrous Gluconate (Fergon) 324 mg PO BID [facility] Last Admin: 01/19/18 18:01 Dose: 324 mg Sodium Chloride (Sodium Chloride 0.9%) 1,000 mls @ 125 mls/hr IV .Q8H [facility] Stop: 01/20/18 00:17 Last Admin: 01/19/18 17:59 Dose: Not Given Insulin Human Lispro (Humalog) 0 units SC ACHS [facility]; Protocol Last Admin: 01/19/18 18:01 Dose: 12 u Insulin Lispro Protam/Lispro Human (Humalog Mix 75/25) 30 units SC ACB [facility] Last Admin: 01/19/18 09:58 Dose: 30 units - Labs Labs: 01/19/18 05:40 01/18/18 18:48 PT 13.2 Seconds (9.8-13.1) H 01/18/18 18:48 INR 1.2 01/18/18 18:48 APTT 33.6 Seconds (25.6-37.1) 01/18/18 18:48 Attending/Attestation - Attestation I have personally seen and examined this patient.: Yes I have fully participated in the care of the patient.: Yes I have reviewed all pertinent clinical information, including history, physical exam and plan: Yes Notes (Text): Pt's diarrhea resolved. Had BM this morning, non bloody He has no fever, no leukocytosis Discussed case with GI fellow who discussed case with Dr Callaway - recommended - no steroids, no antibiotics needs - Pt would need to be started on Imuran as outpt, he has to ff up at [facility] as he has severe disease. - need to do stool work up ( sent) to r/o any infection
--- NOTE | 2018-01-19 11:08 | CT ---
Date of service: 01/18/2018 PROCEDURE: CT Abdomen and Pelvis with contrast HISTORY: ulcerative colitis w h/o stricture COMPARISON: 09/02/2017 TECHNIQUE: Contrast dose: 95 mL Omnipaque 300 Radiation dose: Total exam DLP = 648.6 mGy-cm. This CT exam was performed using one or more of the following dose reduction techniques: Automated exposure control, adjustment of the mA and/or kV according to patient size, and/or use of iterative reconstruction technique. FINDINGS: LOWER THORAX: Unremarkable. LIVER: Unremarkable. No gross lesion or ductal dilatation. GALLBLADDER AND BILE DUCTS: Unremarkable. PANCREAS: Unremarkable. No gross lesion or ductal dilatation. SPLEEN: Unremarkable. ADRENALS: Unremarkable. No mass. KIDNEYS AND URETERS: Incidental horseshoe kidney. Large cyst right parasagittal in the bridging tissue 6.5 cm greatest dimension, unchanged. Several additional smaller stable cysts are seen in the left kidney. No hydronephrosis. No calculus. VASCULATURE: Unremarkable. No aortic aneurysm. No aortic atherosclerotic calcification or mural plaque present. BOWEL: There is mural thickening of the rectosigmoid colon with perirectal stranding likely reflecting inflammatory change. There is mild mural thickening seen throughout the transverse colon. There is mural thickening seen in the cecum and ascending colon. Findings consistent with known ulcerative colitis. No bowel obstruction. APPENDIX: Not identified PERITONEUM: Unremarkable. No free fluid. No free air. LYMPH NODES: There are a few mildly enlarged retroperitoneal and mesenteric nodes identified common nonspecific. Mildly enlarged bilateral pelvic nodes are also noted. Likely reactive. BLADDER: Unremarkable. REPRODUCTIVE: Unremarkable prostate. BONES: Stable mild anterior wedge compression deformity of the L2 vertebral body. No acute fracture. OTHER FINDINGS: None. IMPRESSION: Nonspecific colitis involving ascending, transverse and rectosigmoid colon. Consistent with patient's known ulcerative colitis. Most prominent in the rectosigmoid colon. The transverse colon is somewhat featureless consistent with long-standing colitis. Nonspecific mesenteric, retroperitoneal and pelvic lymphadenopathy. The preliminary findings for this examination were reported by [facility] Radiology at 10:18 p.m. on 01/18/2018. There is discordance of this report with the preliminary findings. Nonspecific colitis of the rectosigmoid colon and ascending colon was not described in the preliminary report of this examination. Mesenteric, retroperitoneal and pelvic lymphadenopathy was not described in the preliminary report of this examination.
--- NOTE | 2018-01-19 12:18 | CP.PCM.CON ---
History of Present Illness - History of Present Illness History of Present Illness: GI Fellow PGY5 Consult Note This is a 53 year old male with PMH of T2DM and Ulcerative Colitis with stricturing disease in the rectosigmoid, medication noncompliance presenting for complaints of watery diarrhea three times a day, nonbloody. Patient was admitted in August 2017 after presenting for elective EGD/colonoscopy for UC surveillance and had incomplete colonoscopy which showed severe ulcerated friable recto- sigmoid mucosa, polypoid lesion, and stricture unable to pass scope. Simms Score 3, pt was discharged on budesonide, cortebenema bid, and mesalaimen. Pt was recommend to followup outpt [facility] to be evaluated for TNF for stricturing disease and repeat colonoscopy but has not followed up. EGD with gastritis, neg H.pylori. Pt reports he has been taking mesalamine by mouth but nothing per rectum. Denies abdominal/back/hip pain, skin rashes, mouth ulcers, eye pain/redness. Prior colonoscopy at [place] 01/2017 showed ulcerative colitis. ROS: A 12pt ROS was negative except as above. Pmhx: As stated in HPI Family History- denies stomach cancer, colon cancer Social History- denies tobacco, alcohol, illicit drug use Surgical History- wrist Past Patient History - Infectious Disease Hx of Infectious Diseases: None - Past Medical History & Family History Past Medical History?: Yes - Past Social History Smoking Status: Former Smoker Chewing Tobacco Use: No Cigar Use: No Alcohol: Other Drugs: Denies - CARDIAC Hx Hypertension: Yes - PULMONARY Hx Respiratory Disorders: No - NEUROLOGICAL Hx Neurological Disorder: No - HEENT Hx HEENT Problems: No - RENAL Hx Chronic Kidney Disease: No - ENDOCRINE/METABOLIC Hx Endocrine Disorders: Yes - HEMATOLOGICAL/ONCOLOGICAL Hx Human Immunodeficiency Virus (HIV): No - INTEGUMENTARY Hx Dermatological Problems: No - MUSCULOSKELETAL/RHEUMATOLOGICAL Hx Musculoskeletal Disorders: No - GASTROINTESTINAL Hx Diverticulitis: Yes - GENITOURINARY/GYNECOLOGICAL Hx Genitourinary Disorders: No - PSYCHIATRIC Hx Psychophysiologic Disorder: No - SURGICAL HISTORY Hx Surgeries: Yes Other/Comment: LT WRIST SURGERY - ANESTHESIA Hx Anesthesia: Yes Hx Anesthesia Reactions: No Hx Malignant Hyperthermia: No Meds Allergies/Adverse Reactions: Allergies Allergy/AdvReac Type Severity Reaction Status Date / Time No Known Allergies Allergy Verified 09/02/17 14:23 - Medications Medications: Current Medications Ferrous Gluconate (Fergon) 324 mg PO BID [facility] Last Admin: 01/19/18 09:57 Dose: 324 mg Home Med (Mesalamine [Apriso]) 4 cap PO QAM [facility] Last Admin: 01/19/18 09:57 Dose: 4 cap Sodium Chloride (Sodium Chloride 0.9%) 1,000 mls @ 125 mls/hr IV .Q8H [facility] Stop: 01/20/18 00:17 Last Admin: 01/19/18 09:59 Dose: 125 mls/hr Insulin Human Lispro (Humalog) 0 units SC ACHS [facility]; Protocol Last Admin: 01/19/18 09:58 Dose: Not Given Insulin Lispro Protam/Lispro Human (Humalog Mix 75/25) 30 units SC ACB [facility] Last Admin: 01/19/18 09:58 Dose: 30 units Methylprednisolone (Solu-Medrol) 60 mg IVP DAILY [facility] Last Admin: 01/19/18 09:57 Dose: 60 mg Physical Exam - Constitutional Appears: Non-toxic, No Acute Distress - Head Exam Head Exam: ATRAUMATIC, NORMAL INSPECTION, NORMOCEPHALIC - Eye Exam Eye Exam: EOMI, Normal appearance, PERRL Pupil Exam: PERRL - ENT Exam ENT Exam: Mucous Membranes Moist - Neck Exam Neck exam: Positive for: Normal Inspection - Respiratory Exam Respiratory Exam: Clear to Auscultation Bilateral, NORMAL BREATHING PATTERN - Cardiovascular Exam Cardiovascular Exam: RRR, +S1, +S2 - GI/Abdominal Exam GI & Abdominal Exam: Normal Bowel Sounds, Soft. absent: Distended, Firm, Guarding, Tenderness - Rectal Exam Rectal Exam: Deferred - Extremities Exam Extremities exam: Positive for: full ROM, normal inspection - Back Exam Back exam: NORMAL INSPECTION - Neurological Exam Neurological exam: Alert, Oriented x3 - Psychiatric Exam Psychiatric exam: Normal Affect, Normal Mood - Skin Skin Exam: Dry, Intact, Normal Color, Warm Results - Vital Signs Recent Vital Signs: Last Vital Signs Temp 98.0 F 01/19/18 08:00 Pulse 60 01/19/18 08:00 Resp 18 01/19/18 08:00 BP 115/62 01/19/18 08:00 Pulse Ox 99 01/19/18 08:00 - Labs Result Diagrams: 01/19/18 05:40 01/18/18 18:48 Labs: Laboratory Results - last 24 hr 10/21/18 10/21/18 10/21/18 18:48 18:48 18:48 WBC 9.2 RBC 4.28 L Hgb 8.1 L Hct 27.4 L MCV 64.2 L D MCH 19.0 L MCHC 29.5 L RDW 18.3 H Plt Count 557 H D MPV 7.5 Neut % (Auto) 59.2 Lymph % (Auto) 23.6 [place] % (Auto) 11.8 H Eos % (Auto) 5.0 H Baso % (Auto) 0.4 Neut # (Auto) 5.4 Lymph # (Auto) 2.2 [place] # (Auto) 1.1 H Eos # (Auto) 0.5 Baso # (Auto) 0.0 Neutrophils % (Manual) Band Neutrophils % Lymphocytes % (Manual) Monocytes % (Manual) Platelet Estimate Large Platelets Hypochromasia (manual) Anisocytosis (manual) ESR 57 H PT 13.2 H INR 1.2 APTT 33.6 Sodium 139 Potassium 4.5 Chloride 106 Carbon Dioxide 28 Anion Gap 10 BUN 15 Creatinine 0.8 Est GFR ( Amer) > 60 Est GFR (Non-Af Amer) > 60 POC Glucose (mg/dL) Random Glucose 262 H Lactic Acid Calcium 8.4 Phosphorus 3.4 Magnesium 1.8 Total Bilirubin 0.3 AST 42 ALT 23 Alkaline Phosphatase 48 Total Protein 7.0 Albumin 3.5 Globulin 3.5 Albumin/Globulin Ratio 1.0 Lipase 127 Stool Occult Blood C. difficile Ag & Toxin Blood Type Antibody Screen BBK History Checked 01/18/18 01/18/18 01/18/18 18:48 18:53 21:15 WBC RBC Hgb Hct MCV MCH MCHC RDW Plt Count MPV Neut % (Auto) Lymph % (Auto) [place] % (Auto) Eos % (Auto) Baso % (Auto) Neut # (Auto) Lymph # (Auto) [place] # (Auto) Eos # (Auto) Baso # (Auto) Neutrophils % (Manual) Band Neutrophils % Lymphocytes % (Manual) Monocytes % (Manual) Platelet Estimate Large Platelets Hypochromasia (manual) Anisocytosis (manual) ESR PT INR APTT Sodium Potassium Chloride Carbon Dioxide Anion Gap BUN Creatinine Est GFR ( Amer) Est GFR (Non-Af Amer) POC Glucose (mg/dL) 273 H Random Glucose Lactic Acid 2.1 Calcium Phosphorus Magnesium Total Bilirubin AST ALT Alkaline Phosphatase Total Protein Albumin Globulin Albumin/Globulin Ratio Lipase Stool Occult Blood C. difficile Ag & Toxin Blood Type A POSITIVE Antibody Screen Negative BBK History Checked No verified bt 01/18/18 01/18/18 01/18/18 22:58 22:58 22:58 WBC 10.4 RBC 4.51 Hgb 8.5 L Hct 29.0 L MCV 64.3 L MCH 18.9 L MCHC 29.5 L RDW 18.5 H Plt Count 566 H MPV 7.4 Neut % (Auto) 89.5 H Lymph % (Auto) 9.2 L [place] % (Auto) 1.0 Eos % (Auto) 0.2 Baso % (Auto) 0.1 Neut # (Auto) 9.3 H Lymph # (Auto) 1.0 [place] # (Auto) 0.1 Eos # (Auto) 0.0 Baso # (Auto) 0.0 Neutrophils % (Manual) 86 H Band Neutrophils % 3 H Lymphocytes % (Manual) 11 L Monocytes % (Manual) 0 Platelet Estimate Markedly increased H Large Platelets Present Hypochromasia (manual) Slight Anisocytosis (manual) Slight ESR PT INR APTT Sodium Potassium Chloride Carbon Dioxide Anion Gap BUN Creatinine Est GFR ( Amer) Est GFR (Non-Af Amer) POC Glucose (mg/dL) Random Glucose Lactic Acid Calcium Phosphorus Magnesium Total Bilirubin AST ALT Alkaline Phosphatase Total Protein Albumin Globulin Albumin/Globulin Ratio Lipase Stool Occult Blood Negative C. difficile Ag & Toxin Negative Blood Type Antibody Screen BBK History Checked 01/19/18 01/19/18 01/19/18 05:40 06:50 06:53 WBC 8.9 RBC 4.30 L Hgb 8.3 L Hct 27.6 L MCV 64.2 L MCH 19.4 L MCHC 30.2 L RDW 18.6 H Plt Count 571 H MPV Neut % (Auto) Lymph % (Auto) [place] % (Auto) Eos % (Auto) Baso % (Auto) Neut # (Auto) Lymph # (Auto) [place] # (Auto) Eos # (Auto) Baso # (Auto) Neutrophils % (Manual) Band Neutrophils % Lymphocytes % (Manual) Monocytes % (Manual) Platelet Estimate Large Platelets Hypochromasia (manual) Anisocytosis (manual) ESR PT INR APTT Sodium Potassium Chloride Carbon Dioxide Anion Gap BUN Creatinine Est GFR ( Amer) Est GFR (Non-Af Amer) POC Glucose (mg/dL) 402 H* 319 H Random Glucose Lactic Acid Calcium Phosphorus Magnesium Total Bilirubin AST ALT Alkaline Phosphatase Total Protein Albumin Globulin Albumin/Globulin Ratio Lipase Stool Occult Blood C. difficile Ag & Toxin Blood Type Antibody Screen BBK History Checked Assessment & Plan - Assessment and Plan (Free Text) Assessment: 1. Acute flare of Ulcerative colitis 2. Diarrhea 3. Recto-sigmoid stricture Plan: -Continue supportive care -Stool studies to r/o infectious etiology -Will hold steroids at this time until stool studies come back to r/o infectious etiology -Issues with noncompliance and Hx of DM, so steroid taper will be difficult to manage without close outpt followup so avoid steroids -TPMT and quantifueron gold negative -Plan was to start TNF/Imuran as an outpt due to stricturing disease -Avoid rectal products due to risk of perforation at this time -Mesalamine will not benefit pt at this time with severe disease so will hole -CT imaging reviewed with mural thickening of colon especially in rectosigmoid area -Colonoscopy 08/2017 with severe disease Simms score 3, will need repeat colonoscopy in 2months -Pt will need to followup closely at [facility] -Monitor clinically
[2018-01-19] MEDS ORDERED: Pneumococcal 23-Valent Vaccine IM ONE (12:47)
[2018-01-19] MEDS ORDERED: Influenza Vaccine (5 YR UP)/PF 60 MCG/0.5 ML SYR IM ONE (12:48)
[2018-01-19 12:58] VITALS: TEMP 97.8
[2018-01-19] MEDS ORDERED: Insulin Lispro (humaLOG) 100 Units/ml Inj SC STA (12:59)
[2018-01-19] MEDS ORDERED: methylPREDNISolone 60 MG in Sodium Chloride 0.9% 50 ML IV SCH (15:00)
[2018-01-19 15:57] VITALS: BP 103/55; PULSE 66; RESP 17; O2SAT 99
[2018-01-19] MEDS ORDERED: Insulin Lispro (humaLOG) 100 Units/ml Inj SC SCH (16:30)
--- NOTE | 2018-01-19 18:42 | CP.PCM.DIS ---
<Eboni Anguiano - Last Filed: 01/19/18 18:40> Provider - Provider Date of Admission: 01/18/18 23:01 Attending physician: Mayte Sanchez MD Primary care physician: [facility] in [place] Consults: GI Consult- Dr. Callaway Time Spent in preparation of Discharge (in minutes): 30 Hospital Course - Lab Results Lab Results: Most Recent Lab Values WBC 8.9 K/uL (4.8-10.8) 01/19/18 05:40 RBC 4.30 Mil/uL (4.40-5.90) L 01/19/18 05:40 Hgb 8.3 g/dL (12.0-18.0) L 01/19/18 05:40 Hct 27.6 % (35.0-51.0) L 01/19/18 05:40 MCV 64.2 fl (80.0-94.0) L 01/19/18 05:40 MCH 19.4 pg (27.0-31.0) L 01/19/18 05:40 MCHC 30.2 g/dL (33.0-37.0) L 01/19/18 05:40 RDW 18.6 % (11.5-14.5) H 01/19/18 05:40 Plt Count 571 K/uL (130-400) H 01/19/18 05:40 MPV 7.4 fl (7.2-11.7) 01/18/18 22:58 Neut % (Auto) 89.5 % (50.0-75.0) H 01/18/18 22:58 Lymph % (Auto) 9.2 % (20.0-40.0) L 01/18/18 22:58 [place] % (Auto) 1.0 % (0.0-10.0) 01/18/18 22:58 Eos % (Auto) 0.2 % (0.0-4.0) 01/18/18 22:58 Baso % (Auto) 0.1 % (0.0-2.0) 01/18/18 22:58 Neut # (Auto) 9.3 K/uL (1.8-7.0) H 01/18/18 22:58 Lymph # (Auto) 1.0 K/uL (1.0-4.3) 01/18/18 22:58 [place] # (Auto) 0.1 K/uL (0.0-0.8) 01/18/18 22:58 Eos # (Auto) 0.0 K/uL (0.0-0.7) 01/18/18 22:58 Baso # (Auto) 0.0 K/uL (0.0-0.2) 01/18/18 22:58 Neutrophils % (Manual) 86 % (42-75) H 01/18/18 22:58 Band Neutrophils % 3 % (0-2) H 01/18/18 22:58 Lymphocytes % (Manual) 11 % (20-50) L 01/18/18 22:58 Monocytes % (Manual) 0 % (0-10) 01/18/18 22:58 Platelet Estimate Markedly increased (NORMAL) H 01/18/18 22:58 Large Platelets Present 01/18/18 22:58 Hypochromasia (manual) Slight 01/18/18 22:58 Anisocytosis (manual) Slight 01/18/18 22:58 ESR 57 mm/hr (0-20) H 01/18/18 18:48 PT 13.2 Seconds (9.8-13.1) H 01/18/18 18:48 INR 1.2 01/18/18 18:48 APTT 33.6 Seconds (25.6-37.1) 01/18/18 18:48 Sodium 139 mmol/l (132-148) 01/18/18 18:48 Potassium 4.5 MMOL/L (3.6-5.0) 01/18/18 18:48 Chloride 106 mmol/L (98-107) 01/18/18 18:48 Carbon Dioxide 28 mmol/L (22-30) 01/18/18 18:48 Anion Gap 10 (10-20) 01/18/18 18:48 BUN 15 mg/dl (9-20) 01/18/18 18:48 Creatinine 0.8 mg/dl (0.8-1.5) 01/18/18 18:48 Est GFR ( Amer) > 60 01/18/18 18:48 Est GFR (Non-Af Amer) > 60 01/18/18 18:48 POC Glucose (mg/dL) 363 mg/dL (65-110) H 01/19/18 16:23 Random Glucose 262 mg/dL (75-110) H 01/18/18 18:48 Hemoglobin A1c 9.7 % (4.2-6.5) H 01/19/18 05:40 Lactic Acid 2.1 MMOL/L (0.7-2.1) 01/18/18 18:48 Calcium 8.4 mg/dL (8.4-10.2) 01/18/18 18:48 Phosphorus 3.4 mg/dl (2.5-4.5) 01/18/18 18:48 Magnesium 1.8 MG/DL (1.6-2.3) 01/18/18 18:48 Total Bilirubin 0.3 mg/dl (0.2-1.3) 01/18/18 18:48 AST 42 U/L (17-59) 01/18/18 18:48 ALT 23 U/L (21-72) 01/18/18 18:48 Alkaline Phosphatase 48 U/L (38-126) 01/18/18 18:48 C-Reactive Protein 21.50 mg/L (0.0-9.9) H 01/19/18 05:40 Total Protein 7.0 G/DL (6.3-8.2) 01/18/18 18:48 Albumin 3.5 g/dL (3.5-5.0) 01/18/18 18:48 Globulin 3.5 gm/dL (2.2-3.9) 01/18/18 18:48 Albumin/Globulin Ratio 1.0 (1.0-2.1) 01/18/18 18:48 Lipase 127 U/L (23-300) 01/18/18 18:48 Stool Occult Blood Negative (NEGATIVE) 01/18/18 22:58 C. difficile Ag & Toxin Negative (NEGATIVE) 01/18/18 22:58 Blood Type A POSITIVE 01/18/18 21:15 Antibody Screen Negative 01/18/18 21:15 BBK History Checked No verified bt 01/18/18 21:15 - Hospital Course Hospital Course: 52 y/o male with PMHx of DM and ulcerative colitis was seen and evaluated at bedside for stricturing disease in the rectosigmoid, medication noncompliance presenting for complaints of watery diarrhea three times a day, nonbloody. Patient was admitted in August 2017 after presenting for elective EGD/colonoscopy for UC surveillance and had incomplete colonoscopy which showed severe ulcerated friable recto-sigmoid mucosa, polypoid lesion, and stricture unable to pass scope. Simms Score 3, pt was discharged on budesonide, cortebenema bid, and mesalaimen. Pt was recommend to followup outpt [facility] to be evaluated for TNF for stricturing disease and repeat colonoscopy but has not followed up. EGD with gastritis, neg H.pylori. Pt reports he has been taking mesalamine by mouth but nothing per rectum. Patient was resting comfortably and states he is feeling much better. Patient reports 1 episode of eatery diarrhea this morning. Patient denies F/N/V/SOB/CP. 1. Ulcerative Colitis Exacerbation with Diarrhea - afebrile, no leukocytosis, diarrhea resolved, Occult blood negative - Stool for C. Difficile- negative - Follow up with primary doctor in 7 days - Continue Mesalamine 0.375 mg 4 cap PO - Call to [facility] [phone] to set appointment with [facility] ([facility]) for follow up of your conditions for further management 2. DM II - Chronic, Uncontrolled - Increase Humalog 75/25 to 25 units q an and 10 units q pm 3. Anemia of Iron Deficiency - Ferrous Sulfate - Date & Time of H&P Date of H&P: 01/19/18 Time of H&P: 18:41 Discharge Exam - Head Exam Head Exam: ATRAUMATIC, NORMAL INSPECTION, NORMOCEPHALIC - Eye Exam Eye Exam: Normal appearance - ENT Exam ENT Exam: Mucous Membranes Dry - Neck Exam Neck exam: Full Rom - Respiratory Exam Respiratory Exam: Clear to PA & Lateral, UNREMARKABLE. absent: Rales, Rhonchi, Wheezes - Cardiovascular Exam Cardiovascular Exam: REGULAR RHYTHM, RRR, +S1, +S2. absent: JVD - GI/Abdominal Exam GI & Abdominal Exam: Tenderness Additional comments: LLQ - Back Exam Back exam: absent: CVA tenderness (L), CVA tenderness (R) - Neurological Exam Neurological exam: Alert, Oriented x3 - Psychiatric Exam Psychiatric exam: Normal Affect, Normal Mood - Skin Skin Exam: Normal Color Discharge Plan - Discharge Medications Prescriptions: RX: Ferrous Gluconate [Fergon] 324 mg PO DAILY #30 tab Insulin Aspart Prot/Insuln Asp [Novolog Mix 70-30 Vial] 10 unit SQ ACBD #5 vial Insulin Aspart/Insulin Aspar [Novolog Mix 70/30 (70/30 units/ml) 10 ml] 25 units SQ ACB #5 vial - Follow Up Plan Condition: GOOD Disposition: HOME/ ROUTINE Instructions: Inflammatory Bowel Disease (DC), Ulcerative Colitis (DC), Acute Abdominal Pain (DC), Acute Abdominal Pain (GEN), Anemia (DC), Anemia (GEN) Additional Instructions: - Follow up with your primary doctor in 7 days -Call to [facility] [phone] to set appointment with [facility] for follow up of your conditions for further management. is very important you see the pediatric cardiologist. <Mayte Sanchez - Last Filed: 01/19/18 18:59> Provider - Provider Date of Admission: 01/18/18 23:01 Attending physician: Mayte Sanchez MD Hospital Course - Lab Results Lab Results: Most Recent Lab Values WBC 8.9 K/uL (4.8-10.8) 01/19/18 05:40 RBC 4.30 Mil/uL (4.40-5.90) L 01/19/18 05:40 Hgb 8.3 g/dL (12.0-18.0) L 01/19/18 05:40 Hct 27.6 % (35.0-51.0) L 01/19/18 05:40 MCV 64.2 fl (80.0-94.0) L 01/19/18 05:40 MCH 19.4 pg (27.0-31.0) L 01/19/18 05:40 MCHC 30.2 g/dL (33.0-37.0) L 01/19/18 05:40 RDW 18.6 % (11.5-14.5) H 01/19/18 05:40 Plt Count 571 K/uL (130-400) H 01/19/18 05:40 MPV 7.4 fl (7.2-11.7) 01/18/18 22:58 Neut % (Auto) 89.5 % (50.0-75.0) H 01/18/18 22:58 Lymph % (Auto) 9.2 % (20.0-40.0) L 01/18/18 22:58 [place] % (Auto) 1.0 % (0.0-10.0) 01/18/18 22:58 Eos % (Auto) 0.2 % (0.0-4.0) 01/18/18 22:58 Baso % (Auto) 0.1 % (0.0-2.0) 01/18/18 22:58 Neut # (Auto) 9.3 K/uL (1.8-7.0) H 01/18/18 22:58 Lymph # (Auto) 1.0 K/uL (1.0-4.3) 01/18/18 22:58 [place] # (Auto) 0.1 K/uL (0.0-0.8) 01/18/18 22:58 Eos # (Auto) 0.0 K/uL (0.0-0.7) 01/18/18 22:58 Baso # (Auto) 0.0 K/uL (0.0-0.2) 01/18/18 22:58 Neutrophils % (Manual) 86 % (42-75) H 01/18/18 22:58 Band Neutrophils % 3 % (0-2) H 01/18/18 22:58 Lymphocytes % (Manual) 11 % (20-50) L 01/18/18 22:58 Monocytes % (Manual) 0 % (0-10) 01/18/18 22:58 Platelet Estimate Markedly increased (NORMAL) H 01/18/18 22:58 Large Platelets Present 01/18/18 22:58 Hypochromasia (manual) Slight 01/18/18 22:58 Anisocytosis (manual) Slight 01/18/18 22:58 ESR 57 mm/hr (0-20) H 01/18/18 18:48 PT 13.2 Seconds (9.8-13.1) H 01/18/18 18:48 INR 1.2 01/18/18 18:48 APTT 33.6 Seconds (25.6-37.1) 01/18/18 18:48 Sodium 139 mmol/l (132-148) 01/18/18 18:48 Potassium 4.5 MMOL/L (3.6-5.0) 01/18/18 18:48 Chloride 106 mmol/L (98-107) 01/18/18 18:48 Carbon Dioxide 28 mmol/L (22-30) 01/18/18 18:48 Anion Gap 10 (10-20) 01/18/18 18:48 BUN 15 mg/dl (9-20) 01/18/18 18:48 Creatinine 0.8 mg/dl (0.8-1.5) 01/18/18 18:48 Est GFR ( Amer) > 60 01/18/18 18:48 Est GFR (Non-Af Amer) > 60 01/18/18 18:48 POC Glucose (mg/dL) 274 mg/dL (65-110) H 01/19/18 18:48 Random Glucose 262 mg/dL (75-110) H 01/18/18 18:48 Hemoglobin A1c 9.7 % (4.2-6.5) H 01/19/18 05:40 Lactic Acid 2.1 MMOL/L (0.7-2.1) 01/18/18 18:48 Calcium 8.4 mg/dL (8.4-10.2) 01/18/18 18:48 Phosphorus 3.4 mg/dl (2.5-4.5) 01/18/18 18:48 Magnesium 1.8 MG/DL (1.6-2.3) 01/18/18 18:48 Total Bilirubin 0.3 mg/dl (0.2-1.3) 01/18/18 18:48 AST 42 U/L (17-59) 01/18/18 18:48 ALT 23 U/L (21-72) 01/18/18 18:48 Alkaline Phosphatase 48 U/L (38-126) 01/18/18 18:48 C-Reactive Protein 21.50 mg/L (0.0-9.9) H 01/19/18 05:40 Total Protein 7.0 G/DL (6.3-8.2) 01/18/18 18:48 Albumin 3.5 g/dL (3.5-5.0) 01/18/18 18:48 Globulin 3.5 gm/dL (2.2-3.9) 01/18/18 18:48 Albumin/Globulin Ratio 1.0 (1.0-2.1) 01/18/18 18:48 Lipase 127 U/L (23-300) 10/21/18 18:48 Stool Occult Blood Negative (NEGATIVE) 01/18/18 22:58 C. difficile Ag & Toxin Negative (NEGATIVE) 01/18/18 22:58 Blood Type A POSITIVE 01/18/18 21:15 Antibody Screen Negative 01/18/18 21:15 BBK History Checked No verified bt 01/18/18 21:15 Attending/Attestation - Attestation I have personally seen and examined this patient.: Yes I have fully participated in the care of the patient.: Yes I have reviewed all pertinent clinical information, including history, physical exam and plan: Yes
== END 2018-01-19 19:15 | disposition home or self-care (01) ==
LOC: H.ER 17:43 → H.ERHOLD 23:01 → H.TEL 01-19 06:42 → OBSVTOIN 01-19 14:26 → INTOOBSV 01-19 14:26
PROVIDERS: ADMIT Internal Medicine; ATTEND Internal Medicine
DX: K51.90 Ulcerative colitis, unspecified, without complications (principal); E11.65 Type 2 diabetes mellitus with hyperglycemia; Z79.4 Long term (current) use of insulin; Z87.891 Personal history of nicotine dependence; I10 Essential (primary) hypertension; D63.8 Anemia in other chronic diseases classified elsewhere; D50.9 Iron deficiency anemia, unspecified; T38.0X5A Adverse effect of glucocorticoids and synthetic analogues, initial encounter; Z91.14 Patient's other noncompliance with medication regimen; Z23 Encounter for immunization
CPT/HCPCS: 74177; 80053; 82948; 83036; 83605; 83690; 83735; 84100; 85025; 85027; 85610; 85651; 85730; 86140; 86644; 86645; 86695; 86696; 86768; 86850; 86900; 87040; 87045; 87177; 87209; 87230; 87427; 90471; 90732; 96374; 96375; 96376; 99285; G0328; G0378; J2270; J2930; J7030; Q2035; Q9966; Q9967

== ENCOUNTER 2018-02-13 00:10 | Inpatient (IN) | payer MEDICAID, SELFPAY ==
[2018-02-13 00:10] VITALS: BMI 23.3
[2018-02-13] MEDS ORDERED: Sodium Chloride 0.9% 1,000 ML IV STA (00:33)
[2018-02-13] MEDS ORDERED: Iohexol 240 (50 ml) PO ONE (00:33)
--- NOTE | 2018-02-13 01:14 | ED PDOC ---
HPI: Abdomen Time Seen by Provider: 02/13/18 00:10 Chief Complaint (Nursing): Abdominal Pain Chief Complaint (Provider): Abdominal Pain History Per: Patient, Drainlayer ([id number]) History/Exam Limitations: no limitations Onset/Duration Of Symptoms: Days (x21) Associated Symptoms: Fever (subjective), Nausea, Vomiting, Diarrhea Additional Complaint(s): 52 years old male with history of diabetes sent by Dr. Callaway for evaluation of abdominal pain associated with diarrhea, nausea, vomiting and subjective fever onset 3 weeks. Patient was recently admitted for ulcertaive colitis and discharged as UC flare. PMD: Michele Callaway Past Medical History Reviewed: Historical Data, Nursing Documentation, Vital Signs Vital Signs: Last Vital Signs Temp 98.7 F 02/13/18 00:22 Pulse 114 H 02/13/18 00:22 Resp 16 02/13/18 00:22 BP 109/58 L 02/13/18 00:22 Pulse Ox 100 02/13/18 00:22 - Medical History PMH: Diabetes, Diverticulitis, HTN Denies: HIV, Chronic Kidney Disease Other PMH: Colitis - Surgical History Surgical History: Endoscopy Other surgeries: Hand Surgery - Family History Family History: States: Diabetes - Social History Current smoker - smoking cessation education provided: No Alcohol: None Drugs: Denies - Home Medications Home Medications: Ambulatory Orders Medication Instructions Recorded Empagliflozin [Jardiance] 25 mg PO DAILY 02/13/18 Empagliflozin [Jardiance] 25 mg PO DAILY 02/13/18 Ferrous Gluconate 324 mg PO DAILY 02/13/18 Insulin Aspart Prot/Insuln Asp 25 unit SC BID 02/13/18 [Novolog Mix 70-30 Vial] Mesalamine [Apriso] 0.375 gm PO DAILY 02/13/18 Mesalamine [Apriso] 4 cap PO DAILY 02/13/18 SITagliptin [Januvia] 100 mg PO DAILY 02/13/18 - Allergies Allergies/Adverse Reactions: Allergies Allergy/AdvReac Type Severity Reaction Status Date / Time No Known Allergies Allergy Verified 02/13/18 00:22 Review of Systems ROS Statement: Except As Marked, All Systems Reviewed And Found Negative Constitutional: Positive for: Fever (subjective) Gastrointestinal: Positive for: Nausea, Vomiting, Abdominal Pain, Diarrhea Physical Exam - Reviewed Nursing Documentation Reviewed: Yes Vital Signs Reviewed: Yes - Physical Exam Appears: Positive for: Non-toxic, No Acute Distress Head Exam: Positive for: ATRAUMATIC, NORMOCEPHALIC Skin: Positive for: Normal Color, Warm, Dry Eye Exam: Positive for: Normal appearance ENT: Positive for: Other (Dry mucous membrane with crusting on lower lip) Neck: Positive for: Normal Cardiovascular/Chest: Positive for: Regular Rate, Rhythm. Negative for: Murmur Respiratory: Positive for: Normal Breath Sounds. Negative for: Wheezing Gastrointestinal/Abdominal: Positive for: Tenderness (Left sided) Extremity: Positive for: Normal ROM. Negative for: Pedal Edema, Swelling Neurologic/Psych: Positive for: Alert, Oriented (x3) - Laboratory Results Result Diagrams: 02/17/18 09:03 02/17/18 09:03 - ECG O2 Sat by Pulse Oximetry: 100 (RA) Pulse Ox Interpretation: Normal Medical Decision Making Medical Decision Making: Time: 31 Initial Plan: abdominal pain, rule out dehydration, electrolyte abnormality, sepsis --VBG shock --CT abd/pelvis --CMP --CBC --NaCl 1,000 ml IV --Iohexol 50 ml PO --Ove and parasite --C Diff Toxin A B --Stool occult blood 0305 Labs reviewed and show low hemoglobin level of 5.6 indicating anemia. 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 pt is aware of lab results. [address] Garrett, pending CT abd/pelvis and admission to hospital. Scribe Attestation: Documented by Barbara Pompa, acting as a scribe for Ankur Carter MD. Provider Scribe Attestation: All medical record entries made by the Scribe were at my direction and personally dictated by me. I have reviewed the chart and agree that the record accurately reflects my personal performance of the history, physical exam, medical decision making, and the department course for this patient. I have also personally directed, reviewed, and agree with the discharge instructions and disposition. Disposition - Clinical Impression Clinical Impression: Colitis, Pancolitis, Severe anemia - Patient ED Disposition Is Patient to be Admitted: Transfer of Care - Disposition Disposition: Transfer of Care Disposition Time: 07:00 Condition: FAIR Patient Signed Over To: Tyler Garrett
[2018-02-13 01:15] LABS: VENOUS BLOOD GAS BASE EXCESS 1.3 mmol/L (0.0-2.0); VENOUS BLOOD GAS PCO2 47 mmHg (40-60); VENOUS BLOOD GAS PO2 12 mm/Hg (30-55); VENOUS BLOOD PH 7.37 (7.32-7.43)
[2018-02-13 01:28] LABS: BASO % 0.2 % (0.0-2.0); EOS # 0.1 K/uL (0.0-0.7); EOS % 0.4 % (0.0-4.0); LYMPH # 2.2 K/uL (1.0-4.3); LYMPH % 16.8 % (20.0-40.0); MEAN CELL VOLUME 61.7 fl (80.0-94.0); MEAN CORPUSCULAR HEMOGLOBIN 17.4 pg (27.0-31.0); MEAN CORPUSCULAR HGB CONC 28.2 g/dL (33.0-37.0); MEAN PLATELET VOLUME 6.7 fl (7.2-11.7); MONO # 1.3 K/uL (0.0-0.8); MONO % 10.1 % (0.0-10.0); NEUT # 9.5 K/uL (1.8-7.0); NEUT % 72.5 % (50.0-75.0); NRBC % 0.8 % (0.0-0.0); RBC 3.23 Mil/uL (4.40-5.90); RED CELL DISTRIBUTION WIDTH 18.3 % (11.5-14.5); WHITE BLOOD COUNT 13.1 K/uL (4.8-10.8)
[2018-02-13] MEDS ORDERED: Iohexol 240 (50 ml) ONE (01:34)
[2018-02-13 01:37] LABS: HEMOGLOBIN 5.6 g/dL (12.0-18.0)
[2018-02-13 01:40] LABS: ALB/GLOB RATIO 0.7 (1.0-2.1); ALBUMIN 2.6 g/dL (3.5-5.0); ALT/SGPT 67 U/L (21-72); AST/SGOT 39 U/L (17-59); BLOOD UREA NITROGEN 12 mg/dl (9-20); CALCIUM 7.6 mg/dL (8.4-10.2); GFR NON-AFRICAN AMERICAN > 60
[2018-02-13] MEDS ORDERED: Piperacillin/Tazobact 3.375 GM in Sodium Chloride 0.9% 100 ML IVPB STA (04:54)
--- NOTE | 2018-02-13 08:29 | ED PDOC ---
- Laboratory Results Result Diagrams: 02/13/18 01:00 02/13/18 01:00 - ECG O2 Sat by Pulse Oximetry: 100 (RA) Medical Decision Making Medical Decision Makin Case endorsed to me by Dr. Carter pending CT abdomen and possible admission. 1114 CT Abdomen and Pelvis FINDINGS: LOWER THORAX: 4 mm noncalcified nodule stable left lower lobe image 30 series 5. Calcified granuloma reiterated at the right base. LIVER: Unremarkable. No gross lesion or ductal dilatation. GALLBLADDER AND BILE DUCTS: Unremarkable. PANCREAS: Unremarkable. No gross lesion or ductal dilatation. SPLEEN: Unremarkable. ADRENALS: Unremarkable. No mass. 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 No obstructive uropathy is identified or radiodense urolithiasis however there is a 5.8 x 5.4 cm simple cyst at the right-sided moiety T as well as a 1.6 x 1.6 cm upper pole left sided moiety cyst with both of these cysts appearing stable. A hyperdense cyst or nodule is stable at the midpole left moiety measuring 1.3 cm greatest dimension. VASCULATURE: Unremarkable. No aortic aneurysm. No aortic atherosclerotic calcification or mural plaque present. BOWEL: The stomach is collapsed. Small bowel is unremarkable. No bowel obstruction. Large bowel is collapsed and generally featureless with diffusely thick-walled pattern suggesting infectious or inflammatory steward colitis with limited pericolic reactive change evident but no ascites or abscess. No free intra peritoneal gas collection either. APPENDIX: Normal appendix. PERITONEUM: Unremarkable. No free fluid. No free air. LYMPH NODES: Stable mild mesenteric lymphadenopathy with shotty aortic caval lymph nodes identified as well. BLADDER: Unremarkable. REPRODUCTIVE: Unremarkable. BONES: Stable L1-2 spontaneous fusion with probable chronic L2 anterior wedge fracture or congenital deformity again evident. OTHER FINDINGS: None. IMPRESSION: 1. Pancolitis of likely infectious or inflammatory etiology. Consider potential acute superimposed on chronic colitis. Consider potential acute superimposed on chronic colitis. further clinical correlation recommended. No abscess, ascites or free intra peritoneal gas collection. 2. Stable appearing or shoe kidney including multiple cysts and complex cyst or solid nodule at the midpole left moiety 1.3 cm. MRI may be useful for follow-up if not already evaluated. 3. Stable sub cm nodule left lower lobe for which follow-up chest is advised in 12 months unless already proven benign. Lung RAD 2. Scribe Attestation: Documented by Monico Delgado, acting as a scribe for Tyler Garrett MD. Provider Scribe Attestation: All medical record entries made by the Scribe were at my direction and personally dictated by me. I have reviewed the chart and agree that the record accurately reflects my personal performance of the history, physical exam, medical decision making, and the department course for this patient. I have also personally directed, reviewed, and agree with the discharge instructions and disposition. Disposition Discussed With : Jules Kowalski Doctor Will See Patient In The: Hospital Counseled Patient/Family Regarding: Studies Performed, Diagnosis - Clinical Impression Clinical Impression: Pancolitis, Severe anemia - POA Present On Arrival: None - Disposition Disposition: Admitted as In-Patient Disposition Time: 08:00 Condition: FAIR
[2018-02-13] MEDS ORDERED: Iohexol 300 100 ML IJ ONE (08:37)
[2018-02-13] MEDS ORDERED: Sodium Chloride 0.9% 50 ML IV ONE (08:37)
--- NOTE | 2018-02-13 11:18 | CT ---
Date of service: 02/13/2018 PROCEDURE: CT Abdomen and Pelvis with contrast HISTORY: abd pain COMPARISON: Abdomen and pelvis CT with contrast 01/18/2018. TECHNIQUE: Following the intravenous administration of iodinated contrast material, a CT examination of the abdomen and pelvis performed from the domes of the diaphragms to the symphysis pubis with reformatted datasets provided in axial, sagittal and coronal planes. Oral contrast was not administered as per referring physician request. Coronal and sagittal reformats were generated. Contrast dose: Omnipaque 300, 95 cc Radiation dose: Total exam DLP = 523.67 mGy-cm. This CT exam was performed using one or more of the following dose reduction techniques: Automated exposure control, adjustment of the mA and/or kV according to patient size, and/or use of iterative reconstruction technique. FINDINGS: LOWER THORAX: 4 mm noncalcified nodule stable left lower lobe image 30 series 5. Calcified granuloma reiterated at the right base. LIVER: Unremarkable. No gross lesion or ductal dilatation. GALLBLADDER AND BILE DUCTS: Unremarkable. PANCREAS: Unremarkable. No gross lesion or ductal dilatation. SPLEEN: Unremarkable. ADRENALS: Unremarkable. No mass. 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 No obstructive uropathy is identified or radiodense urolithiasis however there is a 5.8 x 5.4 cm simple cyst at the right-sided moiety T as well as a 1.6 x 1.6 cm upper pole left sided moiety cyst with both of these cysts appearing stable. A hyperdense cyst or nodule is stable at the midpole left moiety measuring 1.3 cm greatest dimension. VASCULATURE: Unremarkable. No aortic aneurysm. No aortic atherosclerotic calcification or mural plaque present. BOWEL: The stomach is collapsed. Small bowel is unremarkable. No bowel obstruction. Large bowel is collapsed and generally featureless with diffusely thick-walled pattern suggesting infectious or inflammatory steward colitis with limited pericolic reactive change evident but no ascites or abscess. No free intra peritoneal gas collection either. APPENDIX: Normal appendix. PERITONEUM: Unremarkable. No free fluid. No free air. LYMPH NODES: Stable mild mesenteric lymphadenopathy with shotty aortic caval lymph nodes identified as well. BLADDER: Unremarkable. REPRODUCTIVE: Unremarkable. BONES: Stable L1-2 spontaneous fusion with probable chronic L2 anterior wedge fracture or congenital deformity again evident. OTHER FINDINGS: None. IMPRESSION: 1. Pancolitis of likely infectious or inflammatory etiology. Consider potential acute superimposed on chronic colitis. Consider potential acute superimposed on chronic colitis. further clinical correlation recommended. No abscess, ascites or free intra peritoneal gas collection. 2. Stable appearing or shoe kidney including multiple cysts and complex cyst or solid nodule at the midpole left moiety 1.3 cm. MRI may be useful for follow-up if not already evaluated. 3. Stable sub cm nodule left lower lobe for which follow-up chest is advised in 12 months unless already proven benign. Lung RAD 2.
[2018-02-13 12:08] LABS: VENOUS BLOOD GAS BASE EXCESS 2.4 mmol/L (0.0-2.0); VENOUS BLOOD GAS PCO2 42 mmHg (40-60); VENOUS BLOOD GAS PO2 19 mm/Hg (30-55); VENOUS BLOOD PH 7.42 (7.32-7.43)
[2018-02-13] MEDS: Sodium Chloride 0.9% 1,000 ML IV SCH (15:30)
[2018-02-13] MEDS ORDERED: Glucagon Recombinant 1 mg Inj IM PRN (17:11)
[2018-02-13] MEDS ORDERED: Dextrose 50% SYRINGE Inj (50 ml) IV PRN (17:11)
[2018-02-13 17:17] LABS: FERRITIN 10.6 ng/Ml (17.9-464)
--- NOTE | 2018-02-13 17:20 | CP.PCM.HP ---
History of Present Illness - History of Present Illness History of Present Illness: CC: Abdominal Pain, [place] Bleeding HPI: A 52 year old male with a history of DM, inflammatory bowel disease, sent to the ER by Dr. Callaway, found to have sever anemia and thrombocytosis. The patient reports to hematochezia and diarrhea which he attributes to long stand inflammatory bowel disease. He admits to progressive fatigue and dyspnea with exertion. His hgb in the ER was 5.6 and PLTcount of 1300K. He is s/p 2U PRBC and reports to kalyn romero. Present on Admission - Present on Admission Any Indicators Present on Admission: No Review of Systems - Review of Systems All systems: reviewed and no additional remarkable complaints except Review of Systems: As per HPI Past Patient History - Infectious Disease Hx of Infectious Diseases: None - Past Medical History & Family History Past Medical History?: Yes - Past Social History Alcohol: None Drugs: Denies - CARDIAC Hx Hypertension: Yes - PULMONARY Hx Respiratory Disorders: No - NEUROLOGICAL Hx Neurological Disorder: No - HEENT Hx HEENT Problems: No - RENAL Hx Chronic Kidney Disease: No - ENDOCRINE/METABOLIC Hx Endocrine Disorders: Yes - HEMATOLOGICAL/ONCOLOGICAL Hx Human Immunodeficiency Virus (HIV): No - INTEGUMENTARY Hx Dermatological Problems: No - MUSCULOSKELETAL/RHEUMATOLOGICAL Hx Musculoskeletal Disorders: No - GASTROINTESTINAL Hx Diverticulitis: Yes - GENITOURINARY/GYNECOLOGICAL Hx Genitourinary Disorders: No - PSYCHIATRIC Hx Psychophysiologic Disorder: No Hx Substance Use: No - SURGICAL HISTORY Hx Surgeries: Yes Other/Comment: LT WRIST SURGERY - ANESTHESIA Hx Anesthesia: Yes Hx Anesthesia Reactions: No Hx Malignant Hyperthermia: No Meds Allergies/Adverse Reactions: Allergies Allergy/AdvReac Type Severity Reaction Status Date / Time No Known Allergies Allergy Verified 02/13/18 00:22 Physical Exam - Constitutional Appears: Well, No Acute Distress - Head Exam Head Exam: ATRAUMATIC, NORMAL INSPECTION, NORMOCEPHALIC - Eye Exam Eye Exam: EOMI, Normal appearance, PERRL Pupil Exam: NORMAL ACCOMODATION, PERRL - ENT Exam ENT Exam: Mucous Membranes Moist, Normal Exam - Neck Exam Neck exam: Positive for: Normal Inspection - Respiratory Exam Respiratory Exam: Clear to Auscultation Bilateral, NORMAL BREATHING PATTERN - Cardiovascular Exam Cardiovascular Exam: REGULAR RHYTHM, +S1, +S2 - GI/Abdominal Exam GI & Abdominal Exam: Normal Bowel Sounds, Soft. absent: Tenderness - Extremities Exam Extremities exam: Positive for: normal inspection - Back Exam Back exam: NORMAL INSPECTION - Neurological Exam Neurological exam: Alert, CN II-XII Intact, Normal Gait, Oriented x3, Reflexes Normal - Psychiatric Exam Psychiatric exam: Normal Affect, Normal Mood - Skin Skin Exam: Dry, Intact, Normal Color, Warm Results - Vital Signs Recent Vital Signs: Last Vital Signs Temp 98.3 F 02/13/18 14:27 Pulse 63 02/13/18 15:35 Resp 17 02/13/18 15:35 BP 102/52 L 02/13/18 15:35 Pulse Ox 100 02/13/18 15:35 - Labs Result Diagrams: 02/17/18 09:03 02/17/18 09:03 Labs: Laboratory Results - last 24 hr 02/13/18 02/13/18 02/13/18 01:00 01:00 01:06 WBC 13.1 H RBC 3.23 L Hgb 5.6 L* D Hct 19.9 L MCV 61.7 L D MCH 17.4 L MCHC 28.2 L RDW 18.3 H Plt Count 1227 H* D Manual Plt Count MPV 6.7 L Neut % (Auto) 72.5 Lymph % (Auto) 16.8 L Hall % (Auto) 10.1 H Eos % (Auto) 0.4 Baso % (Auto) 0.2 Neut # (Auto) 9.5 H Lymph # (Auto) 2.2 Hall # (Auto) 1.3 H Eos # (Auto) 0.1 Baso # (Auto) 0.0 Retic Count pO2 12 L VBG pH 7.37 VBG pCO2 47 VBG HCO3 23.6 VBG Total CO2 28.6 H VBG O2 Sat (Calc) 15.1 L VBG Base Excess 1.3 VBG Potassium 5.6 H Glucose 301 H Lactate 3.3 H FiO2 21.0 Crit Value Called To vadim Carter md Crit Value Called By Trevon Crit Value Read Back Y Blood Gas Notified Time 115 Sodium 130 L 129.0 L Potassium 5.6 H Chloride 99 98.0 Carbon Dioxide 23 Anion Gap 14 BUN 12 Creatinine 1.0 Est GFR ( Amer) > 60 Est GFR (Non-Af Amer) > 60 POC Glucose (mg/dL) Random Glucose 282 H Calcium 7.6 L Ferritin Total Bilirubin 0.3 AST 39 ALT 67 Alkaline Phosphatase 72 Total Protein 6.1 L Albumin 2.6 L D Globulin 3.5 Albumin/Globulin Ratio 0.7 L Vitamin B12 Venous Blood Potassium 5.6 H Stool Occult Blood C. difficile Ag & Toxin Blood Type Antibody Screen Crossmatch BBK History Checked 02/13/18 02/13/18 02/13/18 01:55 04:26 08:13 WBC RBC Hgb Hct MCV MCH MCHC RDW Plt Count Manual Plt Count 1338 H* MPV Neut % (Auto) Lymph % (Auto) Hall % (Auto) Eos % (Auto) Baso % (Auto) Neut # (Auto) Lymph # (Auto) Hall # (Auto) Eos # (Auto) Baso # (Auto) Retic Count pO2 VBG pH VBG pCO2 VBG HCO3 VBG Total CO2 VBG O2 Sat (Calc) VBG Base Excess VBG Potassium Glucose Lactate FiO2 Crit Value Called To Crit Value Called By Crit Value Read Back Blood Gas Notified Time Sodium Potassium Chloride Carbon Dioxide Anion Gap BUN Creatinine Est GFR ( Amer) Est GFR (Non-Af Amer) POC Glucose (mg/dL) 209 H Random Glucose Calcium Ferritin Total Bilirubin AST ALT Alkaline Phosphatase Total Protein Albumin Globulin Albumin/Globulin Ratio Vitamin B12 Venous Blood Potassium Stool Occult Blood C. difficile Ag & Toxin Blood Type A POSITIVE Antibody Screen Negative Crossmatch See Detail BBK History Checked Patient has bt 02/13/18 02/13/18 02/13/18 11:00 14:35 14:35 WBC RBC Hgb Hct MCV MCH MCHC RDW Plt Count Manual Plt Count MPV Neut % (Auto) Lymph % (Auto) Hall % (Auto) Eos % (Auto) Baso % (Auto) Neut # (Auto) Lymph # (Auto) Hall # (Auto) Eos # (Auto) Baso # (Auto) Retic Count 2.4 H pO2 19 L VBG pH 7.42 VBG pCO2 42 VBG HCO3 25.0 VBG Total CO2 28.5 H VBG O2 Sat (Calc) 33.1 L VBG Base Excess 2.4 H VBG Potassium 4.4 Glucose 170 H Lactate 0.9 FiO2 21.0 Crit Value Called To Crit Value Called By Crit Value Read Back Blood Gas Notified Time Sodium 128.0 L Potassium Chloride 99.0 Carbon Dioxide Anion Gap BUN Creatinine Est GFR ( Amer) Est GFR (Non-Af Amer) POC Glucose (mg/dL) Random Glucose Calcium Ferritin 10.6 L Total Bilirubin AST ALT Alkaline Phosphatase Total Protein Albumin Globulin Albumin/Globulin Ratio Vitamin B12 991 H Venous Blood Potassium 4.4 Stool Occult Blood C. difficile Ag & Toxin Blood Type Antibody Screen Crossmatch BBK History Checked 02/13/18 02/13/18 02/13/18 15:53 16:34 16:34 WBC RBC Hgb Hct MCV MCH MCHC RDW Plt Count Manual Plt Count MPV Neut % (Auto) Lymph % (Auto) Hall % (Auto) Eos % (Auto) Baso % (Auto) Neut # (Auto) Lymph # (Auto) Hall # (Auto) Eos # (Auto) Baso # (Auto) Retic Count pO2 VBG pH VBG pCO2 VBG HCO3 VBG Total CO2 VBG O2 Sat (Calc) VBG Base Excess VBG Potassium Glucose Lactate FiO2 Crit Value Called To Crit Value Called By Crit Value Read Back Blood Gas Notified Time Sodium Potassium Chloride Carbon Dioxide Anion Gap BUN Creatinine Est GFR ( Amer) Est GFR (Non-Af Amer) POC Glucose (mg/dL) 129 H Random Glucose Calcium Ferritin Total Bilirubin AST ALT Alkaline Phosphatase Total Protein Albumin Globulin Albumin/Globulin Ratio Vitamin B12 Venous Blood Potassium Stool Occult Blood Positive H C. difficile Ag & Toxin Negative Blood Type Antibody Screen Crossmatch BBK History Checked - Imaging and Cardiology CT scan - abdomen Status: Report reviewed by me Additional comment: Date of service: 02/13/2018 PROCEDURE: CT Abdomen and Pelvis with contrast HISTORY: abd pain COMPARISON: Abdomen and pelvis CT with contrast 01/18/2018. TECHNIQUE: Following the intravenous administration of iodinated contrast material, a CT examination of the abdomen and pelvis performed from the domes of the diaphragms to the symphysis pubis with reformatted datasets provided in axial, sagittal and coronal planes. Oral contrast was not administered as per referring physician ryder calloway. Coronal and sagittal reformats were generated. Contrast dose: Omnipaque 300, 95 cc Radiation dose: Total exam DLP = 523.67 mGy-cm. This CT exam was performed using one or more of the following dose reduction techniques: Automated exposure control, adjustment of the mA and/or kV according to patient size, and/or use of iterative reconstruction technique. FINDINGS: LOWER THORAX: 4 mm noncalcified nodule stable left lower lobe image 30 series 5. Calcified granuloma reiterated at the right base. LIVER: Unremarkable. No gross lesion or ductal dilatation. GALLBLADDER AND BILE DUCTS: Unremarkable. PANCREAS: Unremarkable. No gross lesion or ductal dilatation. SPLEEN: Unremarkable. ADRENALS: Unremarkable. No mass. 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 No obstructive uropathy is identified or radiodense urolithiasis however there is a 5.8 x 5.4 cm simple cyst at the right-sided moiety T as well as a 1.6 x 1.6 cm upper pole left sided moiety cyst with both of these cysts appearing stable. A hyperdense cyst or nodule is stable at the midpole left moiety measuring 1.3 cm greatest dimension. VASCULATURE: Unremarkable. No aortic aneurysm. No aortic atherosclerotic calcification or mural plaque present. BOWEL: The stomach is collapsed. Small bowel is unremarkable. No bowel obstruction. Large bowel is collapsed and generally featureless with diffusely thick-walled pattern suggesting infectious or inflammatory steward colitis with limited pericolic reactive change evident but no ascites or abscess. No free intra peritoneal gas collection either. APPENDIX: Normal appendix. PERITONEUM: Unremarkable. No free fluid. No free air. LYMPH NODES: Stable mild mesenteric lymphadenopathy with shotty aortic caval lymph nodes identified as well. BLADDER: Unremarkable. REPRODUCTIVE: Unremarkable. BONES: Stable L1-2 spontaneous fusion with probable chronic L2 anterior wedge fracture or congenital deformity again evident. OTHER FINDINGS: None. IMPRESSION: 1. Pancolitis of likely infectious or inflammatory etiology. Consider potential acute superimposed on chronic colitis. Consider potential acute superimposed on chronic colitis. further clinical correlation recommended. No abscess, ascites or free intra peritoneal gas collection. 2. Stable appearing or shoe kidney including multiple cysts and complex cyst or solid nodule at the midpole left moiety 1.3 cm. MRI may be useful for follow-up if not already evaluated. 3. Stable sub cm nodule left lower lobe for which follow-up chest is advised in 12 months unless already proven benign. Lung RAD 2. Assessment & Plan (1) Pancolitis Status: Acute Priority: High (2) Severe anemia Status: Acute Priority: High (3) Thrombocytosis Status: Acute Priority: High (4) Acute ulcerative colitis with rectal bleeding Status: Acute Priority: High
--- NOTE | 2018-02-13 19:08 | CARD ---
APPROVED REPORT Date of service: 02/13/2018 EKG Measurement Heart [id number] <Conclusion> Normal sinus rhythm Normal ECG
[2018-02-13 21:17] LABS: FOLATE 13.5 ng/mL
--- NOTE | 2018-02-13 21:29 | CP.PCM.CON ---
History of Present Illness - History of Present Illness History of Present Illness: 52 year old male with a history of DM, inflammatory bowel disease, sent to the ER by Dr. Callaway, found to have sever anemia and thrombocytosis. The patient reports to hematochezia and diarrhea which he attributes to long stand inflammatory bowel disease. He admits to progressive fatigue and dyspnea with exertion. His hgb in the ER was 5.6 and plt count of 1300. He is s/p 2U PRBC and reports to feeling beter. Past medical history: DM, inflammatory bowel disease Past surgical history: Denies Family history: Denies hematologic and oncologic problems Social history: Denies tobacco, alcohol, and illicit drug use. Allergies: NKA Review of sytems: All remaining review of systems including HEENT, cardiovascular, respiratory, gastrointestinal, genitourinary, musculoskeletal, dermatologic, neurologic, and psychiatric are negative unless mentioned in the HPI. Past Patient History - Infectious Disease Hx of Infectious Diseases: None - Past Medical History & Family History Past Medical History?: Yes - Past Social History Alcohol: None Drugs: Denies - CARDIAC Hx Hypertension: Yes - PULMONARY Hx Respiratory Disorders: No - NEUROLOGICAL Hx Neurological Disorder: No - HEENT Hx HEENT Problems: No - RENAL Hx Chronic Kidney Disease: No - ENDOCRINE/METABOLIC Hx Endocrine Disorders: Yes - HEMATOLOGICAL/ONCOLOGICAL Hx Human Immunodeficiency Virus (HIV): No - INTEGUMENTARY Hx Dermatological Problems: No - MUSCULOSKELETAL/RHEUMATOLOGICAL Hx Musculoskeletal Disorders: No - GASTROINTESTINAL Hx Diverticulitis: Yes - GENITOURINARY/GYNECOLOGICAL Hx Genitourinary Disorders: No - PSYCHIATRIC Hx Psychophysiologic Disorder: No Hx Substance Use: No - SURGICAL HISTORY Hx Surgeries: Yes Other/Comment: LT WRIST SURGERY - ANESTHESIA Hx Anesthesia: Yes Hx Anesthesia Reactions: No Hx Malignant Hyperthermia: No Meds Allergies/Adverse Reactions: Allergies Allergy/AdvReac Type Severity Reaction Status Date / Time No Known Allergies Allergy Verified 02/13/18 00:22 - Medications Medications: Current Medications Dextrose (Dextrose 50% Inj) 0 ml IV STAT PRN; Protocol PRN Reason: Hypoglycemia Protocol Dextrose (Glutose 15) 0 gm PO ONCE PRN; Protocol PRN Reason: Hypoglycemia Protocol Glucagon (Glucagen Diagnostic Kit) 0 mg IM STAT PRN; Protocol PRN Reason: Hypoglycemia Protocol Home Med (Empagliflozin [Jardiance]) 25 mg PO DAILY [facility] Home Med (Mesalamine [Apriso]) 4 cap PO DAILY [facility] Sodium Chloride (Sodium Chloride 0.9%) 1,000 mls @ 100 mls/hr IV .Q10H [facility] Stop: 02/14/18 15:27 Last Admin: 02/13/18 15:30 Dose: 100 mls/hr Piperacillin Sod/Tazobactam (Sod 3.375 gm/ Sodium Chloride) 100 mls @ 100 mls/ hr IVPB Q6 [facility]; Protocol Insulin Human Lispro (Humalog) 0 units SC ACHS [facility]; Protocol Metronidazole (Flagyl) 500 mg PO Q8 [facility]; Protocol Pantoprazole Sodium (Protonix Inj) 40 mg IVP DAILY [facility] Sitagliptin Phosphate (Januvia) 100 mg PO DAILY [facility] Physical Exam - Head Exam Head Exam: ATRAUMATIC - Eye Exam Eye Exam: Normal appearance - ENT Exam ENT Exam: Mucous Membranes Dry - Respiratory Exam Respiratory Exam: NORMAL BREATHING PATTERN - Cardiovascular Exam Cardiovascular Exam: +S1, +S2 - GI/Abdominal Exam GI & Abdominal Exam: Normal Bowel Sounds Results - Vital Signs Recent Vital Signs: Last Vital Signs Temp 98.8 F 02/13/18 20:29 Pulse 63 02/13/18 20:29 Resp 12 02/13/18 20:29 BP 95/46 L 02/13/18 20:29 Pulse Ox 100 02/13/18 20:29 - Labs Result Diagrams: 02/13/18 01:00 02/13/18 01:00 Labs: Laboratory Results - last 24 hr 02/13/18 02/13/18 02/13/18 01:00 01:00 01:06 WBC 13.1 H RBC 3.23 L Hgb 5.6 L* D Hct 19.9 L MCV 61.7 L D MCH 17.4 L MCHC 28.2 L RDW 18.3 H Plt Count 1227 H* D Manual Plt Count MPV 6.7 L Neut % (Auto) 72.5 Lymph % (Auto) 16.8 L Gilchrist % (Auto) 10.1 H Eos % (Auto) 0.4 Baso % (Auto) 0.2 Neut # (Auto) 9.5 H Lymph # (Auto) 2.2 Gilchrist # (Auto) 1.3 H Eos # (Auto) 0.1 Baso # (Auto) 0.0 Retic Count pO2 12 L VBG pH 7.37 VBG pCO2 47 VBG HCO3 23.6 VBG Total CO2 28.6 H VBG O2 Sat (Calc) 15.1 L VBG Base Excess 1.3 VBG Potassium 5.6 H Glucose 301 H Lactate 3.3 H FiO2 21.0 Crit Value Called To vadim Carter md Crit Value Called By Trevon Crit Value Read Back Y Blood Gas Notified Time 115 Sodium 130 L 129.0 L Potassium 5.6 H Chloride 99 98.0 Carbon Dioxide 23 Anion Gap 14 BUN 12 Creatinine 1.0 Est GFR ( Amer) > 60 Est GFR (Non-Af Amer) > 60 POC Glucose (mg/dL) Random Glucose 282 H Calcium 7.6 L Ferritin Total Bilirubin 0.3 AST 39 ALT 67 Alkaline Phosphatase 72 Total Protein 6.1 L Albumin 2.6 L D Globulin 3.5 Albumin/Globulin Ratio 0.7 L Vitamin B12 Folate Venous Blood Potassium 5.6 H Stool Occult Blood C. difficile Ag & Toxin Blood Type Antibody Screen Crossmatch BBK History Checked 02/13/18 02/13/18 02/13/18 01:55 04:26 08:13 WBC RBC Hgb Hct MCV MCH MCHC RDW Plt Count Manual Plt Count 1338 H* MPV Neut % (Auto) Lymph % (Auto) Gilchrist % (Auto) Eos % (Auto) Baso % (Auto) Neut # (Auto) Lymph # (Auto) Gilchrist # (Auto) Eos # (Auto) Baso # (Auto) Retic Count pO2 VBG pH VBG pCO2 VBG HCO3 VBG Total CO2 VBG O2 Sat (Calc) VBG Base Excess VBG Potassium Glucose Lactate FiO2 Crit Value Called To Crit Value Called By Crit Value Read Back Blood Gas Notified Time Sodium Potassium Chloride Carbon Dioxide Anion Gap BUN Creatinine Est GFR ( Amer) Est GFR (Non-Af Amer) POC Glucose (mg/dL) 209 H Random Glucose Calcium Ferritin Total Bilirubin AST ALT Alkaline Phosphatase Total Protein Albumin Globulin Albumin/Globulin Ratio Vitamin B12 Folate Venous Blood Potassium Stool Occult Blood C. difficile Ag & Toxin Blood Type A POSITIVE Antibody Screen Negative Crossmatch See Detail BBK History Checked Patient has bt 02/13/18 02/13/18 02/13/18 11:00 14:35 14:35 WBC RBC Hgb Hct MCV MCH MCHC RDW Plt Count Manual Plt Count MPV Neut % (Auto) Lymph % (Auto) Gilchrist % (Auto) Eos % (Auto) Baso % (Auto) Neut # (Auto) Lymph # (Auto) Gilchrist # (Auto) Eos # (Auto) Baso # (Auto) Retic Count 2.4 H pO2 19 L VBG pH 7.42 VBG pCO2 42 VBG HCO3 25.0 VBG Total CO2 28.5 H VBG O2 Sat (Calc) 33.1 L VBG Base Excess 2.4 H VBG Potassium 4.4 Glucose 170 H Lactate 0.9 FiO2 21.0 Crit Value Called To Crit Value Called By Crit Value Read Back Blood Gas Notified Time Sodium 128.0 L Potassium Chloride 99.0 Carbon Dioxide Anion Gap BUN Creatinine Est GFR ( Amer) Est GFR (Non-Af Amer) POC Glucose (mg/dL) Random Glucose Calcium Ferritin 10.6 L Total Bilirubin AST ALT Alkaline Phosphatase Total Protein Albumin Globulin Albumin/Globulin Ratio Vitamin B12 991 H Folate 13.5 Venous Blood Potassium 4.4 Stool Occult Blood C. difficile Ag & Toxin Blood Type Antibody Screen Crossmatch BBK History Checked 02/13/18 02/13/18 02/13/18 15:53 16:34 16:34 WBC RBC Hgb Hct MCV MCH MCHC RDW Plt Count Manual Plt Count MPV Neut % (Auto) Lymph % (Auto) Gilchrist % (Auto) Eos % (Auto) Baso % (Auto) Neut # (Auto) Lymph # (Auto) Gilchrist # (Auto) Eos # (Auto) Baso # (Auto) Retic Count pO2 VBG pH VBG pCO2 VBG HCO3 VBG Total CO2 VBG O2 Sat (Calc) VBG Base Excess VBG Potassium Glucose Lactate FiO2 Crit Value Called To Crit Value Called By Crit Value Read Back Blood Gas Notified Time Sodium Potassium Chloride Carbon Dioxide Anion Gap BUN Creatinine Est GFR ( Amer) Est GFR (Non-Af Amer) POC Glucose (mg/dL) 129 H Random Glucose Calcium Ferritin Total Bilirubin AST ALT Alkaline Phosphatase Total Protein Albumin Globulin Albumin/Globulin Ratio Vitamin B12 Folate Venous Blood Potassium Stool Occult Blood Positive H C. difficile Ag & Toxin Negative Blood Type Antibody Screen Crossmatch BBK History Checked Assessment & Plan (1) Severe anemia Assessment and Plan: secondary to iron deficiency from chronic GI blood loss and malabsorption from inflammatory bowel disease s/p 2U PRBC will start on IV iron Status: Acute (2) Thrombocytosis Assessment and Plan: likely reactive to inflammatory bowel disease and iron deficiency anemia should improve if continues to rise, will consider aspirin Status: Acute (3) Leukocytosis Assessment and Plan: on antibiotics Thank you for this interesting consult. Status: Acute
[2018-02-13] MEDS: Piperacillin/Tazobact 3.375 GM in Sodium Chloride 0.9% 100 ML IVPB SCH (23:11)
[2018-02-13] MEDS: Insulin Lispro (humaLOG) 100 Units/ml Inj SC SCH (23:12)
[2018-02-14] MEDS: Sodium Chloride 0.9% 1,000 ML IV SCH ×2 (01:58→17:58)
--- NOTE | 2018-02-14 04:01 | CON ---
DATE: 02/13/2018 REFERRING PHYSICIAN: Branden Seymour MD REASON FOR CONSULTATION: Colitis, diarrhea. HISTORY OF PRESENT ILLNESS: This is a pleasant 52-year-old male that I was seeing for the second time in the office recently, yesterday was sent to the ER because of profuse diarrhea and worsening physical status. He was recently admitted in the hospital about a month ago. He had looks like somewhat alcoholism and back in IBD, now comes in for profound diarrhea, who is in the process of, we started steroids on him, but needed a herson and to rule out any non-infectious etiology of diarrhea but due to the patient's condition deteriorating, he was sent to the ER. The patient is currently lying in bed comfortable, in no apparent distress. Asking for food. PAST MEDICAL HISTORY: As above. SURGICAL HISTORY: As above. MEDICATIONS: Have been reviewed. REVIEW OF SYSTEMS: All other systems have been reviewed and negative apart from the HPI. PHYSICAL EXAMINATION: VITAL SIGNS: Here in the hospital grossly unremarkable. GENERAL: This is a pleasant middle-aged man, lying in bed comfortably, in no apparent distress. HEENT: Head is normocephalic and atraumatic. Eyes, pupils are equally reactive to light bilaterally. No conjunctival pallor or icterus. NECK: Supple. Normal range of motion. No lymphadenopathy appreciated. LUNGS: Coarse breath sounds bilaterally. HEART: S1 and S2. Regular rate and rhythm. ABDOMEN: Soft. Distended. Bowel sounds present. No rebound. No guarding. RECTAL: Deferred. EXTREMITIES: Pulses felt bilaterally. SKIN: Warm, dry, and intact. NEUROLOGIC: A and O x3. LABORATORY DATA: All labs and relevant radiology have been reviewed. CAT scan done with p.o. and IV contrast demonstrates pancolitis, acute on chronic likely, stable kidney cyst. Labs include WBC 13.1, hemoglobin 5.6, hematocrit 19.9, platelet count of 227. Potassium 5.6, sodium 130, sugars of 282. Albumin 2.6. ASSESSMENT AND PLAN: This is a 52-year-old man with colitis who I saw in the room in the office he actually has Crohn's and he had a Salmonella infection last summer, so I would like him to get stool for Clostridium difficile, culture and sensitivity, ova and parasite. Pending that and if that is grossly unremarkable and no infection etiology noted, we will start steroids. For his hemoglobin of 5.6, I recommend transfusion as indicated . The potassium is being corrected by the primary care team. The platelet count is more likely reactive, but we will repeat it and consider Hematology involvement. As indicated, I can start clear liquid diet if the patient having no pain and recommend antibiotics empirically if not already ordered. Thank you for this consult. Michele Callaway MD/ PhD cc: Branden Seymour MD
[2018-02-14] MEDS: Piperacillin/Tazobact 3.375 GM in Sodium Chloride 0.9% 100 ML IVPB SCH ×4 (04:23→22:04)
[2018-02-14 08:10] LABS: BASO % 0.1 % (0.0-2.0); EOS # 0.1 K/uL (0.0-0.7); EOS % 0.9 % (0.0-4.0); HEMOGLOBIN 8.5 g/dL (12.0-18.0); LYMPH # 2.6 K/uL (1.0-4.3); LYMPH % 26.1 % (20.0-40.0); MEAN CELL VOLUME 69.2 fl (80.0-94.0); MEAN CORPUSCULAR HEMOGLOBIN 21.5 pg (27.0-31.0); MEAN CORPUSCULAR HGB CONC 31.1 g/dL (33.0-37.0); MEAN PLATELET VOLUME 6.5 fl (7.2-11.7); MONO # 0.8 K/uL (0.0-0.8); MONO % 8.4 % (0.0-10.0); NEUT # 6.4 K/uL (1.8-7.0); NEUT % 64.5 % (50.0-75.0); NRBC % 0.5 % (0.0-0.0); RBC 3.95 Mil/uL (4.40-5.90); RED CELL DISTRIBUTION WIDTH 23.9 % (11.5-14.5)
[2018-02-14] MEDS: Insulin Lispro (humaLOG) 100 Units/ml Inj SC SCH ×4 (09:58→22:06)
[2018-02-14] MEDS: MESALAMINE PO SCH (09:59)
[2018-02-15] MEDS: Piperacillin/Tazobact 3.375 GM in Sodium Chloride 0.9% 100 ML IVPB SCH ×4 (04:46→21:19)
[2018-02-15] MEDS: Insulin Lispro (humaLOG) 100 Units/ml Inj SC SCH ×4 (06:50→22:22)
[2018-02-15 07:08] LABS: HEMOGLOBIN 7.8 g/dL (12.0-18.0); MEAN CELL VOLUME 70.8 fl (80.0-94.0); MEAN CORPUSCULAR HEMOGLOBIN 21.5 pg (27.0-31.0); MEAN CORPUSCULAR HGB CONC 30.4 g/dL (33.0-37.0); RBC 3.63 Mil/uL (4.40-5.90); RED CELL DISTRIBUTION WIDTH 24.5 % (11.5-14.5); WHITE BLOOD COUNT 11.1 K/uL (4.8-10.8)
[2018-02-15] MEDS: MESALAMINE PO SCH (10:34)
[2018-02-15] MEDS: Sucralfate 1 gm/10 ml Oral Susp UD PO SCH ×2 (17:59→21:19)
[2018-02-15] MEDS ORDERED: Morphine 4 MG/ML VIAL IVP PRN (18:51)
--- NOTE | 2018-02-15 20:55 | CP.PCM.PN ---
Subjective - Date & Time of Evaluation Date of Evaluation: 02/14/18 Time of Evaluation: 17:40 Objective - Vital Signs/Intake and Output Vital Signs (last 24 hours): Temp Pulse Resp BP Pulse Ox 98.4 F 67 20 109/61 95 02/15/18 20:28 02/15/18 20:28 02/15/18 20:28 02/15/18 20:28 02/15/18 20:28 Intake and Output: 02/15/18 02/16/18 18:59 06:59 Intake Total 1000 Balance 1000 - Medications Medications: Current Medications Acetaminophen (Tylenol 325mg Tab) 650 mg PO Q6 PRN PRN Reason: Headache Last Admin: 02/15/18 01:08 Dose: 650 mg Dextrose (Dextrose 50% Inj) 0 ml IV STAT PRN; Protocol PRN Reason: Hypoglycemia Protocol Dextrose (Glutose 15) 0 gm PO ONCE PRN; Protocol PRN Reason: Hypoglycemia Protocol Glucagon (Glucagen Diagnostic Kit) 0 mg IM STAT PRN; Protocol PRN Reason: Hypoglycemia Protocol Home Med (Empagliflozin [Jardiance]) 25 mg PO DAILY [facility] Last Admin: 02/15/18 10:33 Dose: 25 mg Home Med (Mesalamine [Apriso]) 4 cap PO DAILY [facility] Last Admin: 02/15/18 10:34 Dose: 4 cap Piperacillin Sod/Tazobactam (Sod 3.375 gm/ Sodium Chloride) 100 mls @ 100 mls/hr IVPB Q6 [facility]; Protocol Last Admin: 02/15/18 16:55 Dose: 100 mls/hr Iron Sucrose 200 mg/ Sodium (Chloride) 110 mls @ 110 mls/hr IVPB DAILY [facility] Stop: 02/19/18 09:01 Last Admin: 02/15/18 10:36 Dose: 110 mls/hr Insulin Human Lispro (Humalog) 0 units SC ACHS [facility]; Protocol Last Admin: 02/15/18 16:52 Dose: Not Given Metronidazole (Flagyl) 500 mg PO Q8 [facility]; Protocol Last Admin: 02/15/18 16:57 Dose: 500 mg Morphine Sulfate (Morphine) 1 mg IVP Q6 PRN PRN Reason: Pain, severe (8-10) Last Admin: 02/15/18 19:59 Dose: 1 mg Ondansetron HCl (Zofran Inj) 4 mg IVP Q6 PRN PRN Reason: Nausea/Vomiting Pantoprazole Sodium (Protonix Inj) 40 mg IVP DAILY [facility] Last Admin: 02/15/18 10:35 Dose: 40 mg Pantoprazole Sodium (Protonix Inj) 40 mg IVP Q12 [facility] Sitagliptin Phosphate (Januvia) 100 mg PO DAILY [facility] Last Admin: 02/15/18 10:34 Dose: 100 mg Sucralfate (Carafate Oral Susp) 1 gm PO QID [facility] Last Admin: 02/15/18 17:59 Dose: 1 gm - Labs Labs: 02/15/18 05:31 02/13/18 01:00 Assessment and Plan (1) Pancolitis Status: Acute (2) Severe anemia Status: Acute (3) Thrombocytosis Status: Acute
--- NOTE | 2018-02-15 20:56 | CP.PCM.PN ---
Subjective - Date & Time of Evaluation Date of Evaluation: 02/15/18 Time of Evaluation: 17:55 Objective - Vital Signs/Intake and Output Vital Signs (last 24 hours): Temp Pulse Resp BP Pulse Ox 98.4 F 67 20 109/61 95 02/15/18 20:28 02/15/18 20:28 02/15/18 20:28 02/15/18 20:28 02/15/18 20:28 Intake and Output: 02/15/18 02/16/18 18:59 06:59 Intake Total 1000 Balance 1000 - Medications Medications: Current Medications Acetaminophen (Tylenol 325mg Tab) 650 mg PO Q6 PRN PRN Reason: Headache Last Admin: 02/15/18 01:08 Dose: 650 mg Dextrose (Dextrose 50% Inj) 0 ml IV STAT PRN; Protocol PRN Reason: Hypoglycemia Protocol Dextrose (Glutose 15) 0 gm PO ONCE PRN; Protocol PRN Reason: Hypoglycemia Protocol Glucagon (Glucagen Diagnostic Kit) 0 mg IM STAT PRN; Protocol PRN Reason: Hypoglycemia Protocol Home Med (Empagliflozin [Jardiance]) 25 mg PO DAILY [facility] Last Admin: 02/15/18 10:33 Dose: 25 mg Home Med (Mesalamine [Apriso]) 4 cap PO DAILY [facility] Last Admin: 02/15/18 10:34 Dose: 4 cap Piperacillin Sod/Tazobactam (Sod 3.375 gm/ Sodium Chloride) 100 mls @ 100 mls/hr IVPB Q6 [facility]; Protocol Last Admin: 02/15/18 16:55 Dose: 100 mls/hr Iron Sucrose 200 mg/ Sodium (Chloride) 110 mls @ 110 mls/hr IVPB DAILY [facility] Stop: 02/19/18 09:01 Last Admin: 02/15/18 10:36 Dose: 110 mls/hr Insulin Human Lispro (Humalog) 0 units SC ACHS [facility]; Protocol Last Admin: 02/15/18 16:52 Dose: Not Given Metronidazole (Flagyl) 500 mg PO Q8 [facility]; Protocol Last Admin: 02/15/18 16:57 Dose: 500 mg Morphine Sulfate (Morphine) 1 mg IVP Q6 PRN PRN Reason: Pain, severe (8-10) Last Admin: 02/15/18 19:59 Dose: 1 mg Ondansetron HCl (Zofran Inj) 4 mg IVP Q6 PRN PRN Reason: Nausea/Vomiting Pantoprazole Sodium (Protonix Inj) 40 mg IVP DAILY [facility] Last Admin: 02/15/18 10:35 Dose: 40 mg Pantoprazole Sodium (Protonix Inj) 40 mg IVP Q12 [facility] Sitagliptin Phosphate (Januvia) 100 mg PO DAILY [facility] Last Admin: 02/15/18 10:34 Dose: 100 mg Sucralfate (Carafate Oral Susp) 1 gm PO QID [facility] Last Admin: 02/15/18 17:59 Dose: 1 gm - Labs Labs: 02/15/18 05:31 02/13/18 01:00 Assessment and Plan (1) Pancolitis Status: Acute (2) Severe anemia Status: Acute (3) Thrombocytosis Status: Acute
[2018-02-16] MEDS: Piperacillin/Tazobact 3.375 GM in Sodium Chloride 0.9% 100 ML IVPB SCH ×3 (04:10→20:39)
[2018-02-16] MEDS: Sucralfate 1 gm/10 ml Oral Susp UD PO SCH ×4 (09:00→21:23)
[2018-02-16] MEDS: MESALAMINE PO SCH (09:06)
[2018-02-16] MEDS: Insulin Lispro (humaLOG) 100 Units/ml Inj SC SCH ×4 (09:09→21:31)
[2018-02-16 12:30] LABS: HEMOGLOBIN 7.7 g/dL (12.0-18.0); MEAN CELL VOLUME 72.4 fl (80.0-94.0); MEAN CORPUSCULAR HEMOGLOBIN 21.7 pg (27.0-31.0); RBC 3.54 Mil/uL (4.40-5.90); WHITE BLOOD COUNT 17.3 K/uL (4.8-10.8)
[2018-02-16 12:52] LABS: ALB/GLOB RATIO 0.6 (1.0-2.1); ALBUMIN 1.9 g/dL (3.5-5.0); ALT/SGPT 29 U/L (21-72); AST/SGOT 25 U/L (17-59); BLOOD UREA NITROGEN 3 mg/dl (9-20); CALCIUM 7.2 mg/dL (8.4-10.2); GFR NON-AFRICAN AMERICAN > 60
--- NOTE | 2018-02-16 14:18 | CP.PCM.PN ---
Subjective - Date & Time of Evaluation Date of Evaluation: 02/16/18 Time of Evaluation: 14:17 - Subjective Subjective: feeling better without pain or n/v less diarrhea and hardly any BRBPR stool studies thus far are negative but c7s pending PE: vss afebrile abd - soft with +BS NT/ND imp/plan: colitis clinically improving but WBC's elevated - ? reason advance diet repeat labs in am Objective - Vital Signs/Intake and Output Vital Signs (last 24 hours): Temp Pulse Resp BP Pulse Ox 97.7 F 65 20 103/63 100 02/16/18 12:00 02/16/18 12:00 02/16/18 12:00 02/16/18 12:00 02/16/18 12:00 - Medications Medications: Current Medications Acetaminophen (Tylenol 325mg Tab) 650 mg PO Q6 PRN PRN Reason: Headache Last Admin: 02/15/18 01:08 Dose: 650 mg Dextrose (Dextrose 50% Inj) 0 ml IV STAT PRN; Protocol PRN Reason: Hypoglycemia Protocol Dextrose (Glutose 15) 0 gm PO ONCE PRN; Protocol PRN Reason: Hypoglycemia Protocol Glucagon (Glucagen Diagnostic Kit) 0 mg IM STAT PRN; Protocol PRN Reason: Hypoglycemia Protocol Home Med (Empagliflozin [Jardiance]) 25 mg PO DAILY [facility] Last Admin: 02/16/18 09:08 Dose: 25 mg Home Med (Mesalamine [Apriso]) 4 cap PO DAILY [facility] Last Admin: 02/16/18 09:06 Dose: 4 cap Piperacillin Sod/Tazobactam (Sod 3.375 gm/ Sodium Chloride) 100 mls @ 100 mls/hr IVPB Q6 [facility]; Protocol Last Admin: 02/16/18 14:15 Dose: 100 mls/hr Iron Sucrose 200 mg/ Sodium (Chloride) 110 mls @ 110 mls/hr IVPB DAILY [facility] Stop: 02/19/18 09:01 Last Admin: 02/16/18 09:10 Dose: 110 mls/hr Insulin Human Lispro (Humalog) 0 units SC ACHS [facility]; Protocol Last Admin: 02/16/18 14:15 Dose: Not Given Metronidazole (Flagyl) 500 mg PO Q8 [facility]; Protocol Last Admin: 02/16/18 09:06 Dose: 500 mg Morphine Sulfate (Morphine) 1 mg IVP Q6 PRN PRN Reason: Pain, severe (8-10) Last Admin: 02/15/18 19:59 Dose: 1 mg Ondansetron HCl (Zofran Inj) 4 mg IVP Q6 PRN PRN Reason: Nausea/Vomiting Pantoprazole Sodium (Protonix Inj) 40 mg IVP Q12 [facility] Last Admin: 02/16/18 09:17 Dose: Not Given Sitagliptin Phosphate (Januvia) 100 mg PO DAILY [facility] Last Admin: 02/16/18 09:06 Dose: 100 mg Sucralfate (Carafate Oral Susp) 1 gm PO QID [facility] Last Admin: 02/16/18 14:16 Dose: 1 gm - Labs Labs: 02/16/18 12:27 02/16/18 12:27
--- NOTE | 2018-02-16 23:31 | CP.PCM.PN ---
Subjective - Date & Time of Evaluation Date of Evaluation: 02/14/18 Time of Evaluation: 18:00 - Subjective Subjective: Has diarrhea and hematochezia Objective - Vital Signs/Intake and Output Vital Signs (last 24 hours): Temp Pulse Resp BP Pulse Ox 98.1 F 68 18 109/66 100 02/16/18 21:18 02/16/18 20:15 02/16/18 20:15 02/16/18 20:15 02/16/18 20:15 - Medications Medications: Current Medications Acetaminophen (Tylenol 325mg Tab) 650 mg PO Q6 PRN PRN Reason: Headache Last Admin: 02/16/18 21:18 Dose: 650 mg Dextrose (Dextrose 50% Inj) 0 ml IV STAT PRN; Protocol PRN Reason: Hypoglycemia Protocol Dextrose (Glutose 15) 0 gm PO ONCE PRN; Protocol PRN Reason: Hypoglycemia Protocol Glucagon (Glucagen Diagnostic Kit) 0 mg IM STAT PRN; Protocol PRN Reason: Hypoglycemia Protocol Home Med (Empagliflozin [Jardiance]) 25 mg PO DAILY [facility] Last Admin: 02/16/18 09:08 Dose: 25 mg Home Med (Mesalamine [Apriso]) 4 cap PO DAILY [facility] Last Admin: 02/16/18 09:06 Dose: 4 cap Iron Sucrose 200 mg/ Sodium (Chloride) 110 mls @ 110 mls/hr IVPB DAILY [facility] Stop: 02/19/18 09:01 Last Admin: 02/16/18 09:10 Dose: 110 mls/hr Piperacillin Sod/Tazobactam (Sod 3.375 gm/ Sodium Chloride) 100 mls @ 100 mls/hr IVPB 0200,0800,1400,2000 [facility]; Protocol Last Admin: 02/16/18 20:39 Dose: 100 mls/hr Insulin Human Lispro (Humalog) 0 units SC ACHS [facility]; Protocol Last Admin: 02/16/18 21:31 Dose: 1 units Metronidazole (Flagyl) 500 mg PO Q8 [facility]; Protocol Last Admin: 02/16/18 16:52 Dose: 500 mg Morphine Sulfate (Morphine) 1 mg IVP Q6 PRN PRN Reason: Pain, severe (8-10) Last Admin: 02/15/18 19:59 Dose: 1 mg Ondansetron HCl (Zofran Inj) 4 mg IVP Q6 PRN PRN Reason: Nausea/Vomiting Pantoprazole Sodium (Protonix Inj) 40 mg IVP Q12 [facility] Last Admin: 02/16/18 21:22 Dose: 40 mg Sitagliptin Phosphate (Januvia) 100 mg PO DAILY [facility] Last Admin: 02/16/18 09:06 Dose: 100 mg Sucralfate (Carafate Oral Susp) 1 gm PO QID [facility] Last Admin: 02/16/18 21:23 Dose: 1 gm - Labs Labs: 02/16/18 12:27 02/16/18 12:27 - Head Exam Head Exam: ATRAUMATIC - Eye Exam Eye Exam: Normal appearance - ENT Exam ENT Exam: Mucous Membranes Dry - Respiratory Exam Respiratory Exam: NORMAL BREATHING PATTERN - Cardiovascular Exam Cardiovascular Exam: +S1, +S2 - GI/Abdominal Exam GI & Abdominal Exam: Normal Bowel Sounds Assessment and Plan (1) Severe anemia Assessment & Plan: secondary to iron deficiency from chronic GI blood loss and malabsorption from inflammatory bowel disease s/p 2U PRBC on IV iron Status: Acute (2) Thrombocytosis Assessment & Plan: likely reactive to inflammatory bowel disease and iron deficiency anemia if continues to rise, will consider aspirin and JAK2 evaluation Status: Acute (3) Leukocytosis Assessment & Plan: on antibiotics Status: Acute
--- NOTE | 2018-02-16 23:34 | CP.PCM.PN ---
Subjective - Date & Time of Evaluation Date of Evaluation: 02/16/18 Time of Evaluation: 20:00 - Subjective Subjective: Feels weak Objective - Vital Signs/Intake and Output Vital Signs (last 24 hours): Temp Pulse Resp BP Pulse Ox 98.1 F 68 18 109/66 100 02/16/18 21:18 02/16/18 20:15 02/16/18 20:15 02/16/18 20:15 02/16/18 20:15 - Medications Medications: Current Medications Acetaminophen (Tylenol 325mg Tab) 650 mg PO Q6 PRN PRN Reason: Headache Last Admin: 02/16/18 21:18 Dose: 650 mg Dextrose (Dextrose 50% Inj) 0 ml IV STAT PRN; Protocol PRN Reason: Hypoglycemia Protocol Dextrose (Glutose 15) 0 gm PO ONCE PRN; Protocol PRN Reason: Hypoglycemia Protocol Glucagon (Glucagen Diagnostic Kit) 0 mg IM STAT PRN; Protocol PRN Reason: Hypoglycemia Protocol Home Med (Empagliflozin [Jardiance]) 25 mg PO DAILY [facility] Last Admin: 02/16/18 09:08 Dose: 25 mg Home Med (Mesalamine [Apriso]) 4 cap PO DAILY [facility] Last Admin: 02/16/18 09:06 Dose: 4 cap Iron Sucrose 200 mg/ Sodium (Chloride) 110 mls @ 110 mls/hr IVPB DAILY [facility] Stop: 02/19/18 09:01 Last Admin: 02/16/18 09:10 Dose: 110 mls/hr Piperacillin Sod/Tazobactam (Sod 3.375 gm/ Sodium Chloride) 100 mls @ 100 mls/hr IVPB 0200,0800,1400,2000 [facility]; Protocol Last Admin: 02/16/18 20:39 Dose: 100 mls/hr Insulin Human Lispro (Humalog) 0 units SC ACHS [facility]; Protocol Last Admin: 02/16/18 21:31 Dose: 1 units Metronidazole (Flagyl) 500 mg PO Q8 [facility]; Protocol Last Admin: 02/16/18 16:52 Dose: 500 mg Morphine Sulfate (Morphine) 1 mg IVP Q6 PRN PRN Reason: Pain, severe (8-10) Last Admin: 02/15/18 19:59 Dose: 1 mg Ondansetron HCl (Zofran Inj) 4 mg IVP Q6 PRN PRN Reason: Nausea/Vomiting Pantoprazole Sodium (Protonix Inj) 40 mg IVP Q12 [facility] Last Admin: 02/16/18 21:22 Dose: 40 mg Sitagliptin Phosphate (Januvia) 100 mg PO DAILY [facility] Last Admin: 02/16/18 09:06 Dose: 100 mg Sucralfate (Carafate Oral Susp) 1 gm PO QID [facility] Last Admin: 02/16/18 21:23 Dose: 1 gm - Labs Labs: 02/16/18 12:27 02/16/18 12:27 - Head Exam Head Exam: ATRAUMATIC - Eye Exam Eye Exam: Normal appearance - ENT Exam ENT Exam: Mucous Membranes Dry - Respiratory Exam Respiratory Exam: NORMAL BREATHING PATTERN - Cardiovascular Exam Cardiovascular Exam: +S1, +S2 - GI/Abdominal Exam GI & Abdominal Exam: Normal Bowel Sounds Assessment and Plan (1) Severe anemia Assessment & Plan: secondary to iron deficiency from chronic GI blood loss and malabsorption from inflammatory bowel disease s/p 2U PRBC on IV iron Status: Acute (2) Thrombocytosis Assessment & Plan: likely reactive to inflammatory bowel disease and iron deficiency anemia if continues to rise, will consider aspirin and JAK2 evaluation Status: Acute (3) Leukocytosis Assessment & Plan: on antibiotics Status: Acute
--- NOTE | 2018-02-16 23:59 | CP.PCM.PN ---
Subjective - Date & Time of Evaluation Date of Evaluation: 02/16/18 Time of Evaluation: 12:20 - Subjective Subjective: Seen and examined at the bed side. Minimal Bleeding per Rectum and Less abdominal Pain. Objective - Vital Signs/Intake and Output Vital Signs (last 24 hours): Temp Pulse Resp BP Pulse Ox 98.4 F 69 20 103/62 100 02/16/18 23:46 02/16/18 23:46 02/16/18 23:46 02/16/18 23:46 02/16/18 20:15 Intake and Output: 02/16/18 02/17/18 18:59 06:59 Intake Total 0 Balance 0 - Medications Medications: Current Medications Acetaminophen (Tylenol 325mg Tab) 650 mg PO Q6 PRN PRN Reason: Headache Last Admin: 02/16/18 21:18 Dose: 650 mg Dextrose (Dextrose 50% Inj) 0 ml IV STAT PRN; Protocol PRN Reason: Hypoglycemia Protocol Dextrose (Glutose 15) 0 gm PO ONCE PRN; Protocol PRN Reason: Hypoglycemia Protocol Glucagon (Glucagen Diagnostic Kit) 0 mg IM STAT PRN; Protocol PRN Reason: Hypoglycemia Protocol Home Med (Empagliflozin [Jardiance]) 25 mg PO DAILY [facility] Last Admin: 02/16/18 09:08 Dose: 25 mg Home Med (Mesalamine [Apriso]) 4 cap PO DAILY [facility] Last Admin: 02/16/18 09:06 Dose: 4 cap Iron Sucrose 200 mg/ Sodium (Chloride) 110 mls @ 110 mls/hr IVPB DAILY [facility] Stop: 02/19/18 09:01 Last Admin: 02/16/18 09:10 Dose: 110 mls/hr Piperacillin Sod/Tazobactam (Sod 3.375 gm/ Sodium Chloride) 100 mls @ 100 mls/hr IVPB 0200,0800,1400,2000 [facility]; Protocol Last Admin: 02/16/18 20:39 Dose: 100 mls/hr Insulin Human Lispro (Humalog) 0 units SC ACHS [facility]; Protocol Last Admin: 02/16/18 21:31 Dose: 1 units Metronidazole (Flagyl) 500 mg PO Q8 [facility]; Protocol Last Admin: 02/16/18 16:52 Dose: 500 mg Morphine Sulfate (Morphine) 1 mg IVP Q6 PRN PRN Reason: Pain, severe (8-10) Last Admin: 02/15/18 19:59 Dose: 1 mg Ondansetron HCl (Zofran Inj) 4 mg IVP Q6 PRN PRN Reason: Nausea/Vomiting Pantoprazole Sodium (Protonix Inj) 40 mg IVP Q12 [facility] Last Admin: 02/16/18 21:22 Dose: 40 mg Sitagliptin Phosphate (Januvia) 100 mg PO DAILY [facility] Last Admin: 02/16/18 09:06 Dose: 100 mg Sucralfate (Carafate Oral Susp) 1 gm PO QID [facility] Last Admin: 02/16/18 21:23 Dose: 1 gm - Labs Labs: 02/16/18 12:27 02/16/18 12:27 - Constitutional Appears: Well - Head Exam Head Exam: ATRAUMATIC, NORMAL INSPECTION, NORMOCEPHALIC - Eye Exam Eye Exam: EOMI, Normal appearance, PERRL Pupil Exam: NORMAL ACCOMODATION, PERRL - ENT Exam ENT Exam: Mucous Membranes Moist, Normal Exam - Neck Exam Neck Exam: Full ROM, Normal Inspection. absent: Lymphadenopathy - Respiratory Exam Respiratory Exam: Clear to Ausculation Bilateral, NORMAL BREATHING PATTERN - Cardiovascular Exam Cardiovascular Exam: REGULAR RHYTHM, +S1, +S2. absent: Murmur - GI/Abdominal Exam GI & Abdominal Exam: Soft, Normal Bowel Sounds. absent: Tenderness - Exam Speculum exam: NORMAL SPECULUM EXAM Bimanual exam: NORMAL BIMANUAL EXAM - Extremities Exam Extremities Exam: Full ROM, Normal Capillary Refill, Normal Inspection. absent: Joint Swelling, Pedal Edema - Back Exam Back Exam: NORMAL INSPECTION - Neurological Exam Neurological Exam: Alert, Awake, CN II-XII Intact, Normal Gait, Oriented x3 - Psychiatric Exam Psychiatric exam: Normal Affect, Normal Mood - Skin Skin Exam: Dry, Intact, Normal Color, Warm Assessment and Plan (1) Pancolitis Status: Acute (2) Severe anemia Status: Acute (3) Thrombocytosis Status: Acute - Assessment and Plan (Free Text) Plan: Continue current care Will Transfuse if HGB further drops.
[2018-02-17] MEDS: Piperacillin/Tazobact 3.375 GM in Sodium Chloride 0.9% 100 ML IVPB SCH ×4 (01:18→20:55)
[2018-02-17] MEDS: Insulin Lispro (humaLOG) 100 Units/ml Inj SC SCH ×3 (06:58→22:11)
[2018-02-17] MEDS: Sucralfate 1 gm/10 ml Oral Susp UD PO SCH ×4 (09:03→21:10)
[2018-02-17 09:16] LABS: BASO % 0.2 % (0.0-2.0); EOS # 0.1 K/uL (0.0-0.7); EOS % 0.8 % (0.0-4.0); HEMOGLOBIN 10.6 g/dL (12.0-18.0); LYMPH # 1.6 K/uL (1.0-4.3); MEAN CELL VOLUME 74.8 fl (80.0-94.0); MEAN CORPUSCULAR HEMOGLOBIN 23.2 pg (27.0-31.0); MEAN PLATELET VOLUME 6.2 fl (7.2-11.7); MONO # 0.7 K/uL (0.0-0.8); NEUT # 12.3 K/uL (1.8-7.0); NRBC % 0.1 % (0.0-0.0); RBC 4.56 Mil/uL (4.40-5.90); RED CELL DISTRIBUTION WIDTH 26.1 % (11.5-14.5); WHITE BLOOD COUNT 14.8 K/uL (4.8-10.8)
[2018-02-17 09:33] LABS: ALB/GLOB RATIO 0.7 (1.0-2.1); ALBUMIN 2.1 g/dL (3.5-5.0); ALT/SGPT 25 U/L (21-72); AST/SGOT 19 U/L (17-59); BLOOD UREA NITROGEN 4 mg/dl (9-20); CALCIUM 7.4 mg/dL (8.4-10.2); GFR NON-AFRICAN AMERICAN > 60
[2018-02-17] MEDS: MESALAMINE PO SCH (09:49)
--- NOTE | 2018-02-17 12:10 | CP.PCM.PN ---
Subjective - Date & Time of Evaluation Date of Evaluation: 02/17/18 Time of Evaluation: 11:30 - Subjective Subjective: Feeling better, less diarrhea Objective - Vital Signs/Intake and Output Vital Signs (last 24 hours): Temp Pulse Resp BP Pulse Ox 97.9 F 71 20 119/76 100 02/17/18 08:53 02/17/18 08:53 02/17/18 08:53 02/17/18 08:53 02/17/18 08:53 Intake and Output: 02/17/18 02/17/18 06:59 18:59 Intake Total 710 Balance 710 - Medications Medications: Current Medications Acetaminophen (Tylenol 325mg Tab) 650 mg PO Q6 PRN PRN Reason: Headache Last Admin: 02/16/18 21:18 Dose: 650 mg Dextrose (Dextrose 50% Inj) 0 ml IV STAT PRN; Protocol PRN Reason: Hypoglycemia Protocol Dextrose (Glutose 15) 0 gm PO ONCE PRN; Protocol PRN Reason: Hypoglycemia Protocol Glucagon (Glucagen Diagnostic Kit) 0 mg IM STAT PRN; Protocol PRN Reason: Hypoglycemia Protocol Home Med (Empagliflozin [Jardiance]) 25 mg PO DAILY [facility] Last Admin: 02/17/18 09:49 Dose: 25 mg Home Med (Mesalamine [Apriso]) 4 cap PO DAILY [facility] Last Admin: 02/17/18 09:49 Dose: 4 cap Iron Sucrose 200 mg/ Sodium (Chloride) 110 mls @ 110 mls/hr IVPB DAILY [facility] Stop: 02/19/18 09:01 Last Admin: 02/17/18 09:52 Dose: 110 mls/hr Piperacillin Sod/Tazobactam (Sod 3.375 gm/ Sodium Chloride) 100 mls @ 100 mls/h r IVPB 0200,0800,1400,2000 [facility]; Protocol Last Admin: 02/17/18 09:52 Dose: 100 mls/hr Insulin Human Lispro (Humalog) 0 units SC ACHS [facility]; Protocol Last Admin: 02/17/18 06:58 Dose: Not Given Metronidazole (Flagyl) 500 mg PO Q8 [facility]; Protocol Last Admin: 02/17/18 09:51 Dose: 500 mg Morphine Sulfate (Morphine) 1 mg IVP Q6 PRN PRN Reason: Pain, severe (8-10) Last Admin: 02/15/18 19:59 Dose: 1 mg Ondansetron HCl (Zofran Inj) 4 mg IVP Q6 PRN PRN Reason: Nausea/Vomiting Pantoprazole Sodium (Protonix Inj) 40 mg IVP Q12 [facility] Last Admin: 02/17/18 09:50 Dose: 40 mg Sitagliptin Phosphate (Januvia) 100 mg PO DAILY [facility] Last Admin: 02/17/18 09:51 Dose: 100 mg Sucralfate (Carafate Oral Susp) 1 gm PO QID [facility] Last Admin: 02/16/18 21:23 Dose: 1 gm - Labs Labs: 02/17/18 09:03 02/17/18 09:03 - Head Exam Head Exam: ATRAUMATIC - Eye Exam Eye Exam: Normal appearance - ENT Exam ENT Exam: Mucous Membranes Dry - Respiratory Exam Respiratory Exam: NORMAL BREATHING PATTERN - Cardiovascular Exam Cardiovascular Exam: +S1, +S2 - GI/Abdominal Exam GI & Abdominal Exam: Normal Bowel Sounds Assessment and Plan (1) Severe anemia Assessment & Plan: iron deficiency from chronic GI blood loss and 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
[2018-02-17 17:05] LABS: SOURCE STOOL
[2018-02-18] MEDS: Piperacillin/Tazobact 3.375 GM in Sodium Chloride 0.9% 100 ML IVPB SCH ×4 (01:00→20:12)
[2018-02-18] MEDS: Insulin Lispro (humaLOG) 100 Units/ml Inj SC SCH ×4 (06:38→21:37)
[2018-02-18] MEDS: Sucralfate 1 gm/10 ml Oral Susp UD PO SCH (08:46)
[2018-02-18] MEDS: MESALAMINE PO SCH (08:47)
[2018-02-18 10:49] LABS: HEMOGLOBIN 10.3 g/dL (12.0-18.0); MEAN CELL VOLUME 77.2 fl (80.0-94.0); MEAN CORPUSCULAR HEMOGLOBIN 23.5 pg (27.0-31.0); MEAN CORPUSCULAR HGB CONC 30.5 g/dL (33.0-37.0); RBC 4.35 Mil/uL (4.40-5.90); RED CELL DISTRIBUTION WIDTH 26.8 % (11.5-14.5); WHITE BLOOD COUNT 15.5 K/uL (4.8-10.8)
[2018-02-18 11:14] LABS: BLOOD UREA NITROGEN 6 mg/dl (9-20); CALCIUM 7.4 mg/dL (8.4-10.2); GFR NON-AFRICAN AMERICAN > 60
--- NOTE | 2018-02-18 14:37 | CP.PCM.PN ---
Subjective - Date & Time of Evaluation Date of Evaluation: 02/18/18 Time of Evaluation: 14:33 - Subjective Subjective: c/o diarrhea with some bleeding but no abd pain tolerating diet without sx PE: vss afebrile abd - soft with + BS NT/ND imp/plan : colitis with h/o IBD. Stool culture finally back and is negative, therefore will start steroids and monitor for improvement Objective - Vital Signs/Intake and Output Vital Signs (last 24 hours): Temp Pulse Resp BP Pulse Ox 98.5 F 65 18 110/60 97 02/18/18 11:51 02/18/18 11:51 02/18/18 11:51 02/18/18 11:51 02/18/18 11:51 - Medications Medications: Current Medications Acetaminophen (Tylenol 325mg Tab) 650 mg PO Q6 PRN PRN Reason: Headache Last Admin: 02/16/18 21:18 Dose: 650 mg Dextrose (Dextrose 50% Inj) 0 ml IV STAT PRN; Protocol PRN Reason: Hypoglycemia Protocol Dextrose (Glutose 15) 0 gm PO ONCE PRN; Protocol PRN Reason: Hypoglycemia Protocol Glucagon (Glucagen Diagnostic Kit) 0 mg IM STAT PRN; Protocol PRN Reason: Hypoglycemia Protocol Home Med (Empagliflozin [Jardiance]) 25 mg PO DAILY [facility] Last Admin: 02/18/18 08:47 Dose: 25 mg Home Med (Mesalamine [Apriso]) 4 cap PO DAILY [facility] Last Admin: 02/18/18 08:47 Dose: Not Given Iron Sucrose 200 mg/ Sodium (Chloride) 110 mls @ 110 mls/hr IVPB DAILY [facility] Stop: 02/19/18 09:01 Last Admin: 02/18/18 08:48 Dose: 110 mls/hr Piperacillin Sod/Tazobactam (Sod 3.375 gm/ Sodium Chloride) 100 mls @ 100 mls/hr IVPB 0200,0800,1400,2000 [facility]; Protocol Last Admin: 02/18/18 08:48 Dose: 100 mls/hr Methylprednisolone 40 mg/ (Sodium Chloride) 50 mls @ 100 mls/hr IVPB Q8 [facility] Insulin Human Lispro (Humalog) 0 units SC ACHS [facility]; Protocol Last Admin: 02/18/18 12:18 Dose: 1 units Metronidazole (Flagyl) 500 mg PO Q8 [facility]; Protocol Last Admin: 02/18/18 08:46 Dose: 500 mg Morphine Sulfate (Morphine) 1 mg IVP Q6 PRN PRN Reason: Pain, severe (8-10) Last Admin: 02/15/18 19:59 Dose: 1 mg Ondansetron HCl (Zofran Inj) 4 mg IVP Q6 PRN PRN Reason: Nausea/Vomiting Sitagliptin Phosphate (Januvia) 100 mg PO DAILY [facility] Last Admin: 02/18/18 08:47 Dose: 100 mg - Labs Labs: 02/18/18 10:24 02/18/18 10:24
[2018-02-18] MEDS ORDERED: methylPREDNISolone 40 MG in Sodium Chloride 0.9% 50 ML IVPB SCH (17:00)
[2018-02-18] MEDS: MethylPREDNISolone 40 mg Vial IVP SCH (18:53)
[2018-02-18] MEDS: Tobramycin/Dexamethasone OPHT OINT OU SCH (21:14)
[2018-02-19] MEDS: Piperacillin/Tazobact 3.375 GM in Sodium Chloride 0.9% 100 ML IVPB SCH ×4 (01:41→21:17)
[2018-02-19] MEDS: MethylPREDNISolone 40 mg Vial IVP SCH ×3 (01:41→16:31)
[2018-02-19] MEDS: Insulin Lispro (humaLOG) 100 Units/ml Inj SC SCH ×4 (06:52→21:43)
[2018-02-19] MEDS: MESALAMINE PO SCH (08:24)
[2018-02-19] MEDS: Tobramycin/Dexamethasone OPHT OINT OU SCH ×3 (08:25→21:19)
--- NOTE | 2018-02-19 10:47 | CP.PCM.PN ---
Subjective - Date & Time of Evaluation Date of Evaluation: 02/19/18 Time of Evaluation: 10:45 - Subjective Subjective: looks and feels better !!! states stool slightly more formed no bleeding last night or this am denies abd pain PE: vss afebrile abd - soft with +BS imp/plan : IBD with pancolitis, started steroids yesterday and seems to be slightly better continue present care repeat labs tomorrow Objective - Vital Signs/Intake and Output Vital Signs (last 24 hours): Temp Pulse Resp BP Pulse Ox 98.2 F 60 18 100/62 97 02/19/18 07:57 02/19/18 07:57 02/19/18 07:57 02/19/18 07:57 02/19/18 07:57 - Medications Medications: Current Medications Acetaminophen (Tylenol 325mg Tab) 650 mg PO Q6 PRN PRN Reason: Headache Last Admin: 02/16/18 21:18 Dose: 650 mg Dextrose (Dextrose 50% Inj) 0 ml IV STAT PRN; Protocol PRN Reason: Hypoglycemia Protocol Dextrose (Glutose 15) 0 gm PO ONCE PRN; Protocol PRN Reason: Hypoglycemia Protocol Glucagon (Glucagen Diagnostic Kit) 0 mg IM STAT PRN; Protocol PRN Reason: Hypoglycemia Protocol Home Med (Empagliflozin [Jardiance]) 25 mg PO DAILY [facility] Last Admin: 02/19/18 08:21 Dose: 25 mg Home Med (Mesalamine [Apriso]) 4 cap PO DAILY [facility] Last Admin: 02/19/18 08:24 Dose: Not Given Piperacillin Sod/Tazobactam (Sod 3.375 gm/ Sodium Chloride) 100 mls @ 100 mls/hr IVPB 0200,0800,1400,2000 [facility]; Protocol Last Admin: 02/19/18 08:19 Dose: 100 mls/hr Insulin Human Lispro (Humalog) 0 units SC ACHS [facility]; Protocol Last Admin: 02/19/18 06:52 Dose: 3 units Methylprednisolone (Solu-Medrol) 40 mg IVP Q8 [facility] Last Admin: 02/19/18 08:21 Dose: 40 mg Metronidazole (Flagyl) 500 mg PO Q8 [facility]; Protocol Last Admin: 02/19/18 08:22 Dose: 500 mg Morphine Sulfate (Morphine) 1 mg IVP Q6 PRN PRN Reason: Pain, severe (8-10) Last Admin: 02/15/18 19:59 Dose: 1 mg Ondansetron HCl (Zofran Inj) 4 mg IVP Q6 PRN PRN Reason: Nausea/Vomiting Sitagliptin Phosphate (Januvia) 100 mg PO DAILY [facility] Last Admin: 02/19/18 08:22 Dose: 100 mg Tobramycin/Dexamethasone (Tobradex 0.3%-0.1% Opht Oint) 1 appl OU Q6H [facility] Last Admin: 02/19/18 08:25 Dose: 1 applic - Labs Labs: 02/18/18 10:24 02/18/18 10:24
--- NOTE | 2018-02-20 00:55 | CP.PCM.PN ---
Subjective - Date & Time of Evaluation Date of Evaluation: 02/17/18 Time of Evaluation: 18:05 Objective - Vital Signs/Intake and Output Vital Signs (last 24 hours): Temp Pulse Resp BP Pulse Ox 98.9 F 60 18 97/89 L 98 02/20/18 00:18 02/20/18 00:18 02/20/18 00:18 02/20/18 00:18 02/20/18 00:18 - Medications Medications: Current Medications Acetaminophen (Tylenol 325mg Tab) 650 mg PO Q6 PRN PRN Reason: Headache Last Admin: 02/16/18 21:18 Dose: 650 mg Dextrose (Dextrose 50% Inj) 0 ml IV STAT PRN; Protocol PRN Reason: Hypoglycemia Protocol Dextrose (Glutose 15) 0 gm PO ONCE PRN; Protocol PRN Reason: Hypoglycemia Protocol Glucagon (Glucagen Diagnostic Kit) 0 mg IM STAT PRN; Protocol PRN Reason: Hypoglycemia Protocol Home Med (Empagliflozin [Jardiance]) 25 mg PO DAILY [facility] Last Admin: 02/19/18 08:21 Dose: 25 mg Home Med (Mesalamine [Apriso]) 4 cap PO DAILY [facility] Last Admin: 02/19/18 08:24 Dose: Not Given Insulin Human Lispro (Humalog) 0 units SC [facility]; Protocol Last Admin: 02/19/18 21:43 Dose: 2 units Methylprednisolone (Solu-Medrol) 40 mg IVP Q8 [facility] Last Admin: 02/19/18 16:31 Dose: 40 mg Metronidazole (Flagyl) 500 mg PO Q8 [facility]; Protocol Last Admin: 02/19/18 16:34 Dose: 500 mg Morphine Sulfate (Morphine) 1 mg IVP Q6 PRN PRN Reason: Pain, severe (8-10) Last Admin: 02/15/18 19:59 Dose: 1 mg Ondansetron HCl (Zofran Inj) 4 mg IVP Q6 PRN PRN Reason: Nausea/Vomiting Sitagliptin Phosphate (Januvia) 100 mg PO DAILY [facility] Last Admin: 02/19/18 08:22 Dose: 100 mg Tobramycin/Dexamethasone (Tobradex 0.3%-0.1% Opht Oint) 1 appl OU Q6H [facility] Last Admin: 02/19/18 21:19 Dose: Not Given - Labs Labs: 02/18/18 10:24 02/18/18 10:24 Assessment and Plan (1) Pancolitis Status: Acute (2) Severe anemia Status: Acute (3) Thrombocytosis Status: Acute (4) Acute ulcerative colitis with rectal bleeding Status: Acute
--- NOTE | 2018-02-20 00:56 | CP.PCM.PN ---
Subjective - Date & Time of Evaluation Date of Evaluation: 02/18/18 Time of Evaluation: 18:05 Objective - Vital Signs/Intake and Output Vital Signs (last 24 hours): Temp Pulse Resp BP Pulse Ox 98.9 F 60 18 97/89 L 98 02/20/18 00:18 02/20/18 00:18 02/20/18 00:18 02/20/18 00:18 02/20/18 00:18 - Medications Medications: Current Medications Acetaminophen (Tylenol 325mg Tab) 650 mg PO Q6 PRN PRN Reason: Headache Last Admin: 02/16/18 21:18 Dose: 650 mg Dextrose (Dextrose 50% Inj) 0 ml IV STAT PRN; Protocol PRN Reason: Hypoglycemia Protocol Dextrose (Glutose 15) 0 gm PO ONCE PRN; Protocol PRN Reason: Hypoglycemia Protocol Glucagon (Glucagen Diagnostic Kit) 0 mg IM STAT PRN; Protocol PRN Reason: Hypoglycemia Protocol Home Med (Empagliflozin [Jardiance]) 25 mg PO DAILY [facility] Last Admin: 02/19/18 08:21 Dose: 25 mg Home Med (Mesalamine [Apriso]) 4 cap PO DAILY [facility] Last Admin: 02/19/18 08:24 Dose: Not Given Insulin Human Lispro (Humalog) 0 units SC [facility]; Protocol Last Admin: 02/19/18 21:43 Dose: 2 units Methylprednisolone (Solu-Medrol) 40 mg IVP Q8 [facility] Last Admin: 02/19/18 16:31 Dose: 40 mg Metronidazole (Flagyl) 500 mg PO Q8 [facility]; Protocol Last Admin: 02/19/18 16:34 Dose: 500 mg Morphine Sulfate (Morphine) 1 mg IVP Q6 PRN PRN Reason: Pain, severe (8-10) Last Admin: 02/15/18 19:59 Dose: 1 mg Ondansetron HCl (Zofran Inj) 4 mg IVP Q6 PRN PRN Reason: Nausea/Vomiting Sitagliptin Phosphate (Januvia) 100 mg PO DAILY [facility] Last Admin: 02/19/18 08:22 Dose: 100 mg Tobramycin/Dexamethasone (Tobradex 0.3%-0.1% Opht Oint) 1 appl OU Q6H [facility] Last Admin: 02/19/18 21:19 Dose: Not Given - Labs Labs: 02/18/18 10:24 02/18/18 10:24 Assessment and Plan (1) Pancolitis Status: Acute (2) Severe anemia Status: Acute (3) Thrombocytosis Status: Acute (4) Acute ulcerative colitis with rectal bleeding Status: Acute
--- NOTE | 2018-02-20 00:57 | CP.PCM.PN ---
Subjective - Date & Time of Evaluation Date of Evaluation: 02/19/18 Time of Evaluation: 18:15 Objective - Vital Signs/Intake and Output Vital Signs (last 24 hours): Temp Pulse Resp BP Pulse Ox 98.9 F 60 18 97/89 L 98 02/20/18 00:18 02/20/18 00:18 02/20/18 00:18 02/20/18 00:18 02/20/18 00:18 - Medications Medications: Current Medications Acetaminophen (Tylenol 325mg Tab) 650 mg PO Q6 PRN PRN Reason: Headache Last Admin: 02/16/18 21:18 Dose: 650 mg Dextrose (Dextrose 50% Inj) 0 ml IV STAT PRN; Protocol PRN Reason: Hypoglycemia Protocol Dextrose (Glutose 15) 0 gm PO ONCE PRN; Protocol PRN Reason: Hypoglycemia Protocol Glucagon (Glucagen Diagnostic Kit) 0 mg IM STAT PRN; Protocol PRN Reason: Hypoglycemia Protocol Home Med (Empagliflozin [Jardiance]) 25 mg PO DAILY [facility] Last Admin: 02/19/18 08:21 Dose: 25 mg Home Med (Mesalamine [Apriso]) 4 cap PO DAILY [facility] Last Admin: 02/19/18 08:24 Dose: Not Given Insulin Human Lispro (Humalog) 0 units SC [facility]; Protocol Last Admin: 02/19/18 21:43 Dose: 2 units Methylprednisolone (Solu-Medrol) 40 mg IVP Q8 [facility] Last Admin: 02/19/18 16:31 Dose: 40 mg Metronidazole (Flagyl) 500 mg PO Q8 [facility]; Protocol Last Admin: 02/19/18 16:34 Dose: 500 mg Morphine Sulfate (Morphine) 1 mg IVP Q6 PRN PRN Reason: Pain, severe (8-10) Last Admin: 02/15/18 19:59 Dose: 1 mg Ondansetron HCl (Zofran Inj) 4 mg IVP Q6 PRN PRN Reason: Nausea/Vomiting Sitagliptin Phosphate (Januvia) 100 mg PO DAILY [facility] Last Admin: 02/19/18 08:22 Dose: 100 mg Tobramycin/Dexamethasone (Tobradex 0.3%-0.1% Opht Oint) 1 appl OU Q6H [facility] Last Admin: 02/19/18 21:19 Dose: Not Given - Labs Labs: 02/18/18 10:24 02/18/18 10:24 Assessment and Plan (1) Pancolitis Status: Acute (2) Severe anemia Status: Acute (3) Thrombocytosis Status: Acute (4) Acute ulcerative colitis with rectal bleeding Status: Acute
[2018-02-20] MEDS: MethylPREDNISolone 40 mg Vial IVP SCH ×3 (01:28→21:27)
[2018-02-20] MEDS: Tobramycin/Dexamethasone OPHT OINT OU SCH ×4 (03:01→21:25)
[2018-02-20 06:23] LABS: BASO % 0.3 % (0.0-2.0); HEMOGLOBIN 10.3 g/dL (12.0-18.0); LYMPH # 0.8 K/uL (1.0-4.3); LYMPH % 7.1 % (20.0-40.0); MEAN CELL VOLUME 77.7 fl (80.0-94.0); MEAN CORPUSCULAR HEMOGLOBIN 24.3 pg (27.0-31.0); MEAN CORPUSCULAR HGB CONC 31.3 g/dL (33.0-37.0); MEAN PLATELET VOLUME 6.5 fl (7.2-11.7); MONO # 0.2 K/uL (0.0-0.8); MONO % 1.7 % (0.0-10.0); NEUT # 10.5 K/uL (1.8-7.0); NEUT % 90.9 % (50.0-75.0); NRBC % 0.1 % (0.0-0.0); RBC 4.22 Mil/uL (4.40-5.90); RED CELL DISTRIBUTION WIDTH 28.8 % (11.5-14.5); WHITE BLOOD COUNT 11.6 K/uL (4.8-10.8)
[2018-02-20 06:47] LABS: ALB/GLOB RATIO 0.7 (1.0-2.1); ALBUMIN 2.3 g/dL (3.5-5.0); ALT/SGPT 24 U/L (21-72); AST/SGOT 24 U/L (17-59); BLOOD UREA NITROGEN 15 mg/dl (9-20); CALCIUM 8.3 mg/dL (8.4-10.2); GFR NON-AFRICAN AMERICAN > 60
[2018-02-20 06:54] LABS: PLATELET COUNT 952 K/uL (130-400)
[2018-02-20 08:52] LABS: LYMPHOCYTE 10 % (20-50); MONOCYTE 1 % (0-10); NEUTROPHIL 89 % (42-75); PLATELET ESTIMATE MARKEDLY INCREASED (NORMAL); TOTAL CELLS COUNTED 100
[2018-02-20 08:53] LABS: ANISOCYTOSIS SLIGHT; HYPOCHROMIC MODERATE; LARGE PLATELETS PRESENT; OVALOCYTES SLIGHT; POIKILOCYTOSIS SLIGHT; TEARDROP CELLS SLIGHT
[2018-02-20] MEDS: Insulin Lispro (humaLOG) 100 Units/ml Inj SC SCH ×4 (08:56→21:31)
[2018-02-20] MEDS: MESALAMINE PO SCH (08:58)
--- NOTE | 2018-02-20 13:55 | CP.PCM.PN ---
Subjective - Date & Time of Evaluation Date of Evaluation: 02/20/18 Time of Evaluation: 13:53 - Subjective Subjective: looks and feels much better stools starting to form but still soft no bleeding tolerating diet PE;vss afebrile abd - soft with +BS NT/ND imp/plan : IBD doing better decrease steroids to BID continue all other meds if continues to improve will switch to oral Prednisone in the next 24-48 hours Objective - Vital Signs/Intake and Output Vital Signs (last 24 hours): Temp Pulse Resp BP Pulse Ox 97.6 F 64 18 100/62 97 02/20/18 11:59 02/20/18 11:59 02/20/18 11:59 02/20/18 11:59 02/20/18 11:59 - Medications Medications: Current Medications Acetaminophen (Tylenol 325mg Tab) 650 mg PO Q6 PRN PRN Reason: Headache Last Admin: 02/16/18 21:18 Dose: 650 mg Dextrose (Dextrose 50% Inj) 0 ml IV STAT PRN; Protocol PRN Reason: Hypoglycemia Protocol Dextrose (Glutose 15) 0 gm PO ONCE PRN; Protocol PRN Reason: Hypoglycemia Protocol Glucagon (Glucagen Diagnostic Kit) 0 mg IM STAT PRN; Protocol PRN Reason: Hypoglycemia Protocol Home Med (Empagliflozin [Jardiance]) 25 mg PO DAILY [facility] Last Admin: 02/20/18 08:55 Dose: 25 mg Home Med (Mesalamine [Apriso]) 4 cap PO DAILY [facility] Last Admin: 02/20/18 08:58 Dose: Not Given Methylprednisolone 40 mg/ (Sodium Chloride) 50 mls @ 100 mls/hr IVPB Q12 [facility] Insulin Human Lispro (Humalog) 0 units SC ACHS [facility]; Protocol Last Admin: 02/20/18 12:40 Dose: 3 units Metronidazole (Flagyl) 500 mg PO Q8 [facility]; Protocol Last Admin: 02/20/18 08:58 Dose: 500 mg Morphine Sulfate (Morphine) 1 mg IVP Q6 PRN PRN Reason: Pain, severe (8-10) Last Admin: 02/15/18 19:59 Dose: 1 mg Ondansetron HCl (Zofran Inj) 4 mg IVP Q6 PRN PRN Reason: Nausea/Vomiting Sitagliptin Phosphate (Januvia) 100 mg PO DAILY [facility] Last Admin: 02/20/18 08:58 Dose: 100 mg Tobramycin/Dexamethasone (Tobradex 0.3%-0.1% Opht Oint) 1 appl OU Q6H [facility] Last Admin: 02/20/18 08:55 Dose: 1 applic - Labs Labs: 02/20/18 04:20 02/20/18 04:20
[2018-02-20] MEDS ORDERED: methylPREDNISolone 40 MG in Sodium Chloride 0.9% 50 ML IVPB SCH (21:00)
--- NOTE | 2018-02-20 22:48 | PQF ---
PROVIDER RESPONSE TEXT: REVIEWER QUERY TEXT: Clarification of Clinical Diagnostic Findings Please clarify documentation or clinical relevance for the clinical / diagnostic findings or whether those are insignificant or unable to be further specified. Na level 130 and K level 5.6 on admission. Please clarify if there are associated diagnoses or not to go along with these findings. The patient's Clinical Indicators include: Patient with Crohn's disease is admitted with colitis. Na level 130 and K level 5.6 on admission. Rx: IVF Query created by: Mariana William on 02/16/2018 8:18 AM Electronically signed by: Jules Kowalski MD 02/20/2018 10:45 PM
[2018-02-21 06:59] LABS: HEMOGLOBIN 10.5 g/dL (12.0-18.0); MEAN CELL VOLUME 77.6 fl (80.0-94.0); MEAN CORPUSCULAR HEMOGLOBIN 24.4 pg (27.0-31.0); MEAN CORPUSCULAR HGB CONC 31.4 g/dL (33.0-37.0); RBC 4.3 Mil/uL (4.40-5.90); RED CELL DISTRIBUTION WIDTH 28.9 % (11.5-14.5); WHITE BLOOD COUNT 9.2 K/uL (4.8-10.8)
[2018-02-21] MEDS: Insulin Lispro (humaLOG) 100 Units/ml Inj SC SCH ×5 (06:59→22:00)
[2018-02-21 07:16] LABS: BLOOD UREA NITROGEN 20 mg/dl (9-20); CALCIUM 8.2 mg/dL (8.4-10.2); GFR NON-AFRICAN AMERICAN > 60
[2018-02-21] MEDS: MethylPREDNISolone 40 mg Vial IVP SCH ×2 (08:32→21:40)
[2018-02-21] MEDS: Tobramycin/Dexamethasone OPHT OINT OU SCH ×3 (08:32→21:41)
[2018-02-21] MEDS: MESALAMINE PO SCH (08:34)
--- NOTE | 2018-02-21 12:17 | CP.PCM.PN ---
Subjective - Date & Time of Evaluation Date of Evaluation: 02/21/18 Time of Evaluation: 12:16 - Subjective Subjective: doing well with less frequency of BM's, more formed BM's and no bleeding denies abd pain PE: vss afebrile abd - soft with +BS NT/ND labs - noted imp/plan : IBD with pancolitis - improving change to oral Prednisone tomorrow with an eye towards d/c Friday Objective - Vital Signs/Intake and Output Vital Signs (last 24 hours): Temp Pulse Resp BP Pulse Ox 97.8 F 59 L 20 113/69 99 02/21/18 11:57 02/21/18 11:57 02/21/18 11:57 02/21/18 11:57 02/21/18 11:57 - Medications Medications: Current Medications Acetaminophen (Tylenol 325mg Tab) 650 mg PO Q6 PRN PRN Reason: Headache Last Admin: 02/16/18 21:18 Dose: 650 mg Dextrose (Dextrose 50% Inj) 0 ml IV STAT PRN; Protocol PRN Reason: Hypoglycemia Protocol Dextrose (Glutose 15) 0 gm PO ONCE PRN; Protocol PRN Reason: Hypoglycemia Protocol Glucagon (Glucagen Diagnostic Kit) 0 mg IM STAT PRN; Protocol PRN Reason: Hypoglycemia Protocol Home Med (Empagliflozin [Jardiance]) 25 mg PO DAILY [facility] Last Admin: 02/21/18 08:33 Dose: 25 mg Home Med (Mesalamine [Apriso]) 4 cap PO DAILY [facility] Last Admin: 02/21/18 08:34 Dose: Not Given Insulin Human Lispro (Humalog) 0 units SC ACHS [facility]; Protocol Last Admin: 02/21/18 11:49 Dose: 3 units Methylprednisolone (Solu-Medrol) 40 mg IVP Q12 [facility] Last Admin: 02/21/18 08:32 Dose: 40 mg Morphine Sulfate (Morphine) 1 mg IVP Q6 PRN PRN Reason: Pain, severe (8-10) Last Admin: 02/15/18 19:59 Dose: 1 mg Ondansetron HCl (Zofran Inj) 4 mg IVP Q6 PRN PRN Reason: Nausea/Vomiting Prednisone (Prednisone Tab) 20 mg PO BID [facility] Sitagliptin Phosphate (Januvia) 100 mg PO DAILY [facility] Last Admin: 02/21/18 08:33 Dose: 100 mg Tobramycin/Dexamethasone (Tobradex 0.3%-0.1% Opht Oint) 1 appl OU Q6H [facility] Last Admin: 02/21/18 08:32 Dose: 1 applic - Labs Labs: 02/21/18 05:25 02/21/18 05:25
[2018-02-22] MEDS: Tobramycin/Dexamethasone OPHT OINT OU SCH ×4 (03:00→22:10)
[2018-02-22] MEDS: Insulin Lispro (humaLOG) 100 Units/ml Inj SC SCH ×4 (07:05→22:00)
[2018-02-22] MEDS: MESALAMINE PO SCH (08:23)
--- NOTE | 2018-02-22 12:53 | CP.PCM.PN ---
Subjective - Date & Time of Evaluation Date of Evaluation: 02/22/18 Time of Evaluation: 12:51 - Subjective Subjective: doing well without bleeding less BM's and more formed slight abd pain PE: vss afebrile abd - soft with +BS mildly tender imp/plan : IBD with pancolitis continue mesalamine and oral prednisone d/c antibiotics tomorrow prior to discharge repeat labs Objective - Vital Signs/Intake and Output Vital Signs (last 24 hours): Temp Pulse Resp BP Pulse Ox 98.0 F 55 L 20 121/70 99 02/22/18 08:00 02/22/18 08:00 02/22/18 08:00 02/22/18 08:00 02/22/18 08:00 - Medications Medications: Current Medications Acetaminophen (Tylenol 325mg Tab) 650 mg PO Q6 PRN PRN Reason: Headache Last Admin: 02/16/18 21:18 Dose: 650 mg Dextrose (Dextrose 50% Inj) 0 ml IV STAT PRN; Protocol PRN Reason: Hypoglycemia Protocol Dextrose (Glutose 15) 0 gm PO ONCE PRN; Protocol PRN Reason: Hypoglycemia Protocol Glucagon (Glucagen Diagnostic Kit) 0 mg IM STAT PRN; Protocol PRN Reason: Hypoglycemia Protocol Home Med (Empagliflozin [Jardiance]) 25 mg PO DAILY [facility] Last Admin: 02/22/18 08:21 Dose: 25 mg Home Med (Mesalamine [Apriso]) 4 cap PO DAILY [facility] Last Admin: 02/22/18 08:23 Dose: Not Given Insulin Human Lispro (Humalog) 0 units SC ACHS [facility]; Protocol Last Admin: 02/22/18 12:41 Dose: 2 units Methylprednisolone (Solu-Medrol) 40 mg IVP Q12 [facility] Last Admin: 02/21/18 21:40 Dose: 40 mg Ondansetron HCl (Zofran Inj) 4 mg IVP Q6 PRN PRN Reason: Nausea/Vomiting Pantoprazole Sodium (Protonix Ec Tab) 40 mg PO DAILY [facility] Prednisone (Prednisone Tab) 20 mg PO BID [facility] Last Admin: 02/22/18 08:20 Dose: 20 mg Sitagliptin Phosphate (Januvia) 100 mg PO DAILY [facility] Last Admin: 02/22/18 08:20 Dose: 100 mg Tobramycin/Dexamethasone (Tobradex 0.3%-0.1% Opht Oint) 1 appl OU Q6H [facility] Last Admin: 02/22/18 08:22 Dose: 1 applic - Labs Labs: 02/21/18 05:25 02/21/18 05:25
[2018-02-22] MEDS: Pantoprazole 40 mg EC Tab PO SCH (17:03)
[2018-02-22 20:08] VITALS: RESP 18
--- NOTE | 2018-02-23 00:06 | CP.PCM.PN ---
Subjective - Date & Time of Evaluation Date of Evaluation: 02/18/18 Time of Evaluation: 12:00 - Subjective Subjective: Has less diarrhea Objective - Vital Signs/Intake and Output Vital Signs (last 24 hours): Temp Pulse Resp BP Pulse Ox 98.1 F 65 18 105/58 L 98 02/22/18 20:08 02/22/18 20:08 02/22/18 20:08 02/22/18 20:08 02/22/18 20:08 - Medications Medications: Current Medications Acetaminophen (Tylenol 325mg Tab) 650 mg PO Q6 PRN PRN Reason: Headache Last Admin: 02/16/18 21:18 Dose: 650 mg Dextrose (Dextrose 50% Inj) 0 ml IV STAT PRN; Protocol PRN Reason: Hypoglycemia Protocol Dextrose (Glutose 15) 0 gm PO ONCE PRN; Protocol PRN Reason: Hypoglycemia Protocol Glucagon (Glucagen Diagnostic Kit) 0 mg IM STAT PRN; Protocol PRN Reason: Hypoglycemia Protocol Home Med (Empagliflozin [Jardiance]) 25 mg PO DAILY [facility] Last Admin: 02/22/18 08:21 Dose: 25 mg Home Med (Mesalamine [Apriso]) 4 cap PO DAILY [facility] Last Admin: 02/22/18 08:23 Dose: Not Given Insulin Human Lispro (Humalog) 0 units SC ACHS [facility]; Protocol Last Admin: 02/22/18 17:00 Dose: 3 units Methylprednisolone (Solu-Medrol) 40 mg IVP Q12 [facility] Last Admin: 02/21/18 21:40 Dose: 40 mg Ondansetron HCl (Zofran Inj) 4 mg IVP Q6 PRN PRN Reason: Nausea/Vomiting Pantoprazole Sodium (Protonix Ec Tab) 40 mg PO DAILY [facility] Last Admin: 02/22/18 17:03 Dose: 40 mg Prednisone (Prednisone Tab) 20 mg PO BID [facility] Last Admin: 02/22/18 17:00 Dose: 20 mg Sitagliptin Phosphate (Januvia) 100 mg PO DAILY [facility] Last Admin: 02/22/18 08:20 Dose: 100 mg Tobramycin/Dexamethasone (Tobradex 0.3%-0.1% Opht Oint) 1 appl OU Q6H [facility] Last Admin: 02/22/18 22:10 Dose: Not Given - Labs Labs: 02/21/18 05:25 11/24/18 05:25 - Head Exam Head Exam: ATRAUMATIC - Eye Exam Eye Exam: Normal appearance - ENT Exam ENT Exam: Mucous Membranes Dry - Respiratory Exam Respiratory Exam: NORMAL BREATHING PATTERN - Cardiovascular Exam Cardiovascular Exam: +S1, +S2 - GI/Abdominal Exam GI & Abdominal Exam: Normal Bowel Sounds - Extremities Exam Extremities Exam: Normal Inspection Assessment and Plan (1) Severe anemia Assessment & Plan: iron deficiency from chronic GI blood loss and 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
--- NOTE | 2018-02-23 00:07 | CP.PCM.PN ---
Subjective - Date & Time of Evaluation Date of Evaluation: 02/20/18 Time of Evaluation: 13:00 - Subjective Subjective: Feeling better. Objective - Vital Signs/Intake and Output Vital Signs (last 24 hours): Temp Pulse Resp BP Pulse Ox 98.1 F 65 18 105/58 L 98 02/22/18 20:08 02/22/18 20:08 02/22/18 20:08 02/22/18 20:08 02/22/18 20:08 - Medications Medications: Current Medications Acetaminophen (Tylenol 325mg Tab) 650 mg PO Q6 PRN PRN Reason: Headache Last Admin: 02/16/18 21:18 Dose: 650 mg Dextrose (Dextrose 50% Inj) 0 ml IV STAT PRN; Protocol PRN Reason: Hypoglycemia Protocol Dextrose (Glutose 15) 0 gm PO ONCE PRN; Protocol PRN Reason: Hypoglycemia Protocol Glucagon (Glucagen Diagnostic Kit) 0 mg IM STAT PRN; Protocol PRN Reason: Hypoglycemia Protocol Home Med (Empagliflozin [Jardiance]) 25 mg PO DAILY [facility] Last Admin: 02/22/18 08:21 Dose: 25 mg Home Med (Mesalamine [Apriso]) 4 cap PO DAILY [facility] Last Admin: 02/22/18 08:23 Dose: Not Given Insulin Human Lispro (Humalog) 0 units SC ACHS [facility]; Protocol Last Admin: 02/22/18 17:00 Dose: 3 units Methylprednisolone (Solu-Medrol) 40 mg IVP Q12 [facility] Last Admin: 02/21/18 21:40 Dose: 40 mg Ondansetron HCl (Zofran Inj) 4 mg IVP Q6 PRN PRN Reason: Nausea/Vomiting Pantoprazole Sodium (Protonix Ec Tab) 40 mg PO DAILY [facility] Last Admin: 02/22/18 17:03 Dose: 40 mg Prednisone (Prednisone Tab) 20 mg PO BID [facility] Last Admin: 02/22/18 17:00 Dose: 20 mg Sitagliptin Phosphate (Januvia) 100 mg PO DAILY [facility] Last Admin: 02/22/18 08:20 Dose: 100 mg Tobramycin/Dexamethasone (Tobradex 0.3%-0.1% Opht Oint) 1 appl OU Q6H [facility] Last Admin: 02/22/18 22:10 Dose: Not Given - Labs Labs: 02/21/18 05:25 11/24/18 05:25 - Head Exam Head Exam: ATRAUMATIC - Eye Exam Eye Exam: Normal appearance - ENT Exam ENT Exam: Mucous Membranes Dry - Respiratory Exam Respiratory Exam: NORMAL BREATHING PATTERN - Cardiovascular Exam Cardiovascular Exam: +S1, +S2 Assessment and Plan (1) Severe anemia Assessment & Plan: iron deficiency from chronic GI blood loss and 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
--- NOTE | 2018-02-23 00:08 | CP.PCM.PN ---
Subjective - Date & Time of Evaluation Date of Evaluation: 02/21/18 Time of Evaluation: 17:00 - Subjective Subjective: Less diarrhea, some abdominal cramping. Objective - Vital Signs/Intake and Output Vital Signs (last 24 hours): Temp Pulse Resp BP Pulse Ox 98.1 F 65 18 105/58 L 98 02/22/18 20:08 02/22/18 20:08 02/22/18 20:08 02/22/18 20:08 02/22/18 20:08 - Medications Medications: Current Medications Acetaminophen (Tylenol 325mg Tab) 650 mg PO Q6 PRN PRN Reason: Headache Last Admin: 02/16/18 21:18 Dose: 650 mg Dextrose (Dextrose 50% Inj) 0 ml IV STAT PRN; Protocol PRN Reason: Hypoglycemia Protocol Dextrose (Glutose 15) 0 gm PO ONCE PRN; Protocol PRN Reason: Hypoglycemia Protocol Glucagon (Glucagen Diagnostic Kit) 0 mg IM STAT PRN; Protocol PRN Reason: Hypoglycemia Protocol Home Med (Empagliflozin [Jardiance]) 25 mg PO DAILY [facility] Last Admin: 02/22/18 08:21 Dose: 25 mg Home Med (Mesalamine [Apriso]) 4 cap PO DAILY [facility] Last Admin: 02/22/18 08:23 Dose: Not Given Insulin Human Lispro (Humalog) 0 units SC ACHS [facility]; Protocol Last Admin: 02/22/18 17:00 Dose: 3 units Methylprednisolone (Solu-Medrol) 40 mg IVP Q12 [facility] Last Admin: 02/21/18 21:40 Dose: 40 mg Ondansetron HCl (Zofran Inj) 4 mg IVP Q6 PRN PRN Reason: Nausea/Vomiting Pantoprazole Sodium (Protonix Ec Tab) 40 mg PO DAILY [facility] Last Admin: 02/22/18 17:03 Dose: 40 mg Prednisone (Prednisone Tab) 20 mg PO BID [facility] Last Admin: 02/22/18 17:00 Dose: 20 mg Sitagliptin Phosphate (Januvia) 100 mg PO DAILY [facility] Last Admin: 02/22/18 08:20 Dose: 100 mg Tobramycin/Dexamethasone (Tobradex 0.3%-0.1% Opht Oint) 1 appl OU Q6H [facility] Last Admin: 02/22/18 22:10 Dose: Not Given - Labs Labs: 02/21/18 05:25 02/21/18 05:25 - Head Exam Head Exam: ATRAUMATIC - Eye Exam Eye Exam: Normal appearance - ENT Exam ENT Exam: Mucous Membranes Dry - Respiratory Exam Respiratory Exam: NORMAL BREATHING PATTERN - Cardiovascular Exam Cardiovascular Exam: +S1, +S2 - GI/Abdominal Exam GI & Abdominal Exam: Normal Bowel Sounds Assessment and Plan (1) Severe anemia Assessment & Plan: iron deficiency from chronic GI blood loss and 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
--- NOTE | 2018-02-23 00:10 | CP.PCM.PN ---
Subjective - Date & Time of Evaluation Date of Evaluation: 02/22/18 Time of Evaluation: 18:00 - Subjective Subjective: Has some abdominal cramping. Objective - Vital Signs/Intake and Output Vital Signs (last 24 hours): Temp Pulse Resp BP Pulse Ox 98.1 F 65 18 105/58 L 98 02/22/18 20:08 02/22/18 20:08 02/22/18 20:08 02/22/18 20:08 02/22/18 20:08 - Medications Medications: Current Medications Acetaminophen (Tylenol 325mg Tab) 650 mg PO Q6 PRN PRN Reason: Headache Last Admin: 02/16/18 21:18 Dose: 650 mg Dextrose (Dextrose 50% Inj) 0 ml IV STAT PRN; Protocol PRN Reason: Hypoglycemia Protocol Dextrose (Glutose 15) 0 gm PO ONCE PRN; Protocol PRN Reason: Hypoglycemia Protocol Glucagon (Glucagen Diagnostic Kit) 0 mg IM STAT PRN; Protocol PRN Reason: Hypoglycemia Protocol Home Med (Empagliflozin [Jardiance]) 25 mg PO DAILY [facility] Last Admin: 02/22/18 08:21 Dose: 25 mg Home Med (Mesalamine [Apriso]) 4 cap PO DAILY [facility] Last Admin: 02/22/18 08:23 Dose: Not Given Insulin Human Lispro (Humalog) 0 units SC ACHS [facility]; Protocol Last Admin: 02/22/18 17:00 Dose: 3 units Methylprednisolone (Solu-Medrol) 40 mg IVP Q12 [facility] Last Admin: 02/21/18 21:40 Dose: 40 mg Ondansetron HCl (Zofran Inj) 4 mg IVP Q6 PRN PRN Reason: Nausea/Vomiting Pantoprazole Sodium (Protonix Ec Tab) 40 mg PO DAILY [facility] Last Admin: 02/22/18 17:03 Dose: 40 mg Prednisone (Prednisone Tab) 20 mg PO BID [facility] Last Admin: 02/22/18 17:00 Dose: 20 mg Sitagliptin Phosphate (Januvia) 100 mg PO DAILY [facility] Last Admin: 02/22/18 08:20 Dose: 100 mg Tobramycin/Dexamethasone (Tobradex 0.3%-0.1% Opht Oint) 1 appl OU Q6H [facility] Last Admin: 02/22/18 22:10 Dose: Not Given - Labs Labs: 02/21/18 05:25 02/21/18 05:25 - Head Exam Head Exam: ATRAUMATIC - Eye Exam Eye Exam: Normal appearance - ENT Exam ENT Exam: Mucous Membranes Dry - Respiratory Exam Respiratory Exam: NORMAL BREATHING PATTERN - Cardiovascular Exam Cardiovascular Exam: +S1, +S2 - GI/Abdominal Exam GI & Abdominal Exam: Normal Bowel Sounds Assessment and Plan (1) Severe anemia Assessment & Plan: iron deficiency from chronic GI blood loss and 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
[2018-02-23] MEDS: Tobramycin/Dexamethasone OPHT OINT OU SCH ×5 (03:55→08:50)
[2018-02-23 05:56] LABS: BLOOD UREA NITROGEN 25 mg/dl (9-20); GFR NON-AFRICAN AMERICAN > 60
[2018-02-23 06:04] LABS: HEMOGLOBIN 10.5 g/dL (12.0-18.0); LYMPH # 1.7 K/uL (1.0-4.3); LYMPH % 16.3 % (20.0-40.0); MEAN CELL VOLUME 78.1 fl (80.0-94.0); MEAN CORPUSCULAR HEMOGLOBIN 24.7 pg (27.0-31.0); MEAN CORPUSCULAR HGB CONC 31.6 g/dL (33.0-37.0); MEAN PLATELET VOLUME 6.6 fl (7.2-11.7); MONO # 0.7 K/uL (0.0-0.8); MONO % 6.6 % (0.0-10.0); NEUT # 7.8 K/uL (1.8-7.0); NEUT % 77.1 % (50.0-75.0); NRBC % 0.2 % (0.0-0.0); RBC 4.25 Mil/uL (4.40-5.90); RED CELL DISTRIBUTION WIDTH 29.1 % (11.5-14.5); WHITE BLOOD COUNT 10.2 K/uL (4.8-10.8)
[2018-02-23] MEDS: Insulin Lispro (humaLOG) 100 Units/ml Inj SC SCH ×2 (08:45→12:30)
[2018-02-23] MEDS: Pantoprazole 40 mg EC Tab PO SCH (08:47)
[2018-02-23] MEDS: MESALAMINE PO SCH (08:47)
[2018-02-23 08:49] VITALS: BP 121/69; PULSE 58; TEMP 98.4; O2SAT 97
--- NOTE | 2018-02-23 09:18 | CP.PCM.PN ---
Subjective - Date & Time of Evaluation Date of Evaluation: 02/20/18 Time of Evaluation: 18:15 Objective - Vital Signs/Intake and Output Vital Signs (last 24 hours): Temp Pulse Resp BP Pulse Ox 98.4 F 58 L 18 121/69 97 02/23/18 08:48 02/23/18 08:48 02/23/18 08:48 02/23/18 08:48 02/23/18 08:48 - Medications Medications: Current Medications Acetaminophen (Tylenol 325mg Tab) 650 mg PO Q6 PRN PRN Reason: Headache Last Admin: 02/16/18 21:18 Dose: 650 mg Dextrose (Dextrose 50% Inj) 0 ml IV STAT PRN; Protocol PRN Reason: Hypoglycemia Protocol Dextrose (Glutose 15) 0 gm PO ONCE PRN; Protocol PRN Reason: Hypoglycemia Protocol Glucagon (Glucagen Diagnostic Kit) 0 mg IM STAT PRN; Protocol PRN Reason: Hypoglycemia Protocol Home Med (Empagliflozin [Jardiance]) 25 mg PO DAILY [facility] Last Admin: 02/23/18 08:45 Dose: 25 mg Home Med (Mesalamine [Apriso]) 4 cap PO DAILY [facility] Last Admin: 02/23/18 08:47 Dose: Not Given Insulin Human Lispro (Humalog) 0 units SC ACHS [facility]; Protocol Last Admin: 02/23/18 08:45 Dose: 3 units Methylprednisolone (Solu-Medrol) 40 mg IVP Q12 [facility] Last Admin: 02/21/18 21:40 Dose: 40 mg Ondansetron HCl (Zofran Inj) 4 mg IVP Q6 PRN PRN Reason: Nausea/Vomiting Pantoprazole Sodium (Protonix Ec Tab) 40 mg PO DAILY [facility] Last Admin: 02/23/18 08:47 Dose: 40 mg Prednisone (Prednisone Tab) 20 mg PO BID [facility] Last Admin: 02/23/18 08:47 Dose: 20 mg Sitagliptin Phosphate (Januvia) 100 mg PO DAILY [facility] Last Admin: 02/23/18 08:47 Dose: 100 mg Tobramycin/Dexamethasone (Tobradex 0.3%-0.1% Opht Oint) 1 appl OU Q6H [facility] Last Admin: 02/23/18 08:50 Dose: Not Given - Labs Labs: 02/23/18 04:30 02/23/18 04:30 Assessment and Plan (1) Pancolitis Status: Acute (2) Severe anemia Status: Acute (3) Thrombocytosis Status: Acute (4) Acute ulcerative colitis with rectal bleeding Status: Acute
--- NOTE | 2018-02-23 09:19 | CP.PCM.PN ---
Subjective - Date & Time of Evaluation Date of Evaluation: 02/21/18 Time of Evaluation: 08:30 Objective - Vital Signs/Intake and Output Vital Signs (last 24 hours): Temp Pulse Resp BP Pulse Ox 98.4 F 58 L 18 121/69 97 02/23/18 08:48 02/23/18 08:48 02/23/18 08:48 02/23/18 08:48 02/23/18 08:48 - Medications Medications: Current Medications Acetaminophen (Tylenol 325mg Tab) 650 mg PO Q6 PRN PRN Reason: Headache Last Admin: 02/16/18 21:18 Dose: 650 mg Dextrose (Dextrose 50% Inj) 0 ml IV STAT PRN; Protocol PRN Reason: Hypoglycemia Protocol Dextrose (Glutose 15) 0 gm PO ONCE PRN; Protocol PRN Reason: Hypoglycemia Protocol Glucagon (Glucagen Diagnostic Kit) 0 mg IM STAT PRN; Protocol PRN Reason: Hypoglycemia Protocol Home Med (Empagliflozin [Jardiance]) 25 mg PO DAILY [facility] Last Admin: 02/23/18 08:45 Dose: 25 mg Home Med (Mesalamine [Apriso]) 4 cap PO DAILY [facility] Last Admin: 02/23/18 08:47 Dose: Not Given Insulin Human Lispro (Humalog) 0 units SC ACHS [facility]; Protocol Last Admin: 02/23/18 08:45 Dose: 3 units Methylprednisolone (Solu-Medrol) 40 mg IVP Q12 [facility] Last Admin: 02/21/18 21:40 Dose: 40 mg Ondansetron HCl (Zofran Inj) 4 mg IVP Q6 PRN PRN Reason: Nausea/Vomiting Pantoprazole Sodium (Protonix Ec Tab) 40 mg PO DAILY [facility] Last Admin: 02/23/18 08:47 Dose: 40 mg Prednisone (Prednisone Tab) 20 mg PO BID [facility] Last Admin: 02/23/18 08:47 Dose: 20 mg Sitagliptin Phosphate (Januvia) 100 mg PO DAILY [facility] Last Admin: 02/23/18 08:47 Dose: 100 mg Tobramycin/Dexamethasone (Tobradex 0.3%-0.1% Opht Oint) 1 appl OU Q6H [facility] Last Admin: 02/23/18 08:50 Dose: Not Given - Labs Labs: 02/23/18 04:30 02/23/18 04:30 Assessment and Plan (1) Pancolitis Status: Acute (2) Severe anemia Status: Acute (3) Thrombocytosis Status: Acute (4) Acute ulcerative colitis with rectal bleeding Status: Acute
--- NOTE | 2018-02-23 09:20 | CP.PCM.PN ---
Subjective - Date & Time of Evaluation Date of Evaluation: 02/22/18 Time of Evaluation: 09:00 Objective - Vital Signs/Intake and Output Vital Signs (last 24 hours): Temp Pulse Resp BP Pulse Ox 98.4 F 58 L 18 121/69 97 02/23/18 08:48 02/23/18 08:48 02/23/18 08:48 02/23/18 08:48 02/23/18 08:48 - Medications Medications: Current Medications Acetaminophen (Tylenol 325mg Tab) 650 mg PO Q6 PRN PRN Reason: Headache Last Admin: 02/16/18 21:18 Dose: 650 mg Dextrose (Dextrose 50% Inj) 0 ml IV STAT PRN; Protocol PRN Reason: Hypoglycemia Protocol Dextrose (Glutose 15) 0 gm PO ONCE PRN; Protocol PRN Reason: Hypoglycemia Protocol Glucagon (Glucagen Diagnostic Kit) 0 mg IM STAT PRN; Protocol PRN Reason: Hypoglycemia Protocol Home Med (Empagliflozin [Jardiance]) 25 mg PO DAILY [facility] Last Admin: 02/23/18 08:45 Dose: 25 mg Home Med (Mesalamine [Apriso]) 4 cap PO DAILY [facility] Last Admin: 02/23/18 08:47 Dose: Not Given Insulin Human Lispro (Humalog) 0 units SC ACHS [facility]; Protocol Last Admin: 02/23/18 08:45 Dose: 3 units Methylprednisolone (Solu-Medrol) 40 mg IVP Q12 [facility] Last Admin: 02/21/18 21:40 Dose: 40 mg Ondansetron HCl (Zofran Inj) 4 mg IVP Q6 PRN PRN Reason: Nausea/Vomiting Pantoprazole Sodium (Protonix Ec Tab) 40 mg PO DAILY [facility] Last Admin: 02/23/18 08:47 Dose: 40 mg Prednisone (Prednisone Tab) 20 mg PO BID [facility] Last Admin: 02/23/18 08:47 Dose: 20 mg Sitagliptin Phosphate (Januvia) 100 mg PO DAILY [facility] Last Admin: 02/23/18 08:47 Dose: 100 mg Tobramycin/Dexamethasone (Tobradex 0.3%-0.1% Opht Oint) 1 appl OU Q6H [facility] Last Admin: 02/23/18 08:50 Dose: Not Given - Labs Labs: 02/23/18 04:30 02/23/18 04:30 Assessment and Plan (1) Pancolitis Status: Acute (2) Severe anemia Status: Acute (3) Thrombocytosis Status: Acute (4) Acute ulcerative colitis with rectal bleeding Status: Acute
--- NOTE | 2018-02-23 10:24 | PQF ---
PROVIDER RESPONSE TEXT: Hyponatremia Ruled in REVIEWER QUERY TEXT: Conflicting Documentation Clarification A single mention of Hypernatremia for the same clinical presentation appears in the record. The Na le thiago was 130 and IVF given. Please clarify the diagnosis/diagnoses. Please also document if the Hype rnatremia is: -- Confirmed and current -- Confirmed, treated and resolved -- Ruled out -- Other, please specify The patient's Clinical Indicators include: Na 130-> IVF Query created by: Mariana William on 02/23/2018 6:29 AM Electronically signed by: Jules Kowalski MD 02/23/2018 10:22 AM
[2018-02-23 12:01] LABS: JAK2 V617F NOT DETECTED
--- NOTE | 2018-02-23 12:18 | CP.PCM.PN ---
Subjective - Date & Time of Evaluation Date of Evaluation: 02/23/18 Time of Evaluation: 08:40 - Subjective Subjective: doing well Objective - Vital Signs/Intake and Output Vital Signs (last 24 hours): Temp Pulse Resp BP Pulse Ox 98.4 F 58 L 18 121/69 97 02/23/18 08:48 02/23/18 08:48 02/23/18 08:48 02/23/18 08:48 02/23/18 08:48 - Medications Medications: Current Medications Acetaminophen (Tylenol 325mg Tab) 650 mg PO Q6 PRN PRN Reason: Headache Last Admin: 02/16/18 21:18 Dose: 650 mg Dextrose (Dextrose 50% Inj) 0 ml IV STAT PRN; Protocol PRN Reason: Hypoglycemia Protocol Dextrose (Glutose 15) 0 gm PO ONCE PRN; Protocol PRN Reason: Hypoglycemia Protocol Glucagon (Glucagen Diagnostic Kit) 0 mg IM STAT PRN; Protocol PRN Reason: Hypoglycemia Protocol Home Med (Empagliflozin [Jardiance]) 25 mg PO DAILY [facility] Last Admin: 02/23/18 08:45 Dose: 25 mg Home Med (Mesalamine [Apriso]) 4 cap PO DAILY [facility] Last Admin: 02/23/18 08:47 Dose: Not Given Insulin Human Lispro (Humalog) 0 units SC ACHS [facility]; Protocol Last Admin: 02/23/18 08:45 Dose: 3 units Methylprednisolone (Solu-Medrol) 40 mg IVP Q12 [facility] Last Admin: 02/21/18 21:40 Dose: 40 mg Ondansetron HCl (Zofran Inj) 4 mg IVP Q6 PRN PRN Reason: Nausea/Vomiting Pantoprazole Sodium (Protonix Ec Tab) 40 mg PO DAILY [facility] Last Admin: 02/23/18 08:47 Dose: 40 mg Prednisone (Prednisone Tab) 20 mg PO BID [facility] Last Admin: 02/23/18 08:47 Dose: 20 mg Sitagliptin Phosphate (Januvia) 100 mg PO DAILY [facility] Last Admin: 02/23/18 08:47 Dose: 100 mg Tobramycin/Dexamethasone (Tobradex 0.3%-0.1% Opht Oint) 1 appl OU Q6H [facility] Last Admin: 02/23/18 08:50 Dose: Not Given - Labs Labs: 02/23/18 04:30 02/23/18 04:30 - Head Exam Head Exam: NORMOCEPHALIC - Neck Exam Neck Exam: Normal Inspection - Respiratory Exam Respiratory Exam: Clear to Ausculation Bilateral, Respiratory Distress, NORMAL BREATHING PATTERN - Cardiovascular Exam Cardiovascular Exam: REGULAR RHYTHM - GI/Abdominal Exam GI & Abdominal Exam: Soft, Normal Bowel Sounds Assessment and Plan - Assessment and Plan (Free Text) Assessment: 52 yo male with crohns flare doing well on steroid taper slowly outpt f/u
--- NOTE | 2018-02-23 23:07 | CP.PCM.PN ---
Subjective - Date & Time of Evaluation Date of Evaluation: 02/23/18 Time of Evaluation: 10:00 - Subjective Subjective: Feeling better Objective - Vital Signs/Intake and Output Vital Signs (last 24 hours): Temp Pulse Resp BP Pulse Ox 98.4 F 58 L 18 121/69 97 02/23/18 08:48 02/23/18 08:48 02/23/18 08:48 02/23/18 08:48 02/23/18 08:48 - Labs Labs: 02/23/18 04:30 02/23/18 04:30 - Head Exam Head Exam: ATRAUMATIC - Eye Exam Eye Exam: Normal appearance - ENT Exam ENT Exam: Mucous Membranes Dry - Respiratory Exam Respiratory Exam: NORMAL BREATHING PATTERN - Cardiovascular Exam Cardiovascular Exam: +S1, +S2 - GI/Abdominal Exam GI & Abdominal Exam: Normal Bowel Sounds Assessment and Plan (1) Severe anemia Assessment & Plan: iron deficiency from chronic GI blood loss and 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
--- NOTE | 2018-02-24 01:25 | CP.PCM.DIS ---
Provider - Provider Date of Admission: 02/13/18 11:39 Attending physician: Jules Kowalski MD Time Spent in preparation of Discharge (in minutes): 25 Diagnosis - Discharge Diagnosis (1) Pancolitis Status: Acute Priority: High (2) Severe anemia Status: Acute Priority: High (3) Thrombocytosis Status: Acute Priority: High (4) Acute ulcerative colitis with rectal bleeding Status: Acute Priority: High Hospital Course - Lab Results Lab Results: Micro Results 02/17/18 10:10 Blood Blood Culture - Final NO GROWTH AFTER 5 DAYS 02/17/18 10:10 Blood Gram Stain - Final TEST NOT PERFORMED 02/17/18 10:10 Blood Blood Culture - Final NO GROWTH AFTER 5 DAYS 02/17/18 10:10 Blood Gram Stain - Final TEST NOT PERFORMED 02/17/18 08:30 Urine,Clean Catch Urine Culture - Final No Growth (<1,000 CFU/ML) 02/15/18 05:00 Stool Stool Culture - Final NO SALMONELLA, SHIGELLA OR CAMPYLOBACTER ISOLATED. 02/15/18 05:00 Stool Ova and Parasite Concentrate Exam - Final 02/13/18 14:15 Rectum Ova and Parasite Concentrate Exam - Final Most Recent Lab Values WBC 10.2 K/uL (4.8-10.8) 02/23/18 04:30 RBC 4.25 Mil/uL (4.40-5.90) L 02/23/18 04:30 Hgb 10.5 g/dL (12.0-18.0) L 02/23/18 04:30 Hct 33.2 % (35.0-51.0) L 02/23/18 04:30 MCV 78.1 fl (80.0-94.0) L 02/23/18 04:30 MCH 24.7 pg (27.0-31.0) L 02/23/18 04:30 MCHC 31.6 g/dL (33.0-37.0) L 02/23/18 04:30 RDW 29.1 % (11.5-14.5) H 02/23/18 04:30 Plt Count 755 K/uL (130-400) H D 02/23/18 04:30 Manual Plt Count 1338 K/uL (130-400) H* 02/13/18 01:55 MPV 6.6 fl (7.2-11.7) L 02/23/18 04:30 Neut % (Auto) 77.1 % (50.0-75.0) H 02/23/18 04:30 Lymph % (Auto) 16.3 % (20.0-40.0) L 02/23/18 04:30 [place] % (Auto) 6.6 % (0.0-10.0) 02/23/18 04:30 Eos % (Auto) 0.0 % (0.0-4.0) 02/23/18 04:30 Baso % (Auto) 0.0 % (0.0-2.0) 02/23/18 04:30 Neut # (Auto) 7.8 K/uL (1.8-7.0) H 02/23/18 04:30 Lymph # (Auto) 1.7 K/uL (1.0-4.3) 02/23/18 04:30 [place] # (Auto) 0.7 K/uL (0.0-0.8) 02/23/18 04:30 Eos # (Auto) 0.0 K/uL (0.0-0.7) 02/23/18 04:30 Baso # (Auto) 0.0 K/uL (0.0-0.2) 02/23/18 04:30 Neutrophils % (Manual) 89 % (42-75) H 02/20/18 04:20 Lymphocytes % (Manual) 10 % (20-50) L 02/20/18 04:20 Monocytes % (Manual) 1 % (0-10) 02/20/18 04:20 Platelet Estimate Markedly increased (NORMAL) H 02/20/18 04:20 Large Platelets Present 02/20/18 04:20 Hypochromasia (manual) Moderate 02/20/18 04:20 Poikilocytosis (manual Slight 02/20/18 04:20 Anisocytosis (manual) Slight 02/20/18 04:20 Macrocytosis (manual) Slight 02/20/18 04:20 Tear Drop Cells Slight 02/20/18 04:20 Ovalocytes Slight 02/20/18 04:20 Retic Count 2.4 % (0.5-1.5) H 02/13/18 14:35 pO2 19 mm/Hg (30-55) L 02/13/18 11:00 VBG pH 7.42 (7.32-7.43) 02/13/18 11:00 VBG pCO2 42 mmHg (40-60) 02/13/18 11:00 VBG HCO3 25.0 mmol/L 02/13/18 11:00 VBG Total CO2 28.5 mmol/L (22-28) H 02/13/18 11:00 VBG O2 Sat (Calc) 33.1 % (40-65) L 02/13/18 11:00 VBG Base Excess 2.4 mmol/L (0.0-2.0) H 02/13/18 11:00 VBG Potassium 4.4 mmol/L (3.6-5.2) 02/13/18 11:00 Sodium 128.0 mmol/L (132-148) L 02/13/18 11:00 Chloride 99.0 mmol/L (98-107) 02/13/18 11:00 Glucose 170 mg/dL (75-110) H 02/13/18 11:00 Lactate 0.9 mmol/L (0.7-2.1) 02/13/18 11:00 FiO2 21.0 % 02/13/18 11:00 Crit Value Called To vadim Carter md 02/13/18 01:06 Crit Value Called By Trevon 02/13/18 01:06 Crit Value Read Back Y 02/13/18 01:06 Blood Gas Notified Time 115 02/13/18 01:06 Sodium 135 mmol/l (132-148) 02/23/18 04:30 Potassium 4.1 MMOL/L (3.6-5.0) 02/23/18 04:30 Chloride 102 mmol/L (98-107) 02/23/18 04:30 Carbon Dioxide 24 mmol/L (22-30) 02/23/18 04:30 Anion Gap 13 (10-20) 02/23/18 04:30 BUN 25 mg/dl (9-20) H 02/23/18 04:30 Creatinine 0.6 mg/dl (0.8-1.5) L 02/23/18 04:30 Est GFR ( Amer) > 60 02/23/18 04:30 Est GFR (Non-Af Amer) > 60 02/23/18 04:30 POC Glucose (mg/dL) 263 mg/dL (65-110) H 02/23/18 11:33 Random Glucose 290 mg/dL (75-110) H 02/23/18 04:30 Lactic Acid 0.8 MMOL/L (0.7-2.1) 02/17/18 10:10 Calcium 8.0 mg/dL (8.4-10.2) L 02/23/18 04:30 Phosphorus 3.9 mg/dl (2.5-4.5) 02/17/18 09:03 Magnesium 1.8 MG/DL (1.6-2.3) 02/17/18 09:03 Ferritin 10.6 ng/Ml (17.9-464) L 02/13/18 14:35 Total Bilirubin < 0.1 mg/dl (0.2-1.3) L 02/20/18 04:20 Direct Bilirubin 0.0 mg/ml (0.0-0.4) 02/20/18 04:20 AST 24 U/L (17-59) 02/20/18 04:20 ALT 24 U/L (21-72) 02/20/18 04:20 Alkaline Phosphatase 52 U/L (38-126) 02/20/18 04:20 Total Protein 5.5 G/DL (6.3-8.2) L 02/20/18 04:20 Albumin 2.3 g/dL (3.5-5.0) L 02/20/18 04:20 Globulin 3.2 gm/dL (2.2-3.9) 02/20/18 04:20 Albumin/Globulin Ratio 0.7 (1.0-2.1) L 02/20/18 04:20 Vitamin B12 991 pg/mL (239-931) H 02/13/18 14:35 Folate 13.5 ng/mL 02/13/18 14:35 Venous Blood Potassium 4.4 mmol/L (3.6-5.2) 02/13/18 11:00 Stool Occult Blood Positive (NEGATIVE) H 02/13/18 16:34 Stl Cryptosporidium Ag Not detected (Not detected) 02/15/18 05:00 C. difficile Ag & Toxin Negative (NEGATIVE) 02/13/18 16:34 Cryptosp/Giardia Source Stool 02/15/18 05:00 Giardia Antigen Not detected (Not Detected) 02/15/18 05:00 JAK2 V617F Specimen Peripheral blood 02/17/18 11:27 JAK2 V617F Method See below 02/17/18 11:27 JAK2 % V617F Mutation 0.0 % mutation 02/17/18 11:27 JAK2 V617F Not detected 02/17/18 11:27 JAK2 V617F Comment see note 02/17/18 11:27 JAK2 V617F Review By see note 02/17/18 11:27 Blood Type A POSITIVE 02/16/18 18:06 Antibody Screen Negative 02/16/18 18:06 Crossmatch See Detail 02/16/18 18:06 BBK History Checked Patient has bt 02/16/18 18:06 Discharge Exam - Head Exam Head Exam: ATRAUMATIC Discharge Plan - Discharge Medications Prescriptions: Mesalamine [Apriso] 1.5 gm PO DAILY #120 cap.er.24h predniSONE [predniSONE Tab] 20 mg PO BID #20 tab Pantoprazole Sodium [Protonix] 40 mg PO DAILY #30 ect - Follow Up Plan Condition: FAIR Disposition: HOME/ ROUTINE Instructions: Anemia of Chronic Disease (DC), Ulcerative Colitis (DC) Additional Instructions: follow up with pmd in 1 week Referrals: Alexander Hill [Staff Provider] - Jules Kowalski MD [Staff Provider] - Edda Randle DO [Family Provider] -
== END 2018-02-23 14:05 | disposition home or self-care (01) | DRG 179 ==
LOC: H.ER 00:10 → H.ERHOLD 11:39 → H.TEL 22:06
PROVIDERS: ADMIT Internal Medicine; ATTEND Internal Medicine
PROC: 30233N1 Transfusion of Nonautologous Red Blood Cells into Peripheral Vein, Percutaneous Approach (ICD-10-PCS; principal; 2018-02-13)
DX: K51.811 Other ulcerative colitis with rectal bleeding (principal); D62 Acute posthemorrhagic anemia; E87.1 Hypo-osmolality and hyponatremia; E87.5 Hyperkalemia; E86.0 Dehydration; D47.3 Essential (hemorrhagic) thrombocythemia; K90.89 Other intestinal malabsorption; E11.9 Type 2 diabetes mellitus without complications; I10 Essential (primary) hypertension; Z79.84 Long term (current) use of oral hypoglycemic drugs